=== PATIENT | female | born 1945 | race Caucasian/White ===

== ENCOUNTER 2020-01-03 14:54 | Outpatient (REF) | payer MEDICARE, SELFPAY ==
[2020-01-03 17:16] LABS: Albumin Level 4.6 g/dL (3.5-5.0); Estimated Glomerular Filt Rate > 60; Phosphorus 3.5 mg/dL (2.7-4.5)
[2020-01-03 17:31] LABS: Calcium 10.9 mg/dL (8.4-10.2)
[2020-01-03 17:35] LABS: Thyroid Stimulating Hormone 1.13 mIU/mL (0.32-4.0); Vitamin D 25-OH Total 24.8 ng/mL (>30)
[2020-01-04 12:17] LABS: Calcium, Ionized 5.6 mg/dL (4.8-5.6)
[2020-01-05 20:11] LABS: Calcium (PTHI) 11.1 mg/dL (8.6-10.4); PTHI 73 pg/mL (14-64)
== END 2020-01-03 14:55 | disposition home or self-care (01) ==
LOC: CF 14:54
PROVIDERS: PCP Internal Medicine; Referring Provider Internal Medicine; Visit Provider Internal Medicine
DX: E21.3 Hyperparathyroidism, unspecified (principal); E55.9 Vitamin D deficiency, unspecified; F31.9 Bipolar disorder, unspecified
CPT/HCPCS: 82040; 82306; 82310; 82330; 82565; 83970; 84100; 84443; 99203; 99204

== ENCOUNTER 2020-01-15 12:36 | Outpatient (REF) | payer MEDICARE, SELFPAY ==
[2020-01-15 13:35] LABS: Total Volume 24 Hour Urine 1925 mL
[2020-01-15 14:27] LABS: Creatinine, 24Hr Urine 0.9 G/Day (1.0-2.0); Creatinine, mg/dL 45.88
[2020-01-18 18:27] LABS: Calcium, 24 Hr Urine 162 mg/24 h; Calcium/Creatinine Ratio 185 mg/g creat (30-275); Creatinine 24Hr Urine 0.87 g/24 h (0.50-2.15)
== END 2020-01-15 12:37 | disposition home or self-care (01) ==
LOC: HO.LNP 12:36
PROVIDERS: Visit Provider Internal Medicine
DX: E21.3 Hyperparathyroidism, unspecified (principal)
CPT/HCPCS: 82340; 82570

== ENCOUNTER 2020-02-09 13:26 | Outpatient (REF) | payer MEDICARE, SELFPAY ==
--- NOTE | 2020-02-09 13:31 | MM_ITS ---
EXAMINATION: BONE DENSITOMETRY CLINICAL INDICATION: Hyperparathyroidism, unspecified. COMPARISON: This is the patient's baseline examination. TECHNIQUE: Using a Blue Box DXA System (software version: 13.1) manufactured by [employer], dual-energy x-ray absorptiometry was performed of the lumbar spine, left hip, and left forearm radius 33%. The images are of good technical quality. Summary results are attached. FINDINGS: AP SPINE L1-L4: BMD 1.226 g/cm2, Z-score 2.2, T-score 0.4, normal. LEFT FEMUR, NECK: BMD 0.787 g/cm2, Z-score 0.1, T-score -1.8, osteopenia. LEFT FEMUR, TOTAL: BMD 0.825 g/cm2, Z-score 0.3, T-score -1.4, osteopenia. LEFT FOREARM RADIUS 33%: BMD 0.458 g/cm2, Z-score -2.7, T-score -4.8, osteoporosis. IDENTIFIED RISK FACTORS: Osteoporosis, hyperparathyroidism, height loss, family history (parental hip fracture). Early menopause, secondary osteoporosis, hysterectomy. HISTORY OF FRACTURE: None listed. MEDICATIONS: Vitamin D, bisphosphonates. MM/XR DEXA appendicular skeleton IMPRESSION: 1. DIAGNOSIS: Osteoporosis based on the lowest T-score value of -4.8 in the forearm radius 33% applying World Health Organization criteria. 2. 10-YEAR FRACTURE RISK PREDICTION, FRAX: Major osteoporotic fracture (clinical spine, forearm, hip or shoulder) 18.9%. Hip fracture 7.7%. 3. Treatment Recommendations: NOF guidelines recommend consideration for treatment in postmenopausal women and men age 50 and older presenting with the following: -A hip or vertebral (clinical or morphometric) fracture. -T-score less than or equal to -2.5 at the femoral neck or spine after appropriate evaluation to exclude secondary causes. -Low bone mass at the hip or spine and a 10-year fracture probability by FRAX of greater than or equal to 3% for hip fracture or greater than or equal to 20% for major osteoporotic fracture based on the [place] adapted WHO algorithm. 4. Other Recommendations: All treatment decisions require clinical judgment and consideration of individual patient factors, including patient preferences, comorbidities, previous drug use, risk factors not captured in the FRAX model (e.g. frailty, falls, vitamin D deficiency, increased bone turnover, interval significant decline in bone density) and possible under or overestimation of fracture risk by FRAX. Additional medical evaluation for secondary cause of low bone mineral density may be appropriate. FUTURE SCAN RECOMMENDATION: People with diagnosed cases of osteoporosis or at high risk for fracture should have regular bone mineral density tests. For patients eligible for Medicare, routine testing is allowed once every 2 years. The testing frequency can be increased to one year for patients who have rapidly progressing disease, those who are receiving or discontinuing medical therapy to restore bone mass, or have additional risk factors.
== END 2020-02-09 13:27 | disposition home or self-care (01) ==
LOC: HO.MAMMO 13:26
PROVIDERS: PCP Internal Medicine; Visit Provider Internal Medicine
DX: E21.3 Hyperparathyroidism, unspecified (principal)
CPT/HCPCS: 77081

== ENCOUNTER 2020-02-19 08:37 | Outpatient (REF) | payer MEDICARE, SELFPAY ==
--- NOTE | 2020-02-19 08:39 | US_ITS ---
EXAMINATION: US ABDOMEN COMPLETE CLINICAL INFORMATION: Left lower quadrant pain. COMPARISON: Ultrasound abdomen 11/06/2019 and 12/20/2017. MRI abdomen 01/13/2013. TECHNIQUE: Real-time imaging of the abdominal viscera. FINDINGS: PANCREAS: The body and the head of pancreas is homogeneous in echotexture. The tail of the pancreas is obscured by overlying gas. ABDOMINAL AORTA: The proximal, mid and distal abdominal aorta is normal caliber. INFERIOR VENA CAVA: Visualized portions are normal. LIVER: The liver is normal in size. The liver contour is normal. There is a coarse echotexture with no focal lesions seen. There is no intrahepatic biliary duct dilatation seen. GALLBLADDER: Surgically absent. COMMON BILE DUCT: Normal in caliber measuring 0.6 cm in diameter. RIGHT KIDNEY: Normal. No hydronephrosis. No renal calculi or focal parenchymal lesions. The kidney measures 11.5 cm in maximum dimension. LEFT KIDNEY: Normal. No hydronephrosis. No renal calculi or focal parenchymal lesions. The kidney measures 10.3 cm in maximum dimension. SPLEEN: Normal. The spleen measures 11.5 cm in maximum dimension. FREE FLUID: None. US/US abdomen complete IMPRESSION: Coarse echogenic liver without any focal lesions. No major change compared to previous study 11/06/2019 Rest of the abdominal ultrasound is unremarkable.
--- NOTE | 2020-02-19 08:39 | US_ITS ---
EXAMINATION: US THYROID CLINICAL INFORMATION: Hyperparathyroidism, unspecified. COMPARISON: None. TECHNIQUE: Linear transducer alas-scale and color Doppler examination with attention to the region of the thyroid. FINDINGS: SIZE: Measurements of the thyroid lobes and nodules are given in sagittal, anteroposterior and transverse dimensions respectively. Right Thyroid Lobe: 3.4 x 1.2 x 1.3 cm, volume 2.8 mL. Parenchyma: The gland echotexture is homogeneous. Thyroid vascularity is normal. Left Thyroid Lobe: 3.6 x 1.8 x 1.2 cm, volume 4.1 mL. Parenchyma: The gland echotexture is homogeneous. Thyroid vascularity is normal. Isthmus: 0.2 cm in maximum AP dimension. RIGHT THYROID LOBE: There are 2 nodules seen. 1. Location: Inferior. Size: 0.2 x 0.2 x 0.2 cm. Nodule characteristics: Hypoechoic, smoothly marginated with echogenic microcalcifications and intranodular flow, likely colloid cyst. 2. Location: Middle. Size: 0.4 x 0.2 x 0.3 cm. Nodule characteristics: Hypoechoic, irregular-shaped margins with microcalcifications and no intranodular flow, likely colloid cyst. ISTHMUS: No nodules. LEFT THYROID LOBE: There are 2 nodules seen. 1. Location: Inferior. Size: 1.4 x 1.1 x 0.7 cm. Nodule characteristics: Hypoechoic, smoothly marginated with no intranodular microcalcifications and intranodular flow. 2. Location: Inferior. Size: 0.4 x 0.3 x 0.4 cm. Nodule characteristics: Hypoechoic, smoothly marginated with peripheral vascular flow, likely simple cyst. NODES: No lymphadenopathy is seen in the tissue surrounding the thyroid gland. US/US thyroid IMPRESSION: Right colloid and a simple cyst. Solid hypoechoic vascular lesion lower pole left thyroid lobe, suspicious. Recommend 6-month follow-up.
== END 2020-02-19 08:38 | disposition home or self-care (01) ==
LOC: HO.US 08:37
PROVIDERS: PCP Internal Medicine; Referring Provider Internal Medicine; Visit Provider Internal Medicine
DX: R10.32 Left lower quadrant pain (principal); E21.3 Hyperparathyroidism, unspecified; R77.2 Abnormality of alphafetoprotein
CPT/HCPCS: 76536; 76700

== ENCOUNTER → 2020-03-07 10:07 | Outpatient (BNVA) | payer MEDICARE, SELFPAY | PROVIDERS: PCP Internal Medicine; Referring Provider Internal Medicine; Visit Provider Internal Medicine | DX: E21.3 Hyperparathyroidism, unspecified (principal); E04.2 Nontoxic multinodular goiter; E55.9 Vitamin D deficiency, unspecified; Z87.891 Personal history of nicotine dependence | CPT/HCPCS: Q3014 ==

== ENCOUNTER 2020-05-02 08:49 | Outpatient (REF) | payer MEDICARE, SELFPAY ==
--- NOTE | 2020-05-02 09:17 | PM.OP ---
Brief Operative Note Date of Service: 05/02/20 Surgeon: Halina Arriaza, DO The Patient presented for US Biopsy of what was read as a LLP 1.4 cm thyroid nodule. On repeat thyroid US this was found to not represent a thyroid nodule, but instead a parathyroid adenoma. We reviewed her labs in detail which are consistent with primary hyperparathyroidism. Her Total Calcium is 11.1, with an albumin of 4.3 and PTH of 73. Vitamin D is 24.8. DEXA reveals severe Osteoporosis in the distal forearm with a T score of -4.8. We reviewed that this does meet indication for a surgical parathyroidectomy. I am referring her to Dr. Constanitno at this time. Estimated blood loss (mL): 0
== END 2020-05-02 08:50 | disposition home or self-care (01) ==
LOC: HO.US 08:49
PROVIDERS: Visit Provider Internal Medicine
DX: D35.1 Benign neoplasm of parathyroid gland (principal)
CPT/HCPCS: 76536

== ENCOUNTER → 2020-05-16 11:19 | Outpatient (BNVA) | payer MEDICARE, SELFPAY | PROVIDERS: Visit Provider Internal Medicine | DX: Z76.89 Persons encountering health services in other specified circumstances (principal) | CPT/HCPCS: Q3014 ==

== ENCOUNTER 2020-05-23 11:15 | Outpatient (REF) | payer MEDICARE, SELFPAY ==
[2020-05-23 12:51] LABS: Alanine Aminotransferase 12 U/L (0-31); Albumin Level 4.5 g/dL (3.5-5.0); Alkaline Phosphatase 68 U/L (39-117); Aspartate Amino Transferase 20 U/L (5-31); Bilirubin Total 0.6 mg/dL (0.0-1.0); Blood Urea Nitrogen 18 mg/dL (9-16); Estimated Glomerular Filt Rate > 60; Glucose Random 80 mg/dL (60-115); Total Protein 7.9 g/dL (6.5-8.0)
[2020-05-23 13:13] LABS: Free T4 (Free Thyroxine) 1.08 ng/dL (0.71-1.85); Thyroid Stimulating Hormone 1.33 uIU/mL (0.32-4.0)
[2020-05-23 13:47] LABS: Anion Gap 15 (12-20); Calcium 10.7 mg/dL (8.4-10.2); Carbon Dioxide 25 mmol/L (22-29); Chloride 103 mmol/L (96-108); Potassium 5.1 mmol/L (3.3-5.1); Sodium 138 mmol/L (135-145)
[2020-05-27 13:56] LABS: Calcium (PTHI) 10.8 mg/dL (8.6-10.4); PTHI 81 pg/mL (14-64)
== END 2020-05-23 11:16 | disposition home or self-care (01) ==
LOC: HO.LAB 11:15
PROVIDERS: PCP Psychiatry & Neurology Neurology; Visit Provider Internal Medicine
DX: E04.2 Nontoxic multinodular goiter (principal); E55.9 Vitamin D deficiency, unspecified
CPT/HCPCS: 36415; 80053; 82306; 83970; 84439; 84443

== ENCOUNTER → 2020-08-12 11:50 | Outpatient (BNVA) | payer MEDICARE, SELFPAY | PROVIDERS: PCP Internal Medicine; Visit Provider Internal Medicine | DX: Z13.89 Encounter for screening for other disorder (principal) | CPT/HCPCS: Q3014 ==

== ENCOUNTER 2020-08-28 15:00 | Outpatient (RCR) | payer MEDICARE, OTHER, SELFPAY ==
[2020-08-22 10:57] VITALS: BP 106/70
--- NOTE | 2020-08-22 12:50 | MHC.PT.EP ---
[facility] [place] Office [place] Office [place] Office [address] Kusum Crawford [address] [phone] F: [phone] F: [phone] F: [phone] F: [phone] Physical Therapy Plan of Care Date of Evaluation: Date of Surgery: Diagnosis: dizziness and giddiness Assessment: 75 y/o female referred to PT with dizziness and giddiness. She has had BPPV 4 years ago with successful treatment. About 8 months ago, she started having room-spinning dizziness again (she thinks it is due to significant work-up and tests for parathyroid which will be removed end of 08/2020). Describes vertigo as room-spinning dizziness that lasts a few minutes with associated nausea. Typically occurs when she rolls to her L side. Examination shows decreased cervical AROM, (-) VBI B, WNL oculomotor, static balance WFL with mild sway during eyes close on airex condition, and (+) for L PC and L horizontal canal BPPV. She was treated with Angella Roll x 2 for L posterior canal and with Casani maneuver for L horizontal canal. Pt with nausea during horizontal canal treatment. All treatments down slow and smoothly due to PMH of osteoporosis. Pt would benefit from PT 2-3x/week for 4 weeks to address impairments, implement HEP and optimize functional mobilty. Frequency and Duration: The patient will be seen 2-3x/week for 4 weeks Short Term Goals: 1. Eliminate BPPV in order to reduce risk of fall Interior Mechanic Goals: 1. Eliminate BPPV in order to reduce risk of fall 2. Pt will look up to rinse hair in shower without LOB or dizziness 3. Pt will be ableto roll over in bed without dizziness or difficulty Treatment Plan: Modalities to reduce pain, spasms and effusion. Manual therapy to restore motion and function. Therapeutic exercise to improve strength and flexibility. Neuromuscular re-education for posture and balance. Therapeutic activities to return to functional activities of daily living. Electronically signed by: Zoraida Cassidy PT Please sign and return to therapist. Thank you for your referral.
--- NOTE | 2020-10-04 13:13 | MHC.PT.DC ---
[facility] [place] Office [place] Office [place] Office [address] Kusum Crawford [address] [phone] F: [phone] F: [phone] F: [phone] F: [phone] Physical Therapy Discharge Report Diagnosis: dizziness and giddiness Date of Surgery: Date of Evaluation: 08/22/20 Date of Discharge: 10/04/20 Treatments to Date: 2 Cancellations to Date: 0 No Shows to Date: 0 Discharge Status: Achieved Goals Improved Function Discharge Summary: Pt was negative for nystagmus and symptoms in all diagnostic positions today. Educated pt on when to return to PT if recurrence of vertigo within 30 days. If within 30 days, she has not returned to PT will d/c the chart. She did not f/u with further visits. Electronically signed by: Zoraida Cassidy PT Please sign and return to therapist. Thank you for your referral.
== END 2020-10-04 13:14 | disposition home or self-care (01) ==
LOC: HO.PTCHIC 15:00
PROVIDERS: PCP Internal Medicine; Visit Provider Internal Medicine
DX: H81.12 Benign paroxysmal vertigo, left ear (principal)
CPT/HCPCS: 95992; 97162

== ENCOUNTER → 2020-12-30 11:50 | Outpatient (BNVA) | payer MEDICARE, OTHER, SELFPAY | PROVIDERS: PCP Internal Medicine; Visit Provider Internal Medicine | DX: Z13.89 Encounter for screening for other disorder (principal) | CPT/HCPCS: Q3014 ==

== ENCOUNTER 2021-01-02 11:16 | Outpatient (REF) | payer MEDICARE, OTHER, SELFPAY ==
--- NOTE | ~2021-01-02 | US_ITS ---
EXAMINATION: US THYROID CLINICAL INFORMATION: Nontoxic multinodular goiter. COMPARISON: Ultrasound soft tissue head/neck thyroid dated 02/19/2020. TECHNIQUE: Linear transducer grayscale and color Doppler examination with attention to the region of the thyroid. FINDINGS: SIZE: Measurements of the thyroid lobes and nodules are given in sagittal, anteroposterior and transverse dimensions respectively. Right Thyroid Lobe: 3.2 x 1.6 x 1.1 cm, volume 2.9 mL. Previously 3.4 x 1.2 x 1.3 cm, volume 2.8 mL. Parenchyma: The gland echotexture is homogeneous. Thyroid vascularity is increased. Left Thyroid Lobe: 3.3 x 1.4 x 0.9 cm, volume 2.2 mL. Previously 3.6 x 1.8 x 1.2 cm, volume 4.1 mL. Parenchyma: The gland echotexture is homogeneous. Thyroid vascularity is increased. Isthmus: 0.3 cm in maximum AP dimension. Previously 0.2 cm. Estimated total number of nodules greater than or equal to 1 cm: 0. Migratory Worker nodules are described as follows: 1. Location: Right isthmus. Size: 0.2 x 0.1 x 0.2 cm, volume 0.003 mL. Previously: 0.2 x 0.2 x 0.2 cm, volume 0.004 mL. Nodule characteristics: Composition: Cystic(0). ACR TI-RADS total points: 0 Previous: n/a ACR TI-RADS category: 1 Previous: n/a Significant change in size (>/= 20% in 2 dimensions and minimal increase of 2 mm or 50% or greater increase in volume): Change in features: Change in ACR TI-RADS risk category: n/a 2. Location: Right inferior isthmus. Size: 0.4 x 0.2 x 0.3 cm, volume 0.01 mL. Previously: 0.4 x 0.2 x 0.3 cm, volume 0.01 mL. Nodule characteristics: Composition: Cystic(0). ACR TI-RADS total points: 0 Previous: n/a ACR TI-RADS category: 1 Previous: n/a Significant change in size (>/= 20% in 2 dimensions and minimal increase of 2 mm or 50% or greater increase in volume): Change in features: Change in ACR TI-RADS risk category: n/a NODES: There is a right level 2 cervical lymph node. This measures 3.1 x 0.5 x 1.1 cm. This demonstrates normal ultrasound morphology and flow. This was not appreciated on January 2020 exam. US/US thyroid IMPRESSION: Small hypervascular thyroid gland. Stable small right isthmus nodules. ACR TI-RADS RECOMMENDATION REFERENCE: Ultrasound-guided fine-needle aspiration, followup ultrasound, no further follow up. * TR1 (0 point) and TR 2 (2 points): No FNA or follow up * TR3 (3 points): FNA if more than or equal to 2.5 cm in maximum dimension, followup ultrasound in 1, 3 and 5 years if 1.5 to 2.4 cm in maximum dimension. * TR4 (4-6 points): FNA if more than or equal to 1.5 cm in maximum dimension, followup ultrasound in 1, 2, 3 and 5 years if 1 to 1.4 cm in maximum dimension. * TR5 (more than or equal to 7 points): FNA if more than or equal to 1 cm in maximum dimension, followup ultrasound every year for 5 years if 0.5 to 0.9 cm in maximum dimension. * TR3, TR4 or TR5 nodules that are below the size threshold for follow up receive no follow up.
[2021-01-02 14:08] LABS: Alanine Aminotransferase 10 U/L (0-31); Albumin Level 4.3 g/dL (3.5-5.0); Alkaline Phosphatase 58 U/L (39-117); Anion Gap 13 (12-20); Aspartate Amino Transferase 18 U/L (5-31); Bilirubin Total 0.6 mg/dL (0.0-1.0); Blood Urea Nitrogen 18 mg/dL (9-16); Calcium 9.8 mg/dL (8.4-10.2); Carbon Dioxide 27 mmol/L (22-29); Chloride 103 mmol/L (96-108); Estimated Glomerular Filt Rate > 60; Glucose Random 91 mg/dL (60-115); Phosphorus 3.6 mg/dL (2.7-4.5); Potassium 4.8 mmol/L (3.3-5.1); Sodium 138 mmol/L (135-145); Total Protein 7.6 g/dL (6.5-8.0)
[2021-01-02 14:33] LABS: Free T4 (Free Thyroxine) 1.03 ng/dL (0.71-1.85); Thyroid Stimulating Hormone 1.95 uIU/mL (0.32-4.0); Vitamin D 25-OH Total 48.8 ng/mL (>30)
[2021-01-03 11:22] LABS: Calcium (PTHI) 9.9 mg/dL (8.6-10.4); PTHI 72 pg/mL (14-64)
== END 2021-01-02 11:17 | disposition home or self-care (01) ==
LOC: HO.HMGCX 11:16
PROVIDERS: PCP Internal Medicine; Visit Provider Internal Medicine
DX: E04.2 Nontoxic multinodular goiter (principal); E55.9 Vitamin D deficiency, unspecified; M81.0 Age-related osteoporosis without current pathological fracture
CPT/HCPCS: 36415; 76536; 80053; 82306; 83970; 84100; 84439; 84443

== ENCOUNTER 2021-01-13 13:33 | Outpatient (REF) | payer MEDICARE, OTHER, SELFPAY ==
[2021-01-13 14:34] LABS: Alanine Aminotransferase 10 U/L (0-31); Albumin Level 4.4 g/dL (3.5-5.0); Alkaline Phosphatase 56 U/L (39-117); Anion Gap 13 (12-20); Aspartate Amino Transferase 19 U/L (5-31); Bilirubin Total 0.6 mg/dL (0.0-1.0); Blood Urea Nitrogen 15 mg/dL (9-16); Calcium 9.8 mg/dL (8.4-10.2); Carbon Dioxide 26 mmol/L (22-29); Chloride 105 mmol/L (96-108); Estimated Glomerular Filt Rate > 60; Glucose Random 97 mg/dL (60-115); Phosphorus 3.4 mg/dL (2.7-4.5); Potassium 5.3 mmol/L (3.3-5.1); Sodium 139 mmol/L (135-145); Total Protein 7.7 g/dL (6.5-8.0)
[2021-01-14 16:05] LABS: Calcium (PTHI) 9.7 mg/dL (8.6-10.4); PTHI 108 pg/mL (14-64)
== END 2021-01-13 13:34 | disposition home or self-care (01) ==
LOC: HO.LAB 13:33
PROVIDERS: PCP Internal Medicine; Visit Provider Internal Medicine
DX: E21.3 Hyperparathyroidism, unspecified (principal)
CPT/HCPCS: 36415; 80053; 83970; 84100

== ENCOUNTER 2021-01-15 11:31 | Outpatient (REF) | payer MEDICARE, OTHER, SELFPAY ==
[2021-01-15 13:17] LABS: Anion Gap 12 (12-20); Blood Urea Nitrogen 13 mg/dL (9-16); Calcium 10.1 mg/dL (8.4-10.2); Carbon Dioxide 28 mmol/L (22-29); Chloride 103 mmol/L (96-108); Estimated Glomerular Filt Rate > 60; Glucose Random 92 mg/dL (60-115); Sodium 138 mmol/L (135-145)
[2021-01-15 13:33] LABS: Creatinine, mg/dL 53.18
[2021-01-15 13:39] LABS: Vitamin D 25-OH Total 55.6 ng/mL (>30)
[2021-01-15 15:29] LABS: Creatinine, 24Hr Urine 0.8 G/Day (1.0-2.0); Total Volume 24 Hour Urine 1425 mL
[2021-01-16 18:02] LABS: Calcium, 24 Hr Urine 48 mg/24 h; Calcium/Creatinine Ratio 67 mg/g creat (30-275); Creatinine 24Hr Urine 0.73 g/24 h (0.50-2.15)
== END 2021-01-15 11:32 | disposition home or self-care (01) ==
LOC: HO.LAB 11:31
PROVIDERS: PCP Internal Medicine; Visit Provider Internal Medicine
DX: M81.0 Age-related osteoporosis without current pathological fracture (principal); E55.9 Vitamin D deficiency, unspecified; E21.3 Hyperparathyroidism, unspecified
CPT/HCPCS: 36415; 80048; 82306; 82340; 82570

== ENCOUNTER 2021-01-16 07:02 | Outpatient (REF) | payer MEDICARE, OTHER, SELFPAY ==
[2021-01-16 07:40] LABS: Estimated Glomerular Filt Rate > 60
[2021-01-16 08:56] LABS: Cortisol Random 10.4 ug/dL
[2021-01-22 17:02] LABS: Adrenocorticotropic Hormone 17 pg/mL (6-50)
== END 2021-01-16 07:03 | disposition home or self-care (01) ==
LOC: HO.LAB 07:02
PROVIDERS: PCP Internal Medicine; Visit Provider Internal Medicine
DX: E21.3 Hyperparathyroidism, unspecified (principal); E87.5 Hyperkalemia
CPT/HCPCS: 36415; 82024; 82533; 82565

== ENCOUNTER 2021-01-27 07:37 | Outpatient (REF) | payer MEDICARE, OTHER, SELFPAY ==
[2021-01-28 16:42] LABS: Adrenocorticotropic Hormone 24 pg/mL (6-50)
[2021-01-28 20:27] LABS: Cortisol 30 Minute 31.7 mcg/dL; Cortisol 60 Minute 36.3 mcg/dL; Cortisol Baseline 19.3 mcg/dL
== END 2021-01-27 07:38 | disposition home or self-care (01) ==
LOC: HO.MDS 07:37
PROVIDERS: PCP Internal Medicine; Visit Provider Internal Medicine
DX: E27.1 Primary adrenocortical insufficiency (principal)
CPT/HCPCS: 36415; 82024; 82533; 96374; J0834

== ENCOUNTER 2021-01-31 11:02 | Outpatient (REF) | payer MEDICARE, OTHER, SELFPAY ==
--- NOTE | ~2021-01-31 | MM_ITS ---
EXAMINATION: MM SCREENING DIGITAL BREAST TOMOSYNTHESIS, BILATERAL CLINICAL INFORMATION: Screening. Asymptomatic. The lifetime risk of breast cancer based on the Tyrer-Cuzick Model is 6%. COMPARISON: Mammography: 12/14/2019, outside mammography 12/22/2018 ([facility]) TECHNIQUE: Digital breast tomosynthesis is performed in both the craniocaudal and mediolateral oblique views along with computer-aided detection (CAD). Synthesized 2D images are generated from the tomosynthesis. FINDINGS: There are scattered areas of fibroglandular density (ACR BI-RADS breast composition Category b). There is denser breast tissue composition in the bilateral anterior breasts similar to prior studies. There is no significant change in the parenchymal pattern. No developing density or interval mass or architectural abnormality. No abnormal calcifications. The axilla and skin contours are unremarkable. MM/MM tomosynthesis screening BI IMPRESSION: No mammographic evidence of malignancy. ASSESSMENT: BI-RADS 1: Negative RECOMMENDATION: Routine annual mammography screening. This patient's information was entered into a reminder system with a target due date for their next mammogram.
== END 2021-01-31 11:03 | disposition home or self-care (01) ==
LOC: HO.MAMMO 11:02
PROVIDERS: Visit Provider Internal Medicine
DX: Z12.31 Encounter for screening mammogram for malignant neoplasm of breast (principal)
CPT/HCPCS: 77063; 77067

== ENCOUNTER → 2021-02-24 09:20 | Outpatient (BNVA) | payer MEDICARE, OTHER, SELFPAY | PROVIDERS: PCP Internal Medicine; Visit Provider Internal Medicine | CPT/HCPCS: Q3014 ==

== ENCOUNTER 2021-04-25 15:22 | Outpatient (REF) | payer MEDICARE, OTHER, SELFPAY ==
[2021-04-25 15:50] LABS: MANUAL DIFF FLAG NO
[2021-04-25 15:57] LABS: Basophils Percent Auto 0.4 % (0-2); Eosinophils Absolute Auto 0.3 X10*3/uL (0.0-0.4); Eosinophils Percent Auto 3.2 % (0-4); Hematocrit 41.6 % (37.0-47.0); Imm Gran Abs Auto 0.02 X10*3/uL (0.00-0.03); Imm Gran Pct Auto 0.2 % (0.0-0.4); Lymphocytes Absolute Auto 1.8 X10*3/uL (1.2-4.9); Lymphocytes Percent Auto 21.5 % (20-40); Mean Corpuscular HGB Conc 33.7 g/dl (31.0-35.0); Mean Platelet Volume 10.5 fL (9.4-12.3); Monocytes Absolute Auto 0.6 X10*3/uL (0.1-1.2); Monocytes Percent Auto 6.9 % (2-11); Neutrophils Absolute Auto 5.8 x10*3/uL (2.0-8.3); Neutrophils Percent Auto 67.8 % (45-73); Platelet Count 184 X10*3/uL (160-400); Red Blood Count 4.38 X10*6/uL (4.20-5.50); Red Cell Distribution Width 11.9 % (11.0-16.0); White Blood Count 8.5 X10*3/uL (4.8-10.8)
[2021-04-25 16:02] LABS: Prothrombin Time 11.4 SEC (9.9-13.0)
[2021-04-25 16:36] LABS: Alanine Aminotransferase 8 U/L (0-31); Albumin Level 4.4 g/dL (3.5-5.0); Alkaline Phosphatase 62 U/L (39-117); Aspartate Amino Transferase 18 U/L (5-31); Bilirubin Direct 0.2 mg/dL (0.0-0.5); Bilirubin Total 0.5 mg/dL (0.0-1.0); Total Protein 8.1 g/dL (6.5-8.0)
[2021-04-28 13:02] LABS: Alpha Fetoprotein 7.8 ng/mL
[2021-05-01 07:57] LABS: HCV Log PCR <1.18 log IU/mL; HepC Viral Load <15 IU/mL
== END 2021-04-25 15:23 | disposition home or self-care (01) ==
LOC: HO.LAB 15:22
PROVIDERS: Absent Provider Internal Medicine; PCP Internal Medicine; Visit Provider Internal Medicine
DX: K74.00 Hepatic fibrosis, unspecified (principal); Z86.19 Personal history of other infectious and parasitic diseases
CPT/HCPCS: 36415; 80076; 82105; 85025; 85610; 87522

== ENCOUNTER 2021-06-02 08:07 | Outpatient (REF) | payer MEDICARE, OTHER, SELFPAY ==
--- NOTE | ~2021-06-02 | US_ITS ---
EXAMINATION: US COMPLETE ABDOMEN WITH LIVER ELASTOGRAPHY CLINICAL INFORMATION: Hepatitis C COMPARISON: None. TECHNIQUE: Real-time imaging of the abdominal viscera. Noninvasive ultrasound liver fibrosis assessment is performed using Bela ElastPQ point quantification shear wave elastography (2D-SWE) with a C5-2 MHz transducer. Multiple elastography samples are obtained. FINDINGS: PANCREAS: Normal. ABDOMINAL AORTA: The proximal, middle, and distal aortic segments are normal in caliber. INFERIOR VENA CAVA: Visualized portions are normal. LIVER: Liver echotexture is slightly increased. The liver echotexture is heterogeneous suggestive of hepatocellular disease. The contour of the liver is smooth. No focal liver lesion or biliary duct dilatation. The liver is normal in size. The right lobe measures 15 cm in length. The left lobe measures 10 cm in length. Portal flow is normal/hepatopedal Shear wave liver elastography median stiffness is 1 m/s (reference: normal median stiffness is 1.3 m/s or less). IQR/median stiffness to assess sampling precision is 2.2 (reference: good quality data set is IQR/median stiffness of 0.15 or less). GALLBLADDER: Surgically removed COMMON BILE DUCT: Normal in caliber measuring 0.5 cm in diameter. RIGHT KIDNEY: Normal. No hydronephrosis. No renal calculi or focal parenchymal lesions. The kidney measures 8.2 cm in maximum dimension. LEFT KIDNEY: Normal. No hydronephrosis. No renal calculi or focal parenchymal lesions. The kidney measures 9.6 cm in maximum dimension. SPLEEN: Normal. The spleen measures 11.7 cm in maximum dimension. FREE FLUID: None. US/US abdomen comp w elastography IMPRESSION: 1. Impression: Echogenic heterogeneous liver suggestive of hepatocellular disease. 2. Liver elastography: Limited due to sampling error. Nondiagnostic exam. REFERENCE: Society of Radiologists in Ultrasound Liver Stiffness Thresholds (2020): LIVER STIFFNESS THRESHOLDS: *Liver Stiffness equal or less than 1.3 m/s: High probability of being normal. *Liver Stiffness less than 1.7 m/s: In the absence of other known clinical signs, rules out compensated advanced chronic liver disease. *Liver Stiffness 1.7-2.1 m/s: Suggestive of compensated advanced chronic liver disease but need further test for confirmation. *Liver Stiffness over 2.1 m/s: Rules in compensated advanced chronic liver disease. *Liver Stiffness over 2.4 m/s: Suggestive of clinically significant portal hypertension. QUALITY OF DATA SET: *IQR/Median value equal or less than 0.15 implies a quality data set. *IQR/Median value over 0.15 implies a poor quality data set. SIGNIFICANT CHANGE FROM PRIOR EXAM: Significant change if liver stiffness measurement is 10% or greater from prior exam. OTHER CONSIDERATIONS: The stage of liver fibrosis may be overestimated in the setting of acute hepatitis, liver inflammation, elevated liver function tests, hepatic vascular congestion, obstructive cholestasis, non-fasting state, and infiltrative diseases such as amyloidosis and lymphoma. In some patients with NAFLD, the liver stiffness thresholds for compensated advanced chronic liver disease may be lower. In causes other than viral hepatitis and NAFLD, liver stiffness thresholds are not well established.
== END 2021-06-02 08:08 | disposition home or self-care (01) ==
LOC: HO.US 08:07
PROVIDERS: PCP Internal Medicine; Visit Provider Internal Medicine
DX: K74.00 Hepatic fibrosis, unspecified (principal); Z86.19 Personal history of other infectious and parasitic diseases
CPT/HCPCS: 76705; 76981

== ENCOUNTER 2021-06-09 08:36 | Outpatient (REF) | payer MEDICARE, OTHER, SELFPAY ==
[2021-06-09 09:45] LABS: Anion Gap 11 (12-20); Carbon Dioxide 28 mmol/L (22-29); Chloride 104 mmol/L (96-108); Potassium 5.3 mmol/L (3.3-5.1); Sodium 138 mmol/L (135-145)
[2021-06-09 09:46] LABS: Alanine Aminotransferase 10 U/L (0-31); Albumin Level 4.4 g/dL (3.5-5.0); Alkaline Phosphatase 57 U/L (39-117); Aspartate Amino Transferase 20 U/L (5-31); Bilirubin Total 0.7 mg/dL (0.0-1.0); Blood Urea Nitrogen 15 mg/dL (9-16); Calcium 10.1 mg/dL (8.4-10.2); Estimated Glomerular Filt Rate > 60; Glucose Random 94 mg/dL (60-115); Phosphorus 3.4 mg/dL (2.7-4.5); Total Protein 7.9 g/dL (6.5-8.0)
[2021-06-09 10:08] LABS: Thyroid Stimulating Hormone 1.59 uIU/mL (0.32-4.0); Vitamin D 25-OH Total 47.7 ng/mL (>30)
[2021-06-10 14:31] LABS: Calcium (PTHI) 9.9 mg/dL (8.6-10.4); PTHI 93 pg/mL (16-77)
== END 2021-06-09 08:37 | disposition home or self-care (01) ==
LOC: HO.LAB 08:36
PROVIDERS: PCP Internal Medicine; Visit Provider Internal Medicine
DX: E21.3 Hyperparathyroidism, unspecified (principal); E87.5 Hyperkalemia; E55.9 Vitamin D deficiency, unspecified; E04.2 Nontoxic multinodular goiter
CPT/HCPCS: 36415; 80053; 82306; 83970; 84100; 84439; 84443

== ENCOUNTER 2021-06-11 08:18 | Outpatient (REF) | payer MEDICARE, OTHER, SELFPAY ==
[2021-06-11 10:23] LABS: Anion Gap 15 (12-20); Blood Urea Nitrogen 16 mg/dL (9-16); Calcium 10.7 mg/dL (8.4-10.2); Carbon Dioxide 23 mmol/L (22-29); Chloride 104 mmol/L (96-108); Estimated Glomerular Filt Rate > 60; Glucose Random 90 mg/dL (60-115); Phosphorus 3.8 mg/dL (2.7-4.5); Sodium 137 mmol/L (135-145)
[2021-06-11 10:29] LABS: Vitamin D 25-OH Total 41.3 ng/mL (>30)
[2021-06-12 12:51] LABS: Calcium (PTHI) 10.2 mg/dL (8.6-10.4); PTHI 64 pg/mL (16-77)
== END 2021-06-11 08:19 | disposition home or self-care (01) ==
LOC: HO.LAB 08:18
PROVIDERS: PCP Internal Medicine; Visit Provider Internal Medicine
DX: E21.3 Hyperparathyroidism, unspecified (principal); Z79.899 Other long term (current) drug therapy; E04.2 Nontoxic multinodular goiter; E55.9 Vitamin D deficiency, unspecified; M81.0 Age-related osteoporosis without current pathological fracture; E87.5 Hyperkalemia
CPT/HCPCS: 36415; 80048; 82306; 83970; 84100; Q3014

== ENCOUNTER 2021-06-13 12:11 | Day surgery (SDC) | payer MEDICARE, OTHER, SELFPAY ==
--- NOTE | 2021-06-11 14:55 | P.CONAN_ITS ---
Documented by User: Courtney Swain NP 06/11/21 14:56 HPI - Anesthesia Eval Consult details Narrative: 76yo F for Colonoscopy PMFSH Active Problems Active Problems: All Active Problems (Updated 06/11/21 @ 08:38 by Halina Arriaza DO) Hyperkalemia (Acute) Shortness of breath (Acute) Chronic GERD (Acute) Environmental allergies (Acute) Tinea corporis (Acute) Fear of travel with panic attacks (Acute) High potassium (Acute) Osteoporosis (Acute) Multinodular thyroid (Acute) Left lower quadrant pain (Acute) Elevated alpha fetoprotein (Acute) Anxiety, generalized (Acute) Vertigo (Acute) Vitamin D deficiency (Acute) Hyperparathyroidism (Acute) Past Medical History Medical History (Updated 06/13/21 @ 13:06 by Sharee Mcdowell, SIENA) Anxiety, generalized Depression Elevated alpha fetoprotein GERD (gastroesophageal reflux disease) Hepatitis C High potassium HTN (hypertension) Hyperkalemia Hyperparathyroidism Irritable bowel syndrome Left lower quadrant pain Liver fibrosis Multinodular thyroid Osteoporosis PFO (patent foramen ovale) TIA (transient ischemic attack) Vertigo Vitamin D deficiency Family History Family History Maternal Grandmother T2DM (type 2 diabetes mellitus) Father Colon cancer Cancer Multiple myeloma Mother Brain disorder Thyroid disease Sister Thyroid nodule Hyperparathyroidism Hyperthyroidism Maternal Grandfather Heart disease Other Mental health disorder Substance use disorder Surgical History Surgical History History of lumpectomy of right breast Hx of cholecystectomy Hx of colonoscopy Hx of hysterectomy Hx of parathyroidectomy Social History Social History Household Members: None Housing: Other (mobile home) Alcohol intake: current Alcohol intake frequency: holidays/special occasions only Patient Tobacco Use Status: Never used Tobacco Tobacco use type: Cigarette Use of substances other than those prescribed or required for medical reasons: No Are you DNR?: No Advance Directives: No Advance Directives Information Provided: Yes Current occupational status: retired Meds Allergies Allergy/AdvReac Type Severity Reaction Status Date / Time meclizine AdvReac High doses Verified 06/11/21 08:26 Home Medications Medication Instructions Recorded Confirmed Last Taken Type cholecalciferol (vitamin D3) 25 25 mcg PO DAILY 01/03/20 06/11/21 Unknown History mcg (1,000 unit) capsule omeprazole 20 mg capsule,delayed 20 mg PO DAILY 01/03/20 06/11/21 Unknown History release fluticasone propionate [Flonase INTRANASAL 08/16/20 06/11/21 Unknown History Allergy Relief] Exam Exam Date and Time: June 11, 2021 1455 Pertinent Lab Results Pertinent Lab Results: Laboratory Tests 04/25/21 06/11/21 15:45 09:21 WBC 8.5 Hgb 14.0 Hct 41.6 Plt Count 184 Sodium 137 Potassium 5.0 Chloride 104 Carbon Dioxide 23 BUN 16 Creatinine 0.82 Narrative Narrative: EKG 07/2020 NSR @ 79 Assessment and Plan Assessment Anesthesia Assessment: Chart Reviewed Documented by User: Liv Wilhelm MD 06/13/21 14:28 [facility] Past Medical History Medical History (Updated 06/13/21 @ 13:06 by Sharee Mcdowell, SIENA) Anxiety, generalized Depression Elevated alpha fetoprotein GERD (gastroesophageal reflux disease) Hepatitis C High potassium HTN (hypertension) Hyperkalemia Hyperparathyroidism Irritable bowel syndrome Left lower quadrant pain Liver fibrosis Multinodular thyroid Osteoporosis PFO (patent foramen ovale) TIA (transient ischemic attack) Vertigo Vitamin D deficiency Family History Family History Maternal Grandmother T2DM (type 2 diabetes mellitus) Father Colon cancer Cancer Multiple myeloma Mother Brain disorder Thyroid disease Sister Thyroid nodule Hyperparathyroidism Hyperthyroidism Maternal Grandfather Heart disease Other Mental health disorder Substance use disorder Family history of problems with anesthesia: No Surgical History Surgical History History of lumpectomy of right breast Hx of cholecystectomy Hx of colonoscopy Hx of hysterectomy Hx of parathyroidectomy History of Problems with Anesthesia: No Social History Social History (Reviewed 06/11/21 @ 08:45 by PAU Ortiz Household Members: None Housing: Other (mobile home) Alcohol intake: current Alcohol intake frequency: holidays/special occasions only Patient Tobacco Use Status: Never used Tobacco Tobacco use type: Cigarette Use of substances other than those prescribed or required for medical reasons: No Are you DNR?: No Advance Directives: No Advance Directives Information Provided: Yes Current occupational status: retired Meds Allergies Allergy/AdvReac Type Severity Reaction Status Date / Time meclizine AdvReac High doses Verified 06/11/21 08:26 Home Medications Medication Instructions Recorded Confirmed Last Taken Type cholecalciferol (vitamin D3) 25 25 mcg PO DAILY 01/03/20 06/11/21 Unknown History mcg (1,000 unit) capsule omeprazole 20 mg capsule,delayed 20 mg PO DAILY 01/03/20 06/11/21 Unknown History release fluticasone propionate [Flonase INTRANASAL 08/16/20 06/11/21 Unknown History Allergy Relief] Exam Airway Mallampati Class: II TM Dist: >3cm Neck ROM: Full Denture: Upper and Lower Heart: rrr Lungs: cta Assessment and Plan Assessment Anesthesia Assessment: Anesthesia Plan Discussed Final Anesthetic Review Family History of Problems with Anesthesia: No History of Problems with Anesthesia: No NPO: Yes ASA Class: II Final Preanesthetic Review: No Changes in Pt Med Stat, Meds/Allgs Chart Reviewed and Consent Obtained/Reviewed Patient Risk: Intermediate Procedure Risk: Intermediate Anesthetic Plan Anesthetic Plan: MAC: Disposition: Standard PACU
[2021-06-13 13:01] VITALS: BMI 27.4
[2021-06-13 13:12] VITALS: BP 143/64; PULSE 69; RESP 16; TEMP 36.2; O2SAT 97
[2021-06-13] MEDS: Lactated Ringers 1,000 ML 100 ML IVCONT (13:31)
[2021-06-13 15:20] VITALS: BP 103/53; PULSE 72; RESP 16; TEMP 36.2; O2SAT 96
--- NOTE | 2021-06-13 15:25 | P.BOP_ITS ---
Brief Operative Note Date of Service: 06/13/21 Pre-op diagnosis: Screening Post-op diagnosis: other (Colon polyp) Procedure: Colonoscopy to the cecum with bx/removal of polyp Surgeon: Andrei Ferro Anesthesia: MAC Was an Wildlife [employer] Game Prote[employer] used for this Procedure?: No Estimated blood loss (mL): 2.0 Pathology: other (A. Transverse colon polyp) Condition: stable Disposition: PACU
[2021-06-13 15:35] VITALS: BP 129/61; PULSE 70; RESP 16; TEMP 36.2; O2SAT 99
--- NOTE | 2021-06-13 16:09 | OP_ITS ---
SURGEON: Andrei Ferro MD INDICATIONS: The patient presents for evaluation of colorectal cancer screening, family history of colon cancer, and personal history of tubular adenoma of the colon. Full consent was obtained from her for this, including risks of bleeding and perforation. PREOPERATIVE DIAGNOSIS: POSTOPERATIVE DIAGNOSIS: PROCEDURE PERFORMED: Colonoscopy to cecum with biopsy and removal of polyp. ESTIMATED BLOOD LOSS: COMPLICATIONS: ANESTHESIA: Monitored anesthesia care. ASSISTANTS: SPECIMENS: PREOPERATIVE DIAGNOSES: Colorectal cancer screening, personal history of tubular adenoma of the colon, family history of colon cancer. POSTOPERATIVE DIAGNOSES: Colorectal cancer screening, personal history of tubular adenoma of the colon, family history of colon cancer, small colon polyp, diverticulosis and internal hemorrhoids. DESCRIPTION OF PROCEDURE: The patient was placed in the left lateral decubitus position. The digital rectal exam revealed no abnormalities. The Olympus video pediatric colonoscope was entered into the rectum and advanced to the cecum with the assistance of abdominal wall pressure. Once in the cecum I did identify normal-appearing cecal pouch with appendiceal orifice and a normal-appearing ileocecal valve. The entire cecum was well visualized and appeared normal. There was transillumination of light deep in the right lower quadrant. The scope was then slowly withdrawn assessing all mucosal surfaces carefully. Preparation was excellent. In the transverse colon was a flat approximately 3 or 4 mm polyp, which was biopsied and completely removed with cold biopsy forceps. I did not visualize any other polyps, colitis, nor angiodysplasia. There was a mild amount of sigmoid diverticulosis. In the rectum, scope was retroflexed visualizing small internal hemorrhoids, but no other pathology. The rectal mucosa appeared normal. The scope was straightened and withdrawn from the patient. She tolerated the procedure well and was returned to the recovery area in stable condition. IMPRESSION: 1. Small colon polyp, status post biopsy removal. 2. Diverticulosis. 3. Internal hemorrhoids. PLAN: The results of biopsy will be checked. Given this minimal finding, her previous colonoscopy results, and her age, I do not think she will need any further screening colonoscopies. She will see me in 1 year for followup in regard to the previous history of hepatitis C. MD NIKI Chacon/FAMILIA / [phone]
== END 2021-06-13 16:09 | disposition home or self-care (01) ==
PROVIDERS: PCP Internal Medicine; Visit Provider Internal Medicine
PROC: 0DJD8ZZ Inspection of Lower Intestinal Tract, Via Natural or Artificial Opening Endoscopic (ICD-10-PCS; CPT 45378; principal; 2021-06-13 13:40)
DX: Z12.11 Encounter for screening for malignant neoplasm of colon (principal); Z86.010 Personal history of colon polyps; Z80.0 Family history of malignant neoplasm of digestive organs; D12.3 Benign neoplasm of transverse colon; K57.30 Diverticulosis of large intestine without perforation or abscess without bleeding; K64.8 Other hemorrhoids; K58.0 Irritable bowel syndrome with diarrhea; K21.9 Gastro-esophageal reflux disease without esophagitis; K74.00 Hepatic fibrosis, unspecified; B18.2 Chronic viral hepatitis C; I10 Essential (primary) hypertension; E89.2 Postprocedural hypoparathyroidism; Z79.899 Other long term (current) drug therapy
CPT/HCPCS: 45380; 88305

== ENCOUNTER 2021-12-04 14:21 | Outpatient (REF) | payer MEDICARE, OTHER, SELFPAY ==
--- NOTE | ~2021-12-04 | US_ITS ---
EXAMINATION: US THYROID CLINICAL INFORMATION: Nontoxic multinodular goiter. COMPARISON: Ultrasound thyroid 01/02/2021. TECHNIQUE: Linear transducer grayscale and color Doppler examination with attention to the region of the thyroid. FINDINGS: SIZE: Measurements of the thyroid lobes and nodules are given in sagittal, anteroposterior and transverse dimensions respectively. Right Thyroid Lobe: 2.6 x 1.1 x 1.2 cm, volume 1.8 mL. Previously 3.2 x 1.6 x 1.1 cm, volume 2.9 mL. Parenchyma: The gland echotexture is homogeneous. Thyroid vascularity is normal. Left Thyroid Lobe: 3.0 x 1.4 x 0.8 cm, volume 1.8 mL. Previously 3.3 x 1.4 x 0.9 cm, volume 2.2 mL. Parenchyma: The gland echotexture is homogeneous. Thyroid vascularity is normal. Isthmus: 0.3 cm in maximum AP dimension. Previously 0.3 cm. Estimated total number of nodules greater than or equal to 1 cm: 0. 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 Location: Right mid. Size: 0.31 x 0.14 x 0.34 cm, volume 0.007 mL. Previously: 0.39 x 0.17 x 0.35 cm, volume 0.01 mL. Nodule characteristics: Composition: Spongiform (0). Echogenicity: Anechoic (0). Shape: Not taller than wide (0). Margins: Smooth (0). Echogenic Foci: None (0). ACR TI-RADS total points: 0 Previous: 0 ACR TI-RADS category: 1 Previous: 1 Significant change in size (>/= 20% in 2 dimensions and minimal increase of 2 mm or 50% or greater increase in volume): No Change in features: No Change in ACR TI-RADS risk category: No NODES: Decreased size of a right cervical level 2 lymph node now measuring 1.9 x 0.5 x 1 cm, previously 3.1 x 0.5 x 1.1 cm. This nodule demonstrates smooth contour and preserved fatty lion, likely reactive. There are 2 prominent left-sided cervical level 2 lymph nodes, both fairly hypoechoic and with no discrete fatty lion measuring 1 x 0.7 x 0.5 cm and 0.9 x 0.3 x 0.8 cm. US/US thyroid IMPRESSION: Normal size, echotexture and vascularity of the thyroid gland. Redemonstration of a subcentimeter right mid lung nodule, for which no imaging follow-up is recommended according to the ACR recommendations below. Decreased size of a right cervical level 2 lymph node, likely reactive, reassuring. New prominent left-sided level 2 cervical lymph nodes, which are somewhat hypoechoic without a distinct fatty hilum. Given atypical features, a short-term follow-up targeted ultrasound in 3-6 months is recommended to reassess. ACR TI-RADS RECOMMENDATION REFERENCE: Ultrasound-guided fine-needle aspiration, followup ultrasound, no further follow up. * TR1 (0 point) and TR 2 (2 points): No FNA or follow up * TR3 (3 points): FNA if more than or equal to 2.5 cm in maximum dimension, followup ultrasound in 1, 3 and 5 years if 1.5 to 2.4 cm in maximum dimension. * TR4 (4-6 points): FNA if more than or equal to 1.5 cm in maximum dimension, followup ultrasound in 1, 2, 3 and 5 years if 1 to 1.4 cm in maximum dimension. * TR5 (more than or equal to 7 points): FNA if more than or equal to 1 cm in maximum dimension, followup ultrasound every year for 5 years if 0.5 to 0.9 cm in maximum dimension. * TR3, TR4 or TR5 nodules that are below the size threshold for follow up receive no follow up.
[2021-12-04 16:20] LABS: Alanine Aminotransferase 12 U/L (0-31); Albumin Level 4.4 g/dL (3.5-5.0); Alkaline Phosphatase 59 U/L (39-117); Anion Gap 17 (12-20); Aspartate Amino Transferase 22 U/L (5-31); Bilirubin Total 0.6 mg/dL (0.0-1.0); Blood Urea Nitrogen 18 mg/dL (9-16); Calcium 9.5 mg/dL (8.4-10.2); Carbon Dioxide 21 mmol/L (22-29); Chloride 104 mmol/L (96-108); Estimated Glomerular Filt Rate > 60; Glucose Random 96 mg/dL (60-115); Phosphorus 3.2 mg/dL (2.7-4.5); Potassium 4.7 mmol/L (3.3-5.1); Sodium 137 mmol/L (135-145); Total Protein 8.1 g/dL (6.5-8.0)
[2021-12-04 16:43] LABS: Free T4 (Free Thyroxine) 1.12 ng/dL (0.71-1.85); Thyroid Stimulating Hormone 1.81 uIU/mL (0.32-4.0); Vitamin D 25-OH Total 37.3 ng/mL (>30)
[2021-12-05 12:06] LABS: Calcium (PTHI) 9.7 mg/dL (8.6-10.4); PTHI 73 pg/mL (16-77)
== END 2021-12-04 14:22 | disposition home or self-care (01) ==
LOC: HO.US 14:21
PROVIDERS: PCP Internal Medicine; Visit Provider Internal Medicine
DX: E04.2 Nontoxic multinodular goiter (principal); E21.3 Hyperparathyroidism, unspecified; E55.9 Vitamin D deficiency, unspecified
CPT/HCPCS: 36415; 76536; 80053; 82306; 83970; 84100; 84439; 84443

== ENCOUNTER 2021-12-08 10:45 | Outpatient (REF) | payer MEDICARE, OTHER, SELFPAY ==
[2021-12-08 13:54] LABS: Creatinine, 24Hr Urine 0.8 G/Day (1.0-2.0); Total Volume 24 Hour Urine 1475 mL
[2021-12-10 15:56] LABS: Calcium, 24 Hr Urine 78 mg/24 h; Calcium/Creatinine Ratio 96 mg/g creat (30-275); Creatinine 24Hr Urine 0.81 g/24 h (0.50-2.15)
== END 2021-12-08 10:46 | disposition home or self-care (01) ==
LOC: HO.LNP 10:45
PROVIDERS: Visit Provider Internal Medicine
DX: E21.3 Hyperparathyroidism, unspecified (principal)
CPT/HCPCS: 82340; 82570

== ENCOUNTER → 2021-12-10 12:51 | Outpatient (BNVA) | payer MEDICARE, OTHER, SELFPAY | PROVIDERS: PCP Internal Medicine; Visit Provider Internal Medicine | DX: E21.3 Hyperparathyroidism, unspecified (principal); E04.2 Nontoxic multinodular goiter; E55.9 Vitamin D deficiency, unspecified; M81.0 Age-related osteoporosis without current pathological fracture | CPT/HCPCS: 99212 ==

== ENCOUNTER 2022-02-02 15:55 | Outpatient (REF) | payer MEDICARE, MEDICAID, SELFPAY ==
--- NOTE | ~2022-02-02 | MM_ITS ---
EXAMINATION: MM SCREENING DIGITAL BREAST TOMOSYNTHESIS, BILATERAL CLINICAL INFORMATION: Screening. Asymptomatic. Prior history benign excisional biopsy. COMPARISON: Mammography: 01/31/2021, 12/14/2019; outside mammography 12/22/2018 ([facility]) TECHNIQUE: Digital breast tomosynthesis is performed in both the craniocaudal and mediolateral oblique views along with computer-aided detection (CAD). Synthesized 2D images are generated from the tomosynthesis. FINDINGS: There are scattered areas of fibroglandular density (ACR BI-RADS breast composition Category b). Breast tissue composition borders on heterogeneously dense in the anterior breasts. Parenchymal pattern is similar to prior studies. There is no developing density or interval mass or architectural abnormality. The axilla are unremarkable. There are small dermal lesion posterior 8:00 right breast on the right MLO tomography. MM/MM tomosynthesis screening BI IMPRESSION: No mammographic evidence of malignancy. ASSESSMENT: BI-RADS 2: Benign RECOMMENDATION: Routine annual mammography screening. This patient's information was entered into a reminder system with a target due date for their next mammogram.
== END 2022-02-02 15:56 | disposition home or self-care (01) ==
LOC: HO.MAMMO 15:55
PROVIDERS: Visit Provider Internal Medicine
DX: Z12.31 Encounter for screening mammogram for malignant neoplasm of breast (principal)
CPT/HCPCS: 77063; 77067

== ENCOUNTER 2022-06-16 12:17 | Outpatient (REF) | payer MEDICARE, MEDICAID, SELFPAY ==
[2022-06-16 14:09] LABS: Alanine Aminotransferase 10 U/L (0-31); Albumin Level 4.4 g/dL (3.5-5.0); Alkaline Phosphatase 52 U/L (39-117); Anion Gap 14 (12-20); Aspartate Amino Transferase 20 U/L (5-31); Bilirubin Total 0.8 mg/dL (0.0-1.0); Blood Urea Nitrogen 17 mg/dL (9-16); Carbon Dioxide 27 mmol/L (22-29); Chloride 103 mmol/L (96-108); Estimated Glomerular Filt Rate 54; Glucose Random 82 mg/dL (60-115); Phosphorus 3.5 mg/dL (2.7-4.5); Potassium 5.1 mmol/L (3.3-5.1); Sodium 139 mmol/L (135-145); Total Protein 7.8 g/dL (6.5-8.0)
[2022-06-16 14:27] LABS: Free T4 (Free Thyroxine) 1.18 ng/dL (0.71-1.85); Thyroid Stimulating Hormone 1.46 uIU/mL (0.32-4.0); Vitamin D 25-OH Total 30.8 ng/mL (>30)
[2022-06-17 14:24] LABS: Calcium (PTHI) 10.4 mg/dL (8.6-10.4); PTHI 74 pg/mL (16-77)
== END 2022-06-16 12:18 | disposition home or self-care (01) ==
LOC: HO.LAB 12:17
PROVIDERS: PCP Internal Medicine; Visit Provider Internal Medicine
DX: E04.2 Nontoxic multinodular goiter (principal); E55.9 Vitamin D deficiency, unspecified; M81.0 Age-related osteoporosis without current pathological fracture
CPT/HCPCS: 36415; 80053; 82306; 83970; 84100; 84439; 84443

== ENCOUNTER → 2022-06-18 14:27 | Outpatient (BNVA) | payer MEDICARE, MEDICAID, SELFPAY | PROVIDERS: PCP Internal Medicine; Visit Provider Internal Medicine | DX: E21.3 Hyperparathyroidism, unspecified (principal); E04.2 Nontoxic multinodular goiter; E55.9 Vitamin D deficiency, unspecified; M81.0 Age-related osteoporosis without current pathological fracture | CPT/HCPCS: 99212 ==

== ENCOUNTER 2022-06-30 12:53 | Outpatient (REF) | payer MEDICARE, MEDICAID, SELFPAY ==
--- NOTE | ~2022-06-30 | MM_ITS ---
EXAMINATION: BONE DENSITOMETRY CLINICAL INDICATION: Osteoporosis. COMPARISON: Baseline BD dated 02/09/2020. TECHNIQUE: Using a [employer] DXA System (software version: 13.1) manufactured by [employer], dual-energy x-ray absorptiometry was performed of the lumbar spine, left hip, and left forearm radius 33%. The images are of good technical quality. Summary results are attached. FINDINGS: AP SPINE L2-L4 (excluding L1): The data of L1-L4 has been changed to exclude the L1 vertebral body, because degenerative changes at this level may cause overestimation of lumbar spine density. Current: BMD 1.290 g/cm2, Z-score 2.6, T-score 0.8, normal, 0.3% increase from baseline (<5% change is not significant). Baseline: BMD 1.286 g/cm2. LEFT FEMUR, NECK: Current: BMD 0.773 g/cm2, Z-score 0.1, T-score -1.9, osteopenia. Baseline: BMD 0.787 g/cm2. LEFT FEMUR, TOTAL: Current: BMD 0.820 g/cm2, Z-score 0.4, T-score -1.5, osteopenia, 0.6% decrease from baseline (<5% change is not significant). Baseline: BMD 0.825 g/cm2. LEFT FOREARM RADIUS 33%: BMD 0.465 g/cm2, Z-score -2.4, T-score -4.7, osteoporosis, 1.5% increase from baseline (<5% change is not significant). Baseline: BMD 0.458 g/cm2. IDENTIFIED RISK FACTORS: Early menopause, family history (parent hip fracture), height loss, hyperparathyroid, hysterectomy, osteoporosis, secondary osteoporosis. HISTORY OF FRACTURE: None listed. MEDICATIONS: Calcium or multivitamin. Vitamin D. MM/XR DEXA appendicular skeleton IMPRESSION: 1. DIAGNOSIS: Osteoporosis based on the lowest T-score value of -4.7 in the forearm radius 33% applying World Health Organization criteria. 2. 10-YEAR FRACTURE RISK PREDICTION, FRAX: According to the guidelines, FRAX calculation should only be performed on patients in the osteopenia bone density category. Therefore, FRAX was not performed on this patient. 3. Treatment Recommendations: NOF guidelines recommend consideration for treatment in postmenopausal women and men age 50 and older presenting with the following: -A hip or vertebral (clinical or morphometric) fracture. -T-score less than or equal to -2.5 at the femoral neck or spine after appropriate evaluation to exclude secondary causes. -Low bone mass at the hip or spine and a 10-year fracture probability by FRAX of greater than or equal to 3% for hip fracture or greater than or equal to 20% for major osteoporotic fracture based on the [place] adapted WHO algorithm. 4. Other Recommendations: All treatment decisions require clinical judgment and consideration of individual patient factors, including patient preferences, comorbidities, previous drug use, risk factors not captured in the FRAX model (e.g. frailty, falls, vitamin D deficiency, increased bone turnover, interval significant decline in bone density) and possible under or overestimation of fracture risk by FRAX. Additional medical evaluation for secondary cause of low bone mineral density may be appropriate. FUTURE SCAN RECOMMENDATION: People with diagnosed cases of osteoporosis or at high risk for fracture should have regular bone mineral density tests. For patients eligible for Medicare, routine testing is allowed once every 2 years. The testing frequency can be increased to one year for patients who have rapidly progressing disease, those who are receiving or discontinuing medical therapy to restore bone mass, or have additional risk factors.
== END 2022-06-30 12:54 | disposition home or self-care (01) ==
LOC: HO.MAMMO 12:53
PROVIDERS: PCP Internal Medicine; Visit Provider Internal Medicine
DX: M81.0 Age-related osteoporosis without current pathological fracture (principal)
CPT/HCPCS: 77081

== ENCOUNTER 2022-10-06 12:59 | Outpatient (AMB) | payer MEDICARE, MEDICAID, SELFPAY ==
--- NOTE | 2022-10-06 13:02 | A.OFFPC_ITS ---
Vital Signs 10/06/22 13:03 Height 4 ft 11 in Weight 139 lb 2 oz BMI 28.1 BP 110/64 Blood Pressure Location Rt brachial Position Sitting Pulse 92 Pulse Source Pulse Oximeter Pulse Oximetry (%) 97 Oxygen Delivery Method Room Air Intake Visit Reasons: 3 Month follow up Allergies meclizine Adverse Reaction (Verified 10/06/22 13:04) High doses Medication List - Last Reconciled 10/06/22 by Facundo Easley MD calcium carb and citrate-vitD3 600 mg-12.5 mcg (500 unit) ER (Citracal-D3 Slow Release) 1 tab PO DAILY 30 days cholecalciferol (vitamin D3) 50 mcg PO DAILY fluoxetine 40 mg (2 x 20 mg) PO DAILY fluticasone propionate (Flonase Allergy Relief) intranasal lorazepam 0.5 mg PO DAILY PRN 30 days nystatin 1 appl topical DAILY 30 days omeprazole 20 mg PO DAILY Tobacco use date assessed: 10/06/22 Fall risk assessment: No Falls in past year Last assessed Fall Risk: 10/06/22 Dental Screening Dental Screen Date: 10/06/22 Did you have a dental visit in the last 12 months?: No Did you have a dental problem in the last 6 months where you did not have access to dental care?: No Was dental information given to patient?: No HPI 3 Month follow up HPI Details Patient is 77 year female came in today for her regular follow-up appointment Patient is taking fluoxetine for for past few years patient says that it is seems like medication is no longer helping her she remains often and feels anxious She is also on lorazepam 0.5 mg b.i.d. She is seeing therapist regularly I am changing fluoxetine to venlafaxine, patient will be transitioning fluoxetine by reducing it to 20 mg once a day for 10 days and then starting venlafaxine 37.5 Meanwhile if she need to take extra lorazepam she can I have sent 60 tablets for 30 days patient will return in 4 weeks for follow-up. She has seen [facility] patient was referred for here loss as well as rash under the breast patient says that the only talked about the rash and did not help her with the here loss She is not happy about her visit she is requesting a referral to [facility] which I have placed for her. She continued to have heart floor to in sometimes feel short of breath patient had EKG done July of 2020 which was normal we have repeated EKG again today which shows normal sinus rhythm 70 beats per minute no ST-T findings PFSH Medical History Anxiety, generalized Depression Elevated alpha fetoprotein GERD (gastroesophageal reflux disease) Hepatitis C High potassium HTN (hypertension) Hyperkalemia Hyperparathyroidism Irritable bowel syndrome Left lower quadrant pain Liver fibrosis Multinodular thyroid Osteoporosis PFO (patent foramen ovale) TIA (transient ischemic attack) Vertigo Vitamin D deficiency Surgical History History of lumpectomy of right breast Hx of cholecystectomy Hx of colonoscopy Hx of hysterectomy Hx of parathyroidectomy Family History Maternal Grandmother T2DM (type 2 diabetes mellitus) Father Colon cancer Cancer Multiple myeloma Mother Brain disorder Thyroid disease Sister Thyroid nodule Hyperparathyroidism Hyperthyroidism Maternal Grandfather Heart disease Other Mental health disorder Substance use disorder Social History Household Members: None Housing: Other (mobile home) Alcohol intake: current Alcohol intake frequency: holidays/special occasions only Patient Tobacco Use Status: Never used Tobacco Tobacco use type: Cigarette e-Cigarette/Vaping Use: Never Used Second Hand Smoke Exposure: No service: No Current occupational status: retired Cognitive needs: No Hearing needs: No Vision needs: No Questionnaire Thrive Questionnaire Date Thrive assessed: 08/27/21 AUDIT C Alcohol Use Questionnaire (AUDIT-C) 1. How often do you have a drink containing alcohol?: Monthly or less 2. How many drinks containing alcohol do you have on a typical day when you are drinking?: 1 or 2 3. How often do you have six or more drinks on one occasion?: Never Total Score: 1 KAYLEIGH-7 AMB Questionnaire KAYLEIGH-7 Date KAYLEIGH - 7 assessed: 08/27/21 Source: Developed by Drs. Andrei Lui, Colette Flanagan, Eliseo Bueno and colleagues, with an educational zulma from [employer]. Review of Systems Const Denies chills and Denies fever(s) ENT Denies epistaxis and Denies nasal discharge Card Denies chest pain Resp Denies chest congestion, Denies cough and Denies hemoptysis GI Denies diarrhea and Denies nausea Skin/Breast Denies rash Neuro Reports no additional complaints Psych Reports no additional complaints Endo Reports no additional complaints Physical exam (Primary Care) Vital Signs: Last Vital Signs Pulse 92 10/06/22 13:03 BP 110/64 10/06/22 13:03 Pulse Ox 97 10/06/22 13:03 Oxygen Delivery Method Room Air 10/06/22 13:03 BMI result Body Mass Index 28.1 Tobacco/Smoking Status: Tobacco use Status Tobacco use date assessed 10/06/22 10/06/22 13:05 Patient Tobacco Use Status Never used Tobacco 10/06/22 13:05 Tobacco use type Cigarette 10/06/22 13:05 e-Cigarette/Vaping Use Never Used 10/06/22 13:05 Thrive Assessment: Date of Thrive Assessment Date Thrive assessed 08/27/21 10/06/22 13:05 Const General: cooperative, comfortable and no acute distress Orientation/consciousness: patient oriented x3 HENMT Head: Yes normocephalic Eyes General: appearance normal, both eyes and all related structures Neck Neck: Yes supple Resp Effort & Inspection: normal respiratory effort, no cough and no stridor Cardio Rhythm: regular rhythm Heart sounds: S1 normal heart sound present and S2 normal heart sound present Skin General skin exam: turgor normal Neuro General: patient oriented x3, tone normal and moves all extremities Extrem Right lower extremity: no edema Left lower extremity: no edema Office Procedures EKG [id number], Complete Assessment and Plan Assessment & Plan (1) Shortness of breath: Code(s): R06.02 - Shortness of breath (2) Palpitations: Code(s): R00.2 - Palpitations (3) Anxiety, generalized: Code(s): F41.1 - Generalized anxiety disorder (4) Chronic GERD: Code(s): K21.9 - Gastro-esophageal reflux disease without esophagitis (5) Environmental allergies: Code(s): Z91.09 - Other allergy status, other than to drugs and biological substances (6) Hyperparathyroidism: Code(s): E21.3 - Hyperparathyroidism, unspecified (7) Panic disorder: Code(s): F41.0 - Panic disorder [episodic paroxysmal anxiety] (8) Hair loss: Code(s): L65.9 - Nonscarring hair loss, unspecified (9) Vitamin D deficiency: Code(s): E55.9 - Vitamin D deficiency, unspecified (10) Osteoporosis: Code(s): M81.0 - Age-related osteoporosis without current pathological fracture Plan Patient is 77 year female came in today for her regular follow-up appointment Patient is taking fluoxetine for for past few years patient says that it is seems like medication is no longer helping her she remains often and feels anxious She is also on lorazepam 0.5 mg b.i.d. She is seeing therapist regularly I am changing fluoxetine to venlafaxine, patient will be transitioning fluoxetine by reducing it to 20 mg once a day for 10 days and then starting venlafaxine 37.5 Meanwhile if she need to take extra lorazepam she can I have sent 60 tablets for 30 days patient will return in 4 weeks for follow-up. She has seen [facility] patient was referred for here loss as well as rash under the breast patient says that the only talked about the rash and did not help her with the here loss She is not happy about her visit she is requesting a referral to [facility] which I have placed for her. She continued to have heart floor to in sometimes feel short of breath patient had EKG done July of 2020 which was normal we have repeated EKG again today which shows normal sinus rhythm 70 beats per minute no ST-T findings Orders: Orders Vitamin B12 Today E21.3 - Hyperparathyroidism, unspecified, E55.9 - Vitamin D deficiency, unspecified, F41.0 - Panic disorder [episodic paroxysmal anxiety], F41.1 - Generalized anxiety disorder, K21.9 - Gastro-esophageal reflux disease without esophagitis, L65.9 - Nonscarring hair loss, unspecified, M81.0 - Age- related osteoporosis without current pathological fracture, R00.2 - Palpitations, R06.02 - Shortness of breath, Z91.09 - Other allergy status, other than to drugs and biological substances Comprehensive Mongo. Panel Fast Today E21.3 - Hyperparathyroidism, unspecified, E55.9 - Vitamin D deficiency, unspecified, F41.0 - Panic disorder [episodic paroxysmal anxiety], F41.1 - Generalized anxiety disorder, K21.9 - Gastro- esophageal reflux disease without esophagitis, L65.9 - Nonscarring hair loss, unspecified, M81.0 - Age-related osteoporosis without current pathological fracture, R00.2 - Palpitations, R06.02 - Shortness of breath, Z91.09 - Other allergy status, other than to drugs and biological substances Ferritin Today E21.3 - Hyperparathyroidism, unspecified, E55.9 - Vitamin D deficiency, unspecified, F41.0 - Panic disorder [episodic paroxysmal anxiety], F41.1 - Generalized anxiety disorder, K21.9 - Gastro-esophageal reflux disease without esophagitis, L65.9 - Nonscarring hair loss, unspecified, M81.0 - Age- related osteoporosis without current pathological fracture, R00.2 - Palpitations, R06.02 - Shortness of breath, Z91.09 - Other allergy status, other than to drugs and biological substances Lipid Panel Today E21.3 - Hyperparathyroidism, unspecified, E55.9 - Vitamin D deficiency, unspecified, F41.0 - Panic disorder [episodic paroxysmal anxiety], F41.1 - Generalized anxiety disorder, K21.9 - Gastro-esophageal reflux disease without esophagitis, L65.9 - Nonscarring hair loss, unspecified, M81.0 - Age- related osteoporosis without current pathological fracture, R00.2 - Palpitation s, R06.02 - Shortness of breath, Z91.09 - Other allergy status, other than to drugs and biological substances Magnesium Today E21.3 - Hyperparathyroidism, unspecified, E55.9 - Vitamin D deficiency, unspecified, F41.0 - Panic disorder [episodic paroxysmal anxiety], F41.1 - Generalized anxiety disorder, K21.9 - Gastro-esophageal reflux disease without esophagitis, L65.9 - Nonscarring hair loss, unspecified, M81.0 - Age- related osteoporosis without current pathological fracture, R00.2 - Palpitations, R06.02 - Shortness of breath, Z91.09 - Other allergy status, other than to drugs and biological substances TSH reflex Free T4 Today E21.3 - Hyperparathyroidism, unspecified, E55.9 - Vitamin D deficiency, unspecified, F41.0 - Panic disorder [episodic paroxysmal anxiety], F41.1 - Generalized anxiety disorder, K21.9 - Gastro-esophageal reflux disease without esophagitis, L65.9 - Nonscarring hair loss, unspecified, M81.0 - Age-related osteoporosis without current pathological fracture, R00.2 - Palpitations, R06.02 - Shortness of breath, Z91.09 - Other allergy status, other than to drugs and biological substances Vitamin D 25-OH (D2 and D3) Today E21.3 - Hyperparathyroidism, unspecified, E55.9 - Vitamin D deficiency, unspecified, F41.0 - Panic disorder [episodic paroxysmal anxiety], F41.1 - Generalized anxiety disorder, K21.9 - Gastro- esophageal reflux disease without esophagitis, L65.9 - Nonscarring hair loss, unspecified, M81.0 - Age-related osteoporosis without current pathological fracture, R00.2 - Palpitations, R06.02 - Shortness of breath, Z91.09 - Other allergy status, other than to drugs and biological substances Complete Blood Count Auto Diff Today E21.3 - Hyperparathyroidism, unspecified, E55.9 - Vitamin D deficiency, unspecified, F41.0 - Panic disorder [episodic paroxysmal anxiety], F41.1 - Generalized anxiety disorder, K21.9 - Gastro- esophageal reflux disease without esophagitis, L65.9 - Nonscarring hair loss, unspecified, M81.0 - Age-related osteoporosis without current pathological fracture, R00.2 - Palpitations, R06.02 - Shortness of breath, Z91.09 - Other allergy status, other than to drugs and biological substances AMB EKG-In Office Today R00.2 - Palpitations, R06.02 - Shortness of breath Referrals Dermatology Referral L65.9 - Nonscarring hair loss, unspecified Medications: New venlafaxine ER 37.5 mg PO DAILY 30 caps 0RF Changed From lorazepam 0.5 mg PO DAILY 30 days PRN 30 tabs 2RF anxiety To lorazepam 0.5 mg PO BID PRN 60 tabs 0RF anxiety 30 days Discontinued fluoxetine Discontinued Reason: Doctor's Order 40 mg (2 x 20 mg) PO DAILY 180 caps 0RF Coding Level of Care Code Est Pt Level 5 (61629) Diagnoses Shortness of breath R06.02 Palpitations R00.2 Anxiety, generalized F41.1 Chronic GERD K21.9 Environmental allergies Z91.09 Hyperparathyroidism E21.3 Panic disorder F41.0 Hair loss L65.9 Vitamin D deficiency E55.9 Osteoporosis M81.0 CPT Codes EKG - CPT: [id number], Complete ([id number]) Time Spent (min) 45 Comment 45 minute spent in care of this patient wdor-yr-pcew/EKG/charting
[2022-10-06 13:03] VITALS: BP 110/64; PULSE 92; O2SAT 97; BMI 28.1
== END 2022-10-06 13:57 | disposition home or self-care (01) ==
PROVIDERS: Visit Provider Internal Medicine
DX: K21.9 Gastro-esophageal reflux disease without esophagitis (principal); Z91.09 Other allergy status, other than to drugs and biological substances; E21.3 Hyperparathyroidism, unspecified; E55.9 Vitamin D deficiency, unspecified; L65.9 Nonscarring hair loss, unspecified; R06.02 Shortness of breath; R00.2 Palpitations; F41.1 Generalized anxiety disorder; F41.0 Panic disorder [episodic paroxysmal anxiety]; M81.0 Age-related osteoporosis without current pathological fracture
CPT/HCPCS: 93000; 99215

== ENCOUNTER 2022-10-12 09:12 | Outpatient (AMB) | payer MEDICARE, MEDICAID, SELFPAY ==
--- NOTE | 2022-10-12 09:12 | MHC.OFFVIS ---
Intake Vital Signs 10/12/22 09:14 Height 4 ft 11 in Weight 139 lb 8.842 oz BMI 28.2 BP 98/66 Blood Pressure Location Rt brachial Position Sitting Pulse 81 Pulse Source Pulse Oximeter Intake Visit Reasons: F/U Hyperparathyroidism Intake Note: Patient present for Hyperparathyroidism follow up visit. H[employer] Required: No Accompanied by: Self / Same As Patient Allergies meclizine Adverse Reaction (Verified 10/12/22 09:15) High doses Medication List - Last Reconciled 10/12/22 by Andrei Hughes MD calcium carb and citrate-vitD3 600 mg-12.5 mcg (500 unit) ER (Citracal-D3 Slow Release) 1 tab PO DAILY 30 days cholecalciferol (vitamin D3) 50 mcg PO DAILY fluticasone propionate (Flonase Allergy Relief) intranasal lorazepam 0.5 mg PO BID PRN 30 days nystatin 1 appl topical DAILY 30 days omeprazole 20 mg PO DAILY venlafaxine ER 37.5 mg PO DAILY HPI HPI Comments History of Present Illness Details 77 YO F with PMHx depression and anxiety who is seen in F/U for Hyperparathyroidism and a NTMNG. First noted to have high calcium in early 2019. A full assessment was completed 10/12/2019 with labs revealing total calcium 11.0, albumin 4.7, Vitamin-D 23.3, and PTH 105. She was subsequently referred to Endocrinology and underwent a full evaluation with labs 01/15/2020 with total calcium 11.1, albumin 4.6, Vitamin D 24.8, PTH 73. 24 hour urinary calcium was WNL. DEXA scan revealed Osteopenia of the hip, and severe Osteoporosis of the distal forearm with a T score of -4.8. US of the neck revealed a 1.4 cm nodule within the L inferior thyroid, but this was found to represent a parathyroid adenoma on repeat imaging. She underwent a surgical parathyroidectomy by Dr. Simba Constantino on 09/23/2020 and had resection of a L inferior parathyroid adenoma. Intraoperative PTH declined from 98 to 18, indicating cure. Subsequently she did develop elevated PTH again. This was checked 01/13/2021 with Calcium 9.7, Albumin 4.4, PTH 108 and Vitamin D 55.6. She then underwent an US of the neck 01/02/2021 which revealed what was read as a R level II lymph node, but may in fact be a parathyroid adenoma. She was asked to start Calcium citrate 650 mg PO daily and repeat labs in 6 weeks. Repeat labs are WNL with normalization of her PTH. She subsequently stopped her Calcium supplement, and PTH again is high normal with high normal calcium. Currently not using a calcium supplement. She has 1 serving of dietary calcium per day in the form of yogurt. Takes 1000 IU of Vitamin D daily. Currently not using HCTZ. Kidney stones: denies. Osteoporosis: Reports Osteopenia History of [place] use: Denies Biotin use: Denies Family history of high calcium or kidney stones: Sister with Hyperparathyroidism with Osteoporosis and recurrent nephrolithiasis. Renal imagin11/06/2019 abdominal US with no evidence of nephrlithiasis. DXA: 02/09/2020 FINDINGS: AP SPINE L1-L4: BMD 1.226 g/cm2, Z-score 2.2, T-score 0.4, normal. LEFT FEMUR, NECK: BMD 0.787 g/cm2, Z-score 0.1, T-score -1.8, osteopenia. LEFT FEMUR, TOTAL: BMD 0.825 g/cm2, Z-score 0.3, T-score -1.4, osteopenia. LEFT FOREARM RADIUS 33%: BMD 0.458 g/cm2, Z-score -2.7, T-score -4.8, osteoporosis. Thyroid US: 12/04/2021 SIZE: Measurements of the thyroid lobes and nodules are given in sagittal, anteroposterior and transverse dimensions respectively. Right Thyroid Lobe: 2.6 x 1.1 x 1.2 cm, volume 1.8 mL. Previously 3.2 x 1.6 x 1.1 cm, volume 2.9 mL. Parenchyma: The gland echotexture is homogeneous. Thyroid vascularity is normal. Left Thyroid Lobe: 3.0 x 1.4 x 0.8 cm, volume 1.8 mL. Previously 3.3 x 1.4 x 0.9 cm, volume 2.2 mL. Parenchyma: The gland echotexture is homogeneous. Thyroid vascularity is normal. Isthmus: 0.3 cm in maximum AP dimension. Previously 0.3 cm. Estimated total number of nodules greater than or equal to 1 cm: 0. Referral Management Liaison nodules are described as follows: 1.? Location: Right mid. ?? ? Size: 0.31 x 0.14 x 0.34 cm, volume 0.007 mL. ?? ? Previously: 0.39 x 0.17 x 0.35 cm, volume 0.01 mL. ?? ? Nodule characteristics: ?? ? Composition: Spongiform (0). ?? ? Echogenicity: Anechoic (0). ?? ? Shape: Not taller than wide (0). ?? ? Margins: Smooth (0). ?? ? Echogenic Foci: None (0). ? ACR TI-RADS total points: 0 Previous: 0 ?? ? ACR TI-RADS category: 1 Previous: 1 ? Significant change in size (>/= 20% in 2 dimensions and minimal increase of 2 mm or 50% or greater increase in volume): No ?? ? Change in features: No ?? ? Change in ACR TI-RADS risk category: No NODES: Decreased size of a right cervical level 2 lymph node now measuring 1.9 x 0.5 x 1 cm, previously 3.1 x 0.5 x 1.1 cm. This nodule demonstrates smooth contour and preserved fatty lion, likely reactive. There are 2 prominent left-sided cervical level 2 lymph nodes, both fairly hypoechoic and with no discrete fatty lion measuring 1 x 0.7 x 0.5 cm and 0.9 x 0.3 x 0.8 cm. Labs: Laboratory Tests 06/16/22 06/16/22 12:29 12:29 Sodium 139 Potassium 5.1 Creatinine 1.00 Estimated GFR 54 Calcium 10.0 Albumin 4.4 25-OH Vitamin D To akilah 30.8 TSH 1.46 Free T4 1.18 PTH Intact 74 Calcium (PTH Intac t) 10.4 she has persistent very low bone density in the wrist. She also has to left-sided cervical level 2 lymph nodes which appeared questionable abnormal [facility] Medical History Anxiety, generalized Depression Elevated alpha fetoprotein GERD (gastroesophageal reflux disease) Hepatitis C High potassium HTN (hypertension) Hyperkalemia Hyperparathyroidism Irritable bowel syndrome Left lower quadrant pain Liver fibrosis Multinodular thyroid Osteoporosis PFO (patent foramen ovale) TIA (transient ischemic attack) Vertigo Vitamin D deficiency Surgical History History of lumpectomy of right breast Hx of cholecystectomy Hx of colonoscopy Hx of hysterectomy Hx of parathyroidectomy Family History Maternal Grandmother T2DM (type 2 diabetes mellitus) Father Colon cancer Cancer Multiple myeloma Mother Brain disorder Thyroid disease Sister Thyroid nodule Hyperparathyroidism Hyperthyroidism Maternal Grandfather Heart disease Other Mental health disorder Substance use disorder Social History Household Members: None Housing: Other Alcohol intake: current Alcohol intake frequency: holidays/special occasions only Patient Tobacco Use Status: Never used Tobacco Tobacco use type: Cigarette e-Cigarette/Vaping Use: Never Used Second Hand Smoke Exposure: No service: No Current occupational status: retired Cognitive needs: No Hearing needs: No Vision needs: No Physical Exam Vital Signs: BMI result Body Mass Index 28.2 Const Other: Thyroid gland is normal size weighs about 15 g . No thyroid nodules palpated. There is no cervical adenopathy palpated Assessment & Plan Assessment & Plan (1) Osteoporosis: Code(s): M81.0 - Age-related osteoporosis without current pathological fracture Plan: Status post parathyroidectomy with persistent very low bone density in the wrist. Secondary workup negative otherwise. Not cleat as to whether treated pharmacologically with isolated wrist bone density low in the setting of treated primary hyperparathyroidism Will talk to the patient about potentially starting pharmacologic therapy with anti resorptive agent like a bisphosphonate versus observation. After careful discussion with the patient it was decided to start alendronate 70 mg Q weekly. Went over side effects of alendronate with patient including but not limited to rare risk of atypical femur fracture and osteonecrosis of the jaw . Also went over how to take alendronate with a full glass of water sitting up for 1/2 hour after administration (2) Hyperparathyroidism: Code(s): E21.3 - Hyperparathyroidism, unspecified Plan: Appears to have resolved status post parathyroidectomy (3) Multinodular thyroid: Code(s): E04.2 - Nontoxic multinodular goiter Plan: Ultrasound shows stability in the size of nodules. However there are some abnormal left cervical lymph nodes identified. Will repeat thyroid ultrasound if continue persistence of left cervical lymph node abnormalities, may consider FNA of abnormal lymph nodes Orders: Orders US thyroid Today E04.2 - Nontoxic multinodular goiter Medications: New alendronate 70 mg PO QWEEK 4 tabs 6RF Coding Level of Care Code Est Pt Level 3 (21303) Diagnoses Osteoporosis M81.0 Hyperparathyroidism E21.3 Multinodular thyroid E04.2
[2022-10-12 09:14] VITALS: BP 98/66; PULSE 81; BMI 28.2
== END 2022-10-12 09:52 | disposition home or self-care (01) ==
PROVIDERS: PCP Internal Medicine; Visit Provider Internal Medicine Endocrinology, Diabetes & Metabolism
DX: M81.0 Age-related osteoporosis without current pathological fracture (principal); E21.3 Hyperparathyroidism, unspecified; E04.2 Nontoxic multinodular goiter
CPT/HCPCS: 99213

== ENCOUNTER → 2022-10-12 09:12 | Outpatient (BNVA) | payer MEDICARE, MEDICAID, SELFPAY | PROVIDERS: Visit Provider Internal Medicine Endocrinology, Diabetes & Metabolism | DX: E21.3 Hyperparathyroidism, unspecified (principal); E04.2 Nontoxic multinodular goiter; M81.0 Age-related osteoporosis without current pathological fracture | CPT/HCPCS: 99212 ==

== ENCOUNTER 2022-10-19 13:03 | Outpatient (REF) | payer MEDICARE, MEDICAID, SELFPAY ==
--- NOTE | ~2022-10-19 | US_ITS ---
EXAMINATION: US THYROID CLINICAL INFORMATION: Nontoxic multinodular goiter. COMPARISON: Ultrasound thyroid 12/04/2021 and 01/02/2021. TECHNIQUE: Linear transducer grayscale and color Doppler examination with attention to the region of the thyroid. FINDINGS: SIZE: Measurements of the thyroid lobes and nodules are given in sagittal, anteroposterior and transverse dimensions respectively. Right Thyroid Lobe: 3.4 x 1.1 x 1.0 cm, volume 1.96 mL. Previously 2.6 x 1.1 x 1.2 cm, volume 1.8 mL. Parenchyma: The gland echotexture is homogeneous. Thyroid vascularity is normal. Left Thyroid Lobe: 3.1 x 1.6 x 0.8 cm, volume 2.08 mL. Previously 3.0 x 1.4 x 0.8 cm, volume 1.8 mL. Parenchyma: The gland echotexture is homogeneous. Thyroid vascularity is normal. Isthmus: 0.3 cm in maximum AP dimension. Previously 0.3 cm. Estimated total number of nodules greater than or equal to 1 cm: 0. [employer] Magn[employer]ic nodules are described as follows: 1. Location: Right isthmus. Size: 0.4 x 0.2 x 0.4 cm, volume 0.02 mL. Previously: 0.3 x 0.1 x 0.3 cm, volume 0.01 mL. Nodule characteristics: Composition: Cystic(0). ACR TI-RADS total points: 0 Previous: 0 ACR TI-RADS category: 1 Previous: 1 NODES: No lymphadenopathy is seen in the tissue surrounding the thyroid gland. No parathyroid adenoma. US/US thyroid IMPRESSION: 1. A 0.4 cm TR 1 cystic nodule in the right isthmus, which does not meet criteria for follow-up.
== END 2022-10-19 13:04 | disposition home or self-care (01) ==
LOC: HO.HMGCX 13:03
PROVIDERS: PCP Internal Medicine; Visit Provider Internal Medicine
DX: E04.2 Nontoxic multinodular goiter (principal)
CPT/HCPCS: 76536

== ENCOUNTER 2022-11-10 08:31 | Outpatient (REF) | payer MEDICARE, MEDICAID, SELFPAY ==
--- NOTE | ~2022-11-10 | US_ITS ---
EXAMINATION: US COMPLETE ABDOMEN WITH LIVER ELASTOGRAPHY CLINICAL INFORMATION: Right upper quadrant pain. Liver fibrosis. COMPARISON: Previous ultrasound most recent May 2021 and MRI most recent MRI December 2012 TECHNIQUE: Real-time imaging of the abdominal viscera. Noninvasive ultrasound liver fibrosis assessment is performed using Bela ElastPQ point quantification shear wave elastography (2D-SWE) with a C5-2 MHz transducer. Multiple elastography samples are obtained. FINDINGS: PANCREAS: Not well visualized due to overlying bowel gas. ABDOMINAL AORTA: The proximal abdominal aorta is not well visualized due to bowel gas. The mid and distal abdominal aorta are normal in caliber. INFERIOR VENA CAVA: Visualized portions are normal. LIVER: Liver echotexture is slightly heterogeneous. The contour of the liver may be slightly irregular scalloped. No focal lesion or intrahepatic biliary duct dilatation. The right lobe measures 15 cm in length. The left lobe measures 10 cm in length. Portal flow is normal/hepatopedal Shear wave liver elastography median stiffness is 1.8 m/s (reference: normal median stiffness is 1.3 m/s or less). This is increased from previous exam and this measured 1 m/s. IQR/median stiffness to assess sampling precision is 0.11 (reference: good quality data set is IQR/median stiffness of 0.15 or less). GALLBLADDER: Surgically removed COMMON BILE DUCT: Normal in caliber measuring 0.2 cm in diameter. RIGHT KIDNEY: Normal. No hydronephrosis. No renal calculi or focal parenchymal lesions. The kidney measures 9 cm in maximum dimension. LEFT KIDNEY: Normal. No hydronephrosis. No renal calculi or focal parenchymal lesions. The kidney measures 9 cm in maximum dimension. SPLEEN: Normal. The spleen measures 11 cm in maximum dimension. FREE FLUID: None. US/US abdomen comp w elastography IMPRESSION: 1. Impression: heterogeneous liver echotexture suggestive of hepatocellular disease. Question slight irregular contour liver/mild cirrhotic change. No focal liver lesion. Limited visualization of the pancreas and proximal abdominal aorta. 2. Liver elastography: Adequate liver sampling. Suggestive of compensated advanced chronic liver disease but need further test for confirmation. Liver stiffness is increased compared to May 2021 exam. REFERENCE: Society of Radiologists in Ultrasound Liver Stiffness Thresholds (2020): LIVER STIFFNESS THRESHOLDS: *Liver Stiffness equal or less than 1.3 m/s: High probability of being normal. *Liver Stiffness less than 1.7 m/s: In the absence of other known clinical signs, rules out compensated advanced chronic liver disease. *Liver Stiffness 1.7-2.1 m/s: Suggestive of compensated advanced chronic liver disease but need further test for confirmation. *Liver Stiffness over 2.1 m/s: Rules in compensated advanced chronic liver disease. *Liver Stiffness over 2.4 m/s: Suggestive of clinically significant portal hypertension. QUALITY OF DATA SET: *IQR/Median value equal or less than 0.15 implies a quality data set. *IQR/Median value over 0.15 implies a poor quality data set. SIGNIFICANT CHANGE FROM PRIOR EXAM: Significant change if liver stiffness measurement is 10% or greater from prior exam. OTHER CONSIDERATIONS: The stage of liver fibrosis may be overestimated in the setting of acute hepatitis, liver inflammation, elevated liver function tests, hepatic vascular congestion, obstructive cholestasis, non-fasting state, and infiltrative diseases such as amyloidosis and lymphoma. In some patients with NAFLD, the liver stiffness thresholds for compensated advanced chronic liver disease may be lower. In causes other than viral hepatitis and NAFLD, liver stiffness thresholds are not well established.
[2022-11-10 08:30] LABS: MANUAL DIFF FLAG NO
[2022-11-10 08:46] LABS: Basophils Absolute Auto 0.1 X10*3/uL (0.0-0.2); Basophils Percent Auto 0.8 % (0-2); Eosinophils Absolute Auto 0.3 X10*3/uL (0.0-0.4); Eosinophils Percent Auto 4.5 % (0-4); Hematocrit 41.2 % (37.0-47.0); Hemoglobin 13.9 g/dl (12.0-16.0); Imm Gran Abs Auto 0.01 X10*3/uL (0.00-0.03); Imm Gran Pct Auto 0.2 % (0.0-0.4); Lymphocytes Absolute Auto 1.9 X10*3/uL (1.2-4.9); Lymphocytes Percent Auto 29.1 % (20-40); Mean Corpuscular HGB Conc 33.7 g/dl (31.0-35.0); Mean Corpuscular Hemoglobin 31.8 pg (27.0-33.0); Mean Corpuscular Volume 94.3 fL (80.0-98.0); Mean Platelet Volume 10.4 fL (9.4-12.3); Monocytes Absolute Auto 0.5 X10*3/uL (0.1-1.2); Monocytes Percent Auto 8.2 % (2-11); Neutrophils Absolute Auto 3.7 x10*3/uL (2.0-8.3); Neutrophils Percent Auto 57.2 % (45-73); Platelet Count 174 X10*3/uL (160-400); Red Blood Count 4.37 X10*6/uL (4.20-5.50); Red Cell Distribution Width 12.5 % (11.0-16.0); White Blood Count 6.5 X10*3/uL (4.8-10.8)
[2022-11-10 08:52] LABS: INTERNATIONAL NORM RATIO 0.9 (0.9-1.1); Prothrombin Time 11.2 SEC (11.1-13.3)
[2022-11-10 09:10] LABS: Alanine Aminotransferase 14 U/L (0-31); Albumin Level 4.3 g/dL (3.5-5.0); Alkaline Phosphatase 54 U/L (39-117); Amylase 56 U/L (28-100); Anion Gap 12 (12-20); Aspartate Amino Transferase 21 U/L (5-31); Bilirubin Direct 0.1 mg/dL (0.0-0.5); Bilirubin Total 0.4 mg/dL (0.0-1.0); Blood Urea Nitrogen 17 mg/dL (9-16); Calcium 9.9 mg/dL (8.4-10.2); Carbon Dioxide 27 mmol/L (22-29); Chloride 106 mmol/L (96-108); Estimated Glomerular Filt Rate > 60; Glucose Random 85 mg/dL (60-115); Lipase 24 U/L (8-78); Potassium 4.8 mmol/L (3.3-5.1); Sodium 140 mmol/L (135-145)
[2022-11-15 12:53] LABS: FIB-ALT 13 U/L (6-29); FIB-Alpha-2-Macroglobulin 446 mg/dL (106-279); FIB-Apolipoprotein A1 264 mg/dL (101-198); FIB-GGT 16 U/L (3-65); FIB-Haptoglobin 83 mg/dL (43-212); FIB-Total Bilirubin 0.4 mg/dL (0.2-1.2)
== END 2022-11-10 08:32 | disposition home or self-care (01) ==
LOC: HO.US 08:31
PROVIDERS: PCP Internal Medicine; Visit Provider Internal Medicine
DX: R10.11 Right upper quadrant pain (principal); K74.00 Hepatic fibrosis, unspecified; Z86.19 Personal history of other infectious and parasitic diseases
CPT/HCPCS: 36415; 76705; 76981; 80048; 80076; 81596; 82105; 82150; 83690; 85025; 85610

== ENCOUNTER 2022-11-11 10:21 | Outpatient (AMB) | payer MEDICARE, MEDICAID, SELFPAY ==
[2022-11-11 10:24] VITALS: BP 126/72; PULSE 73; O2SAT 96; BMI 28.3
--- NOTE | 2022-11-11 10:24 | MHC.PC.OV ---
Vital Signs 11/11/22 10:24 Height 4 ft 11 in Weight 140 lb BMI 28.3 BP 126/72 Blood Pressure Location Rt brachial Position Sitting Pulse 73 Pulse Source Pulse Oximeter Pulse Oximetry (%) 96 Oxygen Delivery Method Room Air Intake Visit Reasons: 26 day follow up Allergies adhesive tape Adverse Reaction (Mild, Verified 11/11/22 10:31) Rash meclizine Adverse Reaction (Verified 11/11/22 10:24) High doses Medication List - Last Reconciled 11/11/22 by Facundo Easley MD alendronate 70 mg PO QWEEK calcium carb and citrate-vitD3 600 mg-12.5 mcg (500 unit) ER (Citracal-D3 Slow Release) 1 tab PO DAILY 30 days cholecalciferol (vitamin D3) 50 mcg PO DAILY fluticasone propionate (Flonase Allergy Relief) intranasal lorazepam 0.5 mg PO BID PRN 30 days nystatin 1 appl topical DAILY 30 days omeprazole 20 mg PO DAILY venlafaxine ER 37.5 mg PO DAILY Tobacco use date assessed: 11/11/22 Fall risk assessment: No Falls in past year Last assessed Fall Risk: 11/11/22 Dental Screening Dental Screen Date: 11/11/22 Did you have a dental problem in the last 6 months where you did not have access to dental care?: No Was dental information given to patient?: No HPI 26 day follow up HPI Details Patient is 77 year female came in today for her regular follow-up appointment Patient is seeing Gastroenterology for hepatocellular disease Recently she had ultrasound of liver which showed the same findings Some of the labs are pending Ultrasound report explained to patient she will have further discussion with the gastroenterology She has no pain in her abdomen there is no nausea vomiting or any other complaints at this time Patient is not taking venlafaxine 37.5 mg she would like to increase the dose to 75 which I did she has a history of depression and panic disorder She is also on lorazepam 0.5 mg b.i.d. She is seeing therapist regularly She has seen couple of relations director for hair loss Palpitations: Twice she has had EKG ,July of 2020 which was normal and last visit which showed normal sinus rhythm 70 beats per minute no ST-T findings Patient is seeing Endocrinology for osteoporosis management and was prescribed alendronate which she has not started yet Follow-up 3 months FORMERLY [facility], [facility] Medical History Anxiety, generalized Depression Elevated alpha fetoprotein GERD (gastroesophageal reflux disease) Hepatitis C High potassium HTN (hypertension) Hyperkalemia Hyperparathyroidism Irritable bowel syndrome Left lower quadrant pain Liver fibrosis Multinodular thyroid Osteoporosis PFO (patent foramen ovale) TIA (transient ischemic attack) Vertigo Vitamin D deficiency Surgical History History of lumpectomy of right breast Hx of cholecystectomy Hx of colonoscopy Hx of hysterectomy Hx of parathyroidectomy Family History Maternal Grandmother T2DM (type 2 diabetes mellitus) Father Colon cancer Cancer Multiple myeloma Mother Brain disorder Thyroid disease Sister Thyroid nodule Hyperparathyroidism Hyperthyroidism Maternal Grandfather Heart disease Other Mental health disorder Substance use disorder Social History Household Members: None Housing: Other Alcohol intake: current Alcohol intake frequency: holidays/special occasions only Patient Tobacco Use Status: Never used Tobacco Tobacco use type: Cigarette e-Cigarette/Vaping Use: Never Used Second Hand Smoke Exposure: No service: No Current occupational status: retired Cognitive needs: No Hearing needs: No Vision needs: No Questionnaire Thrive Questionnaire Date Thrive assessed: 08/27/21 AUDIT C Alcohol Use Questionnaire (AUDIT-C) 1. How often do you have a drink containing alcohol?: Never 3. How often do you have six or more drinks on one occasion?: Never Total Score: 0 Score Reviewed/Action Taken: Yes KAYLEIGH-7 AMB Questionnaire KAYLEIGH-7 Date KAYLEIGH - 7 assessed: 08/27/21 Source: Developed by Drs. Andrei Lui, Colette Flanagan, Eliseo Bueno and colleagues, with an educational zulma from [employer]. Review of Systems Const Denies chills and Denies fever(s) ENT Denies epistaxis and Denies nasal discharge Card Denies chest pain Resp Denies chest congestion, Denies cough and Denies hemoptysis GI Denies diarrhea and Denies nausea Skin/Breast Denies rash Neuro Reports no additional complaints Psych Reports no additional complaints Endo Reports no additional complaints Physical exam (Primary Care) Vital Signs: Last Vital Signs Pulse 73 08/16/23 10:24 BP 126/72 11/11/22 10:24 Pulse Ox 96 11/11/22 10:24 Oxygen Delivery Method Room Air 11/11/22 10:24 BMI result Body Mass Index 28.3 Tobacco/Smoking Status: Tobacco use Status Tobacco use date assessed 11/11/22 11/11/22 10:25 Patient Tobacco Use Status Never used Tobacco 11/11/22 10:25 Tobacco use type Cigarette 11/11/22 10:25 e-Cigarette/Vaping Use Never Used 11/11/22 10:25 Thrive Assessment: Date of Thrive Assessment Date Thrive assessed 08/27/21 11/11/22 10:25 Const General: cooperative, comfortable and no acute distress Orientation/consciousness: patient oriented x3 HENMT Head: Yes normocephalic Eyes General: appearance normal, both eyes and all related structures Neck Neck: Yes supple Resp Effort & Inspection: normal respiratory effort, no cough and no stridor Cardio Rhythm: regular rhythm Heart sounds: S1 normal heart sound present and S2 normal heart sound present Skin General skin exam: turgor normal Neuro General: patient oriented x3, tone normal and moves all extremities Extrem Right lower extremity: no edema Left lower extremity: no edema Assessment and Plan Assessment & Plan (1) Anxiety, generalized: Code(s): F41.1 - Generalized anxiety disorder (2) Chronic GERD: Code(s): K21.9 - Gastro-esophageal reflux disease without esophagitis (3) Environmental allergies: Code(s): Z91.09 - Other allergy status, other than to drugs and biological substances (4) Hyperparathyroidism: Comment: Management through [facility] Code(s): E21.3 - Hyperparathyroidism, unspecified (5) Panic disorder: Code(s): F41.0 - Panic disorder [episodic paroxysmal anxiety] (6) Hair loss: Comment: Has seen 2 different dermatologists Code(s): L65.9 - Nonscarring hair loss, unspecified (7) Vitamin D deficiency: Code(s): E55.9 - Vitamin D deficiency, unspecified (8) Osteoporosis: Comment: Management through [facility] Code(s): M81.0 - Age-related osteoporosis without current pathological fracture Plan Patient is 77 year female came in today for her regular follow-up appointment Patient is seeing Gastroenterology for hepatocellular disease Recently she had ultrasound of liver which showed the same findings Some of the labs are pending Ultrasound report explained to patient she will have further discussion with the gastroenterology She has no pain in her abdomen there is no nausea vomiting or any other complaints at this time Patient is not taking venlafaxine 37.5 mg she would like to increase the dose to 75 which I did she has a history of depression and panic disorder She is also on lorazepam 0.5 mg b.i.d. She is seeing therapist regularly She has seen couple of relations director for hair loss Palpitations: Twice she has had EKG ,July of 2020 which was normal and last visit which showed normal sinus rhythm 70 beats per minute no ST-T findings Patient is seeing Endocrinology for osteoporosis management and was prescribed alendronate which she has not started yet Follow-up 3 months Medications: Changed From venlafaxine ER 37.5 mg PO DAILY 30 caps 0RF To venlafaxine ER 75 mg PO DAILY 90 caps 0RF Refilled lorazepam 0.5 mg PO BID PRN 60 tabs 1RF anxiety 30 days Coding Level of Care Code Est Pt Level 4 (92342) Diagnoses Anxiety, generalized F41.1 Chronic GERD K21.9 Environmental allergies Z91.09 Hyperparathyroidism E21.3 Panic disorder F41.0 Hair loss L65.9 Vitamin D deficiency E55.9 Osteoporosis M81.0
== END 2022-11-11 10:58 | disposition home or self-care (01) ==
PROVIDERS: PCP Internal Medicine; Visit Provider Internal Medicine
DX: K21.9 Gastro-esophageal reflux disease without esophagitis (principal); Z91.09 Other allergy status, other than to drugs and biological substances; E21.3 Hyperparathyroidism, unspecified; E55.9 Vitamin D deficiency, unspecified; F41.1 Generalized anxiety disorder; F41.0 Panic disorder [episodic paroxysmal anxiety]; L65.9 Nonscarring hair loss, unspecified; M81.0 Age-related osteoporosis without current pathological fracture
CPT/HCPCS: 99214

== ENCOUNTER 2023-02-09 12:20 | Outpatient (AMB) | payer MEDICARE, SELFPAY ==
[2023-02-09 12:28] VITALS: BP 116/72; PULSE 84; O2SAT 96; BMI 28.5
--- NOTE | 2023-02-09 12:28 | MHC.PC.OV ---
Vital Signs 02/09/23 12:28 Height 4 ft 11 in Weight 141 lb 4 oz BMI 28.5 BP 116/72 Blood Pressure Location Rt brachial Position Sitting Pulse 84 Pulse Source Pulse Oximeter Pulse Oximetry (%) 96 Oxygen Delivery Method Room Air Intake Visit Reasons: 3 Month follow up Allergies adhesive tape Adverse Reaction (Mild, Verified 02/09/23 12:31) Rash meclizine Adverse Reaction (Verified 02/09/23 12:31) High doses Medication List - Last Reconciled 02/09/23 by Facundo Easley MD alendronate 70 mg PO QWEEK calcium carb and citrate-vitD3 600 mg-12.5 mcg (500 unit) ER (Citracal-D3 Slow Release) 1 tab PO DAILY 30 days cholecalciferol (vitamin D3) 50 mcg PO DAILY fluticasone propionate (Flonase Allergy Relief) intranasal lorazepam 0.5 mg PO BID PRN 30 days nystatin 1 appl topical DAILY 30 days omeprazole 20 mg PO DAILY venlafaxine ER 75 mg PO DAILY Tobacco use date assessed: 02/09/23 Fall risk assessment: No Falls in past year Last assessed Fall Risk: 02/09/23 Dental Screening Dental Screen Date: 02/09/23 Did you have a dental visit in the last 12 months?: No Did you have a dental problem in the last 6 months where you did not have access to dental care?: No Was dental information given to patient?: Patient declined HPI 3 Month follow up HPI Details Patient is 78 year female came in today for her regular follow-up appointment Patient is seeing Dr. Walsh for hepatocellular disease secondary to hepatitis C Her reports were reviewed I see that patient has developed liver cirrhosis, she says that she has recently had appointment with gastroenterology and was told that everything is stable Her kidney functions has improved on recent report her GFR is normal now Patient suffer from depression her venlafaxine dose was increased to 75 mg last visit She is also on lorazepam 0.5 mg b.i.d. refill sent for next 3 months Patient says that this time of year is difficult for the patient due to passing of her son, holidays and winter months. She cries easily, she is going through therapy every 2 weeks. And is thinking of all injuring at [facility] She has seen couple of visual merchandising specialist for hair loss but continued to lose here Patient is seeing Endocrinology for osteoporosis management and was prescribed alendronate which she has not started yet Follow-up 3 months PFS Medical History Hyperkalemia GERD (gastroesophageal reflux disease) Liver fibrosis TIA (transient ischemic attack) HTN (hypertension) Depression High potassium Osteoporosis Multinodular thyroid Left lower quadrant pain Elevated alpha fetoprotein Anxiety, generalized Vertigo PFO (patent foramen ovale) Irritable bowel syndrome Hepatitis C Vitamin D deficiency Hyperparathyroidism Surgical History Hx of colonoscopy Hx of parathyroidectomy History of lumpectomy of right breast Hx of cholecystectomy Hx of hysterectomy Family History Maternal Grandmother T2DM (type 2 diabetes mellitus) Father Colon cancer Cancer Multiple myeloma Mother Brain disorder Thyroid disease Sister Thyroid nodule Hyperparathyroidism Hyperthyroidism Maternal Grandfather Heart disease Other Mental health disorder Substance use disorder Social History Household Members: None Housing: Other Alcohol intake: current Alcohol intake frequency: holidays/special occasions only Patient Tobacco Use Status: Never used Tobacco Tobacco use type: Cigarette e-Cigarette/Vaping Use: Never Used Second Hand Smoke Exposure: No service: No Current occupational status: retired Cognitive needs: No Hearing needs: No Vision needs: No Questionnaire Thrive Questionnaire Date Thrive assessed: 08/27/21 AUDIT C Alcohol Use Questionnaire (AUDIT-C) 1. How often do you have a drink containing alcohol?: Never 3. How often do you have six or more drinks on one occasion?: Never Total Score: 0 Score Reviewed/Action Taken: Yes KAYLEIGH-7 AMB Questionnaire KAYLEIGH-7 Date KAYLEIGH - 7 assessed: 08/27/21 Source: Developed by Drs. Andrei Lui, Colette Flanagan, Eliseo Bueno and colleagues, with an educational zulma from [employer]. Review of Systems Const Denies chills and Denies fever(s) ENT Denies epistaxis and Denies nasal discharge Card Denies chest pain Resp Denies chest congestion, Denies cough and Denies hemoptysis GI Denies diarrhea and Denies nausea Skin/Breast Denies rash Neuro Reports no additional complaints Psych Reports no additional complaints Endo Reports no additional complaints Physical exam (Primary Care) Vital Signs: Last Vital Signs Pulse 84 02/09/23 12:28 BP 116/72 02/09/23 12:28 Pulse Ox 96 02/09/23 12:28 Oxygen Delivery Method Room Air 02/09/23 12:28 BMI result Body Mass Index 28.5 Tobacco/Smoking Status: Tobacco use Status Tobacco use date assessed 02/09/23 02/09/23 12:31 Patient Tobacco Use Status Never used Tobacco 02/09/23 12:31 Tobacco use type Cigarette 02/09/23 12:31 e-Cigarette/Vaping Use Never Used 02/09/23 12:31 Thrive Assessment: Date of Thrive Assessment Date Thrive assessed 08/27/21 02/09/23 12:31 Const General: cooperative, comfortable and no acute distress Orientation/consciousness: patient oriented x3 HENMT Head: Yes normocephalic Eyes General: appearance normal, both eyes and all related structures Neck Neck: Yes supple Resp Effort & Inspection: normal respiratory effort, no cough and no stridor Cardio Rhythm: regular rhythm Heart sounds: S1 normal heart sound present and S2 normal heart sound present Skin General skin exam: turgor normal Neuro General: patient oriented x3, tone normal and moves all extremities Extrem Right lower extremity: no edema Left lower extremity: no edema Assessment and Plan Assessment & Plan (1) Anxiety, generalized: Code(s): F41.1 - Generalized anxiety disorder (2) Hyperparathyroidism: Comment: Management through [facility] Code(s): E21.3 - Hyperparathyroidism, unspecified (3) Panic disorder: Code(s): F41.0 - Panic disorder [episodic paroxysmal anxiety] (4) Hair loss: Comment: Has seen 2 different dermatologists Code(s): L65.9 - Nonscarring hair loss, unspecified (5) Vitamin D deficiency: Code(s): E55.9 - Vitamin D deficiency, unspecified (6) Environmental allergies: Code(s): Z91.09 - Other allergy status, other than to drugs and biological substances (7) Osteoporosis: Comment: Management through [facility] Code(s): M81.0 - Age-related osteoporosis without current pathological fracture Qualifiers: Osteoporosis type: age-related Presence of current pathological fracture: without current pathological fracture Qualified Code(s): M81.0 - Age-related osteoporosis without current pathological fracture (8) Chronic GERD: Code(s): K21.9 - Gastro-esophageal reflux disease without esophagitis (9) Hepatic cirrhosis due to chronic hepatitis C infection: Code(s): B18.2 - Chronic viral hepatitis C; K74.60 - Unspecified cirrhosis of liver Plan Patient is 78 year female came in today for her regular follow-up appointment Patient is seeing Dr. Walsh for hepatocellular disease secondary to hepatitis C Her reports were reviewed I see that patient has developed liver cirrhosis, she says that she has recently had appointment with gastroenterology and was told that everything is stable Her kidney functions has improved on recent report her GFR is normal now Patient suffer from depression her venlafaxine dose was increased to 75 mg last visit She is also on lorazepam 0.5 mg b.i.d. refill sent for next 3 months Patient says that this time of year is difficult for the patient due to passing of her son, holidays and winter months. She cries easily, she is going through therapy every 2 weeks. And is thinking of all injuring at [facility] She has seen couple of visual merchandising specialist for hair loss but continued to lose here Patient is seeing Endocrinology for osteoporosis management and was prescribed alendronate which she has not started yet Follow-up 3 months Medications: Refilled lorazepam 0.5 mg PO BID PRN 60 tabs 2RF anxiety 30 days Coding Level of Care Code Est Pt Level 4 (47180) Diagnoses Anxiety, generalized F41.1 Hyperparathyroidism E21.3 Panic disorder F41.0 Hair loss L65.9 Vitamin D deficiency E55.9 Environmental allergies Z91.09 Age-related osteoporosis without current pathological fracture M81.0 Osteoporosis type: age-related Presence of current pathological fracture: without current pathological fracture Chronic GERD K21.9 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; K74.60
== END 2023-02-09 12:47 | disposition home or self-care (01) ==
PROVIDERS: PCP Internal Medicine; Visit Provider Internal Medicine
DX: E21.3 Hyperparathyroidism, unspecified (principal); K74.60 Unspecified cirrhosis of liver; B18.2 Chronic viral hepatitis C; F41.1 Generalized anxiety disorder; F41.0 Panic disorder [episodic paroxysmal anxiety]; L65.9 Nonscarring hair loss, unspecified; E55.9 Vitamin D deficiency, unspecified; Z91.09 Other allergy status, other than to drugs and biological substances; M81.0 Age-related osteoporosis without current pathological fracture; K21.9 Gastro-esophageal reflux disease without esophagitis
CPT/HCPCS: 99214

== ENCOUNTER 2023-02-11 13:43 | Outpatient (REF) | payer MEDICARE, SELFPAY ==
--- NOTE | ~2023-02-11 | MM_ITS ---
EXAMINATION: MM SCREENING DIGITAL BREAST TOMOSYNTHESIS, BILATERAL CLINICAL INFORMATION: Screening. Asymptomatic. The patient has a history of prior benign right breast excisional biopsy. COMPARISON: Mammography: This study is compared with prior exams dating back to 2019. TECHNIQUE: Digital breast tomosynthesis is performed in both the craniocaudal and mediolateral oblique views along with computer-aided detection (CAD). Synthesized 2D images are generated from the tomosynthesis. FINDINGS: There are scattered areas of fibroglandular density (ACR BI-RADS breast composition Category b). There are no significant masses, abnormal calcifications, or other abnormalities. MM/MM tomosynthesis screening BI IMPRESSION: No mammographic evidence of malignancy. ASSESSMENT: BI-RADS BI-RADS 1 - Negative RECOMMENDATION: Routine annual mammography screening. 1 year F/U This examination should not preclude the clinical evaluation of a suspicious palpable abnormality. This patient's information was entered into a reminder system with a target due date for their next mammogram.
== END 2023-02-11 13:44 | disposition home or self-care (01) ==
LOC: HO.MAMMO 13:43
PROVIDERS: PCP Internal Medicine; Visit Provider Internal Medicine
DX: Z12.31 Encounter for screening mammogram for malignant neoplasm of breast (principal)
CPT/HCPCS: 77063; 77067

== ENCOUNTER → 2023-02-11 14:00 | Outpatient (BNV) | payer MEDICARE, SELFPAY | PROVIDERS: PCP Internal Medicine; Visit Provider Radiology Diagnostic Radiology | DX: Z12.31 Encounter for screening mammogram for malignant neoplasm of breast (principal) | CPT/HCPCS: 77063; 77067 ==

== ENCOUNTER 2023-05-18 09:13 | Outpatient (AMB) | payer MEDICARE, SELFPAY ==
[2023-05-18 09:18] VITALS: BP 112/60; PULSE 79; O2SAT 97; BMI 28.7
--- NOTE | 2023-05-18 09:18 | A.OFFPC_ITS ---
Vital Signs 05/18/23 09:18 Height 4 ft 11 in Weight 142 lb BMI 28.7 BP 112/60 Blood Pressure Location Rt brachial Position Sitting Pulse 79 Pulse Source Pulse Oximeter Pulse Oximetry (%) 97 Oxygen Delivery Method Room Air Intake Visit Reasons: 3 Month F/U (Med) Allergies adhesive tape Adverse Reaction (Mild, Verified 05/18/23 09:20) Rash meclizine Adverse Reaction (Verified 05/18/23 09:20) High doses Medication List - Last Reconciled 05/18/23 by Facundo Easley MD alendronate 70 mg PO QWEEK calcium carb and citrate-vitD3 600 mg-12.5 mcg (500 unit) ER (Citracal-D3 Slow Release) 1 tab PO DAILY 30 days cholecalciferol (vitamin D3) 50 mcg PO DAILY fluticasone propionate (Flonase Allergy Relief) intranasal lorazepam 0.5 mg PO BID PRN 30 days nystatin 1 appl topical DAILY 30 days omeprazole 20 mg PO DAILY venlafaxine ER 75 mg PO DAILY Tobacco use date assessed: 05/18/23 Fall risk assessment: No Falls in past year Last assessed Fall Risk: 05/18/23 Dental Screening Dental Screen Date: 05/18/23 Did you have a dental visit in the last 12 months?: No Did you have a dental problem in the last 6 months where you did not have access to dental care?: No Was dental information given to patient?: No HPI 3 Month F/U (Med) HPI Details Patient continued to feel depressed, she is going to [employer] 2 times a week to help out After losing her son she is very emotional, she says that the only relative she has is her sister who lives in [place], they do visit each other Patient is asking to increase her Effexor, she is currently taking 75 mg I am increasing it to 150 mg She is also having some chest discomfort when she is active working at home, We did the EKG today which showed sinus rhythm, 72 beats per minute no acute ST- T findings I have ordered echocardiogram with the patient Her blood pressure is in good control pulses 78 regular She is seeing Dr. Ferro for liver cirrhosis , taking omeprazole for GERD Patient also have allergies and she uses Flonase nasal spray for that Chronic tinea corporis under the breast controlled with the help nystatin powder, patient need refill on that Slightly overweight as well For hyperparathyroidism, osteoporosis thyroid issues patient is seeing Endocrinology Dr. Hughes Patient has seen couple of rn embedded for hair loss, she has requesting a referral to me ended Dermatology, placed More of 3 months [facility] Medical History Hyperkalemia GERD (gastroesophageal reflux disease) Liver fibrosis TIA (transient ischemic attack) HTN (hypertension) Depression High potassium Osteoporosis Multinodular thyroid Left lower quadrant pain Elevated alpha fetoprotein Anxiety, generalized Vertigo PFO (patent foramen ovale) Irritable bowel syndrome Hepatitis C Vitamin D deficiency Hyperparathyroidism Surgical History Hx of colonoscopy Hx of parathyroidectomy History of lumpectomy of right breast Hx of cholecystectomy Hx of hysterectomy Family History Maternal Grandmother T2DM (type 2 diabetes mellitus) Father Colon cancer Cancer Multiple myeloma Mother Brain disorder Thyroid disease Sister Thyroid nodule Hyperparathyroidism Hyperthyroidism Maternal Grandfather Heart disease Other Mental health disorder Substance use disorder Social History Household Members: None Housing: Other Alcohol intake: current Alcohol intake frequency: holidays/special occasions only Patient Tobacco Use Status: Never used Tobacco Tobacco use type: Cigarette e-Cigarette/Vaping Use: Never Used Second Hand Smoke Exposure: No service: No Current occupational status: retired Cognitive needs: No Hearing needs: No Vision needs: No Questionnaire PHQ-9 Over the last 2 weeks, how often have you been bothered by any of the following problems? 1. Little interest or pleasure in doing things: several days 2. Feeling down, depressed, or hopeless: more than half the days 3. Trouble falling or staying asleep, or sleeping too much: nearly every day 4. Feeling tired or having little energy: nearly every day 5. Poor appetite or overeating: not at all 6. Feeling bad about yourself - or that you are a failure or have let yourself or your family down: more than half the days 7. Trouble concentrating on things, such as reading the newspaper or watching television: not at all 8. Moving or speaking so slowly that other people could have noticed. Or the opposite - being so fidgety or restless that you have been moving around a lot more than usual: several days 9. Thoughts that you would be better off or of hurting yourself in some way: not at all Total score: 12 Depression Screening Interpretation: Positive (Taking medication and seeing therapist) Depression Screening Follow-up: Existing condition and In treatment Depression Screening Done: Yes 02115 - PHQ-9 Billing: Yes Source: Developed by Drs. Andrei Lui, Colette Flanagan, Eliseo Bueno and colleagues, with an educational zulma from [employer]. Thrive Questionnaire Date Thrive assessed: 05/18/23 I am a: Patient What is your living situation today?: I have a steady place to live Within the past 12 months, did the food you bought not last and you didn't have the money to get more?: Sometimes True Within the past 12 months, did you worry whether your food would run out before you got money to buy more?: Sometimes True Do you have trouble paying for medicines?: No Do you have trouble getting transportation to medical appointments?: No Do you have trouble paying your heating and electricity bill?: Yes Do you have trouble taking care of your child, family member or friend?: No Do you have trouble with day-to-day activities such as bathing, preparing meals, shopping, managing finances, etc.?: No Are you currently unemployed and looking for a job?: No Are you interested in more education?: No Please select the resources that you would like help with: None Currently or been in a relationship where the following occur: no concerns reported THRIVE Score: 3 KAYLEIGH-7 AMB Questionnaire KAYLEIGH-7 Date KAYLEIGH - 7 assessed: 05/18/23 Feeling nervous, anxious, or on edge: 3 = Nearly every day Not being able to stop or control worryin = Nearly every day Worrying too much about different things: 2 = More than half the days Trouble relaxin = More than half the days Being so restless that it is hard to sit still: 0 = Not at all Becoming easily annoyed or irritable: 2 = More than half the days Feeling afraid as if something awful might happen: 0 = Not at all Total KAYLEIGH-7 score (0-4 normal; 5-9 mild; 10-14 moderate; 15-21 severe): 12 Source: Developed by Drs. Andrei Lui, Colette Flanagan, Eliseo Bueno and colleagues, with an educational zulma from [employer]. KAYLEIGH-7 Assessment Billing KAYLEIGH-7 Assessment Tool: KAYLEIGH-7 Assessment 86262 (In treatment) Review of Systems Const Denies chills and Denies fever(s) ENT Denies epistaxis and Denies nasal discharge Resp Denies chest congestion, Denies cough and Denies hemoptysis GI Denies diarrhea and Denies nausea Skin/Breast Denies rash Neuro Reports no additional complaints Psych Reports no additional complaints Endo Reports no additional complaints Physical exam (Primary Care) Vital Signs: Last Vital Signs Pulse 79 05/18/23 09:18 BP 112/60 05/18/23 09:18 Pulse Ox 97 05/18/23 09:18 Oxygen Delivery Method Room Air 05/18/23 09:18 BMI result Body Mass Index 28.7 Tobacco/Smoking Status: Tobacco use Status Tobacco use date assessed 05/18/23 05/18/23 09:21 Patient Tobacco Use Status Never used Tobacco 05/18/23 09:21 Tobacco use type Cigarette 05/18/23 09:21 e-Cigarette/Vaping Use Never Used 05/18/23 09:21 PHQ-9: PHQ-9 Score PHQ-9: Total score 12 05/18/23 09:59 Depression Screening Interpretation: Positive (Taking medication and seeing therapist) Depression Screening Follow-up: Existing condition and In treatment Thrive Assessment: Date of Thrive Assessment Date Thrive assessed 05/18/23 05/18/23 09:24 Currently or been in a relationship where the following occur: no concerns reported Const General: cooperative, comfortable and no acute distress Orientation/consciousness: patient oriented x3 HENMT Head: Yes normocephalic Eyes General: appearance normal, both eyes and all related structures Neck Neck: Yes supple Resp Effort & Inspection: normal respiratory effort, no cough and no stridor Cardio Rhythm: regular rhythm Heart sounds: S1 normal heart sound present and S2 normal heart sound present Skin General skin exam: turgor normal Neuro General: patient oriented x3, tone normal and moves all extremities Extrem Right lower extremity: no edema Left lower extremity: no edema Office Procedures EKG [id number], Complete Assessment and Plan Assessment & Plan (1) Chest pain: Code(s): R07.9 - Chest pain, unspecified Qualifiers: Chest pain type: precordial pain Qualified Code(s): R07.2 - Precordial pain (2) Palpitations: Code(s): R00.2 - Palpitations (3) Panic disorder: Code(s): F41.0 - Panic disorder [episodic paroxysmal anxiety] (4) Major depression, recurrent: Code(s): F33.9 - Major depressive disorder, recurrent, unspecified Qualifiers: Active/Remission status: in partial remission Qualified Code(s): F33.41 - Major depressive disorder, recurrent, in partial remission (5) Vitamin D deficiency: Code(s): E55.9 - Vitamin D deficiency, unspecified (6) Hair loss: Comment: Has seen 2 different dermatologists Code(s): L65.9 - Nonscarring hair loss, unspecified (7) Anxiety, generalized: Code(s): F41.1 - Generalized anxiety disorder (8) Elevated alpha fetoprotein: Code(s): R77.2 - Abnormality of alphafetoprotein (9) Hyperparathyroidism: Comment: Management through [facility] Code(s): E21.3 - Hyperparathyroidism, unspecified (10) Multinodular thyroid: Code(s): E04.2 - Nontoxic multinodular goiter (11) Osteoporosis: Comment: Management through [facility] Code(s): M81.0 - Age-related osteoporosis without current pathological fracture Qualifiers: Osteoporosis type: age-related Presence of current pathological fracture: without current pathological fracture Qualified Code(s): M81.0 - Age- related osteoporosis without current pathological fracture (12) Environmental allergies: Code(s): Z91.09 - Other allergy status, other than to drugs and biological substances (13) Chronic GERD: Code(s): K21.9 - Gastro-esophageal reflux disease without esophagitis (14) Hepatic cirrhosis due to chronic hepatitis C infection: Code(s): B18.2 - Chronic viral hepatitis C; K74.60 - Unspecified cirrhosis of liver Plan Patient continued to feel depressed, she is going to [employer] 2 times a week to help out After losing her son she is very emotional, she says that the only relative she has is her sister who lives in [place], they do visit each other Patient is asking to increase her Effexor, she is currently taking 75 mg I am increasing it to 150 mg She is also having some chest discomfort when she is active working at home, We did the EKG today which showed sinus rhythm, 72 beats per minute no acute ST- T findings I have ordered echocardiogram with the patient Her blood pressure is in good control pulses 78 regular She is seeing Dr. Ferro for liver cirrhosis , taking omeprazole for GERD Patient also have allergies and she uses Flonase nasal spray for that Chronic tinea corporis under the breast controlled with the help nystatin powder, patient need refill on that Slightly overweight as well For hyperparathyroidism, osteoporosis thyroid issues patient is seeing Endocrinology Dr. Hughes Patient has seen couple of rn embedded for hair loss, she has requesting a referral to [facility] Derm[facility], placed More of 3 months Orders: Orders TSH reflex Free T4 Today B18.2 - Chronic viral hepatitis C, E04.2 - Nontoxic multinodular goiter, E21.3 - Hyperparathyroidism, unspecified, E55.9 - Vitamin D deficiency, unspecified, F41.0 - Panic disorder [episodic paroxysmal anxiety], F41.1 - Generalized anxiety disorder, K21.9 - Gastro-esophageal reflux disease without esophagitis, K74.60 - Unspecified cirrhosis of liver, L65.9 - Nonscarring hair loss, unspecified, M81.0 - Age-related osteoporosis without current pathological fracture, R00.2 - Palpitations, R77.2 - Abnormality of alp hafetoprotein, Z91.09 - Other allergy status, other than to drugs and biological substances AMB EKG-In Office Today R00.2 - Palpitations, R07.9 - Chest pain, unspecified Complete Blood Count Auto Diff Today B18.2 - Chronic viral hepatitis C, E04.2 - Nontoxic multinodular goiter, E21.3 - Hyperparathyroidism, unspecified, E55.9 - Vitamin D deficiency, unspecified, F41.0 - Panic disorder [episodic paroxysmal anxiety], F41.1 - Generalized anxiety disorder, K21.9 - Gastro-esophageal reflux disease without esophagitis, K74.60 - Unspecified cirrhosis of liver, L65.9 - Nonscarring hair loss, unspecified, M81.0 - Age-related osteoporosis without current pathological fracture, R00.2 - Palpitations, R77.2 - Abnormality of alphafetoprotein, Z91.09 - Other allergy status, other than to drugs and biological substances Comprehensive Met. Panel Today B18.2 - Chronic viral hepatitis C, E04.2 - Nontoxic multinodular goiter, E21.3 - Hyperparathyroidism, unspecified, E55.9 - Vitamin D deficiency, unspecified, F41.0 - Panic disorder [episodic paroxysmal anxiety], F41.1 - Generalized anxiety disorder, K21.9 - Gastro-esophageal reflux disease without esophagitis, K74.60 - Unspecified cirrhosis of liver, L65.9 - Nonscarring hair loss, unspecified, M81.0 - Age-related osteoporosis without current pathological fracture, R00.2 - Palpitations, R77.2 - Abnormality of alphafetoprotein, Z91.09 - Other allergy status, other than to drugs and biological substances Vitamin D 25-OH (D2 and D3) Today B18.2 - Chronic viral hepatitis C, E04.2 - Nontoxic multinodular goiter, E21.3 - Hyperparathyroidism, unspecified, E55.9 - Vitamin D deficiency, unspecified, F41.0 - Panic disorder [episodic paroxysmal anxiety], F41.1 - Generalized anxiety disorder, K21.9 - Gastro-esophageal reflux disease without esophagitis, K74.60 - Unspecified cirrhosis of liver, L65.9 - Nonscarring hair loss, unspecified, M81.0 - Age-related osteoporosis without current pathological fracture, R00.2 - Palpitations, R77.2 - Abnormality of alphafetoprotein, Z91.09 - Other allergy status, other than to drugs and biological substances CA echo transthoracic complete Today R00.2 - Palpitations, R07.9 - Chest pain, unspecified Referrals Dermatology Referral L65.9 - Nonscarring hair loss, unspecified Medications: Changed From venlafaxine ER 75 mg PO DAILY 90 caps 0RF To venlafaxine ER 150 mg PO DAILY 90 caps 0RF Refilled nystatin 1 appl topical DAILY 30 days 60 grams 2RF B35.4 - Tinea corporis lorazepam 0.5 mg PO BID 30 days PRN 60 tabs 2RF anxiety Coding Level of Care Code Est Pt Level 5 (01984) Diagnoses Precordial pain R07.2 Chest pain type: precordial pain Palpitations R00.2 Panic disorder F41.0 Recurrent major depressive disorder, in partial remission F33.41 Active/Remission status: in partial remission Vitamin D deficiency E55.9 Hair loss L65.9 Anxiety, generalized F41.1 Elevated alpha fetoprotein R77.2 Hyperparathyroidism E21.3 Multinodular thyroid E04.2 Age-related osteoporosis without current pathological fracture M81.0 Osteoporosis type: age-related Presence of current pathological fracture: without current pathological fracture Environmental allergies Z91.09 Chronic GERD K21.9 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; K74.60 CPT Codes EKG - CPT: 56326-[id number], Complete ([id number]) Additional Codes KAYLEIGH-7 Assessment Billing - KAYLEIGH-7 Assessment Tool: KAYLEIGH-7 Assessment 53909 ([id number]) Time Spent (min) 45 Comment 5 pre visit, 20 with patient, 5 minute charting, 15 minute post visit coordination of care
== END 2023-05-18 10:32 | disposition home or self-care (01) ==
PROVIDERS: PCP Internal Medicine; Visit Provider Internal Medicine
DX: R07.2 Precordial pain (principal); R00.2 Palpitations
CPT/HCPCS: 93000; 99215

== ENCOUNTER 2023-05-18 09:52 | Outpatient (REF) | payer MEDICARE, SELFPAY ==
[2023-05-18 13:23] LABS: MANUAL DIFF FLAG NO
[2023-05-18 13:38] LABS: Basophils Absolute Auto 0.1 X10*3/uL (0.0-0.2); Basophils Percent Auto 0.7 % (0-2); Eosinophils Absolute Auto 0.3 X10*3/uL (0.0-0.4); Eosinophils Percent Auto 3.8 % (0-4); Hematocrit 41.4 % (37.0-47.0); Hemoglobin 13.8 g/dl (12.0-16.0); Imm Gran Abs Auto 0.03 X10*3/uL (0.00-0.03); Imm Gran Pct Auto 0.4 % (0.0-0.4); Lymphocytes Absolute Auto 1.5 X10*3/uL (1.2-4.9); Lymphocytes Percent Auto 20.2 % (20-40); Mean Corpuscular HGB Conc 33.3 g/dl (31.0-35.0); Mean Corpuscular Hemoglobin 31.8 pg (27.0-33.0); Mean Corpuscular Volume 95.4 fL (80.0-98.0); Mean Platelet Volume 11.1 fL (9.4-12.3); Monocytes Absolute Auto 0.6 X10*3/uL (0.1-1.2); Monocytes Percent Auto 7.6 % (2-11); Neutrophils Absolute Auto 4.8 x10*3/uL (2.0-8.3); Neutrophils Percent Auto 67.3 % (45-73); Platelet Count 183 X10*3/uL (160-400); Red Blood Count 4.34 X10*6/uL (4.20-5.50); Red Cell Distribution Width 12.4 % (11.0-16.0); White Blood Count 7.2 X10*3/uL (4.8-10.8)
[2023-05-18 14:08] LABS: Alanine Aminotransferase 11 U/L (0-31); Albumin Level 4.3 g/dL (3.5-5.0); Alkaline Phosphatase 52 U/L (39-117); Anion Gap 14 (12-20); Aspartate Amino Transferase 20 U/L (5-31); Bilirubin Total 0.7 mg/dL (0.0-1.0); Blood Urea Nitrogen 20 mg/dL (9-16); Calcium 9.7 mg/dL (8.4-10.2); Carbon Dioxide 25 mmol/L (22-29); Chloride 105 mmol/L (96-108); Estimated Glomerular Filt Rate > 60; Glucose Fasting 101 mg/dL (60-99); Glucose Random 99 mg/dL (60-115); Magnesium 1.9 mg/dL (1.6-2.6); Potassium 4.8 mmol/L (3.3-5.1); Sodium 139 mmol/L (135-145)
[2023-05-18 14:10] LABS: Vitamin B12 428 pg/mL (200-900)
[2023-05-18 14:13] LABS: Ferritin 71 ng/mL (10-250); TSH reflex Free T4 2.87 uIU/mL (0.32-4.0)
[2023-05-23 15:37] LABS: Vitamin D 25-OH, D2 <4 ng/mL; Vitamin D 25-OH, D3 33 ng/mL; Vitamin D 25-OH, Total 33 ng/mL (30-100)
== END 2023-05-18 09:53 | disposition home or self-care (01) ==
LOC: HO.HMGCLDS 09:52
PROVIDERS: PCP Internal Medicine; Visit Provider Internal Medicine
DX: K74.60 Unspecified cirrhosis of liver (principal); E55.9 Vitamin D deficiency, unspecified; F41.1 Generalized anxiety disorder; R77.2 Abnormality of alphafetoprotein; E21.3 Hyperparathyroidism, unspecified; E04.2 Nontoxic multinodular goiter; M81.0 Age-related osteoporosis without current pathological fracture; K21.9 Gastro-esophageal reflux disease without esophagitis; F41.0 Panic disorder [episodic paroxysmal anxiety]; L65.9 Nonscarring hair loss, unspecified; B18.2 Chronic viral hepatitis C; R00.2 Palpitations; Z91.09 Other allergy status, other than to drugs and biological substances
CPT/HCPCS: 36415; 80053; 82306; 82607; 82728; 83735; 84443; 85025

== ENCOUNTER → 2023-06-14 12:42 | Outpatient (REF) | payer MEDICARE, SELFPAY ==
--- NOTE | 2023-06-14 12:45 | CA_ITS ---
Transthoracic Echocardiogram Patient (Last, First, Middle): Kathleen Manuel D Gender: Female Date of : 1945 Age: 78 Procedure Date: 06/14/2023 Procedure Type: Transthoracic Echocardiogram Location: OP Height: 149.86 cm Weight: 64.41 kg BSA: 1.59 m2 Heart Rate: bpm BP: 110 / 78 mmHg Ethernet Network Architect: MARGI Referring MD: Facundo Easley MD Symptoms: R00.2 - Palpitations Study Quality: Adequate ECG Rhythm: Sinus Conclusions: - The left ventricular systolic function is normal. The calculated ejection fraction is 64% by biplane method. - There is mild mitral annular calcification. - No obvious valvular pathology seen on this study. - Moderate plaque is seen in the ascending aorta. Findings Left Ventricle Normal left ventricular cavity size. There is normal left ventricular wall thickness. The left ventricular systolic function is normal. The calculated ejection fraction is 64% by biplane method. There is no evidence of regional wall motion abnormalities. Evidence suggests grade I (mild) diastolic dysfunction. LV peak GLS -16%. Right Ventricle Normal right ventricular cavity size and systolic function. Atria The left atrium is mildly dilated. The right atrium is normal in size. Aortic Valve There is a normal trileaflet aortic valve. There is no aortic valve stenosis. There is no aortic valve regurgitation. Mitral Valve The mitral valve appears normal. There is mild mitral annular calcification. There is trace mitral valve regurgitation. There is no mitral valve stenosis. Pulmonic Valve The pulmonic valve is likely normal. Tricuspid Valve Normal tricuspid valve structure. There is trace tricuspid valve regurgitation. There is no evidence of pulmonary hypertension. Great Vessels The asc aorta is normal in size. Moderate plaque is seen in the ascending aorta. Venous The inferior vena cava is normal in size and collapses greater than 50% with inspiration. Pericardium/Pleural There is no evidence of pericardial effusion. Prior Study Comparison No prior study available for comparison. Recommendations, Care & Conclusions No obvious valvular pathology seen on this study. Measurements 2D Linear Measurements IVSd: 0.95 0.6-0.9/0.6-1.0 cm LVIDd: 4.17 3.9-5.3/4.2-5.9 cm LVIDd Index: 2.62 2.4-3.2/2.2-3.1 cm/m2 LVIDs: 2.75 2.0-3.6 cm LVPWd: 0.84 0.7-1.1 cm LA Diam: 2.60 2.7-3.8/3.0-4.0 cm LAIDs Index: 1.64 1.5-2.3 cm/m2 LV Mass: 144.99 67-162/88-224 g LV Mass Index: 91.19 43-95/49-115 g/m2 LVOT Diam: 1.90 3.0+(-)1.3 cm 2D Systolic Function EF 4C: 64.60 >55% EF 2C: 61.90 >55% EF BiP: 63.80 >55% Mitral Valve MV Pk E: 0.72 MV PK A: 0.81 MV Decel Time: 166.00 E/A: 0.90 E'Lateral: 8.59 E'Medial: 5.11 E/E' Med: 14.10 E/E' Lat: 8.40 PHT: 49.00 MVA PHT: 4.49 Decel [place]: 4.33 Aortic Valve AoV Pk [place]: 1.29 AoV Mn [place]: 0.88 AoV VTI: 0.30 AoV Pk Grad: 7.00 Aov Mn Grad: 4.00 SHERI Cont.VTI: 1.90 LVOT LVOT Pk [place]: 0.82 LVOT Mn [place]: 0.56 LVOT VTI: 0.20 LVOT Pk Grad: 3.00 LVOT Mn Grad: 1.00 LVOT Diam: 1.90 LVOT Area: 2.84 Diastolic Function MV Pk E: 0.72 MV Pk A: 0.81 E/A: 0.90 E'Medial: 5.11 E/E' Med: 14.10 E' Laterial: 8.59 E/E' Lat: 8.40 Right Ventricle TAPSE (mm): 18.30 TVS' Carroll: 10.70 Tricuspid Valve TR Pk [place]: 2.06 TR Pk Grad: 17.00 RA Press: 3.00 RVSP: 20.00 Great Vessels Aorta Sinus of Valsalva: 2.96 2.0-3.[address] [place]: 2.11 1.7-3.4 cm Ao Asc: 3.10 2.1-3.4 cm Updated in Other Vendor System with Status of Final Harvey Salgado MD electronically signed on 06/14/2023 3:50:59 PM with status of Final
[2023-06-14 14:39] LABS: Cholesterol 284 mg/dL (<200); HDL Cholesterol 99 mg/dL (>40); LDL Cholesterol Calculated 168 mg/dL (<100); Triglycerides 88 mg/dL (<150)
== END ==
LOC: HO.CARD 12:42
PROVIDERS: PCP Internal Medicine; Visit Provider Internal Medicine
DX: R07.9 Chest pain, unspecified (principal); R00.2 Palpitations; R06.02 Shortness of breath; F41.1 Generalized anxiety disorder; L65.9 Nonscarring hair loss, unspecified
CPT/HCPCS: 36415; 80061; 93306

== ENCOUNTER → 2023-06-14 12:45 | Outpatient (BNV) | payer MEDICARE, SELFPAY | PROVIDERS: PCP Internal Medicine; Visit Provider Internal Medicine | DX: I34.81 Nonrheumatic mitral (valve) annulus calcification (principal) | CPT/HCPCS: 93306; 93356 ==

== ENCOUNTER 2023-06-24 08:31 | Outpatient (AMB) | payer MEDICARE, SELFPAY ==
--- NOTE | 2023-06-24 08:48 | A.OFFPC_ITS ---
Vital Signs 06/24/23 08:48 Height 4 ft 11 in Intake Visit Reasons: Discuss Recent Results~ Allergies adhesive tape Adverse Reaction (Mild, Verified 06/24/23 08:48) Rash meclizine Adverse Reaction (Verified 06/24/23 08:48) High doses Medication List - Last Reconciled 06/24/23 by Facundo Easley MD calcium carb and citrate-vitD3 600 mg-12.5 mcg (500 unit) ER (Citracal-D3 Slow Release) 1 tab PO DAILY 30 days cholecalciferol (vitamin D3) 50 mcg PO DAILY fluticasone propionate (Flonase Allergy Relief) intranasal lorazepam 0.5 mg PO BID PRN 30 days nystatin 1 appl topical DAILY 30 days omeprazole 20 mg PO DAILY venlafaxine ER 150 mg PO DAILY Tobacco use date assessed: 06/24/23 Fall risk assessment: No Falls in past year Last assessed Fall Risk: 06/24/23 Dental Screening Dental Screen Date: 06/24/23 Did you have a dental visit in the last 12 months?: No Did you have a dental problem in the last 6 months where you did not have access to dental care?: No Was dental information given to patient?: No HPI Discuss Recent Results~ HPI Details Patient is 78-year-old female This is a telemedicine video conference follow-up Patient complained of chest discomfort off and on We did the EKG in the office when she came in few days ago and I also ordered the echocardiogram Report is as following Conclusions: - The left ventricular systolic function is normal. The calculated ejection fraction is 64% by biplane method. - There is mild mitral annular calcifica tion. - No obvious valvular pathology seen on this study. - Moderate plaque is seen in the ascendi ng aorta. EKG did not show any acute findings in the office Due to atherosclerosis of ascending aorta I am looking her appointment with Cardiology She also have elevated lipids but cannot take statin due to liver cirrhosis Her anxiety is better with increase dose of venlafaxine to 150 mg Refill sent for that Patient was instructed to call EMT if she start having chest pain radiating to her jaw or associated with palpitation or shortness of breath [facility] Medical History Hyperkalemia GERD (gastroesophageal reflux disease) Liver fibrosis TIA (transient ischemic attack) HTN (hypertension) Depression High potassium Osteoporosis Multinodular thyroid Left lower quadrant pain Elevated alpha fetoprotein Anxiety, generalized Vertigo PFO (patent foramen ovale) Irritable bowel syndrome Hepatitis C Vitamin D deficiency Hyperparathyroidism Surgical History Hx of colonoscopy Hx of parathyroidectomy History of lumpectomy of right breast Hx of cholecystectomy Hx of hysterectomy Family History Maternal Grandmother T2DM (type 2 diabetes mellitus) Father Colon cancer Cancer Multiple myeloma Mother Brain disorder Thyroid disease Sister Thyroid nodule Hyperparathyroidism Hyperthyroidism Maternal Grandfather Heart disease Other Mental health disorder Substance use disorder Social History Household Members: None Housing: Other Alcohol intake: current Alcohol intake frequency: holidays/special occasions only Patient Tobacco Use Status: Never used Tobacco Tobacco use type: Cigarette e-Cigarette/Vaping Use: Never Used Second Hand Smoke Exposure: No service: No Current occupational status: retired Cognitive needs: No Hearing needs: No Vision needs: No Questionnaire Thrive Questionnaire Date Thrive assessed: 05/18/23 AUDIT C Alcohol Use Questionnaire (AUDIT-C) 1. How often do you have a drink containing alcohol?: Never 3. How often do you have six or more drinks on one occasion?: Never Total Score: 0 Score Reviewed/Action Taken: Yes KAYLEIGH-7 AMB Questionnaire KAYLEIGH-7 Date KAYLEIGH - 7 assessed: 05/18/23 Source: Developed by Drs. Andrei Lui, Colette Flanagan, Eliseo Bueno and colleagues, with an educational zulma from [employer]. Review of Systems Const Denies chills and Denies fever(s) ENT Denies epistaxis and Denies nasal discharge Resp Denies chest congestion, Denies cough and Denies hemoptysis GI Denies diarrhea and Denies nausea Skin/Breast Denies rash Neuro Reports no additional complaints Psych Reports no additional complaints Endo Reports no additional complaints Physical exam (Primary Care) Tobacco/Smoking Status: Tobacco use Status Tobacco use date assessed 06/24/23 06/24/23 08:51 Patient Tobacco Use Status Never used Tobacco 06/24/23 08:51 Tobacco use type Cigarette 06/24/23 08:51 e-Cigarette/Vaping Use Never Used 06/24/23 08:51 Thrive Assessment: Date of Thrive Assessment Date Thrive assessed 05/18/23 06/24/23 08:51 Telehealth Telehealth Location of provider rendering services: practice address Location of patient: address on file Patient Identification confirmed using: Name, : Yes Telehealth method: video Patient verbally consented to treatment: Yes Patient verbally consented to billing insurance company: Yes Patient informed of any privacy concerns related to visit: Yes Minutes spent on Phone/Video with Pt.: 16 Assessment and Plan Assessment & Plan (1) Atherosclerotic heart disease: Code(s): I25.10 - Atherosclerotic heart disease of [place] coronary artery without angina pectoris Qualifiers: Coronary Disease-Associated Artery/Lesion type: unspecified vessel or lesion type [place] vs. transplanted heart: [place] heart Associated angina: without angina Qualified Code(s): I25.10 - Atherosclerotic heart disease of [place] coronary artery without angina pectoris (2) Lipid disorder: Code(s): E78.9 - Disorder of lipoprotein metabolism, unspecified (3) Major depression, recurrent: Code(s): F33.9 - Major depressive disorder, recurrent, unspecified Qualifiers: Active/Remission status: in partial remission Qualified Code(s): F33.41 - Major depressive disorder, recurrent, in partial remission (4) Anxiety, generalized: Code(s): F41.1 - Generalized anxiety disorder Plan Patient is 78-year-old female This is a telemedicine video conference follow-up Patient complained of chest discomfort off and on We did the EKG in the office when she came in few days ago and I also ordered the echocardiogram Report is as following Conclusions: - The left ventricular systolic function is normal. The calculated ejection fraction is 64% by biplane method. - There is mild mitral annular calcification. - No obvious valvular pathology seen on this study. - Moderate plaque is seen in the ascending aorta. EKG did not show any acute findings in the office Due to atherosclerosis of ascending aorta I am looking her appointment with Cardiology She also have elevated lipids but cannot take statin due to liver cirrhosis Her anxiety is better with increase dose of venlafaxine to 150 mg Refill sent for that Patient was instructed to call EMT if she start having chest pain radiating to her jaw or associated with palpitation or shortness of breath Orders: Referrals Cardiology Referral E78.9 - Disorder of lipoprotein metabolism, unspecified, I25.10 - Atherosclerotic heart disease of [place] coronary artery without angina pectoris Medications: Refilled venlafaxine ER 150 mg PO DAILY 90 caps 0RF Coding Level of Care Code Tele Est Pt Level 3 (09807) Diagnoses Atherosclerosis of coronary artery of [place] heart without angina pectoris, unspecified vessel or lesion type I25.10 Coronary Disease-Associated Artery/Lesion type: unspecified vessel or lesion type [place] vs. transplanted heart: [place] heart Associated angina: without angina Lipid disorder E78.9 Recurrent major depressive disorder, in partial remission F33.41 Active/Remission status: in partial remission Anxiety, generalized F41.1
== END 2023-06-24 15:24 | disposition home or self-care (01) ==
LOC: HO.HMGC 08:31
PROVIDERS: PCP Internal Medicine; Visit Provider Internal Medicine
DX: I25.10 Atherosclerotic heart disease of native coronary artery without angina pectoris (principal); E78.9 Disorder of lipoprotein metabolism, unspecified; F33.41 Major depressive disorder, recurrent, in partial remission; F41.1 Generalized anxiety disorder
CPT/HCPCS: 99213

== ENCOUNTER 2023-07-29 13:39 | Outpatient (AMB) | payer MEDICARE, SELFPAY ==
[2023-07-29 14:41] VITALS: BP 100/40; PULSE 77; O2SAT 98; BMI 28.5
--- NOTE | 2023-07-29 14:41 | A.OFFVIS_ITS ---
Vital Signs 07/29/23 14:41 07/29/23 14:57 Height 4 ft 11 in Weight 141 lb 1.533 oz BMI 28.5 BP 100/40 L 106/56 L Blood Pressure Location Lt brachial Lt brachial Position Sitting Sitting Pulse 77 Pulse Source Pulse Oximeter Pulse Oximetry (%) 98 Oxygen Delivery Method Room Air Intake Visit Reasons: [facility] ed fu chest pain/palpitations (HS) (rs) Intake Note: following up [facility] ER D/C PT has no energy and feels overwhelmed Allergies adhesive tape Adverse Reaction (Mild, Verified 06/24/23 08:48) Rash meclizine Adverse Reaction (Verified 06/24/23 08:48) High doses HPI Comments Details: 77-year-old female presents to discuss chest pains and palpitations. She reports she feels her heart race, she becomes short of breath with exertion, and lightheadedness. She also reports chest pain on exertion. She reports her mother had a UT. She reports she is under stress due to her sons passing. [facility] Medical History (Updated 07/29/23 @ 14:55 by Elizabeth Reyes NP) Intermittent palpitations Hyperkalemia GERD (gastroesophageal reflux disease) Liver fibrosis TIA (transient ischemic attack) HTN (hypertension) Depression High potassium Osteoporosis Multinodular thyroid Left lower quadrant pain Elevated alpha fetoprotein Anxiety, generalized Vertigo PFO (patent foramen ovale) Irritable bowel syndrome Hepatitis C Vitamin D deficiency Hyperparathyroidism Surgical History Hx of colonoscopy Hx of parathyroidectomy History of lumpectomy of right breast Hx of cholecystectomy Hx of hysterectomy Family History Maternal Grandmother T2DM (type 2 diabetes mellitus) Father Colon cancer Cancer Multiple myeloma Mother Brain disorder Thyroid disease Sister Thyroid nodule Hyperparathyroidism Hyperthyroidism Maternal Grandfather Heart disease Other Mental health disorder Substance use disorder Social History Household Members: None Housing: Other Alcohol intake: current Alcohol intake frequency: holidays/special occasions only Patient Tobacco Use Status: Never used Tobacco Tobacco use type: Cigarette e-Cigarette/Vaping Use: Never Used Second Hand Smoke Exposure: No service: No Current occupational status: retired Cognitive needs: No Hearing needs: No Vision needs: No Physical Exam Vital Signs: Last Vital Signs Pulse 77 07/29/23 14:41 BP 106/56 L 07/29/23 14:57 Pulse Ox 98 07/29/23 14:41 Oxygen Delivery Method Room Air 07/29/23 14:41 BMI result Body Mass Index 28.5 Assessment & Plan Assessment & Plan (1) Atherosclerotic heart disease: Code(s): I25.10 - Atherosclerotic heart disease of [place] coronary artery without angina pectoris Category: Medical Qualifiers: Associated angina: without angina Coronary Disease-Associated Artery /Lesion type: unspecified vessel or lesion type [place] vs. transplanted heart: [place] heart Qualified Code(s): I25.10 - Atherosclerotic heart disease of [place] coronary artery without angina pectoris (2) Chest pain: Code(s): R07.9 - Chest pain, unspecified Category: Medical Qualifiers: Chest pain type: precordial pain Qualified Code(s): R07.2 - Precordial pain (3) Intermittent palpitations: Code(s): R00.2 - Palpitations Category: Medical Plan Echocardiogram showed moderate plaque in ascending aorta. Last LDL 06/14/23 168. Sent for atorvastatin 20mg. Repeat lipids in 2-3 months. Discussed heart healthy diet. Chest pressures on exertion and feeling of her heart racing with shortness of breath and lightheadedness. Will get holter to assess palpitations and stress test to assess chest pain for ischemia. Orders: Orders Basic Metabolic Panel 07/29/23 I25.10 - Atherosclerotic heart disease of [place] coronary artery without angina pectoris CA stress test 07/29/23 R07.2 - Precordial pain ECG 3 day holter monitor 07/29/23 R00.2 - Palpitations Lipid Panel 07/29/23 I25.10 - Atherosclerotic heart disease of [place] coronary artery without angina pectoris [place] cardiolite stress test 07/29/23 R07.2 - Precordial pain Medications: New atorvastatin 20 mg PO DAILY 30 tabs 3RF 30 days Coding Level of Care Code Est Pt Level 4 (61579) Diagnoses Atherosclerosis of coronary artery of [place] heart without angina pectoris, u nspecified vessel or lesion type I25.10 Associated angina: without angina Coronary Disease-Associated Artery/Lesion type: unspecified vessel or lesion type [place] vs. transplanted heart: [place] heart Precordial pain R07.2 Chest pain type: precordial pain Intermittent palpitations R00.2
[2023-07-29 14:57] VITALS: BP 106/56
== END 2023-07-29 15:10 | disposition home or self-care (01) ==
PROVIDERS: PCP Internal Medicine; Visit Provider Nurse Practitioner
DX: I25.10 Atherosclerotic heart disease of native coronary artery without angina pectoris (principal); R07.2 Precordial pain; R00.2 Palpitations
CPT/HCPCS: 99214

== ENCOUNTER → 2023-07-29 13:39 | Outpatient (BNVA) | payer MEDICARE, SELFPAY | PROVIDERS: PCP Internal Medicine; Visit Provider Nurse Practitioner | DX: I25.10 Atherosclerotic heart disease of native coronary artery without angina pectoris (principal); R07.2 Precordial pain; R00.2 Palpitations | CPT/HCPCS: 99212 ==

== ENCOUNTER 2023-08-17 10:51 | Outpatient (AMB) | payer MEDICARE, SELFPAY ==
[2023-08-17 10:53] VITALS: BP 108/70; PULSE 87; O2SAT 98; BMI 28.7
--- NOTE | 2023-08-17 10:53 | A.OFFVIS_ITS ---
Intake Vital Signs 08/17/23 10:53 Height 4 ft 11 in Weight 142 lb 4 oz BMI 28.7 BP 108/70 Blood Pressure Location Rt brachial Position Sitting Pulse 87 Pulse Source Pulse Oximeter Pulse Oximetry (%) 98 Oxygen Delivery Method Room Air Intake Visit Reasons: [facility] G0439 - see comments Allergies adhesive tape Adverse Reaction (Mild, Verified 08/17/23 10:58) Rash meclizine Adverse Reaction (Verified 08/17/23 10:58) High doses Medication List - Last Reconciled 08/17/23 by Facundo Easley MD calcium carb and citrate-vitD3 600 mg-12.5 mcg (500 unit) ER (Citracal-D3 Slow Release) 1 tab PO DAILY 30 days cholecalciferol (vitamin D3) 50 mcg PO DAILY fluticasone propionate (Flonase Allergy Relief) intranasal lorazepam 0.5 mg PO BID PRN 30 days nystatin 1 appl topical DAILY 30 days omeprazole 20 mg PO DAILY venlafaxine ER 150 mg PO DAILY HPI [facility] G0439 - see comments HPI Details Patient is 78-year-old female came in today Medicare wellness visit and regular follow-up Patient has appointment coming up with cooker sulfate September 01 for evaluation As she continued to have chest discomfort off and Her blood pressure is in good control She is seeing Dr. Ferro for liver cirrhosis , taking omeprazole for GERD Patient also have allergies and she uses Flonase nasal spray for that Chronic tinea corporis under the breast controlled with the help nystatin powder Slightly overweight as well For hyperparathyroidism, osteoporosis thyroid issues patient is seeing Endocrinology Dr. Hughes Anxiety/depression stable with venlafaxine 150 mg and lorazepam as needed Allergies stable with Flonase nasal spray LDL is elevated 168, it will be addressed by cooker sulfate at her upcoming appointment Colonoscopy was May of [address] Ferro patient is no longer having more colonoscopies Mammogram was January of 2023 Bone density June of 2022 HPI Comments History of Present Illness Details AWV Medical/social history reviewed Past medical history reviewed [place] of care / care team list updated Surgical/ hospitalization history reviewed Current medications including OTC and supplements reviewed Family history reviewed Tobacco controlled form updated Alcohol use form updated Illicit drug use in social history reviewed Current diagnosis of depression ?screening updated Appropriate PHQ 2/PHQ-9 completed . Vital signs reviewed Alcohol tobacco drug use reviewed and discussed . MMSE completed . ? Fall risk: ?Assessed Fall history: ?yes Have you had any falls with injury in the past year?? yes / minor injuries Have you had 2 or more falls in the past year?? No Fall risk assessment completed Home safety discussed with the patient Functional ability assessed and discussed and documented Activities of daily living reviewed and appropriate actions taken . HRA filled out by the patient and reviewed by provider and scanned . Appropriate written screening schedule established . Any health advise needed provided . Advance care planning discussed with the patient , necessary paperwork filled Examination IPPE/AWE: Balance intact Romberg intact Tandem walk failed walk-in turn intact rise from sit to stand intact . ?Hearing ?whisper test pass . Medication list reviewed, patient is stable on medications All other providers patient is seeing discussed and noted . COUNTS INCLUDE 234 BEDS AT THE [facility] Medical History Intermittent palpitations Hyperkalemia GERD (gastroesophageal reflux disease) Liver fibrosis TIA (transient ischemic attack) HTN (hypertension) Depression High potassium Osteoporosis Multinodular thyroid Left lower quadrant pain Elevated alpha fetoprotein Anxiety, generalized Vertigo PFO (patent foramen ovale) Irritable bowel syndrome Hepatitis C Vitamin D deficiency Hyperparathyroidism Surgical History Hx of colonoscopy Hx of parathyroidectomy History of lumpectomy of right breast Hx of cholecystectomy Hx of hysterectomy Family History Maternal Grandmother T2DM (type 2 diabetes mellitus) Father Colon cancer Cancer Multiple myeloma Mother Brain disorder Thyroid disease Sister Thyroid nodule Hyperparathyroidism Hyperthyroidism Maternal Grandfather Heart disease Other Mental health disorder Substance use disorder Social History Household Members: None Housing: Other Alcohol intake: current Alcohol intake frequency: holidays/special occasions only Patient Tobacco Use Status: Never used Tobacco Tobacco use type: Cigarette e-Cigarette/Vaping Use: Never Used Second Hand Smoke Exposure: No service: No Current occupational status: retired Cognitive needs: No Hearing needs: No Vision needs: No Questionnaire Medicare Wellness Checkup [age] What gender do you identify with?: female During the past 4 weeks, how much have you been bothered by emotional problems such as feeling anxious, depressed, irritable, sad or downhearted, and blue?: quite a bit During the past 4 weeks, has your physical & emotional health limited your social activities with family, friends, neighbors, or groups?: moderately During the past 4 weeks, how much bodily pain have you generally had?: mild pain During the past 4 weeks, was someone available to help you if you needed & wanted help?: yes, some During the past 4 weeks, what was the hardest physical activity you could do for at least 2 minutes?: light Can you get to places out of walking distance without help? (For eg., can you travel alone on buses, taxis or drive your car?): Yes Can you go shopping for groceries or clothes without someone's help?: Yes Can you prepare your own meals?: Yes Can you do your housework without help?: No Because of any health problems, do you need the help of another person with your personal care needs such as eating, bathing, dressing or getting around the house?: No Can you handle your own money without help?: Yes During the past 4 weeks, how would you rate your health in general?: fair During the past 4 weeks how have things been going for you?: good & bad parts about equal Are you having difficulties driving your car?: no Do you always fasten your seat belt when you are in a car?: yes, usually During past 4 weeks, have you been bothered by the following: never: Sexual problems?, Teeth or denture problems? and Problems using the telephone?, seldom: Trouble eating well?, often: Falling or dizzy when standing up and always: Tiredness or fatigue? Have you fallen 2 or more times in the past year?: Yes Are you afraid of falling?: Yes Are you a smoker?: no During the past 4 weeks, how many drinks of wine, beer, or other alcoholic beverages did you have?: 1 drink or less per week Do you exercise for about 20 minutes 3 or more times a week?: no, I usually do not exercise this much Have you been given information to help with the following?: yes: Keeping track of your medications? and no: Hazards in your house that might hurt you? How often do you have trouble taking medicines the way you have been told to take them?: sometimes I take medicine as prescribed How confident are you that you can control & manage most of your health problems?: somewhat confident What is your race?: White Mini Mental State Exam (MMSE) Orientation What is the (year) (season) (date) (day) (month)?: year, season, date, day and month Where are we (state) (county) (town or city) (hospital) (floor)?: state, county, town or city, hospital/clinic and floor Score Score: 10 Activity of Daily Living Bathing - sponge bath, tub bath or shower: receives no assistance (gets in/out by self, if usual bathing means Dressing - getting clothes from closets & drawers, including inner/outer garments & fasteners.: gets clothes & gets completely dressed without help Toileting - going to the 'toilet room' for urine/bowel elimination & cleaning self/arranging clothes: goes to toilet room, cleans self, arranges clothes without help Transfer: moves in & out of bed and chair without help (may use support object) Continence: controls urination/bowel movements completely by self Feeding: feeds self without help Total Score: 0 Information obtained from: patient Using telephone: independent Traveling: independent Shopping: independent Preparing meals: independent Housework: independent Taking medicine: independent Managing money: independent PHQ-9 Over the last 2 weeks, how often have you been bothered by any of the following problems? 1. Little interest or pleasure in doing things: several days 2. Feeling down, depressed, or hopeless: more than half the days 3. Trouble falling or staying asleep, or sleeping too much: more than half the days 4. Feeling tired or having little energy: more than half the days 5. Poor appetite or overeating: several days 6. Feeling bad about yourself - or that you are a failure or have let yourself or your family down: several days 7. Trouble concentrating on things, such as reading the newspaper or watching television: not at all 8. Moving or speaking so slowly that other people could have noticed. Or the opposite - being so fidgety or restless that you have been moving around a lot more than usual: several days 9. Thoughts that you would be better off or of hurting yourself in some way: not at all Total score: 10 Depression Screening Interpretation: Positive Depression Screening Follow-up: Ex isting condition and In treatment Depression Screening Done: Yes 56946 - PHQ-9 Billing: Yes Source: Developed by Drs. Andrei Lui, Colette Flanagan, Eliseo Bueno and colleagues, with an educational zulma from [employer]. Review of Systems Const Denies chills and Denies fever(s) ENT Denies epistaxis and Denies nasal discharge Card Denies chest pain Resp Denies chest congestion, Denies cough and Denies hemoptysis GI Denies diarrhea and Denies nausea Skin/Breast Denies rash Neuro Reports no additional complaints Psych Reports no additional complaints Endo Reports no additional complaints Physical Exam Vital Signs: Last Vital Signs Pulse 87 08/17/23 10:53 BP 108/70 08/17/23 10:53 Pulse Ox 98 08/17/23 10:53 Oxygen Delivery Method Room Air 08/17/23 10:53 BMI result Body Mass Index 28.7 Const General: cooperative, comfortable and no acute distress Orientation/consciousness: patient oriented x3 HEENT Head: Yes normocephalic Eyes General: appearance normal, both eyes and all related structures Neck Other: Supple Neck: Yes supple Resp Effort & Inspection: normal respiratory effort, no cough and no stridor Cardio Rhythm: regular rhythm Heart sounds: S1 normal heart sound present and S2 normal heart sound present Skin General skin exam: turgor normal Neuro Other: Motor sensory intact General: patient oriented x3, tone normal and moves all extremities Extrem Other: No lower extremity swelling. Right lower extremity: no edema Left lower extremity: no edema Psych Other: Normal effect, speech clear Assessment & Plan Assessment & Plan (1) Medicare annual wellness visit, subsequent: Code(s): Z00.00 - Encounter for general adult medical examination without abnormal findings (2) Intermittent palpitations: Code(s): R00.2 - Palpitations (3) Lipid disorder: Code(s): E78.9 - Disorder of lipoprotein metabolism, unspecified (4) Atherosclerotic heart disease: Code(s): I25.10 - Atherosclerotic heart disease of [place] coronary artery without angina pectoris Qualifiers: Associated angina: without angina Coronary Disease-Associated Artery/Lesion type: unspecified vessel or lesion type [place] vs. transplanted heart: [place] heart Qualified Code(s): I25.10 - Atherosclerotic heart disease of [place] coronary artery without angina pectoris (5) Major depression, recurrent: Code(s): F33.9 - Major depressive disorder, recurrent, unspecified Qualifiers: Active/Remission status: in partial remission Qualified Code(s): F33.41 - Major depressive disorder, recurrent, in partial remission (6) Hepatic cirrhosis due to chronic hepatitis C infection: Code(s): B18.2 - Chronic viral hepatitis C; K74.60 - Unspecified cirrhosis of liver (7) Panic disorder: Code(s): F41.0 - Panic disorder [episodic paroxysmal anxiety] (8) Chronic GERD: Code(s): K21.9 - Gastro-esophageal reflux disease without esophagitis (9) Environmental allergies: Code(s): Z91.09 - Other allergy status, other than to drugs and biological substances (10) Tinea corporis: Code(s): B35.4 - Tinea corporis (11) Osteoporosis: Comment: Management through endocrinology [facility] Code(s): M81.0 - Age-related osteoporosis without current pathological fracture Qualifiers: Osteoporosis type: age-related Presence of current pathological fracture: without current pathological fracture Qualified Code(s): M81.0 - Age- related osteoporosis without current pathological fracture (12) Anxiety, generalized: Code(s): F41.1 - Generalized anxiety disorder (13) Elevated alpha fetoprotein: Code(s): R77.2 - Abnormality of alphafetoprotein (14) Vitamin D deficiency: Code(s): E55.9 - Vitamin D deficiency, unspecified Plan Patient is 78-year-old female came in today Medicare wellness visit and regular follow-up Patient has appointment coming up with cooker sulfate September 01 for evaluation As she continued to have chest discomfort off and Her blood pressure is in good control She is seeing Dr. Ferro for liver cirrhosis , taking omeprazole for GERD Patient also have allergies and she uses Flonase nasal spray for that Chronic tinea corporis under the breast controlled with the help nystatin powder Slightly overweight as well For hyperparathyroidism, osteoporosis thyroid issues patient is seeing Endocrinology Dr. Hughes Anxiety/depression stable with venlafaxine 150 mg and lorazepam as needed Allergies stable with Flonase nasal spray LDL is elevated 168, it will be addressed by cooker sulfate at her upcoming appointment Colonoscopy was May of [address] Ferro patient is no longer having more colonoscopies Mammogram was January of 2023 Bone density June of 2022 Medications: Refilled lorazepam 0.5 mg PO BID PRN 60 tabs 2RF anxiety 30 days Quality Reporting (2019) Depression/Bipolar (159/160/161/177) PHQ-9: Total score: 10 Coding Level of Care Code Medicare Subsequent (G0439) Est Pt Level 4 (16769) Diagnoses Medicare annual wellness visit, subsequent Z00.00 Intermittent palpitations R00.2 Lipid disorder E78.9 Atherosclerosis of coronary artery of [place] heart without angina pectoris, unspecified vessel or lesion type I25.10 Associated angina: without angina Coronary Disease-Associated Artery/Lesion type: unspecified vessel or lesion type [place] vs. transplanted heart: [place] heart Recurrent major depressive disorder, in partial remission F33.41 Active/Remission status: in partial remission 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; K74.60 Panic disorder F41.0 Chronic GERD K21.9 Environmental allergies Z91.09 Tinea corporis B35.4 Age-related osteoporosis without current pathological fracture M81.0 Osteoporosis type: age-related Presence of current pathological fracture: without current pathological fracture Anxiety, generalized F41.1 Elevated alpha fetoprotein R77.2 Vitamin D deficiency E55.9 CPT Codes Advance Care Planning - Time spent: 1-15 minutes, on File ([id number]) Advance Care Planning Advance Care Planning discussion: Completed/Scanned Forms completed: MOLST Time spent: 1-15 minutes, on File
== END 2023-08-17 11:31 | disposition home or self-care (01) ==
PROVIDERS: PCP Internal Medicine; Visit Provider Internal Medicine
DX: Z00.00 Encounter for general adult medical examination without abnormal findings (principal); F33.41 Major depressive disorder, recurrent, in partial remission; K74.60 Unspecified cirrhosis of liver; B18.2 Chronic viral hepatitis C; R00.2 Palpitations; E78.9 Disorder of lipoprotein metabolism, unspecified; I25.10 Atherosclerotic heart disease of native coronary artery without angina pectoris; F41.0 Panic disorder [episodic paroxysmal anxiety]; K21.9 Gastro-esophageal reflux disease without esophagitis; Z91.09 Other allergy status, other than to drugs and biological substances; B35.4 Tinea corporis; M81.0 Age-related osteoporosis without current pathological fracture
CPT/HCPCS: 1123F; 99214; G0439

== ENCOUNTER → 2023-09-02 07:50 | Outpatient (REF) | payer MEDICARE, SELFPAY ==
--- NOTE | 2023-09-02 08:00 | HM_ITS ---
Conclusion: 1. Patient was monitored for total period of 3 days 2. Baseline was normal sinus rhythm with average heart of 79 beats per minute 3. No significant pauses noted 4. Occasional isolated PVCs noted 5. Patient reported 1 event of palpitation correlated with sinus tachycardia and PVCs MTDD
== END ==
LOC: HO.CARD 07:50
PROVIDERS: PCP Internal Medicine; Visit Provider Nurse Practitioner
DX: R00.2 Palpitations (principal)
CPT/HCPCS: 93242

== ENCOUNTER → 2023-09-02 08:00 | Outpatient (BNV) | payer MEDICARE, SELFPAY | PROVIDERS: PCP Internal Medicine; Visit Provider Internal Medicine Cardiovascular Disease | DX: I49.3 Ventricular premature depolarization (principal) | CPT/HCPCS: 93244 ==

== ENCOUNTER → 2023-09-22 09:21 | Outpatient (REF) | payer MEDICARE, SELFPAY ==
--- NOTE | ~2023-09-22 | NM_ITS ---
Lexiscan Myocardial perfusion study Indication: Chest pain, assess for coronary disease and ischemia Technique: The patient was brought in for a Lexiscan perfusion study on 09/22/2023 and was injected 0.4 mg of Lexiscan intravenously. Within a minute of this injection 25 mCi of sestamibi was given intravenously. Images were obtained using the SPECT gamma camera interlaced with the gating device. Images were obtained in supine position. Resting perfusion study was performed on 09/23/2023. Patient was administered 25 mCi of sestamibi intravenously at rest. Images were then obtained in supine position. Images were processed with the software and compared side to side in short axis, horizontal long axis and vertical long axis views. Total DLP 45mGy-cm. Findings: Raw acquisition reviewed. The stress perfusion study showed no significant perfusion abnormality. Both uncorrected as well as CT attenuation corrected images were reviewed. The gated study shows normal LV systolic function with calculated LVEF of > 70%. LV cavity is normal in size. The gated study shows normal wall thickening and contraction of segments. Resting study shows no significant perfusion abnormality. Gating at rest reveals normal wall motion with ejection fraction at 55%. The findings are consistent with no clear reversible or fixed perfusion abnormality. NM/NM cardiolite stress test Impression: 1. Myocardial perfusion imaging study shows normal myocardial perfusion. 2. Gated LVEF is > 70% during stress and 55% during rest. 3. Transient ischemic dilatation not present. EKG component of the test reported separately.
--- NOTE | 2023-09-22 09:23 | CA_ITS ---
Acquisition Time: 2023-09-22 10:03:19 Total Exercise Time: 00:02:00 Test Indications: CHEST PAIN Medications: Protocol: LEXISCAN Max HR: 109 BPM 75% of Pred: 144 BPM Max BP: 110/076 mmHG Max Work Load: 1.0 METS Pharmacological stress test with Lexiscan injection while sitting and kicking her legs, without anginal symptoms, with isolated PVC, with normotensive response to injection, withnondiagnoisitic EKGs. Nuclear images pending, Test reviewed with Dr. Champion Referred By: Elizabeth Reyes Overread By: Elizabeth Reyes
== END ==
LOC: HO.CARD 09:21
PROVIDERS: PCP Internal Medicine; Visit Provider Nurse Practitioner
DX: R07.2 Precordial pain (principal)
CPT/HCPCS: 78452; 93017; A9500; J0280; J2785

== ENCOUNTER → 2023-09-22 09:23 | Outpatient (BNV) | payer MEDICARE, SELFPAY | PROVIDERS: PCP Internal Medicine; Visit Provider Nurse Practitioner | DX: R07.9 Chest pain, unspecified (principal) | CPT/HCPCS: 78452; 93016; 93018 ==

== ENCOUNTER 2023-11-09 10:45 | Outpatient (AMB) | payer MEDICARE, SELFPAY ==
[2023-11-09 10:48] VITALS: BP 120/68; PULSE 71; O2SAT 96; BMI 28.7
--- NOTE | 2023-11-09 10:48 | A.OFFPC_ITS ---
Vital Signs 11/09/23 10:48 Height 4 ft 11 in Weight 142 lb 2 oz BMI 28.7 BP 120/68 Blood Pressure Location Rt brachial Position Sitting Pulse 71 Pulse Source Pulse Oximeter Pulse Oximetry (%) 96 Oxygen Delivery Method Room Air Intake Visit Reasons: 3 month follow up Allergies adhesive tape Adverse Reaction (Mild, Verified 11/09/23 10:50) Rash meclizine Adverse Reaction (Verified 11/09/23 10:50) High doses Medication List - Last Reconciled 11/09/23 by Facundo Easley MD calcium carb and citrate-vitD3 600 mg-12.5 mcg (500 unit) ER (Citracal-D3 Slow Release) 1 tab PO DAILY 30 days cholecalciferol (vitamin D3) 50 mcg PO DAILY fluticasone propionate (Flonase Allergy Relief) intranasal lorazepam 0.5 mg PO BID PRN 30 days nystatin 1 appl topical DAILY 30 days omeprazole 20 mg PO DAILY venlafaxine ER 150 mg PO DAILY Tobacco use date assessed: 11/09/23 Fall risk assessment: 1 Fall in past year Last assessed Fall Risk: 11/09/23 Dental Screening Dental Screen Date: 11/09/23 Did you have a dental visit in the last 12 months?: No Did you have a dental problem in the last 6 months where you did not have access to dental care?: No Was dental information given to patient?: No HPI 3 month follow up HPI Details March came in today for her three-month follow-up appointment She is doing well as far as depression and anxiety is concerned She is seeing a therapist 2 times a week which is helping She is also on lorazepam 0.5 mg almost daily now and sometimes at night as well I have sent 90 tablets for next 3 months She is to continue venlafaxine 150 mg as well Palpitations has improved since she has started taking lorazepam She is seeing Dr. Ferro for liver cirrhosis , taking omeprazole for GERD Patient also have allergies and she uses Flonase nasal spray for that Chronic tinea corporis under the breast controlled with the help nystatin powder Slightly overweight as well For hyperparathyroidism, osteoporosis thyroid issues patient is seeing Endocrinology Dr. Hughes More of 3 months [facility] Medical History Intermittent palpitations Hyperkalemia GERD (gastroesophageal reflux disease) Liver fibrosis TIA (transient ischemic attack) HTN (hypertension) Depression High potassium Osteoporosis Multinodular thyroid Left lower quadrant pain Elevated alpha fetoprotein Anxiety, generalized Vertigo PFO (patent foramen ovale) Irritable bowel syndrome Hepatitis C Vitamin D deficiency Hyperparathyroidism Surgical History Hx of colonoscopy Hx of parathyroidectomy History of lumpectomy of right breast Hx of cholecystectomy Hx of hysterectomy Family History Maternal Grandmother T2DM (type 2 diabetes mellitus) Father Colon cancer Cancer Multiple myeloma Mother Brain disorder Thyroid disease Sister Thyroid nodule Hyperparathyroidism Hyperthyroidism Maternal Grandfather Heart disease Other Mental health disorder Substance use disorder Social History Household Members: None Housing: Other Alcohol intake: current Alcohol intake frequency: holidays/special occasions only Patient Tobacco Use Status: Never used Tobacco Tobacco use type: Cigarette e-Cigarette/Vaping Use: Never Used Second Hand Smoke Exposure: No service: No Current occupational status: retired Cognitive needs: No Hearing needs: No Vision needs: No Questionnaire PHQ-9 Over the last 2 weeks, how often have you been bothered by any of the following problems? 1. Little interest or pleasure in doing things: several days 2. Feeling down, depressed, or hopeless: several days 3. Trouble falling or staying asleep, or sleeping too much: several days 4. Feeling tired or having little energy: several days 5. Poor appetite or overeating: several days 6. Feeling bad about yourself - or that you are a failure or have let yourself or your family down: not at all 7. Trouble concentrating on things, such as reading the newspaper or watching television: not at all 8. Moving or speaking so slowly that other people could have noticed. Or the opposite - being so fidgety or restless that you have been moving around a lot more than usual: several days 9. Thoughts that you would be better off or of hurting yourself in some way: not at all Total score: 6 Depression Screening Interpretation: Negative Depression Screening Done: Yes 54639 - PHQ-9 Billing: Yes Source: Developed by Drs. Andrei Lui, Colette B.WEliseo Villagomez and colleagues, with an educational zulma from [employer]. Thrive Questionnaire Date Thrive assessed: 11/09/23 I am a: Patient What is your living situation today?: I have a steady place to live Within the past 12 months, did the food you bought not last and you didn't have the money to get more?: Sometimes True Within the past 12 months, did you worry whether your food would run out before you got money to buy more?: Sometimes True Do you have trouble paying for medicines?: No Do you have trouble getting transportation to medical appointments?: No Do you have trouble paying your heating and electricity bill?: Yes Do you have trouble taking care of your child, family member or friend?: No Do you have trouble with day-to-day activities such as bathing, preparing meals, shopping, managing finances, etc.?: No Are you currently unemployed and looking for a job?: No Are you interested in more education?: No Please select the resources that you would like help with: Food Currently or been in a relationship where the following occur: No concerns reported THRIVE Score: 3 AUDIT C Alcohol Use Questionnaire (AUDIT-C) 1. How often do you have a drink containing alcohol?: Monthly or less 2. How many drinks containing alcohol do you have on a typical day when you are drinking?: 1 or 2 3. How often do you have six or more drinks on one occasion?: Never Total Score: 1 Score Reviewed/Action Taken: Yes KAYLEIGH-7 AMB Questionnaire KAYLEIGH-7 Date KAYLEIGH - 7 assessed: 11/09/23 Feeling nervous, anxious, or on edge: 1 = Several days Not being able to stop or control worryin = Several days Worrying too much about different things: 1 = Several days Trouble relaxin = Several days Being so restless that it is hard to sit still: 0 = Not at all Becoming easily annoyed or irritable: 1 = Several days Feeling afraid as if something awful might happen: 1 = Several days Total KAYLEIGH-7 score (0-4 normal; 5-9 mild; 10-14 moderate; 15-21 severe): 6 Source: Developed by Drs. Andrei Lui, Eliseo Huggins and colleagues, with an educational zulma from [employer]. KAYLEIGH-7 Assessment Billing KAYLEIGH-7 Assessment Tool: KAYLEIGH-7 Assessment 43613 Review of Systems Const Denies chills and Denies fever(s) ENT Denies epistaxis and Denies nasal discharge Card Denies chest pain Resp Denies chest congestion, Denies cough and Denies hemoptysis GI Denies diarrhea and Denies nausea Skin/Breast Denies rash Neuro Reports no additional complaints Psych Reports no additional complaints Endo Reports no additional complaints Physical exam (Primary Care) Vital Signs: Last Vital Signs Pulse 71 11/09/23 10:48 BP 120/68 11/09/23 10:48 Pulse Ox 96 11/09/23 10:48 Oxygen Delivery Method Room Air 11/09/23 10:48 BMI result Body Mass Index 28.7 Tobacco/Smoking Status: Tobacco use Status Tobacco use date assessed 11/09/23 11/09/23 10:54 Patient Tobacco Use Status Never used Tobacco 11/09/23 10:49 Tobacco use type Cigarette 11/09/23 10:49 e-Cigarette/Vaping Use Never Used 11/09/23 10:49 PHQ-9: PHQ-9 Score PHQ-9: Total score 6 11/09/23 11:13 Depression Screening Interpretation: Negative Thrive Assessment: Date of Thrive Assessment Date Thrive assessed 11/09/23 11/09/23 10:54 Currently or been in a relationship where the following occur: No concerns reported Const General: cooperative, comfortable and no acute distress Orientation/consciousness: patient oriented x3 HENMT Head: Yes normocephalic Eyes General: appearance normal, both eyes and all related structures Neck Neck: Yes supple Resp Effort & Inspection: normal respiratory effort, no cough and no stridor Cardio Rhythm: regular rhythm Heart sounds: S1 normal heart sound present and S2 normal heart sound present Skin General skin exam: turgor normal Neuro General: patient oriented x3, tone normal and moves all extremities Extrem Right lower extremity: no edema Left lower extremity: no edema Assessment and Plan Assessment & Plan (1) Panic disorder: Code(s): F41.0 - Panic disorder [episodic paroxysmal anxiety] (2) Anxiety, generalized: Code(s): F41.1 - Generalized anxiety disorder (3) Major depression, recurrent: Code(s): F33.9 - Major depressive disorder, recurrent, unspecified Qualifiers: Active/Remission status: in partial remission Qualified Code(s): F33.41 - Major depressive disorder, recurrent, in partial remission (4) Vitamin D deficiency: Code(s): E55.9 - Vitamin D deficiency, unspecified (5) Elevated alpha fetoprotein: Code(s): R77.2 - Abnormality of alphafetoprotein (6) Hyperparathyroidism: Comment: Management through [facility] Code(s): E21.3 - Hyperparathyroidism, unspecified (7) Multinodular thyroid: Code(s): E04.2 - Nontoxic multinodular goiter (8) Osteoporosis: Comment: Management through [facility] Code(s): M81.0 - Age-related osteoporosis without current pathological fracture Qualifiers: Osteoporosis type: age-related Presence of current pathological fracture: without current pathological fracture Qualified Code(s): M81.0 - Age- related osteoporosis without current pathological fracture (9) Environmental allergies: Code(s): Z91.09 - Other allergy status, other than to drugs and biological substances (10) Chronic GERD: Code(s): K21.9 - Gastro-esophageal reflux disease without esophagitis (11) Hepatic cirrhosis due to chronic hepatitis C infection: Code(s): B18.2 - Chronic viral hepatitis C; K74.60 - Unspecified cirrhosis of liver Plan May came in today for her three-month follow-up appointment She is doing well as far as depression and anxiety is concerned She is seeing a therapist 2 times a week which is helping She is also on lorazepam 0.5 mg almost daily now and sometimes at night as well I have sent 90 tablets for next 3 months She is to continue venlafaxine 150 mg as well Palpitations has improved since she has started taking lorazepam She is seeing Dr. Ferro for liver cirrhosis , taking omeprazole for GERD Patient also have allergies and she uses Flonase nasal spray for that Chronic tinea corporis under the breast controlled with the help nystatin powder Slightly overweight as well For hyperparathyroidism, osteoporosis thyroid issues patient is seeing Endocrinology Dr. Hughes More of 3 months Medications: Refilled venlafaxine ER 150 mg PO DAILY 90 caps 3RF lorazepam 0.5 mg PO BID PRN 60 tabs 2RF anxiety 30 days Coding Level of Care Code Est Pt Level 4 (61208) Complex EM visit Add On G2211 Diagnoses Panic disorder F41.0 Anxiety, generalized F41.1 Recurrent major depressive disorder, in partial remission F33.41 Active/Remission status: in partial remission Vitamin D deficiency E55.9 Elevated alpha fetoprotein R77.2 Hyperparathyroidism E21.3 Multinodular thyroid E04.2 Age-related osteoporosis without current pathological fracture M81.0 Osteoporosis type: age-related Presence of current pathological fracture: without current pathological fracture Environmental allergies Z91.09 Chronic GERD K21.9 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; K74.60 Additional Codes KAYLEIGH-7 Assessment Billing - KAYLEIGH-7 Assessment Tool: KAYLEIGH-7 Assessment 30501 ([id number])
== END 2023-11-09 11:13 | disposition home or self-care (01) ==
PROVIDERS: PCP Internal Medicine; Visit Provider Internal Medicine
DX: F41.0 Panic disorder [episodic paroxysmal anxiety] (principal); F41.1 Generalized anxiety disorder; F33.41 Major depressive disorder, recurrent, in partial remission; E55.9 Vitamin D deficiency, unspecified; R77.2 Abnormality of alphafetoprotein; E21.3 Hyperparathyroidism, unspecified; E04.2 Nontoxic multinodular goiter; M81.0 Age-related osteoporosis without current pathological fracture; Z91.09 Other allergy status, other than to drugs and biological substances; K21.9 Gastro-esophageal reflux disease without esophagitis; B18.2 Chronic viral hepatitis C; K74.60 Unspecified cirrhosis of liver
CPT/HCPCS: 96127; 99214; G2211

== ENCOUNTER → 2023-11-24 14:01 | Outpatient (RCR) | payer MEDICARE, SELFPAY ==
[2020-03-26 08:34] VITALS: BP 122/57; PULSE 72; RESP 12; TEMP 36.3; O2SAT 97; BMI 28.2
[2020-03-26 09:34] LABS: MANUAL DIFF FLAG NO
[2020-03-26 09:41] LABS: Basophils Percent Auto 0.6 % (0-2); Eosinophils Absolute Auto 0.3 X10*3/uL (0.0-0.4); Eosinophils Percent Auto 3.6 % (0-4); Hematocrit 40.9 % (37-47); Hemoglobin 13.7 g/dl (12.0-16.0); Imm Gran Abs Auto 0.01 X10*3/uL (0.00-0.03); Imm Gran Pct Auto 0.1 % (0.0-0.4); Lymphocytes Absolute Auto 1.7 X10*3/uL (1.2-4.9); Lymphocytes Percent Auto 24.1 % (20-40); Mean Corpuscular HGB Conc 33.5 g/dl (31.0-35.0); Mean Corpuscular Hemoglobin 31.7 pg (27.0-33.0); Mean Corpuscular Volume 94.7 fL (80-98); Mean Platelet Volume 9.9 fL (9.4-12.3); Monocytes Absolute Auto 0.5 X10*3/uL (0.1-1.2); Monocytes Percent Auto 7.5 % (2-11); Neutrophils Absolute Auto 4.4 X10*3/uL (2.0-8.3); Neutrophils Percent Auto 64.1 % (45-73); Platelet Count 163 X10*3/uL (160-400); Red Blood Count 4.32 X10*6/uL (4.20-5.50); Red Cell Distribution Width 12.5 % (11.0-16.0); White Blood Count 6.9 X10*3/uL (4.8-10.8)
[2020-03-26 10:05] LABS: Alanine Aminotransferase 15 U/L (0-31); Albumin Level 4.5 g/dL (3.5-5.0); Alkaline Phosphatase 71 U/L (39-117); Anion Gap 12 (12-20); Aspartate Amino Transferase 19 U/L (5-31); Bilirubin Total 0.6 mg/dL (0.0-1.0); Blood Urea Nitrogen 21 mg/dL (9-16); Calcium 10.3 mg/dL (8.4-10.2); Carbon Dioxide 26 mmol/L (22-29); Chloride 104 mmol/L (96-108); Creatinine Clr Calc Pharmacy 56.3; Estimated Glomerular Filt Rate > 60; Glucose Random 96 mg/dL (60-115); Potassium 4.9 mmol/l (3.3-5.1); Sodium 137 mmol/L (135-145); Total Protein 7.6 g/dL (6.5-8.0)
--- NOTE | 2020-03-26 10:06 | MHC.HEMONCMA ---
Patient came in for a consult on an elevated tumor marker, patient states she didnt even know about this appt until yesterday when they called to remind her. Upon further digging, we found out she was referred to us for an elevated marker that has to do with her hepatitis C she is being treated by Dr Ferro who continues to follow and care for her. Dr Parra ordered labs and we will call her later with the results.
--- NOTE | 2020-03-26 14:26 | PM.HEMONCCN ---
Subjective - Subjective Chief complaint: Consult for elevated AFP. Patient: new to practice Consult date: 03/26/20 Requesting Physician: FACUNDO STORY. Primary Care Provider: Facundo Story MD Medical Summary: DIAGNOSIS: ELEVATED AFP. HPI - Consult Narrative Reason for consult: ELEVATED AFP. Narrative: Kathleen Manuel is a pleasant 75 year old lady with a previous history of hepatitis-C which was diagnosed in 1994. Genotype 1 a. On 06/26/2014, HCV RNA: [id number]. HCV PCR log 6.44. She was treated subsequently and her numbers from July 2014 were negative. She has been treated under the care of Dr. Ferro. Most recently her hepatitis C RNA was non revealin/28: HCV RNA <15. HCV PCR log: <1.18. Serial alpha fetoprotein readings: 02/04/06:11. 02/15/07:14.4. 10/17/2007: 9. 9/9/ 9:10.4. 02/18/2010: 14. 10/08/2011: 18.5. 06/26/2014: 16. 05/29/2016: 7.4. 12/20/2017: 7.5. 10/24/2019: 7.8. She has had serial MRIs of the abdomen, over the years. Most recent was 01/13/2013. It revealed: Overall no significant interval change from the prior study. There is a stable hepatic cyst but no suspicious hepatic lesions are appreciated. She has been referred here for further evaluation. Overall she feels rather fatigued all the time. She had evaluation done. She was noted to have an elevated calcium level. Ultrasound of the neck revealed enlarged parathyroid gland. It also revealed thyroid nodules. She has been under the care of endocrine. She is going to have FNA of the thyroid nodule next month by Dr. Fraga. She will then be referred to Dr. Constantino, for parathyroid gland excision. Review of Systems - Constitutional Reports system reviewed and no additional complaints, except as documented, Reports fatigue, Reports lack of energy, Reports malaise, Reports weakness, Reports weight loss, Denies fever(s) - Eyes Reports system reviewed and no additional complaints, except as documented, Denies blurry vision - ENT Reports system reviewed and no additional complaints, except as documented - Cardiovascular Reports system reviewed and no additional complaints, except as documented, Denies chest pain at rest - Respiratory Reports no additional respiratory complaints, Denies change in phlegm color - Gastrointestinal Reports system reviewed and no additional complaints, except as documented, Denies abdominal pain - Genitourinary Reports no additional female genitourinary complaints - Musculoskeletal Reports system reviewed and no additional complaints, except as documented, Denies back pain - Integumentary/Breasts Skin/Breast: Reports no additional skin complaints, Denies bleeding lesions - Neurologic Reports system reviewed and no additional complaints, except as documented - Psychiatric Reports system reviewed and no additional complaints, except as documented, Denies abnormal sleep pattern - Endocrine Reports no additional endocrine complaints - Hematologic/Lymphatic Reports system reviewed and no additional complaints, except as documented, Denies easy bleeding - Allergic/Immunologic Reports system reviewed and no additional complaints, except as documented, Denies GI upset with certain foods PMFSH Medical History: Medical History (Last Reviewed 03/07/20 @ 12:31 by Halina Arriaza DO) Anxiety, generalized Bipolar disorder Elevated alpha fetoprotein Hepatitis C Hyperparathyroidism Irritable bowel syndrome Left lower quadrant pain Multinodular thyroid PFO (patent foramen ovale) Vertigo Vitamin D deficiency Functional capacity: independent ambulation Patient : No Family History: Family History (Last Updated 03/26/20 @ 08:42 by Liv Crocker) Maternal Grandmother T2DM (type 2 diabetes mellitus) Father Colon cancer Cancer Multiple myeloma Mother Brain disorder Thyroid disease Sister Thyroid nodule Hyperparathyroidism Hyperthyroidism Maternal Grandfather Heart disease Surgical History: Surgical History (Last Reviewed 03/07/20 @ 12:31 by Halina Arriaza DO) History of lumpectomy of right breast Hx of cholecystectomy Hx of hysterectomy Smoking status: Former smoker Home Medications and Allergies Home Medications Medication Instructions Recorded Confirmed Type cholecalciferol (vitamin D3) 25 25 mcg PO DAILY 01/03/20 03/26/20 History mcg (1,000 unit) capsule omeprazole 20 mg capsule,delayed 20 mg PO DAILY 01/03/20 03/26/20 History release nystatin 100,000 unit/gram topical 1 applic TOPICAL BID 02/02/20 03/26/20 History cream meclizine 12.5 mg tablet 12.5 mg PO DAILY PRN 03/07/20 03/26/20 History Allergies Allergy/AdvReac Type Severity Reaction Status Date / Time meclizine AdvReac High doses Verified 03/07/20 12:21 Physical Exam Vital signs: Vital Signs Temp 97.4 F 03/26/20 08:34 Pulse 72 03/26/20 08:34 Resp 12 03/26/20 08:34 BP 122/57 L 03/26/20 08:34 Pulse Ox 97 03/26/20 08:34 Intake & Output 03/25/20 03/26/20 03/26/20 18:59 06:59 18:59 Other: Weight 63.4 kg Weight 63.4 kg - Constitutional Present: no acute distress - Routine HEENT Exam Head: Present: normal inspection ENT: Present: mucous membranes moist - Routine Neck Exam Present: supple - Routine Respiratory Exam Present: CTAB - Routine Cardiovascular Exam Cardiovascular: Present: RRR, S1, S2 - Routine Abdominal Exam Present: soft, nontender - Routine Back/Spine/Pelvis Exam Back/Spine: Present: full ROM - Routine Skin Exam Present: intact, normal turgor - Routine Neurological Exam Present: alert, oriented X3 - Detailed Neurological Exam: Coma Scale Eye Opening: Spontaneous (4) Verbal Response: Oriented (5) Motor Response: Obeys commands (6) Amira Coma Scale Total: 15 - Routine Psychiatric Exam Present: normal affect Hem/Onc Consult Result - Labs CBC & Chem 7: 03/26/20 09:31 03/26/20 09:31 Labs: Short CBC 03/26/20 Range/Units 09:31 WBC 6.9 (4.8-10.8) X10*3/uL Hgb 13.7 (12.0-16.0) g/dl Hct 40.9 (37-47) % Plt Count 163 (160-400) X10*3/uL BMP 03/26/20 09:31 Sodium 137 Potassium 4.9 Chloride 104 Carbon Dioxide 26 BUN 21 H Creatinine 0.72 Calcium 10.3 H Liver Function 03/26/20 Range/Units 09:31 Total Bilirubin 0.6 (0.0-1.0) mg/dL AST 19 (5-31) U/L ALT 15 (0-31) U/L Alkaline Phosphatase 71 (39-117) U/L Albumin 4.5 (3.5-5.0) g/dL Assessment and Plan (1) Elevated alpha fetoprotein Status: Acute This is a pleasant 75-year-old lady who has been referred here for on account of an elevated alpha fetoprotein. Review of her history reveals that she has a history of hepatitis-C diagnosed in 1994. She underwent treatment for it in 2012, under the care of Dr. Ferro. He has been following her alpha-fetoprotein and the level is actually down. It had been up to 18. Serial MRIs have been reassuring. PLAN: I will repeat her alpha fetoprotein. (73). She will continue to follow up with Dr. Ferro. In view of the thyroid nodule will check her thyroglobulin level: <1, and calcitonin (<2). I will call her back with the results of the tumor marker. Thank you, CC: Dr. Story. Dr. Ferro. Dr. Fraga.
[2020-03-28 11:37] LABS: Alpha Fetoprotein 7.3 ng/mL
[2020-03-28 15:32] LABS: Calcitonin <2 pg/mL (<=5)
[2020-03-31 03:37] LABS: Thyroglobulin Antibody <1 IU/mL (<=1); Thyroglobulin Level 6.2 ng/mL
== END | disposition home or self-care (01) ==
LOC: HO.ONC 03-26 08:17
PROVIDERS: PCP Internal Medicine; Referring Provider Internal Medicine; Visit Provider Internal Medicine Medical Oncology
DX: R77.2 Abnormality of alphafetoprotein (principal); Z86.19 Personal history of other infectious and parasitic diseases
CPT/HCPCS: 36415; 80053; 82105; 82308; 84432; 85025; 86800; 99204

== ENCOUNTER 2024-02-15 12:51 | Outpatient (AMB) | payer MEDICARE, SELFPAY ==
[2024-02-15 12:53] VITALS: BP 114/70; PULSE 88; O2SAT 97; BMI 28.1
--- NOTE | 2024-02-15 12:53 | MHC.PC.OV ---
Vital Signs 02/15/24 12:53 Height 4 ft 11 in Weight 139 lb BMI 28.1 BP 114/70 Blood Pressure Location Lt brachial Position Sitting Pulse 88 Pulse Source Pulse Oximeter Pulse Oximetry (%) 97 Oxygen Delivery Method Room Air Intake Visit Reasons: 3 mon f/u Allergies adhesive tape Adverse Reaction (Mild, Verified 02/15/24 12:53) Rash meclizine Adverse Reaction (Verified 02/15/24 12:53) High doses Medication List - Last Reconciled 02/15/24 by Facundo Easley MD calcium carb and citrate-vitD3 600 mg-12.5 mcg (500 unit) ER (Citracal-D3 Slow Release) 1 tab PO DAILY 30 days cholecalciferol (vitamin D3) 50 mcg PO DAILY fluticasone propionate (Flonase Allergy Relief) intranasal lorazepam 0.5 mg PO BID PRN 30 days nystatin 1 appl topical DAILY 30 days omeprazole 20 mg PO DAILY venlafaxine ER 150 mg PO DAILY Tobacco use date assessed: 02/15/24 Fall risk assessment: 2 + Falls in past year Last assessed Fall Risk: 02/15/24 Dental Screening Dental Screen Date: 02/15/24 Did you have a dental visit in the last 12 months?: No Did you have a dental problem in the last 6 months where you did not have access to dental care?: No Was dental information given to patient?: No HPI 3 mon f/u HPI Details The patient is a 79-year-old female presenting with a follow-up visit for anxiety, depression, and hyperlipidemia. She reports managing her anxiety and depression with current medical interventions, which have been stable. The patient discussed some difficulties in continuing therapy due to insurance coverage issues, leading to potential discontinuation of therapy and a pending bill for services. Currently patient is on lorazepam 0.5 mg b.i.d., refill provided She has previously been prescribed statins for hyperlipidemia but discontinued due to intolerance. Her last cholesterol level was noted to be elevated at 168 mg/dL in May. The patient has a history of osteoporosis but did not mention any fractures or related treatment during this visit. She has received her fourth COVID-19 vaccination and a recent flu shot. The patient lives separately from family but plans to visit her sister in [place], who is very active and engages in activities such as skiing and biking. - The patient misses family members during holidays, which contributes to stress levels. - There are no noted issues with substance use, employment, or housing. Anxiety and Depression: Continue current management. Recommend reviewing insurance coverage and options for therapy support. - Hyperlipidemia: Order repeat lipid panel to reassess cholesterol levels. referral to a solvent mixer for further evaluation and management placed - Osteoporosis secondary to hyperparathyroidism and aging, patient has been evaluated by endocrinology already. - Skin Lesions: Referral to a pharmacology associate placed for evaluation of skin lesions , they are bothersome or causing irritation. During our discussion, I addressed the patient's concerns about anxiety and depression, encouraging her to continue with current treatment and explore insurance options for therapy coverage. I advised repeating the cholesterol tests to re-evaluate her hyperlipidemia and mentioned a solvent mixer consult might be beneficial for comprehensive care. referral for dermatological evaluation of her skin lesions and suggested she inform them of any irritation to ascertain insurance coverage for treatment. The importance of continued preventative care with vaccinations was acknowledged. Follow-up 3 months [facility] Medical History Intermittent palpitations Hyperkalemia GERD (gastroesophageal reflux disease) Liver fibrosis TIA (transient ischemic attack) HTN (hypertension) Depression High potassium Osteoporosis Multinodular thyroid Left lower quadrant pain Elevated alpha fetoprotein Anxiety, generalized Vertigo PFO (patent foramen ovale) Irritable bowel syndrome Hepatitis C Vitamin D deficiency Hyperparathyroidism Surgical History Hx of colonoscopy Hx of parathyroidectomy History of lumpectomy of right breast Hx of cholecystectomy Hx of hysterectomy Family History Maternal Grandmother T2DM (type 2 diabetes mellitus) Father Colon cancer Cancer Multiple myeloma Mother Brain disorder Thyroid disease Sister Thyroid nodule Hyperparathyroidism Hyperthyroidism Maternal Grandfather Heart disease Other Mental health disorder Substance use disorder Social History Household Members: None Housing: Other Alcohol intake: current Alcohol intake frequency: holidays/special occasions only Patient Tobacco Use Status: Never used Tobacco Tobacco use type: Cigarette e-Cigarette/Vaping Use: Never Used Second Hand Smoke Exposure: No service: No Current occupational status: retired Cognitive needs: No Hearing needs: No Vision needs: No Questionnaire Thrive Questionnaire Date Thrive assessed: 11/09/23 I am a: Patient What is your living situation today?: I have a steady place to live Within the past 12 months, did the food you bought not last and you didn't have the money to get more?: Sometimes True Within the past 12 months, did you worry whether your food would run out before you got money to buy more?: Sometimes True Do you have trouble paying for medicines?: No Do you have trouble getting transportation to medical appointments?: No Do you have trouble paying your heating and electricity bill?: Yes Do you have trouble taking care of your child, family member or friend?: No Do you have trouble with day-to-day activities such as bathing, preparing meals, shopping, managing finances, etc.?: No Are you currently unemployed and looking for a job?: No Are you interested in more education?: No Please select the resources that you would like help with: Food Currently or been in a relationship where the following occur: No concerns reported THRIVE Score: 3 KAYLEIGH-7 AMB Questionnaire KAYLEIGH-7 Date KAYLEIGH - 7 assessed: 11/09/23 Source: Developed by Drs. Andrei Lui, Colette Flanagan, Eliseo Bueno and colleagues, with an educational zulma from [employer]. Review of Systems Const Denies chills and Denies fever(s) ENT Denies epistaxis and Denies nasal discharge Card Denies chest pain Resp Denies chest congestion, Denies cough and Denies hemoptysis GI Denies diarrhea and Denies nausea Skin/Breast Denies rash Neuro Reports no additional complaints Psych Reports no additional complaints Endo Reports no additional complaints Physical exam (Primary Care) Vital Signs: Last Vital Signs Pulse 88 02/15/24 12:53 BP 114/70 02/15/24 12:53 Pulse Ox 97 02/15/24 12:53 Oxygen Delivery Method Room Air 02/15/24 12:53 BMI result Body Mass Index 28.1 Tobacco/Smoking Status: Tobacco use Status Tobacco use date assessed 02/15/24 02/15/24 12:56 Patient Tobacco Use Status Never used Tobacco 02/15/24 12:56 Tobacco use type Cigarette 02/15/24 12:56 e-Cigarette/Vaping Use Never Used 02/15/24 12:56 Thrive Assessment: Date of Thrive Assessment Date Thrive assessed 11/09/23 02/15/24 12:56 Currently or been in a relationship where the following occur: No concerns reported Const General: cooperative, comfortable and no acute distress Orientation/consciousness: patient oriented x3 [facility] Head: Yes normocephalic Head images: 1. Large raised skin moles 2. Eyes General: appearance normal, both eyes and all related structures Neck Neck: Yes supple Resp Effort & Inspection: normal respiratory effort, no cough and no stridor Cardio Rhythm: regular rhythm Heart sounds: S1 normal heart sound present and S2 normal heart sound present Skin General skin exam: turgor normal Neuro General: patient oriented x3, tone normal and moves all extremities Extrem Right lower extremity: no edema Left lower extremity: no edema Coding Level of Care Code Est Pt Level 4 (11438) Complex EM visit Add On G2211 Diagnoses Anxiety, generalized F41.1 Lipid disorder E78.9 Hyperparathyroidism E21.3 Vitamin D deficiency E55.9 Chronic GERD K21.9 Recurrent major depressive disorder, in partial remission F33.41 Active/Remission status: in partial remission Age-related osteoporosis without current pathological fracture M81.0 Osteoporosis type: age-related Presence of current pathological fracture: without current pathological fracture Atherosclerosis of coronary artery of [place] heart without angina pectoris, unspecified vessel or lesion type I25.10 Associated angina: without angina Coronary Disease-Associated Artery/Lesion type: unspecified vessel or lesion type [place] vs. transplanted heart: [place] heart Abnormal skin growth D49.2 Assessment & Plan Assessment & Plan (1) Anxiety, generalized: Code(s): F41.1 - Generalized anxiety disorder Category: Medical (2) Lipid disorder: Code(s): E78.9 - Disorder of lipoprotein metabolism, unspecified Category: Medical (3) Hyperparathyroidism: Comment: Management through endocrinology [facility] Code(s): E21.3 - Hyperparathyroidism, unspecified Category: Medical (4) Vitamin D deficiency: Code(s): E55.9 - Vitamin D deficiency, unspecified Category: Medical (5) Chronic GERD: Code(s): K21.9 - Gastro-esophageal reflux disease without esophagitis Category: Medical (6) Major depression, recurrent: Code(s): F33.9 - Major depressive disorder, recurrent, unspecified Category: Medical Qualifiers: Active/Remission status: in partial remission Qualified Code(s): F33.41 - Major depressive disorder, recurrent, in partial remission (7) Osteoporosis: Comment: Management through endocrinology [facility] Code(s): M81.0 - Age-related osteoporosis without current pathological fracture Category: Medical Qualifiers: Osteoporosis type: age-related Presence of current pathological fracture: without current pathological fracture Qualified Code(s): M81.0 - Age-related osteoporosis without current pathological fracture (8) Atherosclerotic heart disease: Code(s): I25.10 - Atherosclerotic heart disease of [place] coronary artery without angina pectoris Category: Medical Qualifiers: Associated angina: without angina Coronary Disease-Associated Artery/Lesion type: unspecified vessel or lesion type [place] vs. transplanted heart: [place] heart Qualified Code(s): I25.10 - Atherosclerotic heart disease of [place] coronary artery without angina pectoris (9) Abnormal skin growth: Code(s): D49.2 - Neoplasm of unspecified behavior of bone, soft tissue, and skin Category: Medical Plan The patient is a 79-year-old female presenting with a follow-up visit for anxiety, depression, and hyperlipidemia. She reports managing her anxiety and depression with current medical interventions, which have been stable. The patient discussed some difficulties in continuing therapy due to insurance coverage issues, leading to potential discontinuation of therapy and a pending bill for services. Currently patient is on lorazepam 0.5 mg b.i.d., refill provided She has previously been prescribed statins for hyperlipidemia but discontinued due to intolerance. Her last cholesterol level was noted to be elevated at 168 mg/dL in May. The patient has a history of osteoporosis but did not mention any fractures or related treatment during this visit. She has received her fourth COVID-19 vaccination and a recent flu shot. The patient lives separately from family but plans to visit her sister in [place], who is very active and engages in activities such as skiing and biking. - The patient misses family members during holidays, which contributes to stress levels. - There are no noted issues with substance use, employment, or housing. Anxiety and Depression: Continue current management. Recommend reviewing insurance coverage and options for therapy support. - Hyperlipidemia: Order repeat lipid panel to reassess cholesterol levels. referral to a solvent mixer for further evaluation and management placed - Osteoporosis secondary to hyperparathyroidism and aging, patient has been evaluated by endocrinology already. - Skin Lesions: Referral to a pharmacology associate placed for evaluation of skin lesions , they are bothersome or causing irritation. During our discussion, I addressed the patient's concerns about anxiety and depression, encouraging her to continue with current treatment and explore insurance options for therapy coverage. I advised repeating the cholesterol tests to re-evaluate her hyperlipidemia and mentioned a solvent mixer consult might be beneficial for comprehensive care. referral for dermatological evaluation of her skin lesions and suggested she inform them of any irritation to ascertain insurance coverage for treatment. The importance of continued preventative care with vaccinations was acknowledged. Follow-up 3 months Orders: Orders Complete Blood Count Auto Diff Today E21.3 - Hyperparathyroidism, unspecified, E55.9 - Vitamin D deficiency, unspecified, E78.9 - Disorder of lipoprotein metabolism, unspecified, F33.41 - Major depressive disorder, recurrent, in partial remission, F41.1 - Generalized anxiety disorder, K21.9 - Gastro-esophageal reflux disease without esophagitis Comprehensive [place]. Panel Fast Today E21.3 - Hyperparathyroidism, unspecified, E55.9 - Vitamin D deficiency, unspecified, E78.9 - Disorder of lipoprotein metabolism, unspecified, F33.41 - Major depressive disorder, recurrent, in partial remission, F41.1 - Generalized anxiety disorder, K21.9 - Gastro-esophageal reflux disease without esophagitis Lipid Panel Today E21.3 - Hyperparathyroidism, unspecified, E55.9 - Vitamin D deficiency, unspecified, E78.9 - Disorder of lipoprotein metabolism, unspecified, F33.41 - Major depressive disorder, recurrent, in partial remission, F41.1 - Generalized anxiety disorder, K21.9 - Gastro-esophageal reflux disease without esophagitis TSH reflex Free T4 Today E21.3 - Hyperparathyroidism, unspecified, E55.9 - Vitamin D deficiency, unspecified, E78.9 - Disorder of lipoprotein metabolism, unspecified, F33.41 - Major depressive disorder, recurrent, in partial remission, F41.1 - Generalized anxiety disorder, K21.9 - Gastro-esophageal reflux disease without esophagitis Referrals Cardiology Referral E78.9 - Disorder of lipoprotein metabolism, unspecified, I25.10 - Atherosclerotic heart disease of [place] coronary artery without angina pectoris Dermatology Referral D49.2 - Neoplasm of unspecified behavior of bone, soft tissue, and skin Medications: Refilled lorazepam 0.5 mg PO BID PRN 60 tabs 2RF anxiety 30 days
== END 2024-02-15 13:28 | disposition home or self-care (01) ==
PROVIDERS: PCP Internal Medicine; Visit Provider Internal Medicine
DX: K21.9 Gastro-esophageal reflux disease without esophagitis (principal); E21.3 Hyperparathyroidism, unspecified; F33.41 Major depressive disorder, recurrent, in partial remission; F41.1 Generalized anxiety disorder; E78.9 Disorder of lipoprotein metabolism, unspecified; E55.9 Vitamin D deficiency, unspecified; M81.0 Age-related osteoporosis without current pathological fracture; I25.10 Atherosclerotic heart disease of native coronary artery without angina pectoris; D49.2 Neoplasm of unspecified behavior of bone, soft tissue, and skin

== ENCOUNTER → 2024-02-15 12:51 | Outpatient (BNVA) | payer MEDICARE, SELFPAY | PROVIDERS: PCP Internal Medicine; Visit Provider Internal Medicine | DX: F41.1 Generalized anxiety disorder (principal); E78.9 Disorder of lipoprotein metabolism, unspecified; E21.3 Hyperparathyroidism, unspecified; E55.9 Vitamin D deficiency, unspecified; K21.9 Gastro-esophageal reflux disease without esophagitis; F33.41 Major depressive disorder, recurrent, in partial remission; M81.0 Age-related osteoporosis without current pathological fracture; I25.10 Atherosclerotic heart disease of native coronary artery without angina pectoris; D49.2 Neoplasm of unspecified behavior of bone, soft tissue, and skin | CPT/HCPCS: 99212 ==

== ENCOUNTER 2024-02-17 12:55 | Outpatient (REF) | payer MEDICARE, SELFPAY ==
--- NOTE | ~2024-02-17 | MM_ITS ---
EXAMINATION: MM SCREENING DIGITAL BREAST TOMOSYNTHESIS, BILATERAL CLINICAL INFORMATION: Screening. Asymptomatic. COMPARISON: Mammography: Comparison is made with available priors TECHNIQUE: Digital breast mammography with tomosynthesis is performed in both the craniocaudal and mediolateral oblique views along with computer-aided detection (CAD). FINDINGS: There are scattered areas of fibroglandular density (ACR BI-RADS breast composition Category b). There are no significant masses, abnormal calcifications, or other abnormalities. MM/MM tomosynthesis screening BI IMPRESSION: No mammographic evidence of malignancy. ASSESSMENT: BI-RADS BI-RADS 1 - Negative RECOMMENDATION: Routine annual mammography screening. 1 year F/U This examination should not preclude the clinical evaluation of a suspicious palpable abnormality. This patient's information was entered into a reminder system with a target due date for their next mammogram. Electronically signed by: Shaniqua Ramirez DO 02/28/2024 09:12 AM YVETTE
== END 2024-02-17 12:56 | disposition home or self-care (01) ==
LOC: HO.MAMMO 12:55
PROVIDERS: PCP Internal Medicine; Visit Provider Internal Medicine
DX: Z12.31 Encounter for screening mammogram for malignant neoplasm of breast (principal)
CPT/HCPCS: 77063; 77067

== ENCOUNTER → 2024-02-17 13:15 | Outpatient (BNV) | payer MEDICARE, SELFPAY | PROVIDERS: PCP Internal Medicine; Visit Provider Internal Medicine | DX: Z12.31 Encounter for screening mammogram for malignant neoplasm of breast (principal) | CPT/HCPCS: 77063; 77067 ==

== ENCOUNTER 2024-04-04 11:17 | Outpatient (REF) | payer MEDICARE, SELFPAY ==
[2024-04-04 13:13] LABS: MANUAL DIFF FLAG NO
[2024-04-04 13:26] LABS: Basophils Percent Auto 0.6 % (0-2); Eosinophils Absolute Auto 0.3 X10*3/uL (0.0-0.4); Eosinophils Percent Auto 4.6 % (0-4); Hemoglobin 13.3 g/dl (12.0-16.0); Imm Gran Abs Auto 0.01 X10*3/uL (0.00-0.03); Imm Gran Pct Auto 0.1 % (0.0-0.4); Lymphocytes Absolute Auto 1.6 X10*3/uL (1.2-4.9); Mean Corpuscular HGB Conc 33.3 g/dl (31.0-35.0); Mean Corpuscular Hemoglobin 32.4 pg (27.0-33.0); Mean Corpuscular Volume 97.6 fL (80.0-98.0); Mean Platelet Volume 10.7 fL (9.4-12.3); Monocytes Absolute Auto 0.5 X10*3/uL (0.1-1.2); Monocytes Percent Auto 6.7 % (2-11); Neutrophils Absolute Auto 4.3 x10*3/uL (2.0-8.3); Platelet Count 192 X10*3/uL (160-400); Red Cell Distribution Width 12.5 % (11.0-16.0); White Blood Count 6.7 X10*3/uL (4.8-10.8)
[2024-04-04 14:13] LABS: Alanine Aminotransferase 12 U/L (0-31); Albumin Level 4.2 g/dL (3.5-5.0); Alkaline Phosphatase 55 U/L (39-117); Anion Gap 10 (12-20); Aspartate Amino Transferase 23 U/L (5-31); Bilirubin Total 0.5 mg/dL (0.0-1.0); Blood Urea Nitrogen 18 mg/dL (9-16); Carbon Dioxide 25 mmol/L (22-29); Chloride 111 mmol/L (96-108); Cholesterol 268 mg/dL (<200); Estimated Glomerular Filt Rate > 60; Glucose Fasting 98 mg/dL (60-99); HDL Cholesterol 92 mg/dL (>40); LDL Cholesterol Calculated 155 mg/dL (<100); Potassium 5.3 mmol/L (3.3-5.1); Sodium 141 mmol/L (135-145); Total Protein 7.8 g/dL (6.5-8.0); Triglycerides 106 mg/dL (<150)
[2024-04-04 14:16] LABS: TSH reflex Free T4 2.41 uIU/mL (0.32-4.0)
== END 2024-04-04 11:18 | disposition home or self-care (01) ==
LOC: HO.HMGCLDS 11:17
PROVIDERS: PCP Internal Medicine; Visit Provider Internal Medicine
DX: F41.1 Generalized anxiety disorder (principal); E55.9 Vitamin D deficiency, unspecified; K21.9 Gastro-esophageal reflux disease without esophagitis; F33.41 Major depressive disorder, recurrent, in partial remission; E78.9 Disorder of lipoprotein metabolism, unspecified; E21.3 Hyperparathyroidism, unspecified
CPT/HCPCS: 36415; 80053; 80061; 84443; 85025

== ENCOUNTER 2024-04-13 13:39 | Outpatient (AMB) | payer MEDICARE, SELFPAY ==
[2024-04-13 13:54] VITALS: BP 124/62; PULSE 78; BMI 28.1
--- NOTE | 2024-04-13 13:54 | MHC.OFFVIS ---
Vital Signs 04/13/24 13:54 Height 4 ft 11 in Weight 139 lb 5.314 oz BMI 28.1 BP 124/62 Blood Pressure Location Lt brachial Position Sitting Pulse 78 Pulse Source Monitor Intake Visit Reasons: prev Elizabeth (HS)/ irreg heart beat/ ? statin Loadmaster Required: No Accompanied by: Self / Same As Patient Allergies adhesive tape Adverse Reaction (Mild, Verified 04/13/24 14:43) Rash meclizine Adverse Reaction (Verified 04/13/24 14:43) High doses Medication List - Last Reconciled 04/13/24 by Ryland Yin NP calcium carb, citrate-vit D3 600 mg-12.5 mcg (500 unit) ER (Citracal-D3 Slow Release) 1 tab PO DAILY 30 days cholecalciferol (vitamin D3) 50 mcg PO DAILY fluticasone propionate (Flonase Allergy Relief) intranasal lorazepam 0.5 mg PO BID PRN 30 days nystatin 1 appl topical DAILY 30 days omeprazole 20 mg PO DAILY venlafaxine ER 150 mg PO DAILY HPI Comments Details: This is a 79-year-old female patient presenting with complaints of chest pain and dizziness and is also referred by her PCP for management of elevated cholesterol levels. Patient was previously evaluated in this office for chest pain and palpitations, for which cardiac workup at that time was negative. She continues to experience chest pain, which occurs both at rest and with exertion, and is associated with shortness of breath and dizziness. However, she denies any palpitations, presyncope, orthopnea, PND, leg edema, or syncope. The patient was previously prescribed atorvastatin but never started taking it due to uncertainty about its use or who prescribed it. [facility] Medical History Intermittent palpitations Hyperkalemia GERD (gastroesophageal reflux disease) Liver fibrosis TIA (transient ischemic attack) HTN (hypertension) Depression High potassium Osteoporosis Multinodular thyroid Left lower quadrant pain Elevated alpha fetoprotein Anxiety, generalized Vertigo PFO (patent foramen ovale) Irritable bowel syndrome Hepatitis C Vitamin D deficiency Hyperparathyroidism Surgical History Hx of colonoscopy Hx of parathyroidectomy History of lumpectomy of right breast Hx of cholecystectomy Hx of hysterectomy Family History Maternal Grandmother T2DM (type 2 diabetes mellitus) Father Colon cancer Cancer Multiple myeloma Mother Brain disorder Thyroid disease Sister Thyroid nodule Hyperparathyroidism Hyperthyroidism Maternal Grandfather Heart disease Other Mental health disorder Substance use disorder Social History Household Members: None Housing: Other Alcohol intake: current Alcohol intake frequency: holidays/special occasions only Patient Tobacco Use Status: Never used Tobacco Tobacco use type: Cigarette e-Cigarette/Vaping Use: Never Used Second Hand Smoke Exposure: No service: No Current occupational status: retired Cognitive needs: No Hearing needs: No Vision needs: No Review of Systems Const Denies chills, Denies fatigue, Denies fever(s), Denies frequent falls, Denies weakness, Denies weight gain and Denies weight loss ENT Denies dizziness Card Denies chest pain, Denies leg edema, Denies lightheadedness, Denies palpitations, Denies dyspnea and Denies dyspnea on exertion Resp Denies cough, Denies dyspnea and Denies dyspnea on exertion GI Denies hematochezia Musc Denies abnormal gait, Denies muscle weakness, Denies numbness, Denies radiating pain into limb and Denies tingling Neuro Denies abnormal gait, Denies dizziness, Denies frequent falls, Denies numbness, Denies tingling and Denies weakness Endo Denies fatigue and Denies palpitations Physical Exam Vital Signs: Last Vital Signs Pulse 78 04/13/24 13:54 BP 124/62 04/13/24 13:54 BMI result Body Mass Index 28.1 Const General: cooperative, healthy appearing, comfortable and no acute distress Orientation/consciousness: patient oriented x3 [place] Head: Yes normal to inspection Neck Neck: Yes normal visual inspection, Yes trachea midline and Yes supple Chest Chest palpation & inspection: normal inspection of the chest Resp Effort & Inspection: normal respiratory effort Auscultation: clear to auscultation bilaterally, no crackles, no rales, no rhonchi and no wheezes Cardio Jugular venous distension: no JVD Palpation: normal PMI Rate: regular rate Rhythm: regular rhythm Heart sounds: S1 normal heart sound present, S2 normal heart sound present, no click, no gallops, no murmurs and no rubs Peripheral pulses: Peripheral pulses 2+ throughout GI Inspection: Yes normal to inspection Palpation (GI): Soft to palpation Auscultation: normal bowel sounds Skin General skin exam: no rashes or lesions noted Neuro General: patient oriented x3 Extrem General: Yes normal to inspection, No no pedal edema and No calf tenderness Psych Appearance: grossly normal Mental Status: mental status grossly normal Speech and movement: Normal speech and movement present Office Procedures EKG Details: EKG today showed underlying normal sinus rhythm 78 beats per minute, poor R-wave progression in V3, nonspecific ST-T wave changes, [place], [place] [id number], Complete Assessment & Plan Assessment & Plan (1) Chest pain: Code(s): R07.9 - Chest pain, unspecified Category: Medical (2) Hyperlipidemia: Code(s): E78.5 - Hyperlipidemia, unspecified Category: Medical (3) Atherosclerotic heart disease: Code(s): I25.10 - Atherosclerotic heart disease of [place] coronary artery without angina pectoris Category: Medical Qualifiers: Associated angina: without angina Coronary Disease-Associated Artery/Lesion type: unspecified vessel or lesion type [place] vs. transplanted heart: [place] heart Qualified Code(s): I25.10 - Atherosclerotic heart disease of [place] coronary artery without angina pectoris Plan 06/14/2023- echo showed normal EF at 64%, mild mitral annular calcification, moderate plaque buildup in the ascending aorta. 09/02/2023- Holter showed baseline normal sinus rhythm, occasional isolated PVCs. 09/23/2023- myocardial perfusion imaging study was normal. Given the patient's ongoing complaints of chest pain accompanied by shortness of breath and dizziness, an echo showing moderate plaque buildup, and a history of untreated elevated LDL, she is at an increased risk for obstructive coronary artery disease. Since the previous stress test was negative, we will proceed with a cardiac CTA to further assess her coronary arteries. Treatment will be based on the results. In the meantime, we will initiate statin therapy and plan to follow-up with lab work in 3 months to monitor her lipid profile. Recommended heart healthy diet, eliminating fatty foods, regular exercise, losing weight, blood pressure below 130/80, and ideally LDL less than 100. Advised patient to seek ER care in case of exertional chest pain not resolved with rest, shortness of breath, palpitations, dizziness, presyncope, or syncope. In the interim, call us with any concerns. This note was generated using voice recognition software. While every effort has been made to ensure accuracy and proper width stripper, there may be occasional errors that could affect the content or meaning of the described symptoms. Orders: Orders Basic Metabolic Panel Today E78.5 - Hyperlipidemia, unspecified AMB EKG-In Office Today R07.9 - Chest pain, unspecified Liver Panel 3 Months E78.5 - Hyperlipidemia, unspecified Lipid Panel 3 Months E78.5 - Hyperlipidemia, unspecified CT Cardiac Coronary Angio Today E78.5 - Hyperlipidemia, unspecified, R07.9 - Chest pain, unspecified Medications: New atorvastatin 20 mg PO DAILY 90 tabs 1RF Coding Level of Care Code Est Pt Level 4 (79497) Diagnoses Chest pain R07.9 Hyperlipidemia E78.5 Atherosclerosis of coronary artery of [place] heart without angina pectoris, unspecified vessel or lesion type I25.10 Associated angina: without angina Coronary Disease-Associated Artery/Lesion type: unspecified vessel or lesion type [place] vs. transplanted heart: [place] heart CPT Codes EKG - CPT: 55472-[id number], Complete ([id number]) Time Spent (min) 32 Comment Time spent in reviewing the chart, test results, assessment, counseling and documentation.
== END 2024-04-13 14:45 | disposition home or self-care (01) ==
PROVIDERS: PCP Internal Medicine
DX: R07.9 Chest pain, unspecified (principal); E78.5 Hyperlipidemia, unspecified; I25.10 Atherosclerotic heart disease of native coronary artery without angina pectoris
CPT/HCPCS: 93010; 99214

== ENCOUNTER → 2024-04-13 13:39 | Outpatient (BNVA) | payer MEDICARE, SELFPAY | PROVIDERS: PCP Internal Medicine | DX: R07.9 Chest pain, unspecified (principal); E78.5 Hyperlipidemia, unspecified; I25.10 Atherosclerotic heart disease of native coronary artery without angina pectoris | CPT/HCPCS: 93005; 99212 ==

== ENCOUNTER 2024-05-23 11:58 | Outpatient (REF) | payer OTHER, SELFPAY ==
--- OUTSIDE RECORDS SUMMARY | 2024-05-23 15:55 | XMS_ITS | Clinical Summary ---
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 Name Role Phone No, Pcp HOSPICE BEREAVEMENT COORDINATOR Primary Care Provider Unavailabl e Social History [...] Adults 18 yrs or above (or HM Modifier)([facility]) 1963 Hepatitis C Virus Infection in Adolescents and Adults: Screening (or Modifier) ([facility]) 1965 SDOH Screening Reminder: Bijal yu for all adults ([facility]) 1965 Tobacco Smoking Cessation: i n Adults excluding Women: Behavioral and Pharmacotherapy Interventions ([facility]) 1965 DTaP/Tdap/Td Vaccines ([facility]) (1 - Tdap) 1966 Lipid Screening: Every 5 yrs for Women aged 45+ (or HM Modifier) ([facility]) 1993 Zoster/Shingles Vaccine Seri es Screening: Adults aged 18+ yrs (or HM Modifiers)([facility]) (1 of 2) 1997 Osteoporosis Screening to Pr event Fractures: Women aged 65 years+ ([facility]) 01/27/2012 Pneumococcal Vaccination Scr eening: Patients 65+ yrs of age ([facility]) (1 of 1 - PCV) 01/27/2012 RSV Vaccines (1 - 1-dose 75+ series) 2022 Flu Vaccination: Ages 65+: Y early High Dose Recommended (or Modifier)([facility]) 10/28/2023 COVID-19 Vaccine Screening: Initial Series and Booster Status ([facility]) (2023- season) 2023 Medical Devices Not on file Insurance [facility] [employer] Care Teams Reservoir Engineer Relationship Specialty Start Date End Date No, Pcp, HOSPICE BEREAVEMENT COORDINATOR N/A Do not use PCP - General 12/27/19
[2024-05-23 16:24] LABS: Anion Gap 12 (12-20); Blood Urea Nitrogen 21 mg/dL (9-16); Calcium 9.7 mg/dL (8.4-10.2); Carbon Dioxide 26 mmol/L (22-29); Chloride 107 mmol/L (96-108); Estimated Glomerular Filt Rate > 60; Glucose Random 129 mg/dL (60-115); Sodium 140 mmol/L (135-145)
== END 2024-05-23 11:59 | disposition home or self-care (01) ==
LOC: HO.HMGCLDS 11:58
PROVIDERS: PCP Internal Medicine; Visit Provider Internal Medicine
DX: E87.5 Hyperkalemia (principal)
CPT/HCPCS: 36415; 80048

== ENCOUNTER 2024-05-23 11:58 | Outpatient (AMB) | payer OTHER, SELFPAY ==
[2024-05-23 12:00] VITALS: BP 122/78; PULSE 71; O2SAT 98; BMI 27.9
--- NOTE | 2024-05-23 12:00 | A.OFFPC_ITS ---
Vital Signs 05/23/24 12:00 Height 4 ft 11 in Weight 138 lb 2 oz BMI 27.9 BP 122/78 Blood Pressure Location Rt brachial Position Sitting Pulse 71 Pulse Source Pulse Oximeter Pulse Oximetry (%) 98 Oxygen Delivery Method Room Air Intake Visit Reasons: 3 months f/up Allergies adhesive tape Adverse Reaction (Mild, Verified 05/23/24 12:01) Rash meclizine Adverse Reaction (Verified 05/23/24 12:01) High doses Medication List - Last Reconciled 05/23/24 by Facundo Easley MD atorvastatin 20 mg PO DAILY calcium carb, citrate-vit D3 600 mg-12.5 mcg (500 unit) ER (Citracal-D3 Slow Release) 1 tab PO DAILY 30 days cholecalciferol (vitamin D3) 50 mcg PO DAILY fluticasone propionate (Flonase Allergy Relief) intranasal lorazepam 0.5 mg PO BID PRN 30 days nystatin 1 appl topical DAILY 30 days omeprazole 20 mg PO DAILY venlafaxine ER 150 mg PO DAILY Tobacco use date assessed: 05/23/24 Fall risk assessment: No Falls in past year Last assessed Fall Risk: 05/23/24 Dental Screening Dental Screen Date: 05/23/24 Did you have a dental visit in the last 12 months?: Yes Did you have a dental problem in the last 6 months where you did not have access to dental care?: No Was dental information given to patient?: Patient has dentist HPI 3 months f/up HPI Details - The patient is a 79-year-old female pr esenting for a regular follow-up visit. - Treated for Major Depressive Disorder with venlafaxine 150 mg she is doing wel l Patient also take lorazepam as needed, refill sent - Diarrhea persists despite use of over- the-counter Imodium; she intends to schedule an appointment Dr. Ferro Gastroenterology for further management - Hypercholesterolemia: Current treatmen t includes atorvastatin; LDL cholesterol elevated, noted at 155 mg/dL during the visit. Being treated through Cardiology - Recent lab work shows an elevated pota ssium level with a value of 5.3 mmol/L, which is above the normal level but has not shown symptomatic concerns yet. Labs to be done today - Anxiety and potential work-related ins omnia related to alterations in work assignments and stress levels; managed with lorazepam. - Persistent workforce stressor from rec ent changes in shifts affecting mental health and daily routine management. 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 - Follow up with Dr. Ferro for evaluatio n of persistent diarrhea. - Attend scheduled CAT scan of the heart at [facility]. Ordered by Cardiology - Perform lab tests to monitor electroly lluvia today. - Submit letter for workplace accommodat ions if needed, to manage work-related stress. - Contact healthcare provider if symptom s worsen or new symptoms appear. Review of Systems - General: No fever no chills - Neurological: No headaches no dizziness - Ear nose throat: No sore throat no hearing difficulty no ear pain - Cardiovascular: No syncope, no chest pain, no palpitations - Gastrointestinal: No nausea vomiting - Endocrine: No polyuria polydipsia no heat intolerance - Genitourinary: No dysuria , no blood in urine Physical Exam General: No acute distress HEENT: No acute findings Neck: Supple Respiratory system: Able to talk in full sentences, no audible wheeze cardiovascular: S1-S2 regular in rate and rhythm Gastrointestinal: Diarrhea present Extremities: No new findings 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 awake oriented x3 motor sensory intact Skin: Normal turgor PFSH Medical History Intermittent palpitations Hyperkalemia GERD (gastroesophageal reflux disease) Liver fibrosis TIA (transient ischemic attack) HTN (hypertension) Depression High potassium Osteoporosis Multinodular thyroid Left lower quadrant pain Elevated alpha fetoprotein Anxiety, generalized Vertigo PFO (patent foramen ovale) Irritable bowel syndrome Hepatitis C Vitamin D deficiency Hyperparathyroidism Surgical History Hx of colonoscopy Hx of parathyroidectomy History of lumpectomy of right breast Hx of cholecystectomy Hx of hysterectomy Family History Maternal Grandmother T2DM (type 2 diabetes mellitus) Father Colon cancer Cancer Multiple myeloma Mother Brain disorder Thyroid disease Sister Thyroid nodule Hyperparathyroidism Hyperthyroidism Maternal Grandfather Heart disease Other Mental health disorder Substance use disorder Social History Household Members: None Housing: Other Alcohol intake: current Alcohol intake frequency: holidays/special occasions only Patient Tobacco Use Status: Never used Tobacco Tobacco use type: Cigarette e-Cigarette/Vaping Use: Never Used Second Hand Smoke Exposure: No service: No Current occupational status: retired Cognitive needs: No Hearing needs: No Vision needs: No Questionnaire Thrive Questionnaire Date Thrive assessed: 05/16/24 I am a: Patient What is your living situation today?: I have a steady place to live Within the past 12 months, did the food you bought not last and you didn't have the money to get more?: Sometimes True Within the past 12 months, did you worry whether your food would run out before you got money to buy more?: Often true Do you have trouble paying for medicines?: No Do you have trouble getting transportation to medical appointments?: No Do you have trouble paying your heating and electricity bill?: Yes Do you have trouble taking care of your child, family member or friend?: No Do you have trouble with day-to-day activities such as bathing, preparing meals, shopping, managing finances, etc.?: No Are you currently unemployed and looking for a job?: No Are you interested in more education?: No Please select the resources that you would like help with: Food and Utilities Currently or been in a relationship where the following occur: No concerns re ported THRIVE Score: 3 AUDIT C Alcohol Use Questionnaire (AUDIT-C) 1. How often do you have a drink containing alcohol?: 2-4 times a month 2. How many drinks containing alcohol do you have on a typical day when you are drinking?: 1 or 2 3. How often do you have six or more drinks on one occasion?: Never Total Score: 2 KAYLEIGH-7 AMB Questionnaire KAYLEIGH-7 Date KAYLEIGH - 7 assessed: 11/09/23 Feeling nervous, anxious, or on edge: 2 = More than half the days Not being able to stop or control worryin = Several days Worrying too much about different things: 2 = More than half the days Trouble relaxin = Several days Being so restless that it is hard to sit still: 0 = Not at all Becoming easily annoyed or irritable: 1 = Several days Feeling afraid as if something awful might happen: 0 = Not at all Total KAYLEIGH-7 score (0-4 normal; 5-9 mild; 10-14 moderate; 15-21 severe): 7 Source: Developed by Drs. Andrei Lui, Colette Flanagan, Eliseo Bueno and colleagues, with an educational zulma from [employer]. Physical exam (Primary Care) Vital Signs: Last Vital Signs Pulse 71 05/23/24 12:00 BP 122/78 05/23/24 12:00 Pulse Ox 98 05/23/24 12:00 Oxygen Delivery Method Room Air 05/23/24 12:00 BMI result Body Mass Index 27.9 Tobacco/Smoking Status: Tobacco use Status Tobacco use date assessed 05/23/24 05/23/24 12:09 Patient Tobacco Use Status Never used Tobacco 05/23/24 12:09 Tobacco use type Cigarette 05/23/24 12:09 e-Cigarette/Vaping Use Never Used 05/23/24 12:09 Thrive Assessment: Date of Thrive Assessment Date Thrive assessed 05/16/24 05/23/24 12:09 Currently or been in a relationship where the following occur: No concerns reported Coding Level of Care Code Est Pt Level 4 (71433) Diagnoses Hyperkalemia E87.5 Anxiety, generalized F41.1 Lipid disorder E78.9 Hyperparathyroidism E21.3 Vitamin D deficiency E55.9 Chronic GERD K21.9 Recurrent major depressive disorder, in partial remission F33.41 Active/Remission status: in partial remission Age-related osteoporosis without current pathological fracture M81.0 Osteoporosis type: age-related Presence of current pathological fracture: without current pathological fracture Atherosclerosis of coronary artery of [place] heart without angina pectoris, unspecified vessel or lesion type I25.10 Coronary Disease-Associated Artery/Lesion type: unspecified vessel or lesion type [place] vs. transplanted heart: [place] heart Associated angina: without angina Assessment & Plan Assessment & Plan (1) Hyperkalemia: Code(s): E87.5 - Hyperkalemia Category: Medical (2) Anxiety, generalized: Code(s): F41.1 - Generalized anxiety disorder Category: Medical (3) Lipid disorder: Code(s): E78.9 - Disorder of lipoprotein metabolism, unspecified Category: Medical (4) Hyperparathyroidism: Comment: Management through [facility] Code(s): E21.3 - Hyperparathyroidism, unspecified Category: Medical (5) Vitamin D deficiency: Code(s): E55.9 - Vitamin D deficiency, unspecified Category: Medical (6) Chronic GERD: Code(s): K21.9 - Gastro-esophageal reflux disease without esophagitis Category: Medical (7) Major depression, recurrent: Code(s): F33.9 - Major depressive disorder, recurrent, unspecified Category: Medical Qualifiers: Active/Remission status: in partial remission Qualified Code(s): F33.41 - Major depressive disorder, recurrent, in partial remission (8) Osteoporosis: Comment: Management through [facility] Code(s): M81.0 - Age-related osteoporosis without current pathological fracture Category: Medical Qualifiers: Osteoporosis type: age-related Presence of current pathological fracture: without current pathological fracture Qualified Code(s): M81.0 - Age- related osteoporosis without current pathological fracture (9) Atherosclerotic heart disease: Code(s): I25.10 - Atherosclerotic heart disease of [place] coronary artery without angina pectoris Category: Medical Qualifiers: Coronary Disease-Associated Artery/Lesion type: unspecified vessel or lesion type [place] vs. transplanted heart: [place] heart Associated angina: without angina Qualified Code(s): I25.10 - Atherosclerotic heart disease of [place] coronary artery without angina pectoris Plan - The patient is a 79-year-old female presenting for a regular follow-up visit. - Treated for Major Depressive Disorder with venlafaxine 150 mg she is doing well Patient also take lorazepam as needed, refill sent - Diarrhea persists despite use of [id number] Imodium; she intends to schedule an appointment Dr. Ferro Gastroenterology for further management - Hypercholesterolemia: Current treatment includes atorvastatin; LDL cholesterol elevated, noted at 155 mg/dL during the visit. Being treated through Cardiology - Recent lab work shows an elevated potassium level with a value of 5.3 mmol/L, which is above the normal level but has not shown symptomatic concerns yet. Labs to be done today - Anxiety and potential work-related insomnia related to alterations in work assignments and stress levels; managed with lorazepam. - Persistent workforce stressor from recent changes in shifts affecting mental health and daily routine management. 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 - Follow up with Dr. Ferro for evaluation of persistent diarrhea. - Attend scheduled CAT scan of the heart at [facility]. Ordered by Cardiology - Perform lab tests to monitor electrolytes today. - Submit letter for workplace accommodations if needed, to manage work-related stress. - Contact healthcare provider if symptoms worsen or new symptoms appear. Orders: Orders Basic Metabolic Panel Today E87.5 - Hyperkalemia Medications: Refilled venlafaxine ER 150 mg PO DAILY 90 caps 3RF lorazepam 0.5 mg PO BID 30 days PRN 60 tabs 2RF anxiety
--- OUTSIDE RECORDS SUMMARY | 2024-05-23 14:38 | XMS_ITS | Clinical Summary ---
Author Organization 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 Name Role Phone No, Pcp MEDICAL EDUCATION SPECIALIST Primary Care Provider Unavailabl e Social History Tobacco Use Types Packs/Day Years Used Date Smoking Tobacco: Never Assessed Comments Unknown Sex and Gender Information Value Date Recorded Sex Assigned at Not on file Legal Sex Female 10:48 AM EDT Gender Identity Not on file Sexual Orientation Not on file Plan of Treatment Health Maintenance Due Date Last Done Comments Depression: Screening Annual ly using PHQ-2/9 in Adults 18 yrs or above (or HM Modifier)([facility]) 1963 Hepatitis C Virus Infection in Adolescents and Adults: Screening (or Modifier) ([facility]) 1963 SDOH Screening Reminder: Bijal yu for all adults ([facility]) 1963 Tobacco Smoking Cessation: i n Adults excluding Women: Behavioral and Pharmacotherapy Interventions ([facility]) 1963 DTaP/Tdap/Td Vaccines ([facility]) (1 - Tdap) 1966 Lipid Screening: Every 5 yrs for Women aged 45+ (or HM Modifier) ([facility]) 1993 Zoster/Shingles Vaccine Seri es Screening: Adults aged 18+ yrs (or HM Modifiers)([facility]) (1 of 2) 1997 Osteoporosis Screening to Pr event Fractures: Women aged 65 years+ ([facility]) 01/27/2012 Pneumococcal Vaccination Scr eening: Patients 65+ yrs of age ([facility]) (1 of 1 - PCV) 01/27/2012 RSV Vaccines (1 - 1-dose 75+ series) 2022 Flu Vaccination: Ages 65+: Y early High Dose Recommended (or Modifier)([facility]) 10/28/2023 COVID-19 Vaccine Screening: Initial Series and Booster Status ([facility]) (2023- season) 2023 Medical Devices Not on file Insurance [facility] [employer] Care Teams Air Vice Marshal Relationship Specialty Start Date End Date No, Pcp, MEDICAL EDUCATION SPECIALIST N/A Do not use PCP - General 12/27/19
== END 2024-05-23 12:28 | disposition home or self-care (01) ==
PROVIDERS: PCP Internal Medicine; Visit Provider Internal Medicine
DX: E87.5 Hyperkalemia (principal); F41.1 Generalized anxiety disorder; F33.41 Major depressive disorder, recurrent, in partial remission; E21.3 Hyperparathyroidism, unspecified; E78.9 Disorder of lipoprotein metabolism, unspecified; E55.9 Vitamin D deficiency, unspecified; K21.9 Gastro-esophageal reflux disease without esophagitis; M81.0 Age-related osteoporosis without current pathological fracture; I25.10 Atherosclerotic heart disease of native coronary artery without angina pectoris

== ENCOUNTER 2024-07-20 12:37 | Outpatient (AMB) | payer OTHER, SELFPAY ==
[2024-07-20 13:01] VITALS: BP 112/60; PULSE 78; BMI 26.7
--- NOTE | 2024-07-20 13:01 | A.OFFVIS_ITS ---
Vital Signs 07/20/24 13:01 Height 4 ft 11 in Weight 132 lb 4.438 oz BMI 26.7 BP 112/60 Blood Pressure Location Lt brachial Position Sitting Pulse 78 Pulse Source Pulse Oximeter Intake Visit Reasons: 6m follow up Allergies adhesive tape Adverse Reaction (Mild, Verified 05/23/24 12:01) Rash meclizine Adverse Reaction (Verified 05/23/24 12:01) High doses HPI Comments Details: This is a 79-year-old female patient presenting for a follow-up visit. Patient with medical history of hypertension and hyperlipidemia. Patient was previously evaluated in the office for elevated cholesterol levels and also had history of extensive workup for chest pain and palpitations. Due to ongoing chest discomfort, she recently underwent a coronary CTA. Today, she reports feeling well overall but continues to experience episodes of epigastric discomfort that occasionally radiates into her chest, occurring both with exertion and at rest. She also reports palpitations with exertion that is short-lived and resolves with rest. Patient otherwise denies any exertional shortness of breath, dizziness, orthopnea, PND, leg edema, presyncope, or syncope. Patient states she has been compliant with all her prescribed medications. Patient also notes that since starting the atorvastatin, patient has been getting some intermittent sciatica aches. [facility] Medical History Intermittent palpitations Hyperkalemia GERD (gastroesophageal reflux disease) Liver fibrosis TIA (transient ischemic attack) HTN (hypertension) Depression High potassium Osteoporosis Multinodular thyroid Left lower quadrant pain Elevated alpha fetoprotein Anxiety, generalized Vertigo PFO (patent foramen ovale) Irritable bowel syndrome Hepatitis C Vitamin D deficiency Hyperparathyroidism Surgical History Hx of colonoscopy Hx of parathyroidectomy History of lumpectomy of right breast Hx of cholecystectomy Hx of hysterectomy Family History Maternal Grandmother T2DM (type 2 diabetes mellitus) Father Colon cancer Cancer Multiple myeloma Mother Brain disorder Thyroid disease Sister Thyroid nodule Hyperparathyroidism Hyperthyroidism Maternal Grandfather Heart disease Other Mental health disorder Substance use disorder Social History Household Members: None Housing: Other Alcohol intake: current Alcohol intake frequency: holidays/special occasions on ly Patient Tobacco Use Status: Never used Tobacco Tobacco use type: Cigarette e-Cigarette/Vaping Use: Never Used Second Hand Smoke Exposure: No service: No Current occupational status: retired Cognitive needs: No Hearing needs: No Vision needs: No Review of Systems Const Denies weakness ENT Denies dizziness Card Denies chest pain, Denies chest pain with activity, Denies syncope, Denies rapid heart rate, Denies pedal edema, Denies edema, Denies leg edema, Denies lightheadedness, Denies palpitations, Denies dyspnea, Denies dyspnea on exertion and Denies orthopnea Resp Denies cough, Denies dyspnea and Denies dyspnea on exertion GI Denies hematochezia and Denies change in stool character Musc Denies abnormal gait, Denies muscle cramps, Denies muscle weakness, Denies numbness, Denies radiating pain into limb and Denies tingling Neuro Denies abnormal gait, Denies dizziness, Denies syncope, Denies numbness, Denies tingling and Denies weakness Endo Denies palpitations Physical Exam Vital Signs: Last Vital Signs Pulse 78 07/20/24 13:01 BP 112/60 07/20/24 13:01 BMI result Body Mass Index 26.7 Const General: cooperative, healthy appearing, comfortable and no acute distress Orientation/consciousness: patient oriented x3 HEENT Head: Yes normal to inspection Neck Neck: Yes normal visual inspection, Yes trachea midline and Yes supple Chest Chest palpation & inspection: normal inspection of the chest Resp Effort & Inspection: normal respiratory effort Auscultation: clear to auscultation bilaterally, no crackles, no rales, no rhonchi and no wheezes Cardio Jugular venous distension: no JVD Palpation: normal PMI Rate: regular rate Rhythm: regular rhythm Heart sounds: S1 normal heart sound present, S2 normal heart sound present, no click, no gallops, no murmurs and no rubs Peripheral pulses: Peripheral pulses 2+ throughout GI Inspection: Yes normal to inspection Palpation (GI): Soft to palpation Auscultation: normal bowel sounds Skin General skin exam: no rashes or lesions noted Neuro General: patient oriented x3 Extrem General: Yes normal to inspection, No no pedal edema and No calf tenderness Psych Appearance: grossly normal Mental Status: mental status grossly normal Speech and movement: Normal speech and movement present Assessment & Plan Assessment & Plan (1) Chest pain: Code(s): R07.9 - Chest pain, unspecified Category: Medical Plan: 06/14/2023- echo study showed normal EF at 64%, mild mitral annular calcification, moderate plaque buildup in the ascending aorta. 09/02/2023- Holter showed baseline normal sinus rhythm with the occasional PVCs. Patient reported her symptoms of palpitations with sinus tachycardia and PVCs. These findings may explain her ongoing exertional palpitations. Patient was advised to maintain adequate hydration as she reports that she does not drink enough water. Recommended reporting back to us in case of prolonged or worsening episodes, in which case, we may need to consider repeating Holter monitor. 09/23/2023- myocardial perfusion imaging study was normal. 07/17/2024- patient underwent coronary CTA that showed an eccentric noncalcified plaque in the mid LAD with positive remodeling but no stenosis, very short and normal LAD, and no significant disease in the LCX or RCA. Additional findings include mild bronchiectasis with patchy predominantly pre peribronchial ground- glass opacities, suspicious for infection or inflammation. A large size type III paraesophageal hernia was also noted. Reviewed the coronary CTA with the patient. Overall, cardiac evaluation has been reassuring with no evidence of obstructive coronary artery disease. Given her persistent epigastric or chest discomfort in the presence of a large paraesophageal hernia, her symptoms may be noncardiac in origin and related to this GI pathology. The patient is already followed by Dr. Ferro's office. We have recommended that she schedule a follow-up with them for further evaluation of the hernia. The CTA report will be faxed to their office. We have also messaged her PCP's office to address the incidental finding of a possible lung infection or inflammation noted on the CTA. (2) Hyperlipidemia: Code(s): E78.5 - Hyperlipidemia, unspecified Category: Medical Plan: Most recent LDL was elevated. Patient has been on atorvastatin since our last meeting. Patient states that she is starting to develop some intermittent aches around her hips. Have recommended using Co Q10 enzyme supplement to help with the symptoms. In in case this does not improve, we may need to look into alternatives. Patient understands the plan. Patient will get the labs that was ordered for lipids and liver function. (3) Atherosclerotic heart disease: Code(s): I25.10 - Atherosclerotic heart disease of [place] coronary artery without angina pectoris Category: Medical Qualifiers: Associated angina: without angina Coronary Disease-Associated Artery/Lesion type: unspecified vessel or lesion type [place] vs. transplanted heart: [place] heart Qualified Code(s): I25.10 - Atherosclerotic heart disease of [place] coronary artery without angina pectoris Plan: As above. Patient has lost some weight since her last visit. Advised heart healthy diet, regular exercise, adequate hydration, med compliance, and management of vascular risk factors. Patient will follow-up in 6 months' time, sooner if needed. In the interim, patient will call with any concerns or change in symptoms. This note was generated using voice recognition software. While every effort has been made to ensure accuracy and proper scouts, there may be occasional errors that could affect the content or meaning of the described symptoms. Coding Level of Care Code Est Pt Level 4 (91345) Complex EM visit Add On G2211 Diagnoses Chest pain R07.9 Hyperlipidemia E78.5 Atherosclerosis of coronary artery of [place] heart without angina pectoris, unspecified vessel or lesion type I25.10 Associated angina: without angina Coronary Disease-Associated Artery/Lesion type: unspecified vessel or lesion type [place] vs. transplanted heart: [place] heart Time Spent (min) 32 Comment Time spent in reviewing the chart, test results, assessment, counseling and documentation.
--- OUTSIDE RECORDS SUMMARY | 2024-07-20 14:51 | XMS_ITS | Clinical Summary ---
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 RECEIVER Primary Care Provider Unavailabl e Social History [...] Adults 18 yrs or above (or HM Modifier)([facility]) 1945 Hepatitis C Virus Infection in Adolescents and Adults: Screening (or Modifier) ([facility]) 1965 SDNV Screening Reminder: Bijal yu for all adults ([facility]) 1965 Tobacco Smoking Cessation: i n Adults excluding Women: Behavioral and Pharmacotherapy Interventions ([facility]) 1965 DTaP/Tdap/Td Vaccines ([facility]) (1 - Tdap) 1966 Lipid Screening: Every 5 yrs for Women aged 45+ (or HM Modifier) ([facility]) 1993 Pneumococcal Vaccination Scr eening: Patients 50+ yrs of age ([facility]) (1 of 1 - PCV) 1997 Zoster/Shingles Vaccine Seri es Screening: Adults aged 18+ yrs (or HM Modifiers)([facility]) (1 of 2) 1997 Osteoporosis Screening to Pr event Fractures: Women aged 65 years+ ([facility]) 01/27/2012 RSV Vaccines (1 - 1-dose 75+ series) 2022 COVID-19 Vaccine Screening: Initial Series and Booster Status ([facility]) ( - 2023- season) 2023 Flu Vaccination: Ages 65+: Y early High Dose Recommended (or Modifier)([facility]) 10/27/2024 Medical Devices Not on file Insurance [facility] [employer] Care Teams Bilingual Call Center Representative Relationship Specialty Start Date End Date No, Pcp, WAREHOUSE RECEIVER N/A Do not use PCP - General 12/27/19
== END 2024-07-20 13:25 | disposition home or self-care (01) ==
LOC: HO.HCS 12:38
PROVIDERS: PCP Internal Medicine
DX: R07.9 Chest pain, unspecified (principal); E78.5 Hyperlipidemia, unspecified; I25.10 Atherosclerotic heart disease of native coronary artery without angina pectoris
CPT/HCPCS: 99214; G2211

== ENCOUNTER → 2024-07-20 12:37 | Outpatient (BNVA) | payer OTHER, SELFPAY | PROVIDERS: PCP Internal Medicine ==

== ENCOUNTER 2024-07-27 08:15 | Outpatient (AMB) | payer OTHER, SELFPAY ==
--- OUTSIDE RECORDS SUMMARY | 2024-07-27 08:24 | XMS_ITS | Clinical Summary ---
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 Primary Care Provider Unavailabl e Social History [...] Adults 18 yrs or above (or HM Modifier)([facility]) 1945 Hepatitis C Virus Infection in Adolescents and Adults: Screening (or Modifier) ([facility]) 1965 SDDC Screening Reminder: Bijal yu for all adults ([facility]) 1965 Tobacco Smoking Cessation: i n Adults excluding Women: Behavioral and Pharmacotherapy Interventions ([facility]) 1965 DTaP/Tdap/Td Vaccines ([facility]) (1 - Tdap) 1966 Lipid Screening: Every 5 yrs for Women aged 45+ (or HM Modifier) ([facility]) 1993 Pneumococcal Vaccination Scr eening: Patients 50+ yrs of age ([facility]) (1 of 1 - PCV) 1997 Zoster/Shingles Vaccine Seri es Screening: Adults aged 18+ yrs (or HM Modifiers)([facility]) (1 of 2) 1997 Osteoporosis Screening to Pr event Fractures: Women aged 65 years+ ([facility]) 01/27/2012 RSV Vaccines (1 - 1-dose 75+ series) 2022 COVID-19 Vaccine Screening: Initial Series and Booster Status ([facility]) ( - 2023- season) 2023 Flu Vaccination: Ages 65+: Y early High Dose Recommended (or Modifier)([facility]) 10/27/2024 Medical Devices Not on file Insurance [facility] [employer] Care Teams Spacer Type Bar And Segment Relationship Specialty Start Date End Date No, Pcp, REAL 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
--- NOTE | 2024-07-27 08:30 | MHC.PC.OV ---
Intake Visit Reasons: Discuss CTA Report Allergies adhesive tape Adverse Reaction (Mild, Verified 05/23/24 12:01) Rash meclizine Adverse Reaction (Verified 05/23/24 12:01) High doses Medication List - Last Reconciled 07/27/24 by Facundo Easley MD atorvastatin 20 mg PO DAILY calcium carb, citrate-vit D3 600 mg-12.5 mcg (500 unit) ER (Citracal-D3 Slow Release) 1 tab PO DAILY 30 days fluticasone propionate (Flonase Allergy Relief) intranasal lorazepam 0.5 mg PO BID PRN 30 days nystatin 1 appl topical DAILY 30 days omeprazole 20 mg PO DAILY venlafaxine ER 150 mg PO DAILY Tobacco use date assessed: 05/23/24 Dental Screening Dental Screen Date: 05/23/24 HPI Discuss CTA Report HPI Details History - The patient is a 79-year-old female presenting with discussion of imaging findings and management of abnormal chest imaging and hiatal hernia. - She has experienced coughing and significant fatigue from mild exertion such as vacuuming for approximately one year. - She reported difficulty with deep breathing and exertional dyspnea, specifically with an inability to climb stairs. - Imaging revealed mild bronchiectasis. - The patient also has a large hiatal hernia diagnosed via imaging, contributing to symptoms of gastroesophageal reflux disease (GERD). - Symptoms associated with the hiatal hernia include heartburn and waking up with a sore throat. - The patient is currently on Omeprazole taken nightly for GERD. - She has previously been treated for GERD by Dr. Ferro, who is her fire hazard inspector. Problem List - Mild Bronchiectasis - Gastroesophageal Reflux Disease (GERD) with large hiatal hernia - ground glass opacity lung - SOB Patient Instructions - You will be referred to a lung specialist for further evaluation of your bronchiectasis. - I will attempt to expedite your appointment with your fire hazard inspector, Dr. Ferro, to discuss the findings and treatment options for the hiatal hernia. - Consider potential surgical evaluation if symptoms from the hiatal hernia persist or worsen. - Remember to take Omeprazole every night as prescribed for your reflux symptoms. - Monitor any worsening symptoms, and reach out if you have concerns. Review of Systems - General: No fever no chills - Neurological: No headaches no dizziness - Ear nose throat: No sore throat no hearing difficulty no ear pain - Cardiovascular: No syncope, no chest pain, no palpitations - Gastrointestinal: No nausea vomiting or diarrhea PFSH Medical History Intermittent palpitations Hyperkalemia GERD (gastroesophageal reflux disease) Liver fibrosis TIA (transient ischemic attack) HTN (hypertension) Depression High potassium Osteoporosis Multinodular thyroid Left lower quadrant pain Elevated alpha fetoprotein Anxiety, generalized Vertigo PFO (patent foramen ovale) Irritable bowel syndrome Hepatitis C Vitamin D deficiency Hyperparathyroidism Surgical History Hx of colonoscopy Hx of parathyroidectomy History of lumpectomy of right breast Hx of cholecystectomy Hx of hysterectomy Family History Maternal Grandmother T2DM (type 2 diabetes mellitus) Father Colon cancer Cancer Multiple myeloma Mother Brain disorder Thyroid disease Sister Thyroid nodule Hyperparathyroidism Hyperthyroidism Maternal Grandfather Heart disease Other Mental health disorder Substance use disorder Social History Household Members: None Housing: Other Alcohol intake: current Alcohol intake frequency: holidays/special occasions only Patient Tobacco Use Status: Never used Tobacco Tobacco use type: Cigarette e-Cigarette/Vaping Use: Never Used Second Hand Smoke Exposure: No service: No Current occupational status: retired Cognitive needs: No Hearing needs: No Vision needs: No Questionnaire Thrive Questionnaire Date Thrive assessed: 05/16/24 KAYLEIGH-7 AMB Questionnaire KAYLEIGH-7 Date KAYLEIGH - 7 assessed: 11/09/23 Source: Developed by Drs. Andrei Lui, Colette Flanagan, Eliseo Bueno and colleagues, with an educational zulma from [employer]. Physical exam (Primary Care) Tobacco/Smoking Status: Tobacco use Status Tobacco use date assessed 05/23/24 07/27/24 08:30 Patient Tobacco Use Status Never used Tobacco 07/27/24 08:30 Tobacco use type Cigarette 07/27/24 08:30 e-Cigarette/Vaping Use Never Used 07/27/24 08:30 Thrive Assessment: Date of Thrive Assessment Date Thrive assessed 05/16/24 07/27/24 08:30 Telehealth Telehealth Telehealth Platform: [facility] Location of provider rendering services: practice address Location of patient: address on file Patient Identification confirmed using: Name, : Yes Telehealth method: voice only Patient verbally consented to treatment: Yes Patient verbally consented to billing insurance company: Yes Patient informed of any privacy concerns related to visit: Yes Minutes spent on Phone/Video with Pt.: 14 Coding Level of Care Code Tele Est Pt Level 3 (98375) Diagnoses Abnormal computed tomography angiography (CTA) R93.89 Bronchiectasis without complication J47.9 Bronchiectasis type: uncomplicated Ground glass opacity present on imaging of lung R91.8 Large hiatal hernia K44.9 Assessment & Plan Assessment & Plan (1) Abnormal computed tomography angiography (CTA): Code(s): R93.89 - Abnormal findings on diagnostic imaging of other specified body structures Category: Medical (2) Bronchiectasis: Code(s): J47.9 - Bronchiectasis, uncomplicated Category: Medical Qualifiers: Bronchiectasis type: uncomplicated Qualified Code(s): J47.9 - Bronchiectasis, uncomplicated (3) Ground glass opacity present on imaging of lung: Code(s): R91.8 - Other nonspecific abnormal finding of lung field Category: Medical (4) Large hiatal hernia: Code(s): K44.9 - Diaphragmatic hernia without obstruction or gangrene Category: Medical Plan History - The patient is a 79-year-old female presenting with discussion of imaging findings and management of abnormal chest imaging and hiatal hernia. - She has experienced coughing and significant fatigue from mild exertion such as vacuuming for approximately one year. - She reported difficulty with deep breathing and exertional dyspnea, specifically with an inability to climb stairs. - Imaging revealed mild bronchiectasis. - The patient also has a large hiatal hernia diagnosed via imaging, contributing to symptoms of gastroesophageal reflux disease (GERD). - Symptoms associated with the hiatal hernia include heartburn and waking up with a sore throat. - The patient is currently on Omeprazole taken nightly for GERD. - She has previously been treated for GERD by Dr. Ferro, who is her fire hazard inspector. Problem List - Mild Bronchiectasis - Gastroesophageal Reflux Disease (GERD) with large hiatal hernia - ground glass opacity lung - SOB Patient Instructions - You will be referred to a lung specialist for further evaluation of your bronchiectasis. - I will attempt to expedite your appointment with your fire hazard inspector, Dr. Ferro, to discuss the findings and treatment options for the hiatal hernia. - Consider potential surgical evaluation if symptoms from the hiatal hernia persist or worsen. - Remember to take Omeprazole every night as prescribed for your reflux symptoms. - Monitor any worsening symptoms, and reach out if you have concerns. Orders: Referrals Pulmonology Referral J47.9 - Bronchiectasis, uncomplicated, R91.8 - Other nonspecific abnormal finding of lung field, R93.89 - Abnormal findings on diagnostic imaging of other specified body structures General Surgery Referral K44.9 - Diaphragmatic hernia without obstruction or gangrene
== END 2024-07-27 08:44 | disposition home or self-care (01) ==
LOC: HO.HMCC 08:15
PROVIDERS: PCP Internal Medicine; Visit Provider Internal Medicine
DX: R93.89 Abnormal findings on diagnostic imaging of other specified body structures (principal); J47.9 Bronchiectasis, uncomplicated; R91.8 Other nonspecific abnormal finding of lung field; K44.9 Diaphragmatic hernia without obstruction or gangrene

== ENCOUNTER → 2024-07-27 08:15 | Outpatient (BNVA) | payer OTHER, SELFPAY | PROVIDERS: PCP Internal Medicine; Visit Provider Internal Medicine | DX: Z13.89 Encounter for screening for other disorder (principal) ==

== ENCOUNTER 2024-08-29 13:11 | Outpatient (AMB) | payer MEDICARE, SELFPAY ==
[2024-08-29 13:13] VITALS: BP 106/66; PULSE 84; TEMP 36.6; O2SAT 97; BMI 27.3
--- NOTE | 2024-08-29 13:13 | MHC.PC.OV ---
Vital Signs 08/29/24 13:13 Height 4 ft 11 in Weight 135 lb 6 oz BMI 27.3 BP 106/66 Blood Pressure Location Rt brachial Position Sitting Pulse 84 Pulse Source Pulse Oximeter Temp 97.9 F Temp Source Oral Pulse Oximetry (%) 97 Oxygen Delivery Method Room Air Intake Visit Reasons: PE Allergies adhesive tape Adverse Reaction (Mild, Verified 08/29/24 13:17) Rash meclizine Adverse Reaction (Verified 08/29/24 13:17) High doses Medication List - Last Reconciled 08/29/24 by Facundo Easley MD atorvastatin 20 mg PO DAILY calcium carb, citrate-vit D3 600 mg-12.5 mcg (500 unit) ER (Citracal-D3 Slow Release) 1 tab PO DAILY 30 days fluticasone propionate (Flonase Allergy Relief) intranasal lorazepam 0.5 mg PO BID PRN 30 days nystatin 1 appl topical DAILY 30 days omeprazole 20 mg PO DAILY venlafaxine ER 150 mg PO DAILY Tobacco use date assessed: 08/29/24 Fall risk assessment: 2 + Falls in past year Last assessed Fall Risk: 08/29/24 Dental Screening Dental Screen Date: 08/29/24 Did you have a dental visit in the last 12 months?: No Did you have a dental problem in the last 6 months where you did not have access to dental care?: No Was dental information given to patient?: Patient declined HPI PE HPI Details Physical exam appointment - The patient is a 79-year-old female presenting with concerns regarding a hiatal hernia and bronchiectasis. - The patient has a planned surgical procedure for a large hiatal hernia on October 02 She reports experiencing constant pain and lack of appetite, possibly related to hernia complications where part of the stomach is situated in the chest, leading to discomfort and gas reflux. - An incidental finding of mild bronchiectasis was noted on a CT scan conducted to assess her heart. She reports a history of chronic cough, production of yellow sputum, and occasional shortness of breath, raising concerns in the context of the diagnostic imaging results. Lipid disorder treated by Cardiology Osteoporosis and hyperparathyroidism treated by endocrinology Allergies stable Anxiety stable with lorazepam and venlafaxine Continue omeprazole for hiatal hernia Medical History: - Bronchiectasis (incidental finding on CT) - Anxiety - Osteoporosis - Gastroesophageal Reflux Disease (GERD) with large hiatal hernia - ground glass opacity lung - SOB - lipid disorder Family History: - Father had asthma and significant lung problems due to occupational exposure in a factory. Health Maintenance - Mammograms up to date, with regular annual screenings in January. - Routine appointments and screening tests are part of her healthcare maintenance. [place] of Care - The patient has scheduled an appointment with a consumer electronic retail specialist on October 09 at [facility]. - Dr. Ferro Gastroenterology - Cardiology [facility] Employment - The patient's father had significant occupational exposure in a factory, affecting his lung health. No details regarding the patient's current or past employment provided. Diagnostic results - CT scan revealed mild bronchiectasis as an incidental finding. Patient Instructions - Take antibiotics as prescribed for potential lung inflammation. - go for pulmonary function test and repeat CT scan chest - Use prescribed inhaler twice daily, 12 hours apart, and rinse mouth after use. Symbicort sent - Schedule and attend follow-up appointments with the consumer electronic retail specialist. - Complete blood work tests as ordered. - Follow preparation instructions from the healthcare provider prior to surgery. Review of Systems - General: No fever no chills - Neurological: No headaches no dizziness - Ear nose throat: No sore throat no hearing difficulty no ear pain - Cardiovascular: No syncope, no chest pain, no palpitations - Gastrointestinal: No nausea vomiting or diarrhea - Endocrine: No polyuria polydipsia no heat intolerance - Genitourinary: No dysuria - Skin: No new complaints Physical Exam General: Cooperative, healthy appearing, comfortable, no acute distress Orientation: Patient oriented x3 Head: Normal to inspection Ears: Within normal limit visually Nose: Normal external nose present Face and sinus: Normal facial exam Eyes: Appearance normal, extraocular movement intact pupils reactive Neck: Normal visual inspection and supple Respiratory: Normal respiratory effort and able to speak in complete sentences. Clear to auscultation, no stridor Cardiovascular: S1 and S2 RRR breast exam declined GI: Normal to inspection. Soft to palpation and nontender Skin: Turgor normal, no acute findings Neuro: Patient oriented x3, motor sensory intact, balance intact, tandem pass Extremities: Normal to inspection [facility] Medical History Intermittent palpitations Hyperkalemia GERD (gastroesophageal reflux disease) Liver fibrosis TIA (transient ischemic attack) HTN (hypertension) Depression High potassium Osteoporosis Multinodular thyroid Left lower quadrant pain Elevated alpha fetoprotein Anxiety, generalized Vertigo PFO (patent foramen ovale) Irritable bowel syndrome Hepatitis C Vitamin D deficiency Hyperparathyroidism Surgical History Hx of colonoscopy Hx of parathyroidectomy History of lumpectomy of right breast Hx of cholecystectomy Hx of hysterectomy Family History Maternal Grandmother T2DM (type 2 diabetes mellitus) Father Colon cancer Cancer Multiple myeloma Mother Brain disorder Thyroid disease Sister Thyroid nodule Hyperparathyroidism Hyperthyroidism Maternal Grandfather Heart disease Other Mental health disorder Substance use disorder Social History Household Members: None Housing: Other Alcohol intake: current Alcohol intake frequency: holidays/special occasions only Patient Tobacco Use Status: Never used Tobacco Tobacco use type: Cigarette e-Cigarette/Vaping Use: Never Used Second Hand Smoke Exposure: No service: No Current occupational status: retired Cognitive needs: No Hearing needs: No Vision needs: No Questionnaire PHQ-9 Over the last 2 weeks, how often have you been bothered by any of the following problems? 1. Little interest or pleasure in doing things: several days 2. Feeling down, depressed, or hopeless: several days 3. Trouble falling or staying asleep, or sleeping too much: more than half the days 4. Feeling tired or having little energy: more than half the days 5. Poor appetite or overeating: nearly every day 6. Feeling bad about yourself - or that you are a failure or have let yourself or your family down: several days 7. Trouble concentrating on things, such as reading the newspaper or watching television: not at all 8. Moving or speaking so slowly that other people could have noticed. Or the opposite - being so fidgety or restless that you have been moving around a lot more than usual: several days 9. Thoughts that you would be better off or of hurting yourself in some way: not at all Total score: 11 Depression Screening Interpretation: Positive Depression Screening Follow-up: Existing condition and In treatment Depression Screening Done: Yes 62925 - PHQ-9 Billing: Yes Source: Developed by Drs. Andrei Lui, Colette Flanagan, Eliseo Bueno and colleagues, with an educational zulma from [email or web address]. Thrive Questionnaire Date Thrive assessed: 08/29/24 I am a: Patient What is your living situation today?: I have a steady place to live Within the past 12 months, did the food you bought not last and you didn't have the money to get more?: Sometimes True Within the past 12 months, did you worry whether your food would run out before you got money to buy more?: Often true Do you have trouble paying for medicines?: No Do you have trouble getting transportation to medical appointments?: No Do you have trouble paying your heating and electricity bill?: Yes Do you have trouble taking care of your child, family member or friend?: No Do you have trouble with day-to-day activities such as bathing, preparing meals, shopping, managing finances, etc.?: No Are you currently unemployed and looking for a job?: No Are you interested in more education?: No Currently or been in a relationship where the following occur: No concerns reported THRIVE Score: 3 AUDIT C Alcohol Use Questionnaire (AUDIT-C) 1. How often do you have a drink containing alcohol?: 2-4 times a month 2. How many drinks containing alcohol do you have on a typical day when you are drinking?: 1 or 2 3. How often do you have six or more drinks on one occasion?: Never Total Score: 2 KAYLEIGH-7 AMB Questionnaire KAYLEIGH-7 Date KAYLEIGH - 7 assessed: 08/29/24 Feeling nervous, anxious, or on edge: 1 = Several days Not being able to stop or control worryin = Several days Worrying too much about different things: 1 = Several days Trouble relaxin = Several days Being so restless that it is hard to sit still: 0 = Not at all Becoming easily annoyed or irritable: 1 = Several days Feeling afraid as if something awful might happen: 1 = Several days Total KAYLEIGH-7 score (0-4 normal; 5-9 mild; 10-14 moderate; 15-21 severe): 6 Source: Developed by Drs. Andrei Lui, Colette Flanagan, Eliseo Bueno and colleagues, with an educational zulma from [email or web address]. Physical exam (Primary Care) Vital Signs: Last Vital Signs Temp 97.9 F 08/29/24 13:13 Pulse 84 08/29/24 13:13 BP 106/66 08/29/24 13:13 Pulse Ox 97 08/29/24 13:13 Oxygen Delivery Method Room Air 08/29/24 13:13 BMI result Body Mass Index 27.3 Tobacco/Smoking Status: Tobacco use Status Tobacco use date assessed 08/29/24 08/29/24 13:18 Patient Tobacco Use Status Never used Tobacco 08/29/24 13:18 Tobacco use type Cigarette 08/29/24 13:18 e-Cigarette/Vaping Use Never Used 08/29/24 13:18 PHQ-9: PHQ-9 Score PHQ-9: Total score 11 08/29/24 13:18 Depression Screening Interpretation: Positive Depression Screening Follow-up: Existing condition and In treatment Thrive Assessment: Date of Thrive Assessment Date Thrive assessed 08/29/24 08/29/24 13:18 Currently or been in a relationship where the following occur: No concerns reported Coding Level of Care Code Est Pt Level 4 (13350) Est Pt Prev Care >65y(56560) Diagnoses Encounter for general adult medical examination with abnormal findings Z00.01 Shortness of breath R06.02 Ground glass opacity present on imaging of lung R91.8 Anxiety, generalized F41.1 Chronic GERD K21.9 Large hiatal hernia K44.9 Panic disorder F41.0 Vitamin D deficiency E55.9 Lipid disorder E78.9 Hyperparathyroidism E21.3 Age-related osteoporosis without current pathological fracture M81.0 Osteoporosis type: age-related Presence of current pathological fracture: without current pathological fracture 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; K74.60 Bronchiectasis without complication J47.9 Bronchiectasis type: uncomplicated Additional Codes PHQ-9 - 37361 - PHQ-9 Billing: Yes ([id number]) Assessment & Plan Assessment & Plan (1) Encounter for general adult medical examination with abnormal findings: Code(s): Z00.01 - Encounter for general adult medical examination with abnormal findings Category: Medical (2) Shortness of breath: Code(s): R06.02 - Shortness of breath Category: Medical (3) Ground glass opacity present on imaging of lung: Code(s): R91.8 - Other nonspecific abnormal finding of lung field Category: Medical (4) Anxiety, generalized: Code(s): F41.1 - Generalized anxiety disorder Category: Medical (5) Chronic GERD: Code(s): K21.9 - Gastro-esophageal reflux disease without esophagitis Category: Medical (6) Large hiatal hernia: Code(s): K44.9 - Diaphragmatic hernia without obstruction or gangrene Category: Medical (7) Panic disorder: Code(s): F41.0 - Panic disorder [episodic paroxysmal anxiety] Category: Medical (8) Vitamin D deficiency: Code(s): E55.9 - Vitamin D deficiency, unspecified Category: Medical (9) Lipid disorder: Code(s): E78.9 - Disorder of lipoprotein metabolism, unspecified Category: Medical (10) Hyperparathyroidism: Comment: Management through [facility] Code(s): E21.3 - Hyperparathyroidism, unspecified Category: Medical (11) Osteoporosis: Comment: Management through [facility] Code(s): M81.0 - Age-related osteoporosis without current pathological fracture Category: Medical Qualifiers: Osteoporosis type: age-related Presence of current pathological fracture: without current pathological fracture Qualified Code(s): M81.0 - Age-related osteoporosis without current pathological fracture (12) Hepatic cirrhosis due to chronic hepatitis C infection: Code(s): B18.2 - Chronic viral hepatitis C; K74.60 - Unspecified cirrhosis of liver Category: Medical (13) Bronchiectasis: Code(s): J47.9 - Bronchiectasis, uncomplicated Category: Medical Qualifiers: Bronchiectasis type: uncomplicated Qualified Code(s): J47.9 - Bronchiectasis, uncomplicated Plan Physical exam appointment - The patient is a 79-year-old female presenting with concerns regarding a hiatal hernia and bronchiectasis. - The patient has a planned surgical procedure for a large hiatal hernia on October 02 She reports experiencing constant pain and lack of appetite, possibly related to hernia complications where part of the stomach is situated in the chest, leading to discomfort and gas reflux. - An incidental finding of mild bronchiectasis was noted on a CT scan conducted to assess her heart. She reports a history of chronic cough, production of yellow sputum, and occasional shortness of breath, raising concerns in the context of the diagnostic imaging results. Lipid disorder treated by Cardiology Osteoporosis and hyperparathyroidism treated by endocrinology Allergies stable Anxiety stable with lorazepam and venlafaxine Continue omeprazole for hiatal hernia Medical History: - Bronchiectasis (incidental finding on CT) - Anxiety - Osteoporosis - Gastroesophageal Reflux Disease (GERD) with large hiatal hernia - ground glass opacity lung - SOB - lipid disorder Family History: - Father had asthma and significant lung problems due to occupational exposure in a factory. Health Maintenance - Mammograms up to date, with regular annual screenings in January. - Routine appointments and screening tests are part of her healthcare maintenance. [place] of Care - The patient has scheduled an appointment with a consumer electronic retail specialist on October 09 at [facility]. - Dr. Ferro Gastroenterology - Cardiology [facility] Employment - The patient's father had significant occupational exposure in a factory, affecting his lung health. No details regarding the patient's current or past employment provided. Diagnostic results - CT scan revealed mild bronchiectasis as an incidental finding. Patient Instructions - Take antibiotics as prescribed for potential lung inflammation. - go for pulmonary function test and repeat CT scan chest - Use prescribed inhaler twice daily, 12 hours apart, and rinse mouth after use. Symbicort sent - Schedule and attend follow-up appointments with the consumer electronic retail specialist. - Complete blood work tests as ordered. - Follow preparation instructions from the healthcare provider prior to surgery. Orders: Orders Comprehensive [place]. Panel Fast Today B18.2 - Chronic viral hepatitis C, E21.3 - Hyperparathyroidism, unspecified, E55.9 - Vitamin D deficiency, unspecified, E78.9 - Disorder of lipoprotein metabolism, unspecified, F41.0 - Panic disorder [episodic paroxysmal anxiety], F41.1 - Generalized anxiety disorder, K21.9 - Gastro-esophageal reflux disease without esophagitis, K44.9 - Diaphragmatic hernia without obstruction or gangrene, K74.60 - Unspecified cirrhosis of liver, M81.0 - Age-related osteoporosis without current pathological fracture, R91.8 - Other nonspecific abnormal finding of lung field, Z00.01 - Encounter for general adult medical examination with abnormal findings Lipid Panel Today B18.2 - Chronic viral hepatitis C, E21.3 - Hyperparathyroidism, unspecified, E55.9 - Vitamin D deficiency, unspecified, E78.9 - Disorder of lipoprotein metabolism, unspecified, F41.0 - Panic disorder [episodic paroxysmal anxiety], F41.1 - Generalized anxiety disorder, K21.9 - Gastro-esophageal reflux disease without esophagitis, K44.9 - Diaphragmatic hernia without obstruction or gangrene, K74.60 - Unspecified cirrhosis of liver, M81.0 - Age-related osteoporosis without current pathological fracture, R91.8 - Other nonspecific abnormal finding of lung field, Z00.01 - Encounter for general adult medical examination with abnormal findings PFT pulmonary function test Today J47.9 - Bronchiectasis, uncomplicated, R06.02 - Shortness of breath Complete Blood Count Auto Diff Today B18.2 - Chronic viral hepatitis C, E21.3 - Hyperparathyroidism, unspecified, E55.9 - Vitamin D deficiency, unspecified, E78.9 - Disorder of lipoprotein metabolism, unspecified, F41.0 - Panic disorder [episodic paroxysmal anxiety], F41.1 - Generalized anxiety disorder, K21.9 - Gastro-esophageal reflux disease without esophagitis, K44.9 - Diaphragmatic hernia without obstruction or gangrene, K74.60 - Unspecified cirrhosis of liver, M81.0 - Age-related osteoporosis without current pathological fracture, R91.8 - Other nonspecific abnormal finding of lung field, Z00.01 - Encounter for general adult medical examination with abnormal findings Vitamin D 25-OH (D2 and D3) Today B18.2 - Chronic viral hepatitis C, E21.3 - Hyperparathyroidism, unspecified, E55.9 - Vitamin D deficiency, unspecified, E78.9 - Disorder of lipoprotein metabolism, unspecified, F41.0 - Panic disorder [episodic paroxysmal anxiety], F41.1 - Generalized anxiety disorder, K21.9 - Gastro-esophageal reflux disease without esophagitis, K44.9 - Diaphragmatic hernia without obstruction or gangrene, K74.60 - Unspecified cirrhosis of liver, M81.0 - Age-related osteoporosis without current pathological fracture, R91.8 - Other nonspecific abnormal finding of lung field, Z00.01 - Encounter for general adult medical examination with abnormal findings CT chest w IV con Today J47.9 - Bronchiectasis, uncomplicated, R91.8 - Other nonspecific abnormal finding of lung field Medications: New budesonide-formoterol 160-4.5 mcg/actuation (Symbicort) 1 inh inhalation BID 10.2 grams 0RF azithromycin Take 2 tablets today then 1 daily 250 mg PO ONCE 5 days 6 tabs 0RF J06.9 - Acute upper respiratory infection, unspecified Refilled lorazepam 0.5 mg PO BID 30 days PRN 60 tabs 2RF anxiety venlafaxine ER 150 mg PO DAILY 90 caps 3RF
--- OUTSIDE RECORDS SUMMARY | 2024-08-29 14:43 | XMS_ITS | Patient Health Record ---
Author Organization [facility] Address [address] [place] [address] Care Team Providers Care Fuel Attendant Name Role Phone Kaushal CARRASCO, Asma Primary Care Provider Andrei Dunlap Unavailable [phone] Allergies Allergen (clinical drug ingredient) Drug/Non Drug Allergy documented on EMR Reaction Allergy Type Onset Date Status meclizine Antivert Unknown Drug Allergy Active Reason For Referral No Information Medications Medication SIG (Take, Route, Frequency, Duration) Notes Start Date End Date Status Aspir-81 81 MG 1 tablet Orally Once a day Not-Taking Omeprazole 20 MG TAKE 1 CAPSULE BY [facility] EVERY DAY for 90 Active Dicyclomine HCl 10 MG 1 or 2 capsules Or ally Q 6 hours prn abdominal cramps/discomfort/bloat ing for 30 day(s) 04/25/2021 Active Hyoscyamine Sulfate 0.125 MG 1-2 Orally every 6 hours prn abdominal cramps/bloating/discomf ort for 30 days 08/02/2017 Not-Taking Hyoscyamine Sulfate 0.125 MG 1-2 tablets Orally every 6 hours prn abdominal cramps, bloating, discomfort for 30 days 01/24/2015 Not-Taking Effexor XR 75 MG 1 capsule with food Orally Once a day for 30 day(s) Active Probiotic 1 po qd Active Calcium Active Omeprazole 20 MG 1 capsule 30 minutes before morning meal Orally Once a day for 90 days 10/29/2023 Active Vitamin D 1000mg Act hayes FLUoxetine HCl 20 MG 1 capsule in the morning Orally Once a day Not-Taking Immunizations Vaccine Route Administration Date Status Comme nts Influenza Unknown 10/24/2019 Administered Influenza Unknown 04/25/2021 Administered Problems Problem Type SNOMED Code ICD Code Onset Dates Problem Status W/U Status Risk Notes Problem 331209185 Encounter for screening for malignant neoplasm of colon (Z12.11) Active confirmed Problem 342309999 Irritable bowel syndrome with diarrhea (K58.0) Active confirmed Problem Screening for malignant neoplasm of rectum (788358796) Encounter for screening for malignant neoplasm of rectum (Z12.12) Active confirmed Problem Polyp colon (77323841) Colon polyp (K63.5) Active confirmed Problem 221194663 Gastroesophageal reflux disease without esophagitis (K21.9) Active confirmed Problem 030523972 Chronic hepatiti s C without hepatic coma (B18.2) Active confirmed Problem 179033189 Hx of adenomatou s colonic polyps (Z86.010) Active confirmed Problem 38236352860294 History of hepatitis C (Z86.19) Active confirmed Problem 35370635 Diarrhea, unspecified type (R19.7) Active confirmed Problem 484965064 RUQ abdominal pa in (R10.11) Active confirmed Problem 34326520 Liver fibrosis (K74.0) Active confirmed Problem 44329316 Irritable bowel syndrome with both constipation and diarrhea (K58.2) Active confirmed Problem 272364422 Family history o f colon cancer in father (Z80.0) Active confirmed Problem Diverticulosis of colon (185466559) Diverticulosis of colon (K57.30) Active confirmed Problem 08659537 Liver fibrosis (K74.00) Active confirmed Encounters Encounter Location Date Provider Diagnosis [facility] [address] [place] [address] 10/29/2023 Andrei Ferro Plan Of Treatment Pending Test Test Name Order Date CHEM 7 PROFILE 08/20/2022 LIVER PROFILE 07/06/2014 LIVER PROFILE 10/22/2011 LIVER PROFILE 04/25/2021 LIVER PROFILE 10/13/2014 LIVER PROFILE 07/20/2013 LIVER PROFILE 03/27/2015 LIVER PROFILE 08/19/2014 LIVER PROFILE 05/12/2016 LIVER PROFILE 08/20/2022 LIVER PROFILE 06/09/2012 LIVER PROFILE 11/23/2017 CBC w DIFF 05/12/2016 CBC w DIFF 08/20/2022 CBC w DIFF 11/23/2017 CBC w DIFF 07/06/2014 CBC w DIFF 10/22/2011 CBC w DIFF 04/25/2021 CBC w DIFF 10/13/2014 CBC w DIFF 07/20/2013 CBC w DIFF 08/19/2014 PROTHROMBIN TIME (PT, INR) 05/12/2016 PROTHROMBIN TIME (PT, INR) 08/20/2022 PROTHROMBIN TIME (PT, INR) 11/23/2017 PROTHROMBIN TIME (PT, INR) 10/22/2011 PROTHROMBIN TIME (PT, INR) 04/25/2021 PROTHROMBIN TIME (PT, INR) 07/20/2013 PARTIAL THROMBOPLASTIN TIME (PTT) 2013 ALPHA-FETOPROTEIN,TUMOR MARKER 3 ALPHA-FETOPROTEIN,TUMOR MARKER 4 ALPHA-FETOPROTEIN,TUMOR MARKER 7 ALPHA-FETOPROTEIN,TUMOR MARKER 3 ALPHA-FETOPROTEIN,TUMOR MARKER 3 ALPHA-FETOPROTEIN,TUMOR MARKER 8 ALPHA-FETOPROTEIN,TUMOR MARKER 2 CELIAC PANEL #10 11/23/2017 HEPATITIS C VIRAL LOAD 11/23/2017 HEPATITIS C VIRAL LOAD 08/19/2014 HEPATITIS C VIRAL LOAD 04/25/2021 HEPATITIS C VIRAL LOAD 07/06/2014 HEPATITIS C VIRAL LOAD 03/27/2015 HEPATITIS C VIRAL LOAD 05/12/2016 HEPATITIS C VIRAL LOAD 10/13/2014 CULTURE, STOOL 03/13/2021 MRI ABD W&WO CONTRAST 01/09/2013 HCV LIVER FIBROSIS, FIBRO TEST 3 STOOL WBC 03/13/2021 US ABDOMEN COMP WITH ELASTOGRAPHY 2021 C DIFFICILE RFLX PCR 03/13/2021 Amylase 08/20/2022 Lipase 08/20/2022 US abdomen comp w elastography 3 Future Test Test Name Order Date COLONOSCOPY 10/22/2011 COLONOSCOPY 05/12/2016 COLONOSCOPY 04/25/2021 Next Appt Details Provider Name:Andrei Ferro , 11/07/2024 01:40:00 PM, [address], [address], [place], [address], Insurance Providers Payer Name Payer Address Payer Phone Subscriber Number Group Number Insured Name Patient Relationship to Insured Coverage Start Date Coverage End Date [facility] [address] [facility] [id number] PCP DARCY CADET Self - patient is the insured 5 Medical (General) History Medical History History ICD Code Irritable bowel syndrome--ne g. celiac disease labs in 2017, normal duodenal biopsies in 2008 GERD-hiatal hernia-EGD in 16 12 was otherwise negative, including duodenal bx. neg. for celiac disease Depression Chronic hepatitis C-Genotype 1 -Rx'd with the nonpegylated IF tiw and Ribavirin in 1999 for 6 months only-alot of constitutional symptoms; liver biopsy in 2006 with Gr 2-3/4 and Stage II-III/IV--liver bx in 07/2013 with similar finidngs to 2006, but perhaps a little worse--Grade 2-3/4 and Stage III/IV--Neg MRI of liver in 12/2012 excpet for a liver cyst-AFP 13.7 in 06/2013 and 16.5 in 2012. She was treated with 12 weeks of Harvoni from June 2014 through September 2014. She had a normal liver profile and nondetectable hepatitis C viral load in December 2014, 06/2015, and in 05/2016. Anxiety Denies TN,DM,CVA,Lung disease,renal dise ase Colon polyps- colonoscopy in 11/2011 with removal of a small tubular adenoma--diverticulosis and internal hemorrhoids Vertigo, ringing in ears HTN TIA's 11/2013 Colonoscopy in 07/2016---norm al colon biopsies, no polyps; diverticulosis and internal hemorrhoids Hyperparathyroidism-s/p surgery as below Osteoporosis Colonoscopy May of 2021 with a small t ubular adenoma removed Surgical History Surgery Date(Month/Year) hysterectomy cholecystectomy Benign lumpectomy from right breast left eye cataract parathyroidectomy 09/2020
== END 2024-08-29 13:51 | disposition home or self-care (01) ==
PROVIDERS: PCP Internal Medicine; Visit Provider Internal Medicine
DX: Z00.01 Encounter for general adult medical examination with abnormal findings (principal); B18.2 Chronic viral hepatitis C; K74.60 Unspecified cirrhosis of liver; J47.9 Bronchiectasis, uncomplicated; R06.02 Shortness of breath; R91.8 Other nonspecific abnormal finding of lung field; F41.1 Generalized anxiety disorder; K21.9 Gastro-esophageal reflux disease without esophagitis; K44.9 Diaphragmatic hernia without obstruction or gangrene; F41.0 Panic disorder [episodic paroxysmal anxiety]; E55.9 Vitamin D deficiency, unspecified; E78.9 Disorder of lipoprotein metabolism, unspecified

== ENCOUNTER 2024-08-29 13:11 | Outpatient (REF) | payer OTHER, SELFPAY ==
[2024-08-29 17:04] LABS: MANUAL DIFF FLAG NO
[2024-08-29 17:14] LABS: Basophils Absolute Auto 0.1 X10*3/uL (0.0-0.2); Basophils Percent Auto 0.6 % (0-2); Eosinophils Absolute Auto 0.3 X10*3/uL (0.0-0.4); Eosinophils Percent Auto 3.8 % (0-4); Hematocrit 38.4 % (37.0-47.0); Imm Gran Abs Auto 0.02 X10*3/uL (0.00-0.03); Imm Gran Pct Auto 0.2 % (0.0-0.4); Lymphocytes Absolute Auto 1.9 X10*3/uL (1.2-4.9); Lymphocytes Percent Auto 23.5 % (20-40); Mean Corpuscular HGB Conc 33.9 g/dl (31.0-35.0); Mean Corpuscular Hemoglobin 32.1 pg (27.0-33.0); Mean Corpuscular Volume 94.8 fL (80.0-98.0); Mean Platelet Volume 11.2 fL (9.4-12.3); Monocytes Absolute Auto 0.6 X10*3/uL (0.1-1.2); Monocytes Percent Auto 7.2 % (2-11); Neutrophils Absolute Auto 5.3 x10*3/uL (2.0-8.3); Neutrophils Percent Auto 64.7 % (45-73); Platelet Count 186 X10*3/uL (160-400); Red Blood Count 4.05 X10*6/uL (4.20-5.50); Red Cell Distribution Width 12.3 % (11.0-16.0); White Blood Count 8.2 X10*3/uL (4.8-10.8)
[2024-08-29 17:31] LABS: Alanine Aminotransferase 15 U/L (0-31); Albumin Level 4.7 g/dL (3.5-5.0); Alkaline Phosphatase 58 U/L (39-117); Anion Gap 13 (12-20); Aspartate Amino Transferase 24 U/L (5-31); Bilirubin Total 0.7 mg/dL (0.0-1.0); Blood Urea Nitrogen 19 mg/dL (9-16); Carbon Dioxide 24 mmol/L (22-29); Chloride 107 mmol/L (96-108); Cholesterol 215 mg/dL (<200); Estimated Glomerular Filt Rate > 60; Glucose Fasting 91 mg/dL (60-99); HDL Cholesterol 89 mg/dL (>40); LDL Cholesterol Calculated 94 mg/dL (<100); Potassium 4.1 mmol/L (3.3-5.1); Sodium 140 mmol/L (135-145); Total Protein 8.2 g/dL (6.5-8.0); Triglycerides 161 mg/dL (<150)
[2024-09-04 14:58] LABS: Vitamin D 25-OH, D2 <4 ng/mL; Vitamin D 25-OH, D3 29 ng/mL; Vitamin D 25-OH, Total 29 ng/mL (30-100)
== END 2024-08-29 13:12 | disposition home or self-care (01) ==
LOC: HO.HMGCLDS 13:11
PROVIDERS: PCP Internal Medicine; Visit Provider Internal Medicine
DX: Z00.01 Encounter for general adult medical examination with abnormal findings (principal); E55.9 Vitamin D deficiency, unspecified; E21.3 Hyperparathyroidism, unspecified; F41.1 Generalized anxiety disorder; M81.0 Age-related osteoporosis without current pathological fracture; K21.9 Gastro-esophageal reflux disease without esophagitis; F41.0 Panic disorder [episodic paroxysmal anxiety]; B18.2 Chronic viral hepatitis C; K74.60 Unspecified cirrhosis of liver; E78.9 Disorder of lipoprotein metabolism, unspecified; R91.8 Other nonspecific abnormal finding of lung field; K44.9 Diaphragmatic hernia without obstruction or gangrene; J47.9 Bronchiectasis, uncomplicated
CPT/HCPCS: 36415; 80053; 80061; 82306; 85025; 96127; 99212; 99397

== ENCOUNTER 2024-10-09 12:54 | Outpatient (AMB) | payer OTHER, SELFPAY ==
--- NOTE | 2024-10-09 12:59 | A.OFFVIS_ITS ---
Vital Signs 10/09/24 13:00 Height 4 ft 11 in Weight 133 lb 6.075 oz BMI 26.9 BP 120/76 Blood Pressure Location Lt brachial Position Sitting Pulse 76 Pulse Source Pulse Oximeter Pulse Oximetry (%) 97 Oxygen Delivery Method Room Air Intake Visit Reasons: Bronchiectasis Movement Assembly Final Inspector Required: No Allergies adhesive tape Adverse Reaction (Mild, Verified 10/09/24 13:03) Rash meclizine Adverse Reaction (Verified 10/09/24 13:03) High doses HPI Comments Details: The patient is here for pulmonary evaluation. The patient is a 79 year woman presenting with worsening shortness of breath. Apparently she has been noticing worsening respiratory symptoms now for several months. She is also having sign ificant reflux disease. She was evaluated by surgery. And ultimately recently underwent a fundoplication at [facility]. In the meantime the patient was evaluated from a cardiac standpoint and back in June she did have a CT scan of the coronary arteries. It demonstrated areas of bronchiectasis in addition to interstitial lung disease and pulmonary fibrosis. Although very limited based on the cuts. She was given antibiotics for the possibility infection at the time. She has a longer taking antibiotics. She was also placed any inhalers. Initially given Symbicort although was not covered but she bought it and then she will send Wixela that she has not use. Currently she is not using any inhalers. She has been using incentive spirometer after surgery. Now she is feeling better 2 weeks out. The patient was able to go for a walk with mean. She was comfortable although she did become dyspneic with a dyspnea score of 4/10. Her pulse ox did drop to about 93% and heart rate was 105. On examination she does have crackles bilaterally. Suggesting the possibility of pulmonary fibrosis. Will go ahead and request blood work specially with a history of sarcoidosis in the family. The patient also has a history arthritis in the family. She does not have any other significant exposures, but, will go ahead and order additional testing to assess for pulmonary fibrosis interstitial lung disease. The patient will need pulmonary function studies when she recovers from her surgery and she will need a formal CT scan of the chest to better visualize her lungs. Will have her follow-up after the studies are available and if any issues arise she will call. As far as the Symbicort she can use it as needed every 12 hours. She knows to rinse and gargle her mouth after using it. [facility] Medical History (Updated 10/09/24 @ 13:28 by Marques Rouse MD) Pulmonary fibrosis Intermittent palpitations Hyperkalemia GERD (gastroesophageal reflux disease) Liver fibrosis TIA (transient ischemic attack) HTN (hypertension) Depression High potassium Osteoporosis Multinodular thyroid Left lower quadrant pain Elevated alpha fetoprotein Anxiety, generalized Vertigo PFO (patent foramen ovale) Irritable bowel syndrome Hepatitis C Vitamin D deficiency Hyperparathyroidism Surgical History Hx of colonoscopy Hx of parathyroidectomy History of lumpectomy of right breast Hx of cholecystectomy Hx of hysterectomy Family History Maternal Grandmother T2DM (type 2 diabetes mellitus) Father Colon cancer Cancer Multiple myeloma Mother Brain disorder Thyroid disease Sister Thyroid nodule Hyperparathyroidism Hyperthyroidism Maternal Grandfather Heart disease Other Mental health disorder Substance use disorder Social History Household Members: None Housing: Other Alcohol intake: current Alcohol intake frequency: holidays/special occasions only Patient Tobacco Use Status: Never used Tobacco Tobacco use type: Cigarette e-Cigarette/Vaping Use: Never Used Second Hand Smoke Exposure: No service: No Current occupational status: retired Cognitive needs: No Hearing needs: No Vision needs: No Review of Systems Const Denies weakness ENT Denies dizziness Card Denies chest pain and Reports dyspnea on exertion Resp Reports chest congestion, Reports cough and Reports dyspnea on exertion GI Denies hematochezia and Denies change in stool character Musc Denies abnormal gait, Denies muscle cramps, Denies muscle weakness, Denies numbness, Denies radiating pain into limb and Denies tingling Neuro Denies abnormal gait, Denies dizziness, Denies numbness, Denies tingling and Denies weakness Physical Exam Vital Signs: Last Vital Signs Pulse 76 10/09/24 13:00 BP 120/76 10/09/24 13:00 Pulse Ox 97 10/09/24 13:00 Oxygen Delivery Method Room Air 10/09/24 13:00 BMI result Body Mass Index 26.9 Const General: cooperative, healthy appearing, comfortable and no acute distress Orientation/consciousness: patient oriented x3 HEENT Head: Yes normal to inspection Neck Neck: Yes normal visual inspection, Yes trachea midline and Yes supple Chest Chest palpation & inspection: normal inspection of the chest Resp Effort & Inspection: normal respiratory effort Auscultation: no crackles, no rales, no rhonchi, no wheezes and diminished lung sounds Cardio Rate: regular rate Rhythm: regular rhythm Heart sounds: S1 normal heart sound present and S2 normal heart sound present GI Inspection: Yes normal to inspection Palpation (GI): Soft to palpation Auscultation: normal bowel sounds Skin General skin exam: no rashes or lesions noted Neuro General: patient oriented x3 Extrem General: Yes normal to inspection, No no pedal edema and No calf tenderness Psych Appearance: grossly normal Mental Status: mental status grossly normal Speech and movement: Normal speech and movement present Assessment & Plan Assessment & Plan (1) Pulmonary fibrosis: Code(s): J84.10 - Pulmonary fibrosis, unspecified Category: Medical (2) Ground glass opacity present on imaging of lung: Code(s): R91.8 - Other nonspecific abnormal finding of lung field Category: Medical (3) Bronchiectasis: Code(s): J47.9 - Bronchiectasis, uncomplicated Category: Medical Qualifiers: Bronchiectasis type: uncomplicated Qualified Code(s): J47.9 - Bronchiectasis, uncomplicated Plan Bloodwork PFTs Formal CT chest Consider MIKE CPT with acapella valve reflux diet sleep with HOB elevated F/U 3 months Orders: Orders Complete Blood Count Auto Diff 10/09/24 J84.10 - Pulmonary fibrosis, unspecified Basic Metabolic Panel 10/09/24 J84.10 - Pulmonary fibrosis, unspecified Angiotensin Converting Enzyme 10/09/24 J84.10 - Pulmonary fibrosis, unspecified Erythrocyte Sedimentation Rate 10/09/24 J84.10 - Pulmonary fibrosis, unspecified Immunoglobulins,IgG IgA IgM 10/09/24 J84.10 - Pulmonary fibrosis, unspecified Cyclic Citrullinated Peptide 10/09/24 J84.10 - Pulmonary fibrosis, unspecified PFT pulmonary function test 2 Months J47.9 - Bronchiectasis, uncomplicated, J84.10 - Pulmonary fibrosis, unspecified, R91.8 - Other nonspecific abnormal finding of lung field THAO Reflex Titer and Pattern 10/09/24 J84.10 - Pulmonary fibrosis, unspecified Hypersensitive Pneumonitis Prf 10/09/24 J84.10 - Pulmonary fibrosis, unspecified, R91.8 - Other nonspecific abnormal finding of lung field Immunoglobulin E 10/09/24 J84.10 - Pulmonary fibrosis, unspecified CT chest wo IV con 2 Months J47.9 - Bronchiectasis, uncomplicated, J84.10 - Pulmonary fibrosis, unspecified, R91.8 - Other nonspecific abnormal finding of lung field Coding Level of Care Code New Pt Level 4 (13070) Diagnoses Pulmonary fibrosis J84.10 Ground glass opacity present on imaging of lung R91.8 Bronchiectasis without complication J47.9 Bronchiectasis type: uncomplicated Time Spent (min) 40
[2024-10-09 13:00] VITALS: BP 120/76; PULSE 76; O2SAT 97; BMI 26.9
--- OUTSIDE RECORDS SUMMARY | 2024-10-09 13:52 | XMS_ITS | Patient Health Record ---
Author Organization [facility] Address [address] [place] [address] Care Team Providers Care Glass Handler Name Role Phone Kaushal CARRASCO, Asma Primary Care Provider Andrei Dunlap Unavailable [phone] Allergies Allergen (clinical drug ingredient) Drug/Non Drug Allergy documented on EMR Reaction Allergy Type Onset Date Status meclizine Antivert Unknown Drug Allergy Active Reason For Referral No Information Medications Medication SIG (Take, Route, Frequency, Duration) Notes Start Date End Date Status Aspir-81 81 MG 1 tablet Orally Once a day Not-Taking Omeprazole 20 MG TAKE 1 CAPSULE BY [facility] EVERY DAY for 90 Active Dicyclomine [...] Problem Status W/U Status Risk Notes Problem 278795044 Encounter for screening for malignant neoplasm of colon (Z12.11) Active confirmed Problem 170394469 Irritable bowel syndrome with diarrhea (K58.0) Active confirmed Problem Screening for malignant neoplasm of rectum (854545460) Encounter for screening for malignant neoplasm of rectum (Z12.12) Active confirmed Problem Polyp colon (83421939) Colon polyp (K63.5) Active confirmed Problem 936989645 Gastroesophageal reflux disease without esophagitis (K21.9) Active confirmed Problem 122195518 Chronic hepatiti s C without hepatic coma (B18.2) Active confirmed Problem 071628485 Hx of adenomatou s colonic polyps (Z86.010) Active confirmed Problem 04200963507276 History of hepatitis C (Z86.19) Active confirmed Problem 77462710 Diarrhea, unspecified type (R19.7) Active confirmed Problem 790695429 RUQ abdominal pa in (R10.11) Active confirmed Problem 39253403 Liver fibrosis (K74.0) Active confirmed Problem 97856123 Irritable bowel syndrome with both constipation and diarrhea (K58.2) Active confirmed Problem 206871853 Family history o f colon cancer in father (Z80.0) Active confirmed Problem Diverticulosis of colon (946823897) Diverticulosis of colon (K57.30) Active confirmed Problem 18933144 Liver fibrosis (K74.00) Active confirmed Encounters Encounter Location Date Provider Diagnosis [facility] [address] [place] [address] 10/29/2023 Andrei Ferro Plan Of Treatment Pending Test Test Name Order Date CHEM 7 PROFILE 08/20/2022 LIVER PROFILE 10/22/2011 LIVER PROFILE 04/25/2021 LIVER PROFILE 10/13/2014 LIVER PROFILE 07/20/2013 LIVER PROFILE 03/27/2015 LIVER PROFILE 08/19/2014 LIVER PROFILE 08/20/2022 LIVER PROFILE 05/12/2016 LIVER PROFILE 06/09/2012 LIVER PROFILE 11/23/2017 LIVER PROFILE 07/06/2014 CBC w DIFF 08/20/2022 CBC w DIFF 05/12/2016 CBC w DIFF 11/23/2017 CBC w DIFF 07/06/2014 CBC w DIFF 10/22/2011 CBC w DIFF 04/25/2021 CBC w DIFF 10/13/2014 CBC w DIFF 07/20/2013 CBC w DIFF 08/19/2014 PROTHROMBIN TIME (PT, INR) 08/20/2022 PROTHROMBIN TIME (PT, INR) 05/12/2016 PROTHROMBIN TIME (PT, INR) 11/23/2017 PROTHROMBIN TIME (PT, INR) 10/22/2011 PROTHROMBIN TIME (PT, INR) 04/25/2021 PROTHROMBIN TIME (PT, INR) 07/20/2013 PARTIAL THROMBOPLASTIN TIME (PTT) 2013 ALPHA-FETOPROTEIN,TUMOR MARKER 3 ALPHA-FETOPROTEIN,TUMOR MARKER 4 ALPHA-FETOPROTEIN,TUMOR MARKER 3 ALPHA-FETOPROTEIN,TUMOR MARKER 7 ALPHA-FETOPROTEIN,TUMOR MARKER 3 ALPHA-FETOPROTEIN,TUMOR MARKER 8 ALPHA-FETOPROTEIN,TUMOR [...] Name:Andrei Ferro , 11/07/2024 01:40:00 PM, [address], [address], [place], [address], Insurance Providers Payer Name Payer Address Payer Phone Subscriber Number Group Number Insured Name Patient Relationship to Insured Coverage Start Date Coverage End Date [facility] [address] [facility] [place] [id number] PCP DARCY CADET Self - patient is [...]
--- OUTSIDE RECORDS SUMMARY | 2024-10-09 13:52 | XMS_ITS | Clinical Summary ---
Author Organization [facility] [employer] Address [address] [place] [address] Care Team Providers Care Medical Information Officer Name Role Phone No, Pcp PLASTICS FABRICATOR Primary Care Provider Unavailabl e Social History [...] Adults 18 yrs or above (or HM Modifier)([facility]) 1965 Hepatitis C Virus Infection in Adolescents and Adults: Screening (or Modifier) ([facility]) 1965 SDOH Screening Reminder: Bijal yu for all adults ([facility]) 1965 Tobacco Smoking Cessation: i n Adults excluding Women: Behavioral and Pharmacotherapy Interventions ([facility]) 1965 DTaP/Tdap/Td Vaccines ([facility]) (1 - Tdap) 1966 Pneumococcal Vaccination Scr eening: Patients 50+ yrs of age ([facility]) (1 of 1 - PCV) 1997 Zoster/Shingles Vaccine Seri es Screening: Adults aged 18+ yrs (or HM Modifiers)([facility]) (1 of 2) 1997 Osteoporosis Screening to Pr event Fractures: Women aged 65 years+ ([facility]) 01/27/2012 RSV Vaccines (1 - 1-dose 75+ series) 2022 COVID-19 Vaccine Screening: Initial Series and Booster Status ([facility]) ( - 2023-25 season) 2023 Flu Vaccination: Ages 65+: Y early High Dose Recommended (or Modifier)([facility]) 10/27/2024 Medical Devices Not on file Insurance [facility] [employer] Care Teams Medical Information Officer Relationship Specialty Start Date End Date No, Pcp, PLASTICS FABRICATOR N/A Do not use PCP - General 12/27/19
== END 2024-10-09 13:31 | disposition home or self-care (01) ==
LOC: HO.HPS 12:55
PROVIDERS: PCP Internal Medicine; Referring Provider Internal Medicine; Visit Provider Hospitalist
DX: J84.10 Pulmonary fibrosis, unspecified (principal); R91.8 Other nonspecific abnormal finding of lung field; J47.9 Bronchiectasis, uncomplicated
CPT/HCPCS: 99204

== ENCOUNTER 2024-10-18 14:24 | Outpatient (REF) | payer OTHER, SELFPAY ==
[2024-10-18 14:56] LABS: MANUAL DIFF FLAG NO
--- OUTSIDE RECORDS SUMMARY | 2024-10-18 15:03 | XMS_ITS | Clinical Summary ---
Author Organization [facility] [employer] Address [address] [place] [address] Care Team Providers Care General Manager Food Name Role Phone No, Pcp HEAD OF STOCK Primary Care Provider Unavailabl e Social History [...] Adults 18 yrs or above (or HM Modifier)([facility]) 1963 Hepatitis C Virus Infection in Adolescents and Adults: Screening (or Modifier) ([facility]) 1965 SDOH Screening Reminder: Bijal yu for all adults ([facility]) 1965 Tobacco Smoking Cessation: i n Adults excluding Women: Behavioral and Pharmacotherapy Interventions ([facility]) 1965 DTaP/Tdap/Td Vaccines ([facility]) (1 - Tdap) 1966 Pneumococcal Vaccination Scr eening: Patients 50+ yrs of age ([facility]) (1 of 1 - PCV) 1997 Zoster/Shingles Vaccine Seri es Screening: Adults aged 18+ yrs (or HM Modifiers)([facility]) (1 of 2) 1997 Osteoporosis Screening to Pr event Fractures: Women aged 65 years+ ([facility]) 01/27/2012 RSV Vaccines (1 - 1-dose 75+ series) 2022 COVID-19 Vaccine Screening: Initial Series and Booster Status ([facility]) ( - 2023-25 season) 2023 Flu Vaccination: Ages 65+: Y early High Dose Recommended (or Modifier)([facility]) 10/27/2024 Medical Devices Not on file Insurance [facility] [employer] Care Teams General Manager Food Relationship Specialty Start Date End Date No, Pcp, HEAD OF STOCK N/A Do not use PCP - General 12/27/19
[2024-10-18 15:30] LABS: Hematocrit 39.0 % (37.0-47.0); Hemoglobin 13.1 g/dl (12.0-16.0); Imm Gran Abs Auto 0.03 X10*3/uL (0.00-0.03); Imm Gran Pct Auto 0.4 % (0.0-0.4); Lymphocytes Absolute Auto 1.7 X10*3/uL (1.2-4.9); Mean Corpuscular HGB Conc 33.6 g/dl (31.0-35.0); Mean Corpuscular Hemoglobin 31.2 pg (27.0-33.0); Mean Corpuscular Volume 92.9 fL (80.0-98.0); NRBC Abs Auto 0.000 X10*3/uL (0.0-0.012); NRBC Pct Auto 0.0 /100WBC (0.0-0.2); Platelet Count 225 X10*3/uL (160-400); Red Blood Count 4.20 X10*6/uL (4.20-5.50); White Blood Count 8.1 X10*3/uL (4.8-10.8)
[2024-10-18 15:47] LABS: Anion Gap 13 (12-20); Blood Urea Nitrogen 22 mg/dL (9-16); Calcium 10.2 mg/dL (8.4-10.2); Carbon Dioxide 25 mmol/L (22-29); Chloride 107 mmol/L (96-108); Estimated Glomerular Filt Rate > 60; Potassium 4.9 mmol/L (3.3-5.1); Sodium 140 mmol/L (135-145)
[2024-10-24 16:34] LABS: Asperg fumigatus Precip Abs NEGATIVE (NEGATIVE); Micropoly faeni Abs NEGATIVE (NEGATIVE); Saccharo pora viridis Abs NEGATIVE (NEGATIVE); Thermo candidus Abs NEGATIVE (NEGATIVE)
[2024-10-24 20:59] LABS: Anti Nuclear Antibody Pattern Nuclear, Speckled; Anti Nuclear Antibody Screen POSITIVE (NEGATIVE); Anti Nuclear Antibody Titer 1:80 titer
== END 2024-10-18 14:25 | disposition home or self-care (01) ==
LOC: HO.LAB 14:24
PROVIDERS: Visit Provider Hospitalist
DX: J84.10 Pulmonary fibrosis, unspecified (principal); R91.8 Other nonspecific abnormal finding of lung field; Z01.84 Encounter for antibody response examination
CPT/HCPCS: 36415; 80048; 82164; 82784; 82785; 85025; 85652; 86038; 86039; 86200; 86331; 86606; 86609

== ENCOUNTER 2024-11-15 13:35 | Outpatient (REF) | payer MEDICARE, SELFPAY ==
--- NOTE | 2024-11-15 13:49 | PFT_ITS ---
Indication: Bronchiectasis Spirometry FEV1 to FVC 86%; FEV1 1.55 L; FVC 1.8 L. No significant response to bronchodilators noted. Lung Volumes Total lung capacity 71% predicted; residual volume 59% predicted; expiratory reserve volume 50% predicted Diffusion Capacity DLCO 62% predicted Comparisons None Interpretation No obstructive ventilatory defects. No significant response to bronchodilators noted. The patient does have a restrictive ventilatory defect consistent mild restrictive lung disease. In addition to that there is a mild diffusion impairment. Clinical correlation warranted. MTDD
--- OUTSIDE RECORDS SUMMARY | 2024-11-15 14:31 | XMS_ITS | Clinical Summary ---
Author Organization [facility] [employer] Address [address] [place] [address] Care Team Providers Care Toolman Name Role Phone No, Pcp EDI DEVELOPER Primary Care Provider Unavailabl e Social History [...] ([facility]) 1965 DTaP/Tdap/Td Vaccines ([facility]) (1 - Tdap) 1966 Pneumococcal Vaccination Scr eening: Patients 50+ yrs of age ([facility]) (1 of 1 - PCV) 1997 Zoster/Shingles Vaccine Seri es Screening: Adults aged 18+ yrs (or HM Modifiers)([facility]) (1 of 2) 1997 Osteoporosis Screening to Pr event Fractures: Women aged 65 years+ ([facility]) 01/27/2012 RSV Vaccines (1 - 1-dose 75+ series) 2022 COVID-19 Vaccine Screening: Initial Series and Booster Status ([facility]) ( - 2023-25 season) 2023 Flu Vaccination: Ages 65+: Y early High Dose Recommended (or Modifier)([facility]) 10/27/2024 Medical Devices Not on file Insurance [facility] [employer] Care Teams Toolman Relationship Specialty Start Date End Date No, Pcp, EDI DEVELOPER N/A Do not use PCP - General 12/27/19
--- OUTSIDE RECORDS SUMMARY | 2024-11-15 14:31 | XMS_ITS | Patient Health Record ---
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 Name Role Phone Kaushal CARRASCO, Asma Primary Care Provider Andrei Dunlap Unavailable [phone] Allergies Allergen (clinical drug ingredient) Drug/Non Drug Allergy documented on EMR Reaction Allergy Type Onset Date Status meclizine Antivert Unknown Drug Allergy Active Reason For Referral No Information Medications Medication SIG (Take, Route, Frequency, Duration) Notes Start Date End Date Status Omeprazole 20 MG TAKE 1 CAPSULE BY [facility] EVERY DAY for 90 Active Vitamin D 1000mg Act hayes Omeprazole 20 MG 1 capsule 30 minutes before morning meal Orally Once a day for 90 days 10/29/2023 Active Dicyclomine HCl 10 MG 1 or 2 capsules Or ally Q 6 hours prn abdominal cramps/discomfort/bloat ing for 30 day(s) 04/25/2021 Active Atorvastatin Calcium 20 MG TAKE 1 TABLET BY MOUTH DAILY Oral for 90 Days Active LORazepam 0.5 MG Oral for 30 Days Active Aspir-81 81 MG 1 tablet Orally Once a day Not-Taking FLUoxetine HCl 20 MG 1 capsule in the morning Orally Once a day Not-Taking Calcium Active Hyoscyamine Sulfate 0.125 MG 1-2 Orally every 6 hours prn abdominal cramps/bloating/discomf ort for 30 days 08/02/2017 Not-Taking Effexor XR 150 MG 1 capsule with food Orally Once a day for 30 days Active Hyoscyamine Sulfate 0.125 MG 1-2 tablets Orally every 6 hours prn abdominal cramps, bloating, discomfort for 30 days 01/24/2015 Not-Taking Probiotic 1 po qd Active Immunizations Vaccine Route Administration Date Status Comme nts Influenza Unknown 10/24/2019 Administered Influenza Unknown 04/25/2021 Administered Problems Problem Type SNOMED Code ICD Code Onset Dates Problem Status W/U Status Risk Notes Problem 856155117 Encounter for screening for malignant neoplasm of colon (Z12.11) Active confirmed Problem 880179279 Irritable bowel syndrome with diarrhea (K58.0) Active confirmed Problem Screening for malignant neoplasm of rectum (589943464) Encounter for screening for malignant neoplasm of rectum (Z12.12) Active confirmed Problem Polyp colon (23182822) Colon polyp (K63.5) Active confirmed Problem 170151152 Gastroesophageal reflux disease without esophagitis (K21.9) Active confirmed Problem 314094942 Chronic hepatiti s C without hepatic coma (B18.2) Active confirmed Problem 251961737 Hx of adenomatou s colonic polyps (Z86.010) Active confirmed Problem 17380713946229 History of hepatitis C (Z86.19) Active confirmed Problem 59952992 Diarrhea, unspecified type (R19.7) Active confirmed Problem 491091649 RUQ abdominal pa in (R10.11) Active confirmed Problem 50033569 Liver fibrosis (K74.0) Active confirmed Problem 67310868 Irritable bowel syndrome with both constipation and diarrhea (K58.2) Active confirmed Problem 590994713 Family history o f colon cancer in father (Z80.0) Active confirmed Problem Diverticulosis of colon (364458141) Diverticulosis of colon (K57.30) Active confirmed Problem 55065883 Liver fibrosis (K74.00) Active confirmed Vital Signs Blood pressure diastolic 77 mm Hg 11/07/2024 Height 59.75 in 11/07/2024 Blood pressure systolic 111 mm Hg 11/07/2024 Weight 129 lbs 11/07/2024 BMI 25.4 kg/m2 11/07/2024 Encounters Encounter Location Date Provider Diagnosis [facility] [address] [place] [address] 11/07/2024 Andrei Ferro Gastroesophageal ref lux disease without esophagitis K21.9 and Chronic hepatitis C without hepatic coma B18.2 Assessments Encounter Date Diagnosis (ICD Code) Assessment Notes Treatment Notes Treatment Clinical Notes Section Notes 11/07/2024 Gastroesophageal reflux disease without esophagitis (ICD-10 - K21.9) Continue the daily omeprazole for reflux Overall, Kathleen appears well. She does not show any signs nor have any symptoms of progressive liver disease at this time. I did recommend a follow-up abdominal ultrasound and laboratories including an alpha-fetoprotei n level and liver fibrosis score. Given all of her other recent studies that appeared normal I do not think any other labs are needed. I did advise her to continue her daily omeprazole for her previous history of reflux. It does appear that she is doing well after her paraesophageal hiatal hernia surgery I did advise her to eat carefully in that regard. We reviewed that I do not think she needs any further screening colonoscopies given her exam in 2021 and her age approaching 82. If things are otherwise well I will plan to see her in 1 year for follow-up of her chronic liver disease from the previous hepatitis C. I did advise her to contact me in the interim if she has any problems or questions I can be of assistance with. Kathleen was very comfortable with this plan. Thank you again for allowing me to participate in Kathleen's care. I shall continue to keep you advised of her progress as needed.. 11/07/2024 Chronic hepatitis C without hepatic coma (ICD-10 - B18.2) Overall, Kathleen appears well. She does not show any signs nor have any symptoms of progressive liver disease at this time. I did recommend a follow-up abdominal ultrasound and laboratories including an alpha-fetoprotei n level and liver fibrosis score. Given all of her other recent studies that appeared normal I do not think any other labs are needed. I did advise her to continue her daily omeprazole for her previous history of reflux. It does appear that she is doing well after her paraesophageal hiatal hernia surgery I did advise her to eat carefully in that regard. We reviewed that I do not think she needs any further screening colonoscopies given her exam in 2021 and her age approaching 82. If things are otherwise well I will plan to see her in 1 year for follow-up of her chronic liver disease from the previous hepatitis C. I did advise her to contact me in the interim if she has any problems or questions I can be of assistance with. Kathleen was very comfortable with this plan. Thank you again for allowing me to participate in Kathleen's care. I shall continue to keep you advised of her progress as needed.. Plan Of Treatment Pending Test Test Name Order Date CHEM 7 PROFILE 08/20/2022 LIVER PROFILE 10/22/2011 LIVER PROFILE 04/25/2021 LIVER PROFILE 08/19/2014 LIVER PROFILE 07/20/2013 LIVER PROFILE 03/27/2015 LIVER PROFILE 08/20/2022 LIVER PROFILE 07/06/2014 LIVER PROFILE 05/12/2016 LIVER PROFILE 06/09/2012 LIVER PROFILE 11/23/2017 LIVER PROFILE 10/13/2014 CBC w DIFF 05/12/2016 CBC w DIFF 11/23/2017 CBC w DIFF 10/13/2014 CBC w DIFF 10/22/2011 CBC w DIFF 04/25/2021 CBC w DIFF 08/19/2014 CBC w DIFF 07/20/2013 CBC w DIFF 08/20/2022 CBC w DIFF 07/06/2014 PROTHROMBIN TIME (PT, INR) 05/12/2016 PROTHROMBIN TIME (PT, INR) 11/23/2017 PROTHROMBIN TIME (PT, INR) 10/22/2011 PROTHROMBIN TIME (PT, INR) 04/25/2021 PROTHROMBIN TIME (PT, INR) 07/20/2013 PROTHROMBIN TIME (PT, INR) 08/20/2022 PARTIAL THROMBOPLASTIN TIME (PTT) 2013 ALPHA-FETOPROTEIN,TUMOR MARKER 3 ALPHA-FETOPROTEIN,TUMOR MARKER 3 ALPHA-FETOPROTEIN,TUMOR MARKER 4 ALPHA-FETOPROTEIN,TUMOR MARKER 3 ALPHA-FETOPROTEIN,TUMOR MARKER 7 ALPHA-FETOPROTEIN,TUMOR MARKER 5 ALPHA-FETOPROTEIN,TUMOR MARKER 8 ALPHA-FETOPROTEIN,TUMOR MARKER 2 CELIAC PANEL #10 11/23/2017 HEPATITIS C VIRAL LOAD 11/23/2017 HEPATITIS C VIRAL LOAD 07/06/2014 HEPATITIS C VIRAL LOAD 04/25/2021 HEPATITIS C VIRAL LOAD 10/13/2014 HEPATITIS C VIRAL LOAD 03/27/2015 HEPATITIS C VIRAL LOAD 05/12/2016 HEPATITIS C VIRAL LOAD 08/19/2014 CULTURE, STOOL 03/13/2021 MRI ABD W&WO CONTRAST 01/09/2013 HCV LIVER FIBROSIS, FIBRO TEST 3 HCV LIVER FIBROSIS, FIBRO TEST 5 STOOL WBC 03/13/2021 US ABDOMEN COMP WITH ELASTOGRAPHY 2021 C DIFFICILE RFLX PCR 03/13/2021 Amylase 08/20/2022 Lipase 08/20/2022 US abdomen comp w elastography 3 US abdomen comp w elastography 5 Future Test Test Name Order Date COLONOSCOPY 10/22/2011 COLONOSCOPY 05/12/2016 COLONOSCOPY 04/25/2021 Next Appt Details Provider Name:Andrei Ferro , 11/06/2025 01:40:00 PM, [address] [facility], [address], [place], [address], Insurance Providers Payer Name Payer Address Payer Phone Subscriber Number Group Number Insured Name Patient Relationship to Insured Coverage Start Date Coverage End Date [facility] [address] [place], [place] [id number] PCP KATHLEEN CADET Self - patient is the insured [...] 2014, 06/2015, and in 05/2016. Anxiety Denies AL,DM,CVA,Lung disease,renal dise ase Colon polyps- colonoscopy in 11/2011 with removal of a small tubular adenoma--diverticulosis and internal hemorrhoids Vertigo, ringing in ears HTN TIA's 11/2013 Colonoscopy in 07/2016---norm al colon biopsies, no polyps; diverticulosis and internal hemorrhoids Hyperparathyroidism-s/p surgery as below Osteoporosis Colonoscopy May of 2021 with a small t ubular adenoma removed Surgical History Surgery Date(Month/Year) Paraesophageal hiatal hernia repair in J doris [address] Nicole parathyroidectomy 09/2020 left eye cataract Benign lumpectomy from right breast cholecystectomy hysterectomy
[2024-11-15 14:32] VITALS: PULSE 80; O2SAT 97
[2024-11-22 09:23] LABS: FIB-ALT 8 U/L (6-29); FIB-Alpha-2-Macroglobulin 460 mg/dL (106-279); FIB-Apolipoprotein A1 261 mg/dL (101-198); FIB-GGT 27 U/L (3-65); FIB-Haptoglobin 94 mg/dL (43-212); FIB-Total Bilirubin 0.3 mg/dL (0.2-1.2)
== END 2024-11-15 13:36 | disposition home or self-care (01) ==
LOC: HO.RESP 13:35
PROVIDERS: Absent Provider Internal Medicine; PCP Internal Medicine; Visit Provider Internal Medicine
DX: R91.8 Other nonspecific abnormal finding of lung field (principal); J47.9 Bronchiectasis, uncomplicated; J84.10 Pulmonary fibrosis, unspecified; B18.2 Chronic viral hepatitis C; R06.02 Shortness of breath
CPT/HCPCS: 36415; 81596; 82105; 94010; 94640; 94727; 94729

== ENCOUNTER → 2024-11-15 13:49 | Outpatient (BNV) | payer MEDICARE, SELFPAY | PROVIDERS: Absent Provider Internal Medicine; PCP Internal Medicine; Visit Provider Hospitalist | DX: J98.4 Other disorders of lung (principal) | CPT/HCPCS: 94060; 94727; 94729 ==

== ENCOUNTER 2024-12-01 11:02 | Outpatient (AMB) | payer MEDICARE, SELFPAY ==
--- OUTSIDE RECORDS SUMMARY | 2023-07-06 09:00 | XMS_ITS ---
Author Organization [facility] Address [address] [place] [address] Care Team Providers Care Harness Rigger Name Role Phone Kaushal CARRASCO, Facundo Primary Care Provider Andrei Dunlap [phone] REASON FOR VISIT Patient presents today for IBS Encounters Encounter Location Date Provider Diagnosis [facility] [address] [place] [address] 07/06/2023 Andrei Ferro Plan Of Treatment Next Appt Details Provider Name:Andrei Ferro , 11/06/2025 01:20:00 PM, [address], [address], [place], [address], Progress Notes * DARCY CADET DDOB: (79 yo F)Acc No.[id number]:07/06/2023 Progress Notes Patient: DARCY JEAN-BAPTISTE Provider: Caitie Ferro MD :1945 A ge:78 Y S ex:Female Date:07/06/2023 Address:[address] [place] [address] [address], [id number] Pcp:Facundo Easley MD Subjective: * Chief Complaints: [...] 0 07/06/2023 Generated for Yazmin baez/Willam/Briana on: 0 12/01/2024 12:05 PM EDT
[2024-12-01 11:05] VITALS: BP 122/74; PULSE 73; O2SAT 97; BMI 26.3
--- NOTE | 2024-12-01 11:05 | A.OFFPC_ITS ---
Vital Signs 12/01/24 11:05 Height 4 ft 11 in Weight 130 lb BMI 26.3 BP 122/74 Blood Pressure Location Rt brachial Position Sitting Pulse 73 Pulse Source Pulse Oximeter Pulse Oximetry (%) 97 Intake Visit Reasons: 3m f/u Allergies adhesive tape Adverse Reaction (Mild, Verified 12/01/24 11:05) Rash meclizine Adverse Reaction (Verified 12/01/24 11:05) High doses Medication List - Last Reconciled 12/01/24 by Facundo Easley MD atorvastatin 20 mg PO DAILY calcium carb, citrate-vit D3 600 mg-12.5 mcg (500 unit) ER (Citracal-D3 Slow Release) 1 tab PO DAILY 30 days fluticasone propion-salmeterol 250-50 mcg/dose (Wixela Inhub) 1 inh inhalation Q12H fluticasone propionate (Flonase Allergy Relief) intranasal lorazepam 0.5 mg PO BID PRN 30 days nystatin 1 appl topical DAILY 30 days omeprazole 20 mg PO DAILY venlafaxine ER 150 mg PO DAILY Tobacco use date assessed: 08/29/24 Fall risk assessment: No Falls in past year Last assessed Fall Risk: 12/01/24 Dental Screening Dental Screen Date: 08/29/24 HPI 3m f/u HPI Details History The patient is a 79-year-old female presenting longitudinal care visit Has been having with post-surgical complications after hiatal hernia surgery and respiratory and hepatological concerns. Post-surgical complications (Idle Hernia Surgery): - Symptoms: Trouble with keeping food do wn and experiences severe gas followed by vomiting. - Onset & Duration: Issues began after t he hiatal hernia surgery, following which the patient also experiences excessive sweating during episodes. - Progression & Current Status: No signi ficant improvement since onset; patient awaiting further diagnostic evaluation. - Alleviating/Worsening Factors: Difficu lty persists despite eating with no vielka ar alleviating measures detailed. Patient is established with Dr. Ferro and is waiting for ultrasound report Bronchiectasis and possible Pulmonary Fibrosis: - Symptoms: Uncertainty of inhaler effec tiveness with breathing difficulties. - Onset & Duration: Recent walking test led to a minimum oxygen decrease. - Pertinent History: Diagnosis included potentially bronchiectasis and lung fibrosis. - Progression & Current Status: Oxygen r educes during exertion, awaiting further lung evaluation (CAT scan pending). - Alleviating/Worsening Factors: She is supposed to be on Wixela inhaler which she is not taking, patient tells me that she has not been able to admit that she needs inhaler Explained to her that unless she stopped taking the medication she will not realize how important it was for her to take it and breathe better. Liver abnormalities and Hepatitis C: - Symptoms: Patient mentioned ongoing di scomfort, specifically worsening potentially related to cholesterol medication. - Onset & Duration: Historical Hepatitis C diagnosis since the patient's 20s, recent evaluation in October 2022 indicating liver fibrosis. - Pertinent History: Chronic Hepatitis C associated with fibrosis and cirrhosis. Routine checks annually due to malignancy risk. - Progression & Current Status: Continue d monitoring required; diagnostic evaluations planned in December including ultrasound. - patient is seeing Dr. Ferro for that Anxiety is stable with lorazepam and venlafaxine through PCP office She is also seeing protective services social worker and was started on atorvastatin 20 mg Medical History: - Chronic Hepatitis C with liver fibrosi s and cirrhosis - Bronchiectasis - Suspected pulmonary fibrosis - lipid disorder - anxiety Surgical History: - Thyroid surgery (2020) - hiatal hernia surgery (date not specif ied) Medications: - Atorvastatin 20 mg for cholesterol man agement - Wixela inhaler for asthma or bronchiec tasis (used occasionally) - Lorazepam (indication not specified) - Venlafaxine (indication not specified) Social History: - The patient consumes yogurt daily and abstains from consuming beef and fish. Problem List - Post-operative complications related t o hiatal hernia surgery - Bronchiectasis - Pulmonary fibrosis (suspected) - Hepatitis C - Liver cirrhosis - anxiety/depression - lipid disorder Diagnostic results - Labs: Abnormal liver test results in A ugust 2022 indicate ongoing fibrosis and cirrhosis. - Tests: Historical PFTs and recent decr ease in oxygen saturation during walking test. - Diagnostics: CAT scan of lungs planned ; pending ultrasound in December for abdominal/liver evaluation. [place] of Care - Regular consultations with Dr. Kasie carrillo or liver management - Dr. Rouse managing respiratory con cerns with CAT scan scheduling Patient Instructions - Begin regular use of the Wixela inhale r, ensuring mouth rinsing to prevent fungal infection. - Eat mushy foods like baby food, yogurt , and oatmeal to manage post-surgical symptoms. - Discuss atorvastatin and its effect on liver health with Dr. Ferro after ultrasound. - Keep all scheduled appointments for fo llow-up evaluations, including lung CAT scan and liver ultrasound. Refill was sent for lorazepam Follow-up 3 months for medication refill Review of Systems General: No fever no chills neurological: No headaches no dizziness ear nose throat: No sore throat no hearing difficulty no ear pain cardiovascular: No syncope, no chest pain, no palpitations gastrointestinal: No vomiting or diarrhea endocrine: No polyuria polydipsia no heat intolerance genitourinary: No dysuria skin: No new complaints Physical Exam general: No acute distress HEENT: No acute findings neck: Supple respiratory system: Able to talk in full sentences, no audible wheeze no stridor clear to auscultation cardiovascular: S1-S2 RRR gastrointestinal: No pain with palpation extremities: No new findings HEART COORDINATOR: Alert awake oriented x3 motor sensory intact skin: Normal turgor PFSH Medical History Pulmonary fibrosis Intermittent palpitations Hyperkalemia GERD (gastroesophageal reflux disease) Liver fibrosis TIA (transient ischemic attack) HTN (hypertension) Depression High potassium Osteoporosis Multinodular thyroid Left lower quadrant pain Elevated alpha fetoprotein Anxiety, generalized Vertigo PFO (patent foramen ovale) Irritable bowel syndrome Hepatitis C Vitamin D deficiency Hyperparathyroidism Surgical History Hx of colonoscopy Hx of parathyroidectomy History of lumpectomy of right breast Hx of cholecystectomy Hx of hysterectomy Family History Maternal Grandmother T2DM (type 2 diabetes mellitus) Father Colon cancer Cancer Multiple myeloma Mother Brain disorder Thyroid disease Sister Thyroid nodule Hyperparathyroidism Hyperthyroidism Maternal Grandfather Heart disease Other Mental health disorder Substance use disorder Social History Household Members: None Housing: Other Alcohol intake: current Alcohol intake frequency: holidays/special occasions only Patient Tobacco Use Status: Never used Tobacco Tobacco use type: Cigarette e-Cigarette/Vaping Use: Never Used Second Hand Smoke Exposure: No service: No Current occupational status: retired Cognitive needs: No Hearing needs: No Vision needs: No Questionnaire Thrive Questionnaire Date Thrive assessed: 05/16/24 I am a: Patient What is your living situation today?: I have a steady place to live Within the past 12 months, did the food you bought not last and you didn't have the money to get more?: Sometimes True Within the past 12 months, did you worry whether your food would run out before you got money to buy more?: Often true Do you have trouble paying for medicines?: No Do you have trouble getting transportation to medical appointments?: No Do you have trouble paying your heating and electricity bill?: Yes Do you have trouble taking care of your child, family member or friend?: No Do you have trouble with day-to-day activities such as bathing, preparing meals, shopping, managing finances, etc.?: No Are you currently unemployed and looking for a job?: No Are you interested in more education?: No Currently or been in a relationship where the following occur: No concerns reported THRIVE Score: 3 KAYLEIGH-7 AMB Questionnaire KAYLEIGH-7 Date KAYLEIGH - 7 assessed: 08/29/24 Source: Developed by Drs. Andrei Lui, Colette Flanagan, Eliseo Bueno and colleagues, with an educational zulma from [employer]. Physical exam (Primary Care) Vital Signs: Last Vital Signs Pulse 73 12/01/24 11:05 BP 122/74 12/01/24 11:05 Pulse Ox 97 12/01/24 11:05 BMI result Body Mass Index 26.3 Tobacco/Smoking Status: Tobacco use Status Tobacco use date assessed 08/29/24 12/01/24 11:05 Patient Tobacco Use Status Never used Tobacco 12/01/24 11:05 Tobacco use type Cigarette 12/01/24 11:05 e-Cigarette/Vaping Use Never Used 12/01/24 11:05 Thrive Assessment: Date of Thrive Assessment Date Thrive assessed 05/16/24 12/01/24 11:05 Currently or been in a relationship where the following occur: No concerns reported Coding Level of Care Code Est Pt Level 4 (32616) Complex EM visit Add On G2211 Diagnoses Anxiety, generalized F41.1 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; K74.60 Pulmonary fibrosis J84.10 Ground glass opacity present on imaging of lung R91.8 Bronchiectasis without complication J47.9 Bronchiectasis type: uncomplicated Shortness of breath R06.02 Chronic GERD K21.9 Panic disorder F41.0 Vitamin D deficiency E55.9 Lipid disorder E78.9 Assessment & Plan Assessment & Plan (1) Anxiety, generalized: Code(s): F41.1 - Generalized anxiety disorder Category: Medical (2) Hepatic cirrhosis due to chronic hepatitis C infection: Code(s): B18.2 - Chronic viral hepatitis C; K74.60 - Unspecified cirrhosis of liver Category: Medical (3) Pulmonary fibrosis: Code(s): J84.10 - Pulmonary fibrosis, unspecified Category: Medical (4) Ground glass opacity present on imaging of lung: Code(s): R91.8 - Other nonspecific abnormal finding of lung field Category: Medical (5) Bronchiectasis: Code(s): J47.9 - Bronchiectasis, uncomplicated Category: Medical Qualifiers: Bronchiectasis type: uncomplicated Qualified Code(s): J47.9 - Bronchiectasis, uncomplicated (6) Shortness of breath: Code(s): R06.02 - Shortness of breath Category: Medical (7) Chronic GERD: Code(s): K21.9 - Gastro-esophageal reflux disease without esophagitis Category: Medical (8) Panic disorder: Code(s): F41.0 - Panic disorder [episodic paroxysmal anxiety] Category: Medical (9) Vitamin D deficiency: Code(s): E55.9 - Vitamin D deficiency, unspecified Category: Medical (10) Lipid disorder: Code(s): E78.9 - Disorder of lipoprotein metabolism, unspecified Category: Medical Plan History The patient is a 79-year-old female presenting longitudinal care visit Has been having with post-surgical complications after hiatal hernia surgery and respiratory and hepatological concerns. Post-surgical complications (Idle Hernia Surgery): - Symptoms: Trouble with keeping food down and experiences severe gas followed by vomiting. - Onset & Duration: Issues began after the hiatal hernia surgery, following which the patient also experiences excessive sweating during episodes. - Progression & Current Status: No significant improvement since onset; patient awaiting further diagnostic evaluation. - Alleviating/Worsening Factors: Difficulty persists despite eating with no clear alleviating measures detailed. Patient is established with Dr. Ferro and is waiting for ultrasound report Bronchiectasis and possible Pulmonary Fibrosis: - Symptoms: Uncertainty of inhaler effectiveness with breathing difficulties. - Onset & Duration: Recent walking test led to a minimum oxygen decrease. - Pertinent History: Diagnosis included potentially bronchiectasis and lung fibrosis. - Progression & Current Status: Oxygen reduces during exertion, awaiting further lung evaluation (CAT scan pending). - Alleviating/Worsening Factors: She is supposed to be on Wixela inhaler which she is not taking, patient tells me that she has not been able to admit that she needs inhaler Explained to her that unless she stopped taking the medication she will not realize how important it was for her to take it and breathe better. Liver abnormalities and Hepatitis C: - Symptoms: Patient mentioned ongoing discomfort, specifically worsening potentially related to cholesterol medication. - Onset & Duration: Historical Hepatitis C diagnosis since the patient's 20s, recent evaluation in October 2022 indicating liver fibrosis. - Pertinent History: Chronic Hepatitis C associated with fibrosis and cirrhosis. Routine checks annually due to malignancy risk. - Progression & Current Status: Continued monitoring required; diagnostic evaluations planned in December including ultrasound. - patient is seeing Dr. Ferro for that Anxiety is stable with lorazepam and venlafaxine through PCP office She is also seeing protective services social worker and was started on atorvastatin 20 mg Medical History: - Chronic Hepatitis C with liver fibrosis and cirrhosis - Bronchiectasis - Suspected pulmonary fibrosis - lipid disorder - anxiety Surgical History: - Thyroid surgery (2020) - hiatal hernia surgery (date not specified) Medications: - Atorvastatin 20 mg for cholesterol management - Wixela inhaler for asthma or bronchiectasis (used occasionally) - Lorazepam (indication not specified) - Venlafaxine (indication not specified) Social History: - The patient consumes yogurt daily and abstains from consuming beef and fish. Problem List - Post-operative complications related to hiatal hernia surgery - Bronchiectasis - Pulmonary fibrosis (suspected) - Hepatitis C - Liver cirrhosis - anxiety/depression - lipid disorder Diagnostic results - Labs: Abnormal liver test results in October 2022 indicate ongoing fibrosis and cirrhosis. - Tests: Historical PFTs and recent decrease in oxygen saturation during walking test. - Diagnostics: CAT scan of lungs planned; pending ultrasound in December for abdominal/liver evaluation. [place] of Care - Regular consultations with Dr. Ferro for liver management - Dr. Rouse managing respiratory concerns with CAT scan scheduling Patient Instructions - Begin regular use of the Wixela inhaler, ensuring mouth rinsing to prevent fungal infection. - Eat mushy foods like baby food, yogurt, and oatmeal to manage post-surgical symptoms. - Discuss atorvastatin and its effect on liver health with Dr. Ferro after ultrasound. - Keep all scheduled appointments for follow-up evaluations, including lung CAT scan and liver ultrasound. Refill was sent for lorazepam Follow-up 3 months for medication refill Medications: Refilled lorazepam 0.5 mg PO BID PRN 60 tabs 2RF anxiety 30 days
--- OUTSIDE RECORDS SUMMARY | 2024-12-01 12:05 | XMS_ITS | Clinical Summary ---
Author Organization [facility] [employer] Address [address] [place] [address] Care Team Providers Care Hand Woodworking Sander Name Role Phone No, Pcp BOOKKEEPER ASSISTANT Primary Care Provider Unavailabl e Social History [...] Adults 18 yrs or above (or HM Modifier)([facility]) 1963 Hepatitis C Virus Infection in Adolescents and Adults: Screening (or Modifier) ([facility]) 1963 SDOH Screening Reminder: Bijal yu for all adults ([facility]) 1963 Tobacco Smoking Cessation: i n Adults excluding Women: Behavioral and Pharmacotherapy Interventions ([facility]) 1963 DTaP/Tdap/Td Vaccines ([facility]) (1 - Tdap) 1966 Pneumococcal Vaccination Scr eening: Patients 50+ yrs of age ([facility]) (1 of 1 - PCV) 1997 Zoster/Shingles Vaccine Seri es Screening: Adults aged 18+ yrs (or HM Modifiers)([facility]) (1 of 2) 1997 Osteoporosis Screening to Pr event Fractures: Women aged 65 years+ ([facility]) 01/27/2012 RSV Vaccines (1 - 1-dose 75+ series) 2022 COVID-19 Vaccine Screening: Initial Series and Booster Status ([facility]) ( - 2023-25 season) 2023 Flu Vaccination: Ages 65+: Y early High Dose Recommended (or Modifier)([facility]) 10/27/2024 Medical Devices Not on file Insurance [facility] Care Teams Hand Woodworking Sander Relationship Specialty Start Date End Date No, Pcp, BOOKKEEPER ASSISTANT N/A Do not use PCP - General 12/27/19
--- OUTSIDE RECORDS SUMMARY | 2024-12-01 12:05 | XMS_ITS | Patient Health Record ---
Author Organization [facility] Address [address] [place] [address] Care Team Providers Care Certified Rehabilitation Counselor Name Role Phone Kaushal CARRASCO, [facility] Primary Care Provider Andrei Dunlap [phone] Allergies Allergen (clinical drug ingredient) Drug/Non Drug Allergy documented on EMR Reaction Allergy Type Onset Date Status meclizine Antivert Unknown Drug Allergy Active Results Component Value Reference Range Notes Alpha Fetoprotein (Not yet reviewed by provider) Interpretation: Performing Lab:[address] [address] Notes/Report: Alpha Fetoprotein 6.2 Reference Range: <6.1 The use of AFP as a tumor marker in females is not recommended. This test was performed using the Miranda Trena chemiluminescent method. Values obtained from different assay methods cannot be used interchangeably. AFP levels, regardless of value, should not be interpreted as absolute evidence of the presence or absence of disease. THIS TEST WAS PERFORMED AT: [facility] [address] [address] ROWENA RIZVI MD Liver Fibrosis Pnl (Not yet reviewed by provider) Interpretation: Performing Lab:[address] [address] Notes/Report: Liver Fibrosis Score TNP TEST(S) NOT PERFORMED: FIBROSIS SCORE FIBROSIS INTERPRETATION NECROINFLAMMAT INTERP REFERENCE ID FOOTNOTE TEST NOT PERFORMED Fibrosis and Activity Scores could not be calculated for this patient sample. One or more components were outside panel algorithm parameters. THIS TEST WAS PERFORMED AT: [facility] [address] [place] [address] ZULLY DE LA CRUZ MD,PHD,CHANDRA Liver Fibrosis Stage TNP Liver Fibrosis Interpretation TNP Nec Inflam Act Score TNP Nec Inflam Act Grade TNP Nec Inflam Act Interpretation TNP TEST NOT PERFORMED Fibrosis and Activity Scores could not be calculated for this patient sample. One or more components were outside panel algorithm parameters IMP-Unscs-1-Macroglobulin 460 106-279 mg/dL FIB-Haptoglobin 94 43-212 mg/dL FIB-Apolipoprotein A1 261 101-198 mg/dL This value is highly elevated over the 99 percentile. Check the value. Usual maximum value is 250.0 mg/dl. Unusual deviation with median value. FIB-Total Bilirubin 0.3 0.2-1.2 mg/dL FIB-GGT 27 3-65 U/L FIB-ALT 8 6-29 U/L Reference ID SEE NOTE TEST NOT PERFORMED Fibrosis and Activity Scores could not be calculated for this patient sample. One or more components were outside panel algorithm parameters. Footnote SEE NOTE TEST NOT PERFORMED Fibrosis and Activity Scores could not be calculated for this patient sample. One or more components were outside panel algorithm parameters. [employer], the associated logo, [employer] and all associated [employer] stephens are the registered trademarks of [employer]. All third constitution party stephens - (R) and (TM) - are the property of their respective owners. (C) 7986-2439 [email or web address]. All rights reserved. Reason For Referral No Information Medications Medication SIG (Take, Route, Frequency, Duration) Notes Start Date End Date Status Omeprazole 20 MG TAKE [address] [facility] EVERY DAY for 90 Active Vitamin D [...] Problem Status W/U Status Risk Notes Problem 319963620 Encounter for screening for malignant neoplasm of colon (Z12.11) Active confirmed Problem 873245618 Irritable bowel syndrome with diarrhea (K58.0) Active confirmed Problem Screening for malignant neoplasm of rectum (684887707) Encounter for screening for malignant neoplasm of rectum (Z12.12) Active confirmed Problem Polyp colon (35219282) Colon polyp (K63.5) Active confirmed Problem 217826928 Gastroesophageal reflux disease without esophagitis (K21.9) Active confirmed Problem 465951836 Chronic hepatiti s C without hepatic coma (B18.2) Active confirmed Problem 361488643 Hx of adenomatou s colonic polyps (Z86.010) Active confirmed Problem 15917170206516 History of hepatitis C (Z86.19) Active confirmed Problem 89148094 Diarrhea, unspecified type (R19.7) Active confirmed Problem 436099015 RUQ abdominal pa in (R10.11) Active confirmed Problem 01692907 Liver fibrosis (K74.0) Active confirmed Problem 71793949 Irritable bowel syndrome with both constipation and diarrhea (K58.2) Active confirmed Problem 220544699 Family history o f colon cancer in father (Z80.0) Active confirmed Problem Diverticulosis of colon (092746473) Diverticulosis of colon (K57.30) Active confirmed Problem 27305610 Liver fibrosis (K74.00) Active confirmed Vital Signs Blood pressure diastolic 77 mm Hg 11/07/2024 Height 59.75 in 11/07/2024 Blood pressure systolic 111 mm Hg 11/07/2024 Weight 129 lbs 11/07/2024 BMI 25.4 kg/m2 11/07/2024 Encounters Encounter Location Date Provider Diagnosis [facility] [address] [place] [address] 11/07/2024 Andrei Ferro Gastroesophageal ref lux disease [...] Date CHEM 7 PROFILE 08/20/2022 LIVER PROFILE 10/13/2014 LIVER PROFILE 10/22/2011 LIVER PROFILE 04/25/2021 LIVER PROFILE 08/19/2014 LIVER PROFILE 07/20/2013 LIVER PROFILE 03/27/2015 LIVER PROFILE 08/20/2022 LIVER PROFILE 07/06/2014 LIVER PROFILE 05/12/2016 LIVER PROFILE 06/09/2012 LIVER PROFILE 11/23/2017 CBC [...] RFLX PCR 03/13/2021 Amylase 08/20/2022 Lipase 08/20/2022 Alpha Fetoprotein 11/15/2024 Liver Fibrosis Pnl 11/15/2024 US abdomen comp w elastography 5 US abdomen comp w elastography 3 Future Test Test Name Order Date COLONOSCOPY 10/22/2011 COLONOSCOPY 05/12/2016 COLONOSCOPY 04/25/2021 Next Appt Details Provider Name:Andrei Ferro , 11/06/2025 01:20:00 PM, [address] [place] [address], [address], [place], [address], Insurance Providers Payer Name Payer Address Payer Phone Subscriber Number Group Number Insured Name Patient Relationship to Insured Coverage Start Date Coverage End Date [facility] [address] [place], [place] [phone] [id number] PCP KATHLEEN CADET Self - patient is [...] 2014, 06/2015, and in 05/2016. Anxiety Denies [place],DM,CVA,Lung disease,renal dise ase Colon polyps- colonoscopy in [...]
== END 2024-12-01 11:32 | disposition home or self-care (01) ==
LOC: HO.HMCC 11:02
PROVIDERS: PCP Internal Medicine; Visit Provider Internal Medicine
DX: J84.10 Pulmonary fibrosis, unspecified (principal); B18.2 Chronic viral hepatitis C; K74.60 Unspecified cirrhosis of liver; J47.9 Bronchiectasis, uncomplicated; F41.1 Generalized anxiety disorder; R91.8 Other nonspecific abnormal finding of lung field; R06.02 Shortness of breath; K21.9 Gastro-esophageal reflux disease without esophagitis; F41.0 Panic disorder [episodic paroxysmal anxiety]; E55.9 Vitamin D deficiency, unspecified; E78.9 Disorder of lipoprotein metabolism, unspecified

== ENCOUNTER → 2024-12-01 11:02 | Outpatient (BNVA) | payer MEDICARE, SELFPAY | PROVIDERS: PCP Internal Medicine; Visit Provider Internal Medicine | DX: F41.1 Generalized anxiety disorder (principal); B18.2 Chronic viral hepatitis C; K74.60 Unspecified cirrhosis of liver; J84.10 Pulmonary fibrosis, unspecified; R91.8 Other nonspecific abnormal finding of lung field; J47.9 Bronchiectasis, uncomplicated; R06.02 Shortness of breath; K21.9 Gastro-esophageal reflux disease without esophagitis; F41.0 Panic disorder [episodic paroxysmal anxiety]; E55.9 Vitamin D deficiency, unspecified; Z79.899 Other long term (current) drug therapy | CPT/HCPCS: 99212 ==

== ENCOUNTER 2025-01-01 09:14 | Outpatient (REF) | payer MEDICARE, SELFPAY ==
--- OUTSIDE RECORDS SUMMARY | 2023-07-06 09:00 | XMS_ITS ---
Author Organization [facility] Address [address] [place] [address] Care Team Providers Care Mold Cooler Name Role Phone Kaushal CARRASCO, Facundo Primary Care Provider Andrei Dunlap [phone] REASON FOR VISIT Patient presents today for IBS Encounters Encounter Location Date Provider Diagnosis [facility] [address] [place] [address] 07/06/2023 Andrei Ferro Plan Of Treatment Next Appt Details Provider Name:Andrei Ferro , 11/06/2025 01:20:00 PM, [address], [address], [place], [address], Progress Notes * DARCY CADET DDOB: (79 yo F)Acc No.[id number]:07/06/2023 Progress Notes Patient: DARCY JEAN-BAPTISTE Provider: Caitie Ferro MD :1945 A ge:78 Y S ex:Female Date:07/06/2023 Address:[address] [place] [address] [address], [id number] Pcp:Facundo Easley MD Subjective: * Chief Complaints: * 1 . Patient presents today for IBS. * Medical History: Objective: * Vitals: Assessment: Plan: * Treatment: * * The named appointment provid er may or may not be the originator of this progress note, and it is not deemed complete until electronically signed by the appointment provider. Sign off status: Pending * Provider: Caitie Ferro MD Date: 0 07/06/2023 Generated for Yazmin baez/Willam/Briana on: 1 10:24 AM EDT
--- NOTE | ~2025-01-01 | US_ITS ---
EXAMINATION: US COMPLETE ABDOMEN WITH LIVER ELASTOGRAPHY CLINICAL INFORMATION: Chronic hepatitis C COMPARISON: Ultrasound 11/10/2022 TECHNIQUE: Real-time imaging of the abdominal viscera. Noninvasive ultrasound liver fibrosis assessment is performed using Bela ElastPQ point quantification shear wave elastography (pSWE) with a C5-2 MHz transducer. Multiple elastography samples are obtained. FINDINGS: PANCREAS: The visualized pancreatic head and neck appears within normal limits.. The remainder of the pancreas is obscured from visualization by the overlying bowel gas. ABDOMINAL AORTA: Proximal aorta is obscured. Visualized aorta appears within normal limits. INFERIOR VENA CAVA: Visualized portions are normal. LIVER: The liver demonstrates normal size, contour and echogenicity. No focal lesion or intrahepatic biliary duct dilatation. The right lobe measures 14.8 cm in length. The left lobe measures 8.7 cm in length. Portal flow is hepatopedal Shear wave liver elastography median stiffness is 1.27 m/s (reference: normal median stiffness is 1.3 m/s or less). IQR/median stiffness to assess sampling precision is 0.13 (reference: good quality data set is IQR/median stiffness of 0.15 or less). GALLBLADDER: The gallbladder is physiologically distended without evidence of stones, sludge, polyps, wall thickening or pericholecystic fluid. COMMON BILE DUCT: Normal in caliber measuring 0.3 cm in diameter. RIGHT KIDNEY: No hydronephrosis. Extrarenal pelvis. No renal calculi. 8 mm upper/mid pole simple cyst. The kidney measures 8.9 cm in maximum dimension. LEFT KIDNEY: No hydronephrosis. No renal calculi or focal parenchymal lesions. The kidney measures 8.4 cm in maximum dimension. SPLEEN: Unremarkable. The spleen measures 9 cm in maximum dimension. FREE FLUID: None seen. US/US abdomen comp w elastography IMPRESSION: 1. No focal liver lesions. 2. Liver elastography: Median sternotomy chest 1.27M/S. This is within range of normal limits. Interval improvement from previous. . REFERENCE: Society of Radiologists in Ultrasound Liver Stiffness Thresholds (2019): LIVER STIFFNESS THRESHOLDS: *Liver Stiffness equal or less than 1.3 m/s: High probability of being normal. *Liver Stiffness less than 1.7 m/s: In the absence of other known clinical signs, rules out compensated advanced chronic liver disease. *Liver Stiffness 1.7-2.1 m/s: Suggestive of compensated advanced chronic liver disease but need further test for confirmation. *Liver Stiffness over 2.1 m/s: Rules in compensated advanced chronic liver disease. *Liver Stiffness over 2.4 m/s: Suggestive of clinically significant portal hypertension. QUALITY OF DATA SET: *IQR/Median value equal or less than 0.15 implies a quality data set. *IQR/Median value over 0.15 implies a poor quality data set. SIGNIFICANT CHANGE FROM PRIOR EXAM: Significant change if liver stiffness measurement is 10% or greater from prior exam. OTHER CONSIDERATIONS: The stage of liver fibrosis may be overestimated in the setting of acute hepatitis, liver inflammation, elevated liver function tests, hepatic vascular congestion, obstructive cholestasis, non-fasting state, and infiltrative diseases such as amyloidosis and lymphoma. In some patients with NAFLD, the liver stiffness thresholds for compensated advanced chronic liver disease may be lower. In causes other than viral hepatitis and NAFLD, liver stiffness thresholds are not well established. Electronically signed by: Ab Delgado MD 01/01/2025 11:18 AM EDT
--- OUTSIDE RECORDS SUMMARY | 2025-01-01 10:25 | XMS_ITS | Patient Health Record ---
Author Organization [facility] Address [address] [place] [address] Care Team Providers Care Export Agent Name Role Phone Kaushal CARRASCO, [facility] Primary Care Provider Andrei Dunlap [phone] Allergies Allergen (clinical drug ingredient) Drug/Non Drug Allergy documented on EMR Reaction Allergy Type Onset Date Status meclizine Antivert Unknown Drug Allergy Active Results Component Value Reference Range Notes Alpha Fetoprotein (Not yet reviewed by provider) Interpretation: Performing Lab:[address] [address] Notes/Report: Alpha Fetoprotein 6.2 Reference Range: <6.1 The use of AFP as a tumor marker in females is not recommended. This test was performed using the Miranda Arcola chemiluminescent method. Values obtained from different assay methods cannot be used interchangeably. AFP levels, regardless of value, should not be interpreted as absolute evidence of the presence or absence of disease. THIS TEST WAS PERFORMED AT: [facility] [address] [address] ROWENA RIZVI MD Liver Fibrosis Pnl (Not yet reviewed by provider) Interpretation: Performing Lab:[address] [address] Notes/Report: Liver Fibrosis Score TNP TEST(S) NOT PERFORMED: FIBROSIS SCORE FIBROSIS INTERPRETATION NECROINFLAMMAT INTERP REFERENCE ID FOOTNOTE TEST NOT PERFORMED Fibrosis and Activity Scores could not be calculated for this patient sample. One or more components were outside panel algorithm parameters. THIS TEST WAS PERFORMED AT: [facility] [address] [place] [address] ZULLY DE LA CRUZ MD,PHD,CHANDRA Liver Fibrosis Stage TNP Liver Fibrosis Interpretation TNP Nec Inflam Act Score TNP Nec Inflam Act Grade TNP Nec Inflam Act Interpretation TNP TEST NOT PERFORMED Fibrosis and Activity Scores could not be calculated for this patient sample. One or more components were outside panel algorithm parameters CYN-Qxzzm-4-Macroglobulin 460 106-279 mg/dL FIB-Haptoglobin 94 43-212 mg/dL [...] more components were outside panel algorithm parameters. [employer], the associated logo, [employer] and all associated [employer] stephens are the registered trademarks of [employer]. All third democrat stephens - (R) and (TM) - are the property of their respective owners. (C) 6943-2412 [employer]. All rights reserved. Reason For Referral No Information Medications Medication SIG (Take, Route, Frequency, Duration) Notes Start Date End Date Status Omeprazole 20 MG TAKE 1 CAPSULE BY [facility] EVERY DAY for 90 Active Vitamin D [...] 01/24/2015 Not-Taking Probiotic 1 po qd Active Omeprazole 20 MG TAKE 1 CAPSULE BY [facility] EVERY DAY Orally Once a day for 90 days Active Immunizations Vaccine Route Administration Date Status Comme nts Influenza Unknown 10/24/2019 Administered Influenza Unknown 04/25/2021 Administered Problems Problem Type SNOMED Code ICD Code Onset Dates Problem Status W/U Status Risk Notes Problem 501569650 Encounter for screening for malignant neoplasm of colon (Z12.11) Active confirmed Problem 414404183 Irritable bowel syndrome with diarrhea (K58.0) Active confirmed Problem Screening for malignant neoplasm of rectum (154704111) Encounter for screening for malignant neoplasm of rectum (Z12.12) Active confirmed Problem Polyp colon (12921949) Colon polyp (K63.5) Active confirmed Problem 543404790 Gastroesophageal reflux disease without esophagitis (K21.9) Active confirmed Problem 073324070 Chronic hepatiti s C without hepatic coma (B18.2) Active confirmed Problem 435606922 Hx of adenomatou s colonic polyps (Z86.010) Active confirmed Problem 78987172331178 History of hepatitis C (Z86.19) Active confirmed Problem 72077545 Diarrhea, unspecified type (R19.7) Active confirmed Problem 912020291 RUQ abdominal pa in (R10.11) Active confirmed Problem 97568332 Liver fibrosis (K74.0) Active confirmed Problem 06740028 Irritable bowel syndrome with both constipation and diarrhea (K58.2) Active confirmed Problem 152246218 Family history o f colon cancer in father (Z80.0) Active confirmed Problem Diverticulosis of colon (903427798) Diverticulosis of colon (K57.30) Active confirmed Problem 39404263 Liver fibrosis (K74.00) Active confirmed Vital Signs Blood pressure diastolic 77 mm Hg 11/07/2024 Height 59.75 in 11/07/2024 Blood pressure systolic 111 mm Hg 11/07/2024 Weight 129 lbs 11/07/2024 BMI 25.4 kg/m2 11/07/2024 Encounters Encounter Location Date Provider Diagnosis [facility] [address] [place] [address] 11/07/2024 Andrei Ferro Gastroesophageal ref lux disease without esophagitis K21.9 and Chronic hepatitis C without hepatic coma B18.2 [facility] [address] [place] [address] 12/12/2024 Andrei Ferro Assessments Encounter Date Diagnosis (ICD Code) Assessment [...] Provider Name:Andrei Ferro , 11/06/2025 01:20:00 PM, [address] [place] [address], [address], [place], [address], Insurance Providers Payer Name Payer Address Payer Phone Subscriber Number Group Number Insured Name Patient Relationship to Insured Coverage Start Date Coverage End Date [facility] [address] [place], [place] [id number] PCP KATHLEEN CADET Self - patient is [...] 2014, 06/2015, and in 05/2016. Anxiety Denies [place],DM,CVA,Lung disease,renal dise ase Colon polyps- colonoscopy in [...]
--- OUTSIDE RECORDS SUMMARY | 2025-01-01 10:25 | XMS_ITS | Clinical Summary ---
Author Organization [facility] [employer] Address [address] [place] [address] Care Team Providers Care Employment Representative Name Role Phone No, Pcp THEATER USHER Primary Care Provider Unavailabl e Social History [...] Adults 18 yrs or above (or HM Modifier)([facility]) 1963 Hepatitis C Virus Infection in Adolescents and Adults: Screening (or Modifier) ([facility]) 1963 SDOH Screening Reminder: Bijal yu for all adults ([facility]) 1963 Tobacco Smoking Cessation: i n Adults excluding Women: Behavioral and Pharmacotherapy Interventions ([facility]) 1965 DTaP/Tdap/Td Vaccines ([facility]) (1 - Tdap) 1966 Pneumococcal Vaccination Scr eening: Patients 50+ yrs of age ([facility]) (1 of 1 - PCV) 1997 Zoster/Shingles Vaccine Seri es Screening: Adults aged 18+ yrs (or HM Modifiers)([facility]) (1 of 2) 1997 Osteoporosis Screening to Pr event Fractures: Women aged 65 years+ ([facility]) 01/27/2012 RSV Vaccines (1 - 1-dose 75+ series) 2022 Flu Vaccination: Ages 65+: Y early High Dose Recommended (or Modifier)([facility]) 10/27/2024 COVID-19 Vaccine Screening: Initial Series and Booster Status ([facility]) ( season) 2024 Medical Devices Not on file Insurance [facility] [employer] Care Teams Employment Representative Relationship Specialty Start Date End Date No, Pcp, THEATER USHER N/A Do not use PCP - General 12/27/19
== END 2025-01-01 09:15 | disposition home or self-care (01) ==
LOC: HO.US 09:14
PROVIDERS: PCP Internal Medicine; Visit Provider Internal Medicine
DX: B18.2 Chronic viral hepatitis C (principal)
CPT/HCPCS: 76700; 76981

== ENCOUNTER → 2025-01-01 09:16 | Outpatient (BNV) | payer MEDICARE, SELFPAY | PROVIDERS: PCP Internal Medicine; Visit Provider Radiology Diagnostic Ultrasound | DX: B19.20 Unspecified viral hepatitis C without hepatic coma (principal) | CPT/HCPCS: 76700 ==

== ENCOUNTER 2025-01-03 12:56 | Outpatient (REF) | payer MEDICARE, SELFPAY ==
--- NOTE | ~2025-01-03 | CT_ITS ---
EXAMINATION: CT CHEST WITHOUT IV CONTRAST INDICATION: J47.9 - Bronchiectasis, uncomplicated COMPARISON: There are no prior studies available for comparison. TECHNIQUE: Helical CT scan of the chest was performed without intravenous contrast. Coronal and sagittal reformatted images were generated and reviewed. This CT exam was performed with one or more of the following dose reduction techniques: automated exposure control, adjustment of the mA and/or kV according to patient size, use of iterative reconstruction technique. DLP: 118 mGy-cm CHEST: THYROID: The thyroid is unremarkable. LUNGS: There is interlobular septal thickening in both lungs without a zonal predominance. There is mild honeycombing. Mild bronchiectasis may be represent traction bronchiectasis from fibrosis. There are no pulmonary nodules or focal airspace opacities. MEDIASTINUM: There is no mediastinal lymphadenopathy. BROCK: Evaluation of the hilar regions is limited by lack of intravenous contrast material. CARDIOVASCULATURE: The heart is enlarged. There is no pericardial effusion. The thoracic aorta is normal in caliber. DEGREE OF CORONARY CALCIFICATION: none PLEURA: There is no pleural effusion. No pneumothorax. MAIN AIRWAYS: The mainstem bronchi and proximal branches are patent. AXILLA: There is no axillary lymphadenopathy. BONES AND SOFT TISSUES: There is a small hiatal hernia. There is degenerative disc disease of the spine. UPPER ABDOMEN: The visualized portions of the liver, spleen, and adrenals have an unremarkable unenhanced appearance. CT/CT chest wo IV con IMPRESSION: Mild pulmonary fibrosis. Mild bronchiectasis may represent traction bronchiectasis from fibrosis. Electronically signed by: Andrei Haq MD 01/03/2025 01:38 PM EDT
== END 2025-01-03 12:57 | disposition home or self-care (01) ==
LOC: HO.CT 12:56
PROVIDERS: PCP Internal Medicine; Visit Provider Hospitalist
DX: J47.9 Bronchiectasis, uncomplicated (principal); J84.10 Pulmonary fibrosis, unspecified; R91.8 Other nonspecific abnormal finding of lung field
CPT/HCPCS: 71250

== ENCOUNTER → 2025-01-03 12:58 | Outpatient (BNV) | payer MEDICARE, SELFPAY | PROVIDERS: PCP Internal Medicine; Visit Provider Radiology Diagnostic Radiology | DX: J47.9 Bronchiectasis, uncomplicated (principal) | CPT/HCPCS: 71250 ==

== ENCOUNTER 2025-01-09 13:03 | Outpatient (AMB) | payer MEDICARE, SELFPAY ==
--- NOTE | 2025-01-09 13:10 | A.OFFPC_ITS ---
Vital Signs 01/09/25 13:11 Height 4 ft 11 in Weight 130 lb 6 oz BMI 26.3 BP 118/70 Blood Pressure Location Lt brachial Position Sitting Pulse 82 Pulse Source Pulse Oximeter Pulse Oximetry (%) 96 Intake Visit Reasons: accommodation letter Allergies adhesive tape Adverse Reaction (Mild, Verified 01/09/25 13:12) Rash meclizine Adverse Reaction (Verified 01/09/25 13:12) High doses Medication List - Last Reconciled 01/09/25 by Facundo Easley MD atorvastatin 20 mg PO DAILY calcium carb, citrate-vit D3 600 mg-12.5 mcg (500 unit) ER (Citracal-D3 Slow Release) 1 tab PO DAILY 30 days fluticasone propion-salmeterol 250-50 mcg/dose (Wixela Inhub) 1 inh inhalation Q12H fluticasone propionate (Flonase Allergy Relief) intranasal lorazepam 0.5 mg PO BID PRN 30 days nystatin 1 appl topical DAILY 30 days omeprazole 20 mg PO DAILY venlafaxine ER 150 mg PO DAILY Tobacco use date assessed: 08/29/24 Fall risk assessment: No Falls in past year Last assessed Fall Risk: 01/09/25 Dental Screening Dental Screen Date: 08/29/24 HPI accommodation letter HPI Details History of Present Illness The patient is a 79-year-old female presenting with depression, concerns related to pulmonary fibrosis, and symptoms associated with hiatal hernia. Depression: - The patient expressed concerns related to upcoming housing situation that might exacerbates her depression. - She is advised to avoid living in a banerjee nlight-deprived basement due to its impact on her mental health. She is thinking of moving to keep got at is trying to find a housing for her in a specific building where her friend lives The only room available is in the basement, patient is requesting a letter so that she can have a room with more light. Letter provided Pulmonary Fibrosis: - Recently identified as mild on a CAT s can. Along with mild bronchiectasis through patient accounts specialist - The patient is anxious about the findi ngs and requests clarification regarding her condition. Hiatal Hernia: - The patient has had recent symptoms af ter imaging confirmed a small hiatal hernia. Patient has had surgery for large hiatal hernia in the past - Experiences discomfort when consuming large amounts of fluids. - Symptoms include continuous burping an d regurgitation of liquids. - She reports a history of having troubl e with fluid intake, needing to regulate how much she drinks at once. Medical History: - Depression - Mild pulmonary fibrosis - Hiatal hernia Social History: - The patient owns her home but is consi dering selling due to wanting to move to [facility]. - The friend advised obtaining a physici an's note to aid in the application. Problem List - Depression - Mild Pulmonary Fibrosis - Hiatal Hernia Plan - A letter will be provided to support t he housing arrangement due to depression, specifically requesting accommodation with adequate sunlight exposure to avoid living in the basement. - Reassurance was provided regarding mil d pulmonary fibrosis, advising no immediate concern but continuous monitoring as necessary. - Discussed controlling liquid intake to alleviate hiatal hernia symptoms, recommending smaller, manageable amounts rather than a full glass to minimize discomfort and regurgitation. - Further follow-up is already set up fo r other regular medical problems Review of Systems - General: No fever no chills - Neurological: No headaches no dizziness - Ear nose throat: No sore throat no hearing difficulty no ear pain - Cardiovascular: No syncope, no chest pain, no palpitations - Endocrine: No polyuria polydipsia no heat intolerance - Genitourinary: No dysuria , no blood in urine Physical Exam General: No acute distress HEENT: No acute findings Neck: Supple Respiratory system: Able to talk in full sentences, no audible wheeze, clear to auscultation Cardiovascular: S1-S2 regular in rate and rhythm Gastrointestinal: No pain Extremities: No new findings 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: Alert awake oriented x3 motor intact Skin: Normal turgor PFSH Medical History Pulmonary fibrosis Intermittent palpitations Hyperkalemia GERD (gastroesophageal reflux disease) Liver fibrosis TIA (transient ischemic attack) HTN (hypertension) Depression High potassium Osteoporosis Multinodular thyroid Left lower quadrant pain Elevated alpha fetoprotein Anxiety, generalized Vertigo PFO (patent foramen ovale) Irritable bowel syndrome Hepatitis C Vitamin D deficiency Hyperparathyroidism Surgical History S/P hernia repair Hx of colonoscopy Hx of parathyroidectomy History of lumpectomy of right breast Hx of cholecystectomy Hx of hysterectomy Family History Maternal Grandmother T2DM (type 2 diabetes mellitus) Father Colon cancer Cancer Multiple myeloma Mother Brain disorder Thyroid disease Sister Thyroid nodule Hyperparathyroidism Hyperthyroidism Maternal Grandfather Heart disease Other Mental health disorder Substance use disorder Social History Household Members: None Housing: Other Alcohol intake: current Alcohol intake frequency: holidays/special occasions only Patient Tobacco Use Status: Never used Tobacco Tobacco use type: Cigarette e-Cigarette/Vaping Use: Never Used Second Hand Smoke Exposure: No service: No Current occupational status: retired Cognitive needs: No Hearing needs: No Vision needs: No Questionnaire Thrive Questionnaire Date Thrive assessed: 05/16/24 I am a: Patient What is your living situation today?: I have a steady place to live Within the past 12 months, did the food you bought not last and you didn't have the money to get more?: Sometimes True Within the past 12 months, did you worry whether your food would run out before you got money to buy more?: Often true Do you have trouble paying for medicines?: No Do you have trouble getting transportation to medical appointments?: No Do you have trouble paying your heating and electricity bill?: Yes Do you have trouble taking care of your child, family member or friend?: No Do you have trouble with day-to-day activities such as bathing, preparing meals, shopping, managing finances, etc.?: No Are you currently unemployed and looking for a job?: No Are you interested in more education?: No Currently or been in a relationship where the following occur: No concerns reported THRIVE Score: 3 KAYLEIGH-7 AMB Questionnaire KAYLEIGH-7 Date KAYLEIGH - 7 assessed: 08/29/24 Source: Developed by Drs. Andrei Lui, Colette Flanagan, Eliseo Bueno and colleagues, with an educational zulma from [employer]. Physical exam (Primary Care) Vital Signs: Last Vital Signs Pulse 82 01/09/25 13:11 BP 118/70 01/09/25 13:11 Pulse Ox 96 01/09/25 13:11 BMI result Body Mass Index 26.3 Tobacco/Smoking Status: Tobacco use Status Tobacco use date assessed 08/29/24 01/09/25 13:14 Patient Tobacco Use Status Never used Tobacco 01/09/25 13:14 Tobacco use type Cigarette 01/09/25 13:14 e-Cigarette/Vaping Use Never Used 01/09/25 13:14 Thrive Assessment: Date of Thrive Assessment Date Thrive assessed 05/16/24 01/09/25 13:14 Currently or been in a relationship where the following occur: No concerns reported Coding Level of Care Code Est Pt Level 4 (57950) Complex EM visit Add On G2211 Diagnoses Anxiety, generalized F41.1 Regurgitation of stomach contents R11.10 Pulmonary fibrosis J84.10 Bronchiectasis without complication J47.9 Bronchiectasis type: uncomplicated Chronic GERD K21.9 Panic disorder F41.0 Recurrent major depressive disorder, in partial remission F33.41 Active/Remission status: in partial remission Hiatal hernia K44.9 Assessment & Plan Assessment & Plan (1) Anxiety, generalized: Code(s): F41.1 - Generalized anxiety disorder Category: Medical (2) Regurgitation of stomach contents: Code(s): R11.10 - Vomiting, unspecified Category: Medical (3) Pulmonary fibrosis: Code(s): J84.10 - Pulmonary fibrosis, unspecified Category: Medical (4) Bronchiectasis: Code(s): J47.9 - Bronchiectasis, uncomplicated Category: Medical Qualifiers: Bronchiectasis type: uncomplicated Qualified Code(s): J47.9 - Bronchiectasis, uncomplicated (5) Chronic GERD: Code(s): K21.9 - Gastro-esophageal reflux disease without esophagitis Category: Medical (6) Panic disorder: Code(s): F41.0 - Panic disorder [episodic paroxysmal anxiety] Category: Medical (7) Major depression, recurrent: Code(s): F33.9 - Major depressive disorder, recurrent, unspecified Category: Medical Qualifiers: Active/Remission status: in partial remission Qualified Code(s): F33.41 - Major depressive disorder, recurrent, in partial remission (8) Hiatal hernia: Code(s): K44.9 - Diaphragmatic hernia without obstruction or gangrene Category: Medical Plan Depression: - The patient expressed concerns related to upcoming housing situation that might exacerbates her depression. - She is advised to avoid living in a sunlight-deprived basement due to its impact on her mental health. She is thinking of moving to keep got at is trying to find a housing for her in a specific building where her friend lives The only room available is in the basement, patient is requesting a letter so that she can have a room with more light. Letter provided Pulmonary Fibrosis: - Recently identified as mild on a CAT scan. Along with mild bronchiectasis through patient accounts specialist - The patient is anxious about the findings and requests clarification regarding her condition. Hiatal Hernia: - The patient has had recent symptoms after imaging confirmed a small hiatal hernia. Patient has had surgery for large hiatal hernia in the past - Experiences discomfort when consuming large amounts of fluids. - Symptoms include continuous burping and regurgitation of liquids. - She reports a history of having trouble with fluid intake, needing to regulate how much she drinks at once. Medical History: - Depression - Mild pulmonary fibrosis - Hiatal hernia Social History: - The patient owns her home but is considering selling due to wanting to move to [facility]. - The friend advised obtaining a physician's note to aid in the application. Problem List - Depression - Mild Pulmonary Fibrosis - Hiatal Hernia - regurgitation of liquids - anxiety Plan - A letter will be provided to support the housing arrangement due to depression, specifically requesting accommodation with adequate sunlight exposure to avoid living in the basement. - Reassurance was provided regarding mild pulmonary fibrosis, advising no immediate concern but continuous monitoring as necessary. - Discussed controlling liquid intake to alleviate hiatal hernia symptoms, recommending smaller, manageable amounts rather than a full glass to minimize discomfort and regurgitation. - Further follow-up is already set up for other regular medical problems
[2025-01-09 13:11] VITALS: BP 118/70; PULSE 82; O2SAT 96; BMI 26.3
--- OUTSIDE RECORDS SUMMARY | 2025-01-09 15:45 | XMS_ITS | Patient Health Record ---
Author Organization [facility] Address [address] [place] [address] Care Team Providers Care Sock Lining Examiner Name Role Phone Kaushal CARRASCO, [facility] Primary Care Provider Andrei Dunlap [phone] Allergies Allergen (clinical drug ingredient) Drug/Non Drug Allergy documented on EMR Reaction Allergy Type Onset Date Status meclizine Antivert Unknown Drug Allergy Active Results Component Value Reference Range Notes Alpha Fetoprotein (Not yet reviewed by provider) Interpretation: Performing Lab:[address] [address] Notes/Report: Alpha Fetoprotein 6.2 Reference Range: <6.1 [...] of disease. THIS TEST WAS PERFORMED AT: [facility] [address] [address] ROWENA RIZVI MD Liver Fibrosis Pnl (Not yet reviewed by provider) Interpretation: Performing Lab:[address] [address] Notes/Report: Liver Fibrosis Score TNP TEST(S) NOT PERFORMED: FIBROSIS SCORE FIBROSIS INTERPRETATION NECROINFLAMMAT INTERP REFERENCE ID FOOTNOTE TEST NOT PERFORMED Fibrosis and Activity Scores could not be calculated for this patient sample. One or more components were outside panel algorithm parameters. THIS TEST WAS PERFORMED AT: [facility] [address] [place] [address] ZULLY DE LA CRUZ MD,PHD,CHANDRA Liver Fibrosis Stage TNP Liver Fibrosis Interpretation TNP Nec Inflam Act Score TNP Nec Inflam Act Grade TNP Nec Inflam Act Interpretation TNP TEST NOT PERFORMED Fibrosis and Activity Scores could not be calculated for this patient sample. One or more components were outside panel algorithm parameters VDH-Mvopq-1-Macroglobulin 460 106-279 mg/dL FIB-Haptoglobin 94 43-212 mg/dL [...] more components were outside panel algorithm parameters. [employer], the associated logo, [employer] and all associated [employer] stephens are the registered trademarks of [employer]. All third green party stephens - (R) and (TM) - are the property of their respective owners. (C) [id number] [employer]. All rights reserved. US abdomen comp w elastograp hy (Not yet reviewed by provider) Interpretation: Performing Lab: Notes/Report: [address] [address] Ultrasound Report Signed Patient: Kathleen Cadet MR#: [id number] 47 : 1945 Acct:[id number] Age/Sex: 79 / F ADM Date: 01/01/25 Loc: HO.US Attending Dr: Andrei Ferro MD Ordering Physician: Andrei Ferro MD Date of Service: 01/01/25 Procedure(s): US abdomen comp w elastography Accession Number(s): [id number] cc: Facundo Easley MD; Andrei Ferro MD Reason for Exam: CHRONIC HEP C WITHOUT HEPATIC COMA EXAMINATION: US COMPLETE ABDOMEN WITH LIVER ELASTOGRAPHY CLINICAL INFORMATION: Chronic hepatitis C COMPARISON: Ultrasound 11/10/2022 TECHNIQUE: Real-time imaging of the abdominal viscera. Noninvasive ultrasound liver fibrosis assessment is performed using Bela ElastPQ point quantification shear wave elastography (pSWE) with a C5-2 MHz transducer. Multiple elastography samples are obtained. FINDINGS: PANCREAS: The visualized pancreatic head and neck appears within normal limits.. The remainder of the pancreas is obscured from visualization by the overlying bowel gas. ABDOMINAL AORTA: Proximal aorta is obscured. Visualized aorta appears within normal limits. INFERIOR VENA CAVA: Visualized portions are normal. LIVER: The liver demonstrates normal size, contour and echogenicity. No focal lesion or intrahepatic biliary duct dilatation. The right lobe measures 14.8 cm in length. The left lobe measures 8.7 cm in length. Portal flow is hepatopedal Shear wave liver elastography median stiffness is 1.27 m/s (reference: normal median stiffness is 1.3 m/s or less). IQR/median stiffness to assess sampling precision is 0.13 (reference: good quality data set is IQR/median stiffness of 0.15 or less). GALLBLADDER: The gallbladder is physiologically distended without evidence of stones, sludge, polyps, wall thickening or pericholecystic fluid. COMMON BILE DUCT: Normal in caliber measuring 0.3 cm in diameter. RIGHT KIDNEY: No hydronephrosis. Extrarenal pelvis. No renal calculi. 8 mm upper/mid pole simple cyst. The kidney measures 8.9 cm in maximum dimension. LEFT KIDNEY: No hydronephrosis. No renal calculi or focal parenchymal lesions. The kidney measures 8.4 cm in maximum dimension. SPLEEN: Unremarkable. The spleen measures 9 cm in maximum dimension. FREE FLUID: None seen. US/US abdomen comp w elastography IMPRESSION: 1. No focal liver lesions. 2. Liver elastography: Median sternotomy chest 1.27M/S. This is within range of normal limits. Interval improvement from previous. . REFERENCE: Society of Radiologists in Ultrasound Liver Stiffness Thresholds (2020): LIVER STIFFNESS THRESHOLDS: *Liver Stiffness equal or less than 1.3 m/s: High probability of being normal. *Liver Stiffness less than 1.7 m/s: In the absence of other known clinical signs, rules out compensated advanced chronic liver disease. *Liver Stiffness 1.7-2.1 m/s: Suggestive of compensated advanced chronic liver disease but need further test for confirmation. *Liver Stiffness over 2.1 m/s: Rules in compensated advanced chronic liver disease. *Liver Stiffness over 2.4 m/s: Suggestive of clinically significant portal hypertension. QUALITY OF DATA SET: *IQR/Median value equal or less than 0.15 implies a quality data set. *IQR/Median value over 0.15 implies a poor quality data set. SIGNIFICANT CHANGE FROM PRIOR EXAM: Significant change if liver stiffness measurement is 10% or greater from prior exam. OTHER CONSIDERATIONS: The stage of liver fibrosis may be overestimated in the setting of acute hepatitis, liver inflammation, elevated liver function tests, hepatic vascular congestion, obstructive cholestasis, non-fasting state, and infiltrative diseases such as amyloidosis and lymphoma. In some patients with NAFLD, the liver stiffness thresholds for compensated advanced chronic liver disease may be lower. In causes other than viral hepatitis and NAFLD, liver stiffness thresholds are not well established. 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: Reason For Referral No Information Medications Medication SIG (Take, Route, Frequency, Duration) Notes Start Date End Date Status Omeprazole 20 MG TAKE 1 CAPSULE BY [facility] EVERY DAY; Duration: 90 Active Vitamin D 1000mg Act hayes Omeprazole 20 MG 1 capsule 30 minutes before morning meal Orally Once a day; Duration: 90 days 10/29/2023 Active Dicyclomine HCl 10 MG 1 or 2 capsules Or ally Q 6 hours prn abdominal cramps/discomfort/bloat ing; Duration: 30 day(s) 04/25/2021 Active Atorvastatin Calcium 20 MG TAKE 1 TABLET BY MOUTH DAILY Oral; Duration: 90 Days Active LORazepam 0.5 MG Oral; Duration: 30 Days Active Aspir-81 81 MG 1 tablet Orally Once a day Not-Taking FLUoxetine HCl 20 MG 1 capsule in the morning Orally Once a day Not-Taking Calcium Active Hyoscyamine Sulfate 0.125 MG 1-2 Orally every 6 hours prn abdominal cramps/bloating/discomf ort; Duration: 30 days 08/02/2017 Not-Takin g Effexor XR 150 MG 1 capsule with food Orally Once a day; Duration: 30 days Active Hyoscyamine Sulfate 0.125 MG 1-2 tablets Orally every 6 hours prn abdominal cramps, bloating, discomfort; Duration: 30 days 01/24/2015 Not-Taking Probiotic 1 po qd Active Omeprazole 20 MG TAKE 1 CAPSULE BY [facility] EVERY DAY Orally Once a day; Duration: 90 days Active Immunizations Vaccine Route Administration Date Status Comme nts Influenza Unknown 10/24/2019 Administered Influenza Unknown 04/25/2021 Administered Problems Problem Type SNOMED Code ICD Code Onset Dates Problem Status W/U Status Risk Notes Problem Screening for malignant neoplasm of colon (889799695) Encounter for screening for malignant neoplasm of colon (Z12.11) Active confirmed Problem Irritable bowel syndrome with diarrhea (797292225) Irritable bowel syndrome with diarrhea (K58.0) Active confirmed Problem Screening for malignant neoplasm of rectum (007348673) Encounter for screening for malignant neoplasm of rectum (Z12.12) Active confirmed Problem Polyp colon (47992082) Colon polyp (K63.5) Active confirmed Problem Gastroesophageal reflux disease without esophagitis (051402358) Gastroesophageal reflux disease without esophagitis (K21.9) Active confirmed Problem Chronic hepatitis C (254209349) Chronic hepatitis C without hepatic coma (B18.2) Active confirmed Problem History of adenomatous polyp of colon (977466321) Hx of adenomatous colonic polyps (Z86.010) Active confirmed Problem History of hepatitis C (20799476072309) History of hepatitis C (Z86.19) Active confirmed Problem Diarrhea (01320950) Diarrhea, unspecified type (R19.7) Active confirmed Problem Right upper quadrant pain (706035808) RUQ abdominal pain (R10.11) Active confirmed Problem Hepatic fibrosis (disorder) (10557113) Liver fibrosis (K74.0) Active confirmed Problem Irritable bowel syndrome (87496255) Irritable bowel syndrome with both constipation and diarrhea (K58.2) Active confirmed Problem Family history of malignant neoplasm of gastrointestinal tract (741357024) Family history of colon cancer in father (Z80.0) Active confirmed Problem Diverticulosis of colon (387662220) Diverticulosis of colon (K57.30) Active confirmed Problem Hepatic fibrosis (disorder) (02364877) Liver fibrosis (K74.00) Active confirmed Vital Signs Blood pressure diastolic 77 mm Hg 11/07/2024 Height 59.75 in 11/07/2024 Blood pressure systolic 111 mm Hg 11/07/2024 Weight 129 lbs 11/07/2024 BMI 25.4 kg/m2 11/07/2024 Encounters Encounter Location Date Provider Diagnosis [facility] [address] [place] [address] 11/07/2024 Andrei Kasie Gastroesophageal ref lux disease without esophagitis K21.9 and Chronic hepatitis C without hepatic coma B18.2 [facility] [address] [place] [address] 12/12/2024 Andrei Kasie Assessments Encounter Date Diagnosis (ICD Code) Assessment [...] MARKER 3 ALPHA-FETOPROTEIN,TUMOR MARKER 4 ALPHA-FETOPROTEIN,TUMOR MARKER 09/19/201 3 ALPHA-FETOPROTEIN,TUMOR MARKER 7 ALPHA-FETOPROTEIN,TUMOR MARKER 5 [...] 5 US abdomen comp w elastography 3 US abdomen comp w elastography 5 Future Test Test Name Order Date COLONOSCOPY 10/22/2011 COLONOSCOPY 05/12/2016 COLONOSCOPY 04/25/2021 Next Appt Details Provider Name:Andrei Ferro , 11/06/2025 01:20:00 PM, [address] [place] [address], [place] [address], [place], [address], Insurance Providers Payer Name Payer Address Payer Phone Subscriber Number Group Number Insured Name Patient Relationship to Insured Coverage Start Date Coverage End Date [facility] [address] [place], [place] [id number] PCP [id number] CADET Self - patient is [...]
== END 2025-01-09 13:36 | disposition home or self-care (01) ==
LOC: HO.HMCC 13:04
PROVIDERS: PCP Internal Medicine; Visit Provider Internal Medicine
DX: F41.1 Generalized anxiety disorder (principal); R11.10 Vomiting, unspecified; J84.10 Pulmonary fibrosis, unspecified; J47.9 Bronchiectasis, uncomplicated; K21.9 Gastro-esophageal reflux disease without esophagitis; F41.0 Panic disorder [episodic paroxysmal anxiety]; F33.41 Major depressive disorder, recurrent, in partial remission; K44.9 Diaphragmatic hernia without obstruction or gangrene

== ENCOUNTER → 2025-01-09 13:03 | Outpatient (BNVA) | payer MEDICARE, SELFPAY | PROVIDERS: PCP Internal Medicine; Visit Provider Internal Medicine | DX: F41.1 Generalized anxiety disorder (principal); F41.0 Panic disorder [episodic paroxysmal anxiety]; J84.10 Pulmonary fibrosis, unspecified; K44.9 Diaphragmatic hernia without obstruction or gangrene; R11.10 Vomiting, unspecified; J47.9 Bronchiectasis, uncomplicated; K21.9 Gastro-esophageal reflux disease without esophagitis; F33.41 Major depressive disorder, recurrent, in partial remission | CPT/HCPCS: 99212 ==

== ENCOUNTER 2025-01-23 12:45 | Outpatient (AMB) | payer OTHER, SELFPAY ==
--- NOTE | 2025-01-23 12:48 | A.OFFVIS_ITS ---
Vital Signs 01/23/25 12:50 Height 4 ft 11 in Weight 130 lb 15.273 oz BMI 26.4 BP 130/80 Blood Pressure Location Lt brachial Pulse 84 Pulse Source Pulse Oximeter Intake Visit Reasons: 6m follow up Cooker Meal Required: No Accompanied by: Self / Same As Patient Allergies adhesive tape Adverse Reaction (Mild, Verified 01/23/25 12:52) Rash meclizine Adverse Reaction (Verified 01/23/25 12:52) High doses Medication List - Last Reconciled 01/23/25 by Ryland Yin NP calcium carb, citrate-vit D3 600 mg-12.5 mcg (500 unit) ER (Citracal-D3 Slow Release) 1 tab PO DAILY 30 days fluticasone propion-salmeterol 250-50 mcg/dose (Wixela Inhub) 1 inh inhalation Q12H lorazepam 0.5 mg PO BID PRN 30 days nystatin 1 appl topical DAILY 30 days omeprazole 20 mg PO DAILY venlafaxine ER 150 mg PO DAILY HPI Comments Details: This is a 79-year-old female patient coming in for a follow-up visit. Patient with history of hypertension and hyperlipidemia who was previously seen in the office for chest pain and management of her cholesterol levels. Patient had undergone a coronary CTA that showed type 3 paraesophageal hernia is now status post hernia repair. CTA also showed possible lung infection or inflammation and therefore is now following pulmonology for this. For management of her cholesterol levels, we started her on atorvastatin which patient later stated that she started having some muscle aches and therefore was recommended to try Co Q10. Patient reported improvement in her symptoms however abruptly came of it due to concerns about history of hepatitis. Patient today is otherwise reporting feeling well overall without any cardiac symptoms of exertional chest pain, shortness breath, palpitations, orthopnea, PND, leg edema, presyncope or syncope. [facility] Medical History Pulmonary fibrosis Intermittent palpitations Hyperkalemia GERD (gastroesophageal reflux disease) Liver fibrosis TIA (transient ischemic attack) HTN (hypertension) Depression High potassium Osteoporosis Multinodular thyroid Left lower quadrant pain Elevated alpha fetoprotein Anxiety, generalized Vertigo PFO (patent foramen ovale) Irritable bowel syndrome Hepatitis C Vitamin D deficiency Hyperparathyroidism Surgical History S/P hernia repair Hx of colonoscopy Hx of parathyroidectomy History of lumpectomy of right breast Hx of cholecystectomy Hx of hysterectomy Family History Maternal Grandmother T2DM (type 2 diabetes mellitus) Father Colon cancer Cancer Multiple myeloma Mother Brain disorder Thyroid disease Sister Thyroid nodule Hyperparathyroidism Hyperthyroidism Maternal Grandfather Heart disease Other Mental health disorder Substance use disorder Social History Household Members: None Housing: Other Alcohol intake: current Alcohol intake frequency: holidays/special occasions only Patient Tobacco Use Status: Never used Tobacco Tobacco use type: Cigarette e-Cigarette/Vaping Use: Never Used Second Hand Smoke Exposure: No service: No Current occupational status: retired Cognitive needs: No Hearing needs: No Vision needs: No Review of Systems Const Denies daytime sleepiness, Denies difficulty sleeping, Denies snoring, Denies stops breathing during sleep and Denies weakness Card Denies chest pain, Denies rapid heart rate, Denies irregular heart rhythm, Denies claudication, Denies leg edema, Denies lightheadedness, Denies palpitations, Denies dyspnea, Denies dyspnea on exertion, Denies orthopnea, Denies paroxysmal nocturnal dyspnea and Denies slow heart rate Resp Denies cough, Denies dyspnea, Denies dyspnea on exertion and Denies snoring GI Reports no additional complaints, Denies hematochezia, Denies change in stool character and Denies dyspepsia Musc Denies abnormal gait, Denies muscle weakness and Denies numbness Neuro Denies abnormal gait, Denies numbness and Denies weakness Endo Denies palpitations Physical Exam Vital Signs: Last Vital Signs Pulse 84 01/23/25 12:50 BP 130/80 01/23/25 12:50 BMI result Body Mass Index 26.4 Const General: cooperative, healthy appearing, comfortable and no acute distress Orientation/consciousness: patient oriented x3 HEENT Head: Yes normal to inspection Neck Neck: Yes normal visual inspection, Yes trachea midline and Yes supple Chest Chest palpation & inspection: normal inspection of the chest Resp Effort & Inspection: normal respiratory effort Auscultation: clear to auscultation bilaterally, no crackles, no rales, no rhonchi and no wheezes Cardio Jugular venous distension: no JVD Palpation: normal PMI Rate: regular rate Rhythm: regular rhythm Heart sounds: S1 normal heart sound present, S2 normal heart sound present, no click, no gallops, no murmurs and no rubs Peripheral pulses: Peripheral pulses 2+ throughout GI Inspection: Yes normal to inspection Palpation (GI): Soft to palpation Auscultation: normal bowel sounds Skin General skin exam: no rashes or lesions noted Neuro General: patient oriented x3 Extrem General: Yes normal to inspection, No no pedal edema and No calf tenderness Psych Appearance: grossly normal Mental Status: mental status grossly normal Speech and movement: Normal speech and movement present Assessment & Plan Assessment & Plan (1) Atherosclerotic heart disease: Code(s): I25.10 - Atherosclerotic heart disease of the [place] coronary artery without angina pectoris Category: Medical Qualifiers: Coronary Disease-Associated Artery/Lesion type: unspecified vessel or lesion type [place] vs. transplanted heart: [place] heart Associated angina: without angina Qualified Code(s): I25.10 - Atherosclerotic heart disease of [place] coronary artery without angina pectoris Plan: 06/14/2023- echo study showed normal EF at 64%, mild mitral annular calcification, moderate plaque buildup in the ascending aorta. 09/02/2023- Holter showed baseline normal sinus rhythm with the occasional PVCs. Patient reported her symptoms of palpitations with sinus tachycardia and PVCs. These findings may explain her ongoing exertional palpitations. Patient was advised to maintain adequate hydration as she reports that she does not drink enough water. Recommended reporting back to us in case of prolonged or worsening episodes, in which case, we may need to consider repeating Holter monitor. 09/23/2023- myocardial perfusion imaging study was normal. 07/17/2024- patient underwent coronary CTA that showed an eccentric noncalcified plaque in the mid LAD with positive remodeling but no stenosis, very short and normal LAD, and no significant disease in the LCX or RCA. Additional findings include mild bronchiectasis with patchy predominantly pre peribronchial ground-glass opacities, suspicious for infection or inflammation. A large size type III paraesophageal hernia was also noted for which patient was recommended to follow up with her GI. Patient is now status post hernia repair and follows with Dr. Ferro and patient is also following with pulmonology for findings from her CTA. Patient was previously on atorvastatin for cholesterol control however patient is off it due to concerns for hepatitis C. Patient's LDL back in March was 155 but improved to 94 on atorvastatin with no change in LFTs. Today we have come to a decision of going on rosuvastatin 10 mg daily pending her lipid and LFT panel the patient is planning on getting tomorrow. We will closely monitor this. Ideally, LDL goal close to 70. Patient understanding of the plan. (2) Hyperlipidemia: Code(s): E78.5 - Hyperlipidemia, unspecified Category: Medical Plan: As above. Advised heart healthy diet, regular exercise, med compliance, and management of vascular risk factors. Patient will follow up in 6 months. In the interim, patient will call the office with any concerns or change in symptoms. This note was generated using voice recognition software. While every effort has been made to ensure accuracy and proper raw material planner, there may be occasional errors that could affect the content or meaning of the described symptoms. Medications: New rosuvastatin 10 mg PO DAILY 90 tabs 3RF Coding Level of Care Code Est Pt Level 4 (58466) Complex EM visit Add On G2211 Diagnoses Atherosclerosis of coronary artery of [place] heart without angina pectoris, unspecified vessel or lesion type I25.10 Coronary Disease-Associated Artery/Lesion type: unspecified vessel or lesion type [place] vs. transplanted heart: [place] heart Associated angina: without angina Hyperlipidemia E78.5 Time Spent (min) 33 Comment Time spent in reviewing the chart, test results, assessment, counseling and documentation.
[2025-01-23 12:50] VITALS: BP 130/80; PULSE 84; BMI 26.4
--- OUTSIDE RECORDS SUMMARY | 2025-01-23 16:06 | XMS_ITS | Patient Health Record ---
Author Organization [facility] Address [address] [place] [address] Care Team Providers Care Commander Internal Affairs Name Role Phone Kaushal CARRASCO, [facility] Provider Andrei Dunlap [phone] Allergies Allergen (clinical drug ingredient) Drug/Non Drug Allergy documented on EMR Reaction Allergy Type Onset Date Status meclizine Antivert Unknown Drug Allergy Active Results Component Value Reference Range Notes Alpha Fetoprotein (Not yet reviewed by provider) Interpretation: Performing Lab:[address] [address] Notes/Report: Alpha Fetoprotein 6.2 Reference Range: <6.1 [...] of disease. THIS TEST WAS PERFORMED AT: [facility] [address] [address] ROWENA RIZVI MD Liver Fibrosis Pnl (Not yet reviewed by provider) Interpretation: Performing Lab:[address] [address] Notes/Report: Liver Fibrosis Score TNP TEST(S) NOT PERFORMED: FIBROSIS SCORE FIBROSIS INTERPRETATION NECROINFLAMMAT INTERP REFERENCE ID FOOTNOTE TEST NOT PERFORMED Fibrosis and Activity Scores could not be calculated for this patient sample. One or more components were outside panel algorithm parameters. THIS TEST WAS PERFORMED AT: [facility] [address] [place] [address] ZULLY DE LA CRUZ MD,PHD,CHANDRA Liver Fibrosis Stage TNP Liver Fibrosis Interpretation TNP Nec Inflam Act Score TNP Nec Inflam Act Grade TNP Nec Inflam Act Interpretation TNP TEST NOT PERFORMED Fibrosis and Activity Scores could not be calculated for this patient sample. One or more components were outside panel algorithm parameters REP-Hoaks-7-Macroglobulin 460 106-279 mg/dL FIB-Haptoglobin 94 43-212 mg/dL [...] more components were outside panel algorithm parameters. [employer], the associated logo, [employer] and all associated [employer] stephens are the registered trademarks of [employer]. All third republican stephens - (R) and (TM) - are the property of their respective owners. (C) 4836-4654 [employer]. All rights reserved. 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: Reason For Referral No Information Medications Medication SIG (Take, Route, Frequency, Duration) Notes Start Date End Date Status Omeprazole 20 MG TAKE 1 CAPSULE BY [facility] EVERY DAY; Duration: 90 Active Vitamin D [...] 1 CAPSULE BY [facility] EVERY DAY Orally Once a day; Duration: 90 days Active Immunizations Vaccine Route Administration Date Status Comme nts Influenza Unknown 10/24/2019 Administered Influenza Unknown 04/25/2021 Administered Problems Problem Type SNOMED Code ICD Code Onset Dates Problem Status W/U Status Risk Notes Problem Screening for malignant neoplasm of colon (028378960) Encounter for screening for malignant neoplasm of colon (Z12.11) Active confirmed Problem Irritable bowel syndrome with diarrhea (455567656) Irritable bowel syndrome with diarrhea (K58.0) Active confirmed Problem Screening for malignant neoplasm of rectum (950220762) Encounter for screening for malignant neoplasm of rectum (Z12.12) Active confirmed Problem Polyp colon (34381205) Colon polyp (K63.5) Active confirmed Problem Gastroesophageal reflux disease without esophagitis (120986787) Gastroesophageal reflux disease without esophagitis (K21.9) Active confirmed Problem Chronic hepatitis C (618478026) Chronic hepatitis C without hepatic coma (B18.2) Active confirmed Problem History of adenomatous polyp of colon (564190729) Hx of adenomatous colonic polyps (Z86.010) Active confirmed Problem History of hepatitis C (57904254223460) History of hepatitis C (Z86.19) Active confirmed Problem Diarrhea (75551293) Diarrhea, unspecified type (R19.7) Active confirmed Problem Right upper quadrant pain (373686704) RUQ abdominal pain (R10.11) Active confirmed Problem Hepatic fibrosis (disorder) (17845931) Liver fibrosis (K74.0) Active confirmed Problem Irritable bowel syndrome (26413204) Irritable bowel syndrome with both constipation and diarrhea (K58.2) Active confirmed Problem Family history of malignant neoplasm of gastrointestinal tract (210197917) Family history of colon cancer in father (Z80.0) Active confirmed Problem Diverticulosis of colon (993906776) Diverticulosis of colon (K57.30) Active confirmed Problem Hepatic fibrosis (disorder) (83899113) Liver fibrosis (K74.00) Active confirmed Vital Signs Blood pressure diastolic 77 mm Hg 11/07/2024 Height 59.75 in 11/07/2024 Blood pressure systolic 111 mm Hg 11/07/2024 Weight 129 lbs 11/07/2024 BMI 25.4 kg/m2 11/07/2024 Encounters Encounter Location Date Provider Diagnosis [facility] [address] [place] [address] 11/07/2024 Andrei Kasie Gastroesophageal ref lux disease without esophagitis K21.9 and Chronic hepatitis C without hepatic coma B18.2 [facility] [address] [place] [address] 12/12/2024 Andrei Kasie Assessments Encounter Date Diagnosis [...] Pnl 11/15/2024 US abdomen comp w elastography 3 US abdomen comp w elastography 5 US abdomen comp w elastography 5 Future Test Test Name Order Date COLONOSCOPY 10/22/2011 COLONOSCOPY 05/12/2016 COLONOSCOPY 04/25/2021 Next Appt Details Provider Name:Andrei Ferro , 11/06/2025 01:20:00 PM, [address] [place] [address], [place] [address], [place], [address], Insurance Providers Payer Name Payer Address Payer Phone Subscriber Number Group Number Insured Name Patient Relationship to Insured Coverage Start Date Coverage End Date [facility] [address] [place], [place] [id number] PCP KATHLEEN CADET Self - patient is [...] 2014, 06/2015, and in 05/2016. Anxiety Denies MO,DM,CVA,Lung disease,renal dise ase Colon polyps- colonoscopy in [...]
--- OUTSIDE RECORDS SUMMARY | 2025-01-23 16:06 | XMS_ITS | Clinical Summary ---
Author Organization [facility] [employer] Address [address] [place] [address] Care Team Providers Care Pump Room Operator Name Role Phone No, Pcp SENIOR MICROSOFT CONSULTANT Primary Care Provider Unavailabl e Social History [...] Adults 18 yrs or above (or HM Modifier)([facility]) 1963 Hepatitis C Virus Infection in Adolescents and Adults: Screening (or Modifier) ([facility]) 1963 SDOH Screening Reminder: Bijal yu for all adults ([facility]) 1963 Tobacco Smoking Cessation: i n Adults excluding Women: Behavioral and Pharmacotherapy Interventions ([facility]) 1965 DTaP/Tdap/Td Vaccines ([facility]) (1 - Tdap) 1966 Pneumococcal Vaccination Scr eening: Patients 50+ yrs of age ([facility]) (1 of 1 - PCV) 1997 Zoster/Shingles Vaccine Seri es Screening: Adults aged 18+ yrs (or HM Modifiers)([facility]) (1 of 2) 1997 Osteoporosis Screening to Pr event Fractures: Women aged 65 years+ ([facility]) 01/27/2012 RSV Vaccines (1 - 1-dose 75+ series) 2022 Flu Vaccination: Ages 65+: Y early High Dose Recommended (or Modifier)([facility]) 10/27/2024 COVID-19 Vaccine Screening: Initial Series and Booster Status ([facility]) ( season) 2024 Medical Devices Not on file Insurance [facility] [employer] Care Teams Pump Room Operator Relationship Specialty Start Date End Date No, Pcp, SENIOR MICROSOFT CONSULTANT N/A Do not use PCP - General 12/27/19
== END 2025-01-23 13:15 | disposition home or self-care (01) ==
LOC: HO.HCS 12:47
PROVIDERS: PCP Internal Medicine
DX: I25.10 Atherosclerotic heart disease of native coronary artery without angina pectoris (principal); E78.5 Hyperlipidemia, unspecified
CPT/HCPCS: 99214; G2211

== ENCOUNTER → 2025-01-23 12:45 | Outpatient (BNVA) | payer OTHER, SELFPAY | PROVIDERS: PCP Internal Medicine | DX: R06.02 Shortness of breath (principal); J47.9 Bronchiectasis, uncomplicated; J84.10 Pulmonary fibrosis, unspecified; R91.8 Other nonspecific abnormal finding of lung field; R91.1 Solitary pulmonary nodule | CPT/HCPCS: 99212 ==

== ENCOUNTER 2025-01-23 13:24 | Outpatient (AMB) | payer MEDICARE, SELFPAY ==
--- NOTE | 2025-01-23 13:28 | MHC.OFFVIS ---
Vital Signs 01/23/25 13:29 Height 4 ft 11 in Weight 131 lb 2.801 oz BMI 26.5 BP 118/80 Blood Pressure Location Lt brachial Position Sitting Pulse 82 Pulse Source Pulse Oximeter Pulse Oximetry (%) 97 Oxygen Delivery Method Room Air Intake Visit Reasons: Bronchiectasis Card Player Required: No Accompanied by: Self / Same As Patient Allergies adhesive tape Adverse Reaction (Mild, Verified 01/23/25 13:31) Rash meclizine Adverse Reaction (Verified 01/23/25 13:31) High doses HPI Comments Details: The patient is a 79 year woman presenting with worsening shortness of breath. Apparently she has been noticing worsening respiratory symptoms now for several months. She is also having significant reflux disease. She was evaluated by surgery. And ultimately recently underwent a fundoplication at [facility]. In the meantime the patient was evaluated from a cardiac standpoint and back in June she did have a CT scan of the coronary arteries. It demonstrated areas of bronchiectasis in addition to interstitial lung disease and pulmonary fibrosis. Although very limited based on the cuts. She was given antibiotics for the possibility infection at the time. She has a longer taking antibiotics. She was also placed any inhalers. Initially given Symbicort although was not covered but she bought it and then she will send Wixela that she has not use. Currently she is not using any inhalers. She has been using incentive spirometer after surgery. Now she is feeling better 2 weeks out. The patient was able to go for a walk with mean. She was comfortable although she did become dyspneic with a dyspnea score of 4/10. Her pulse ox did drop to about 93% and heart rate was 105. On examination she does have crackles bilaterally. Suggesting the possibility of pulmonary fibrosis. Will go ahead and request blood work specially with a history of sarcoidosis in the family. The patient also has a history arthritis in the family. She does not have any other significant exposures, but, will go ahead and order additional testing to assess for pulmonary fibrosis interstitial lung disease. The patient will need pulmonary function studies when she recovers from her surgery and she will need a formal CT scan of the chest to better visualize her lungs. Will have her follow-up after the studies are available and if any issues arise she will call. As far as the Symbicort she can use it as needed every 12 hours. She knows to rinse and gargle her mouth after using it. 01/23/2025 the patient is here for pulmonary follow-up visit. Overall she is doing okay. She still has dyspnea on exertion. Mild in severity. She does use the Wixela. He is trying to increase her exercise activity. She did undergo a CT scan of the chest to better address her findings on the CTA of the coronary arteries. The patient does have [id number]-vo-qjvxqvnj interstitial changes consistent with pulmonary fibrosis interstitial lung disease. In addition to that she does have traction bronchiectasis due to the scarring. No significant ground-glass opacities appreciated. I did appreciate a 7 mm pulmonary nodule in the left upper lobe that was not mentioned. Therefore she will need to have a repeat CAT scan in 6 months. We did review her PFTs. She is a patient does have a mild restrictive ventilatory defect, consistent with the underlying interstitial lung disease. Now we have to make sure that she does not have any progression of disease. The family does have a history of sarcoidosis. Her Larry level was negative. 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 But again, right now she seems to be okay and hopefully this processes burned-out in no additional therapies are required. If she noticed any worsening symptoms she can always call we can try a course of prednisone. She is also trying to sleep elevated and avoiding significant reflux as this can precipitate interstitial disease. She will follow-up in [address] scan of the chest. [facility] Medical History (Updated 01/23/25 @ 14:04 by Marques Rouse MD) Pulmonary nodule Pulmonary fibrosis Intermittent palpitations Hyperkalemia GERD (gastroesophageal reflux disease) Liver fibrosis TIA (transient ischemic attack) HTN (hypertension) Depression High potassium Osteoporosis Multinodular thyroid Left lower quadrant pain Elevated alpha fetoprotein Anxiety, generalized Vertigo PFO (patent foramen ovale) Irritable bowel syndrome Hepatitis C Vitamin D deficiency Hyperparathyroidism Surgical History S/P hernia repair Hx of colonoscopy Hx of parathyroidectomy History of lumpectomy of right breast Hx of cholecystectomy Hx of hysterectomy Family History Maternal Grandmother T2DM (type 2 diabetes mellitus) Father Colon cancer Cancer Multiple myeloma Mother Brain disorder Thyroid disease Sister Thyroid nodule Hyperparathyroidism Hyperthyroidism Maternal Grandfather Heart disease Other Mental health disorder Substance use disorder Social History Household Members: None Housing: Other Alcohol intake: current Alcohol intake frequency: holidays/special occasions only Patient Tobacco Use Status: Never used Tobacco Tobacco use type: Cigarette e-Cigarette/Vaping Use: Never Used Second Hand Smoke Exposure: No service: No Current occupational status: retired Cognitive needs: No Hearing needs: No Vision needs: No Review of Systems Const Denies weakness ENT Denies dizziness Card Denies chest pain and Reports dyspnea on exertion Resp Reports chest congestion, Reports cough and Reports dyspnea on exertion GI Denies hematochezia and Denies change in stool character Musc Denies abnormal gait, Denies muscle cramps, Denies muscle weakness, Denies numbness, Denies radiating pain into limb and Denies tingling Neuro Denies abnormal gait, Denies dizziness, Denies numbness, Denies tingling and Denies weakness Physical Exam Vital Signs: Last Vital Signs Pulse 82 01/23/25 13:29 BP 118/80 01/23/25 13:29 Pulse Ox 97 01/23/25 13:29 Oxygen Delivery Method Room Air 01/23/25 13:29 BMI result Body Mass Index 26.5 Const General: cooperative, healthy appearing, comfortable and no acute distress Orientation/consciousness: patient oriented x3 HEENT Head: Yes normal to inspection Neck Neck: Yes normal visual inspection, Yes trachea midline and Yes supple Chest Chest palpation & inspection: normal inspection of the chest Resp Effort & Inspection: normal respiratory effort Auscultation: no crackles, no rales, no rhonchi, no wheezes and diminished lung sounds Cardio Rate: regular rate Rhythm: regular rhythm Heart sounds: S1 normal heart sound present and S2 normal heart sound present GI Inspection: Yes normal to inspection Palpation (GI): Soft to palpation Auscultation: normal bowel sounds Skin General skin exam: no rashes or lesions noted Neuro General: patient oriented x3 Extrem General: Yes normal to inspection, No no pedal edema and No calf tenderness Psych Appearance: grossly normal Mental Status: mental status grossly normal Speech and movement: Normal speech and movement present Results Reviewed Results Reviewed: Assessment & Plan Assessment & Plan (1) Pulmonary fibrosis: Code(s): J84.10 - Pulmonary fibrosis, unspecified Category: Medical (2) Ground glass opacity present on imaging of lung: Code(s): R91.8 - Other nonspecific abnormal finding of lung field Category: Medical (3) Bronchiectasis: Code(s): J47.9 - Bronchiectasis, uncomplicated Category: Medical Qualifiers: Bronchiectasis type: uncomplicated Qualified Code(s): J47.9 - Bronchiectasis, uncomplicated (4) Pulmonary nodule: Comment: 7 mm in the JOE, not mentioned on the CT chest report Code(s): R91.1 - Solitary pulmonary nodule Category: Medical Plan CT chest in 6 months continue Wixela CPT with acapella valve reflux diet sleep with HOB elevated Exercise Regimen Needs Prevnar 21 vaccine F/U 6 months Orders: Orders CT chest wo IV con 5 Months R91.1 - Solitary pulmonary nodule Coding Level of Care Code Est Pt Level 4 (11824) Complex EM visit Add On G2211 Diagnoses Pulmonary fibrosis J84.10 Ground glass opacity present on imaging of lung R91.8 Bronchiectasis without complication J47.9 Bronchiectasis type: uncomplicated Pulmonary nodule R91.1 Time Spent (min) 17
[2025-01-23 13:29] VITALS: BP 118/80; PULSE 82; O2SAT 97; BMI 26.5
== END 2025-01-23 13:57 | disposition home or self-care (01) ==
LOC: HO.HPS 13:25
PROVIDERS: PCP Internal Medicine; Visit Provider Hospitalist
DX: J84.10 Pulmonary fibrosis, unspecified (principal); R91.8 Other nonspecific abnormal finding of lung field; J47.9 Bronchiectasis, uncomplicated; R91.1 Solitary pulmonary nodule
CPT/HCPCS: 99214; G2211

== ENCOUNTER 2025-01-26 08:38 | Outpatient (REF) | payer MEDICARE, SELFPAY ==
--- OUTSIDE RECORDS SUMMARY | 2025-01-26 08:55 | XMS_ITS | Patient Health Record ---
Author Organization [facility] Address [address] [place] [address] Care Team Providers Care Online Affiliate Marketing Manager Name Role Phone Kaushal CARRASCO, [facility] Primary Care Provider Andrei Dunlap [phone] Allergies Allergen (clinical drug ingredient) Drug/Non Drug Allergy documented on EMR Reaction Allergy Type Onset Date Status meclizine Antivert Unknown Drug Allergy Active Results Component Value Reference Range Notes Alpha Fetoprotein (Not yet reviewed by provider) Interpretation: Performing Lab:[address] [address] Notes/Report: Alpha Fetoprotein 6.2 Reference Range: <6.1 [...] of disease. THIS TEST WAS PERFORMED AT: [facility] [address] [address] ROWENA RIZVI MD Liver Fibrosis Pnl (Not yet reviewed by provider) Interpretation: Performing Lab:[address] [address] Notes/Report: Liver Fibrosis Score TNP TEST(S) NOT PERFORMED: FIBROSIS SCORE FIBROSIS INTERPRETATION NECROINFLAMMAT INTERP REFERENCE ID FOOTNOTE TEST NOT PERFORMED Fibrosis and Activity Scores could not be calculated for this patient sample. One or more components were outside panel algorithm parameters. THIS TEST WAS PERFORMED AT: [facility] [address] [place] [address] ZULLY DE LA CRUZ MD,PHD,CHANDRA Liver Fibrosis Stage TNP Liver Fibrosis Interpretation TNP Nec Inflam Act Score TNP Nec Inflam Act Grade TNP Nec Inflam Act Interpretation TNP TEST NOT PERFORMED Fibrosis and Activity Scores could not be calculated for this patient sample. One or more components were outside panel algorithm parameters VRQ-Xokat-6-Macroglobulin 460 106-279 mg/dL FIB-Haptoglobin 94 43-212 mg/dL [...] more components were outside panel algorithm parameters. [email or web address], the associated logo, [employer] and all associated [employer] stephens are the registered trademarks of [employer]. All third alliance party stephens - (R) and (TM) - are the property of their respective owners. (C) [id number] [employer]. All rights reserved. 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: Reason For Referral No Information Medications Medication SIG (Take, Route, Frequency, Duration) Notes Start Date End Date Status Omeprazole 20 MG TAKE 1 CAPSULE BY [facility] EVERY DAY; Duration: 90 Active Vitamin [...] BY [facility] EVERY DAY Orally Once a day; Duration: 90 days Active Immunizations Vaccine Route Administration Date Status Comme nts Influenza Unknown 10/24/2019 Administered Influenza Unknown 04/25/2021 Administered Problems Problem Type SNOMED Code ICD Code Onset Dates Problem Status W/U Status Risk Notes Problem Screening for malignant neoplasm of colon (830241572) Encounter for screening for malignant neoplasm of colon (Z12.11) Active confirmed Problem Irritable bowel syndrome with diarrhea (095605671) Irritable bowel syndrome with diarrhea (K58.0) Active confirmed Problem Screening for malignant neoplasm of rectum (282573317) Encounter for screening for malignant neoplasm of rectum (Z12.12) Active confirmed Problem Polyp colon (23476705) Colon polyp (K63.5) Active confirmed Problem Gastroesophageal reflux disease without esophagitis (061918279) Gastroesophageal reflux disease without esophagitis (K21.9) Active confirmed Problem Chronic hepatitis C (266635604) Chronic hepatitis C without hepatic coma (B18.2) Active confirmed Problem History of adenomatous polyp of colon (645080406) Hx of adenomatous colonic polyps (Z86.010) Active confirmed Problem History of hepatitis C (04608055986547) History of hepatitis C (Z86.19) Active confirmed Problem Diarrhea (05790081) Diarrhea, unspecified type (R19.7) Active confirmed Problem Right upper quadrant pain (512674852) RUQ abdominal pain (R10.11) Active confirmed Problem Hepatic fibrosis (disorder) (26953073) Liver fibrosis (K74.0) Active confirmed Problem Irritable bowel syndrome (10267178) Irritable bowel syndrome with both constipation and diarrhea (K58.2) Active confirmed Problem Family history of malignant neoplasm of gastrointestinal tract (469707952) Family history of colon cancer in father (Z80.0) Active confirmed Problem Diverticulosis of colon (158320225) Diverticulosis of colon (K57.30) Active confirmed Problem Hepatic fibrosis (disorder) (53939820) Liver fibrosis (K74.00) Active confirmed Vital Signs Blood pressure diastolic 77 mm Hg 11/07/2024 Height 59.75 in 11/07/2024 Blood pressure systolic 111 mm Hg 11/07/2024 Weight 129 lbs 11/07/2024 BMI 25.4 kg/m2 11/07/2024 Encounters Encounter Location Date Provider Diagnosis [facility] [address] [place] [address] 11/07/2024 Andrei Kasie Gastroesophageal ref lux disease without esophagitis K21.9 and Chronic hepatitis C without hepatic coma B18.2 [facility] [address] [place] [address] 12/12/2024 Andrei Kasie Assessments Encounter Date Diagnosis [...] Date CHEM 7 PROFILE 08/20/2022 LIVER PROFILE 11/23/2017 LIVER PROFILE 10/13/2014 LIVER PROFILE 10/22/2011 LIVER PROFILE 04/25/2021 LIVER PROFILE 08/19/2014 LIVER PROFILE 07/20/2013 LIVER PROFILE 03/27/2015 LIVER PROFILE 08/20/2022 LIVER PROFILE 07/06/2014 LIVER PROFILE 05/12/2016 LIVER PROFILE 06/09/2012 CBC w DIFF 05/12/2016 CBC w DIFF 11/23/2017 CBC w DIFF 10/13/2014 CBC w DIFF 10/22/2011 CBC w DIFF 04/25/2021 CBC w DIFF 08/19/2014 CBC w DIFF 07/20/2013 CBC w DIFF 08/20/2022 CBC w DIFF 07/06/2014 PROTHROMBIN TIME (PT, INR) 08/20/2022 PROTHROMBIN TIME (PT, INR) 05/12/2016 PROTHROMBIN TIME (PT, INR) 11/23/2017 PROTHROMBIN TIME (PT, INR) 10/22/2011 PROTHROMBIN TIME (PT, INR) 04/25/2021 PROTHROMBIN TIME (PT, INR) 07/20/2013 PARTIAL THROMBOPLASTIN TIME (PTT) 2013 ALPHA-FETOPROTEIN,TUMOR MARKER 2 ALPHA-FETOPROTEIN,TUMOR MARKER 3 ALPHA-FETOPROTEIN,TUMOR MARKER 3 ALPHA-FETOPROTEIN,TUMOR MARKER 04/24/201 4 ALPHA-FETOPROTEIN,TUMOR MARKER 3 ALPHA-FETOPROTEIN,TUMOR MARKER 7 ALPHA-FETOPROTEIN,TUMOR MARKER 5 ALPHA-FETOPROTEIN,TUMOR MARKER 8 CELIAC PANEL #10 11/23/2017 HEPATITIS C VIRAL [...] Provider Name:Andrei Ferro , 11/06/2025 01:20:00 PM, [address] [place] [address], [place] [address], [place], [address], Insurance Providers Payer Name Payer Address Payer Phone Subscriber Number Group Number Insured Name Patient Relationship to Insured Coverage Start Date Coverage End Date [facility] [address] [place], [place] [phone] [id number] PCP KATHLEEN CADET Self - patient is [...] 2014, 06/2015, and in 05/2016. Anxiety Denies [place],DM,CVA,Lung disease,renal dise ase Colon polyps- colonoscopy in [...]
[2025-01-26 09:31] LABS: Alanine Aminotransferase 16 U/L (0-31); Albumin Level 4.6 g/dL (3.5-5.0); Alkaline Phosphatase 67 U/L (39-117); Anion Gap 12 (12-20); Aspartate Amino Transferase 24 U/L (5-31); Blood Urea Nitrogen 18 mg/dL (9-16); Calcium 10.1 mg/dL (8.4-10.2); Carbon Dioxide 27 mmol/L (22-29); Chloride 107 mmol/L (96-108); Cholesterol 255 mg/dL (<200); Estimated Glomerular Filt Rate > 60; HDL Cholesterol 88 mg/dL (>40); Potassium 4.9 mmol/L (3.3-5.1); Sodium 141 mmol/L (135-145); Total Protein 8.1 g/dL (6.5-8.0); Triglycerides 140 mg/dL (<150)
== END 2025-01-26 08:39 | disposition home or self-care (01) ==
LOC: HO.LAB 08:38
PROVIDERS: PCP Internal Medicine
DX: E78.5 Hyperlipidemia, unspecified (principal)
CPT/HCPCS: 36415; 80048; 80061; 80076

== ENCOUNTER 2025-03-06 09:15 | Outpatient (AMB) | payer MEDICARE, SELFPAY ==
--- NOTE | 2025-03-06 12:43 | A.OFFPC_ITS ---
Intake Visit Reasons: 3 months f/up Allergies adhesive tape Adverse Reaction (Mild, Verified 01/23/25 13:31) Rash meclizine Adverse Reaction (Verified 01/23/25 13:31) High doses Medication List - Last Reconciled 03/06/25 by Facundo Easley MD calcium carb, citrate-vit D3 600 mg-12.5 mcg (500 unit) ER (Citracal-D3 Slow Release) 1 tab PO DAILY 30 days ezetimibe 10 mg PO DAILY fluticasone propion-salmeterol 250-50 mcg/dose (Wixela Inhub) 1 inh inhalation Q12H lorazepam 0.5 mg PO BID PRN 30 days nystatin 1 appl topical DAILY 30 days omeprazole 20 mg PO DAILY rosuvastatin 10 mg PO DAILY venlafaxine ER 150 mg PO DAILY Tobacco use date assessed: 08/29/24 Dental Screening Dental Screen Date: 08/29/24 HPI 3 months f/up HPI Details The patient is a 80-year-old female presenting with depression, anxiety and concerns related to pulmonary fibrosis Depression: - The patient expressed concerns related to upcoming housing situation , apartment was offered to her in basement , she want to move to [facility] to be close to her friend as she dont have family around, she is on waiting list as she dont want basement apt Pulmonary Fibrosis: - Recently identified as mild on a CAT s can. Along with mild bronchiectasis through floor specialist C - currently using Wiexila Hiatal Hernia: - The patient has had recent symptoms af ter imaging confirmed a small hiatal hernia. Patient has had surgery for large hiatal hernia in the past - Experiences discomfort when consuming large amounts of fluids. - Symptoms include continuous burping an d regurgitation of liquids. established with [facility] - her anxiety medication refill sent, co ntinue all other meds - F/u 3 M Review of Systems - General: No fever no chills - Neurological: No headaches no dizziness - Ear nose throat: No sore throat no hearing difficulty no ear pain - Cardiovascular: No syncope, no chest pain, no palpitations - Endocrine: No polyuria polydipsia no heat intolerance - Genitourinary: No dysuria , no blood in urine PFSH Medical History Pulmonary nodule Pulmonary fibrosis Intermittent palpitations Hyperkalemia GERD (gastroesophageal reflux disease) Liver fibrosis TIA (transient ischemic attack) HTN (hypertension) Depression High potassium Osteoporosis Multinodular thyroid Left lower quadrant pain Elevated alpha fetoprotein Anxiety, generalized Vertigo PFO (patent foramen ovale) Irritable bowel syndrome Hepatitis C Vitamin D deficiency Hyperparathyroidism Surgical History S/P hernia repair Hx of colonoscopy Hx of parathyroidectomy History of lumpectomy of right breast Hx of cholecystectomy Hx of hysterectomy Family History Maternal Grandmother T2DM (type 2 diabetes mellitus) Father Colon cancer Cancer Multiple myeloma Mother Brain disorder Thyroid disease Sister Thyroid nodule Hyperparathyroidism Hyperthyroidism Maternal Grandfather Heart disease Other Mental health disorder Substance use disorder Social History Household Members: None Housing: Other Alcohol intake: current Alcohol intake frequency: holidays/special occasions only Patient Tobacco Use Status: Never used Tobacco Tobacco use type: Cigarette e-Cigarette/Vaping Use: Never Used Second Hand Smoke Exposure: No service: No Current occupational status: retired Cognitive needs: No Hearing needs: No Vision needs: No Questionnaire Thrive Questionnaire Date Thrive assessed: 05/16/24 I am a: Patient What is your living situation today?: I have a steady place to live Within the past 12 months, did the food you bought not last and you didn't have the money to get more?: Sometimes True Within the past 12 months, did you worry whether your food would run out before you got money to buy more?: Often true Do you have trouble paying for medicines?: No Do you have trouble getting transportation to medical appointments?: No Do you have trouble paying your heating and electricity bill?: Yes Do you have trouble taking care of your child, family member or friend?: No Do you have trouble with day-to-day activities such as bathing, preparing meals, shopping, managing finances, etc.?: No Are you currently unemployed and looking for a job?: No Are you interested in more education?: No Currently or been in a relationship where the following occur: No concerns reported THRIVE Score: 3 KAYLEIGH-7 AMB Questionnaire KAYLEIGH-7 Date KAYLEIGH - 7 assessed: 08/29/24 Source: Developed by Drs. Andrei Lui, Colette Flanagan, Eliseo Bueno and colleagues, with an educational zulma from [employer]. Physical exam (Primary Care) Tobacco/Smoking Status: Tobacco use Status Tobacco use date assessed 08/29/24 01/09/25 13:14 Patient Tobacco Use Status Never used Tobacco 01/09/25 13:14 Tobacco use type Cigarette 01/09/25 13:14 e-Cigarette/Vaping Use Never Used 01/09/25 13:14 Thrive Assessment: Date of Thrive Assessment Date Thrive assessed 05/16/24 01/23/25 13:25 Currently or been in a relationship where the following occur: No concerns reported Telehealth Telehealth Telehealth Platform: [employer] Location of provider rendering services: practice address Location of patient: address on file Patient Identification confirmed using: Name, : Yes Telehealth method: video Patient verbally consented to treatment: Yes Patient verbally consented to billing insurance company: Yes Patient informed of any privacy concerns related to visit: Yes Minutes spent on Phone/Video with Pt.: 14 Coding Level of Care Code Tele Est Pt Level 3 (50304) Diagnoses Anxiety, generalized F41.1 Pulmonary fibrosis J84.10 Bronchiectasis without complication J47.9 Bronchiectasis type: uncomplicated Chronic GERD K21.9 Panic disorder F41.0 Recurrent major depressive disorder, in partial remission F33.41 Active/Remission status: in partial remission Hiatal hernia K44.9 Assessment & Plan Assessment & Plan (1) Anxiety, generalized: Code(s): F41.1 - Generalized anxiety disorder Category: Medical (2) Pulmonary fibrosis: Code(s): J84.10 - Pulmonary fibrosis, unspecified Category: Medical (3) Bronchiectasis: Code(s): J47.9 - Bronchiectasis, uncomplicated Category: Medical Qualifiers: Bronchiectasis type: uncomplicated Qualified Code(s): J47.9 - Bronchiectasis, uncomplicated (4) Chronic GERD: Code(s): K21.9 - Gastro-esophageal reflux disease without esophagitis Category: Medical (5) Panic disorder: Code(s): F41.0 - Panic disorder [episodic paroxysmal anxiety] Category: Medical (6) Major depression, recurrent: Code(s): F33.9 - Major depressive disorder, recurrent, unspecified Category: Medical Qualifiers: Active/Remission status: in partial remission Qualified Code(s): F33.41 - Major depressive disorder, recurrent, in partial remission (7) Hiatal hernia: Code(s): K44.9 - Diaphragmatic hernia without obstruction or gangrene Category: Medical Plan The patient is a 80-year-old female presenting with depression, anxiety and concerns related to pulmonary fibrosis Depression: - The patient expressed concerns related to upcoming housing situation , apartment was offered to her in basement , she want to move to [facility] to be close to her friend as she dont have family around, she is on waiting list as she dont want basement apt Pulmonary Fibrosis: - Recently identified as mild on a CAT scan. Along with mild bronchiectasis through floor specialist [facility] - currently using Wiexila Hiatal Hernia: - The patient has had recent symptoms after imaging confirmed a small hiatal hernia. Patient has had surgery for large hiatal hernia in the past - Experiences discomfort when consuming large amounts of fluids. - Symptoms include continuous burping and regurgitation of liquids. established with [facility] - her anxiety medication refill sent, continue all other meds - F/u 3 M Medications: Refilled lorazepam 0.5 mg PO BID PRN 60 tabs 2RF anxiety 30 days
== END 2025-03-06 13:50 | disposition home or self-care (01) ==
LOC: HO.HMCC 09:15
PROVIDERS: PCP Internal Medicine; Visit Provider Internal Medicine
DX: J84.10 Pulmonary fibrosis, unspecified (principal); J47.9 Bronchiectasis, uncomplicated; F41.1 Generalized anxiety disorder; K21.9 Gastro-esophageal reflux disease without esophagitis; F41.0 Panic disorder [episodic paroxysmal anxiety]; F33.41 Major depressive disorder, recurrent, in partial remission; K44.9 Diaphragmatic hernia without obstruction or gangrene